=== PATIENT | female | born 1985 | race Hispanic/Latino ===

== ENCOUNTER 2019-11-25 08:05 | Day surgery (SDC) | payer OTHER ==
[2019-11-25 08:13] LABS: Specific Gravity 1.015 (1.005-1.030)
--- OUTSIDE RECORDS SUMMARY | 2019-11-25 08:20 | XMS REPORT | Clinical Summary ---
:1985 Author Organization [facility] Address [address] [place] [address] Care Team Providers Name Role Phone Asked, Pcp Primary Care Provider Unavailable Allergies Active Allergy Reactions Severity Noted Date Comments Ketorolac 10/01/2016 Penicillins GI Intolerance 10/07/2016 Prochlorperazine Edisylate Itching 11/08/2013 Tramadol Anxiety, Itching Low 10/01/2016 Medications Medication Sig Dispensed Refills Start Date End Date Status tacrolimus (PROGRAF) 1 TK 8 CS PO QAM 11 04/28/2018 Active MG capsule AND 9 CS PO QPM predniSONE (DELTASONE) 5 TK 1 T PO D 9 03/13/2018 Active mg tablet Active Problems Not on file Encounters Date Type Specialty Care Team Description 11/03/2019 Travel 10/29/2019 Community Orders ADMIN Toño De Souza MD Urinary tract infection without hematuria, site unspecified (Primary Dx); Bacterial infec tion due to Klebsiella pneumoniae; Transplanted ki dney after 11/24/2018 Social History Tobacco Use Types Packs/Day Years Used Date Never Smoker Smokeless Tobacco: Never Used Alcohol Use Drinks/Week oz/Week Comments No Alcohol Habits Answer Date Recorded How often do you have a drink containing alcohol? Never 05/11/2018 How many drinks containing alcohol do you have on a typical Not asked day when you are drinking? How often do you have six or more drinks on one occasion? No t asked Sex Assigned at Date Recorded Not on file Job Start Date Occupation Industry Not on file Not on file Not on file Travel History Travel Start Travel End No recent travel history available. COVID-19 Exposure Response Date Recorded In the last month, have you been in contact with No / Unsure 11/03/2019 11:48 AM CDT someone who was confirmed or suspected to have Coronavirus / COVID-19? Last Filed Vital Signs Not on file Plan of Treatment Health Maintenance Due Date Last Done Comments CERVICAL CANCER SCREENING 2007 INFLUENZA VACCINE 12/16/2019 Results Not on fileafter 11/24/2018 Insurance Payer Benefit Plan / Subscriber ID Effective Dates Phone Addre ss Type Group MEDICARE MEDICARE PART A xxxxxxxxxxx 2010-Present [place], [place] Medicare AND B MEDICAID MEDICAID xxxxxxxxx 2014-Present Med icaid Advance Directives For more information, please contact: [phone] Type Date Recorded Patient Terminal Supervisor Explanati on Advance Directives, 01/27/2016 12:01 PM Living Will and Medical Power of Visitor Use Assistant
--- OUTSIDE RECORDS SUMMARY | 2019-11-25 08:21 | XMS REPORT | Clinical Summary ---
:1985 Author Organization [facility] Address [address] [place] [address] Care Team Providers Name Role Phone Gui Unavailable Johnnie Mensah MD Primary Care Provider Allergies Active Allergy Reactions Severity Noted Date Comments Prochlorperazine Edisylate Itching 11/08/2013 Penicillins Nausea And Vomiting 10/07/2016 Ketorolac 10/01/2016 Tramadol Itching, Anxiety Low 10/01/2016 Medications Medication Sig Dispensed Refills Start Date End Date Status tacrolimus (PROGRAF) 1 Take 8 mg In 510 capsule 11 12/30/2017 Active MG capsuleIndications: the am and S/P kidney transplant, 9mg in the Immunosuppression (HCC) pm. brompheniramine-pseudoe Take 5 mLs by 118 mL 0 01/28/2018 Active ph-DM (BROMFED DM) mouth every 4 2-30-10 mg/5 mL Syrp (four) hours. HYDROcodone-acetaminoph Take 1 tablet 20 tablet 0 11/20/2018 Active en (NORCO 5-325) 5-325 by mouth mg per tablet every 8 (eight) hours as needed for Pain. Max Daily Amount: 3 tablets predniSONE (DELTASONE) Take 1 tablet 90 tablet 3 05/15/2018 5 MG tabletIndications: (5 mg total) S/P kidney transplant by mouth daily. cefpodoxime (VANTIN) Take 1 tablet 14 tablet 0 12/03/201811/16 200 MG tablet (200 mg total) by mouth 2 (two) times daily for 7 days. acetaminophen-codeine Take 1 tablet 15 tablet 0 12/03/2018 (TYLENOL #3) 300-30 mg by mouth per tablet every 6 (six) hours as needed for Pain for up to 10 days. Max Daily Amount: 4 tablets ondansetron Take 1 tablet 20 tablet 0 12/03/2018 12/10/2018 Ex pired (ZOFRAN-ODT) 4 MG (4 mg total) disintegrating tablet by mouth every 8 (eight) hours as needed for Nausea for up to 7 days. nitrofurantoin, Take 1 14 capsule 0 12/11/2018 12/18/2018 E xpired macrocrystal-monohydrat capsule (100 e, (MACROBID) 100 MG mg total) by capsule mouth 2 (two) times daily for 7 days. nitrofurantoin, Take 1 20 capsule 0 01/11/2019 01/21/2019 E xpired macrocrystal-monohydrat capsule (100 e, (MACROBID) 100 MG mg total) by capsule mouth 2 (two) times daily for 10 days. phenazopyridine Take 1 tablet 6 tablet 0 01/11/2019 9 (PYRIDIUM) 200 MG (200 mg tablet total) by mouth 3 (three) times daily for 3 days. Active Problems Problem Noted Date CATRACHO (acute kidney injury) 11/02/2017 Bloating 09/02/2017 Last Assessment & Plan: Bloating persistent for a few months. Sh e will need to follow up with GI as outpatient. Fever 08/13/2017 UTI (urinary tract infection) 02/15/2017 Vomiting 09/03/2016 Last Assessment & Plan: Vomited this am. Recently started cellce pt 500 mg po BID. She states that she has taken cellcept before and it caused GI u pset. We will suggest switching from Cellcept to Myfortic. Immunosuppression 08/27/2016 Last Assessment & Plan: She denies headaches or tremors with her immunosuppression. We will adjust her dose according to her levels. Dizziness 08/27/2016 Last Assessment & Plan: She mentions that for the past three day s she has had intermittent dizziness. It is not attributed to anything. Blood pressu res are controlled and she does not monitor her blood glucose. Continue to monitor f or now. Kidney transplant status, cadaveric 08/20/2016 Last Assessment & Plan: She is s/p kidney transplant from 017. She is doing well and has no evidence of recurrent disease. Acute post-operative pain 08/09/2016 Last Assessment & Plan: Continued RLQ post op pain, but resolvin g Uncomplicated asthma, unspecified asthma severity 07/16 Secondary hypertension 08/09/2016 Last Assessment & Plan: Resolving since since DDKT Acute pulmonary insufficiency following non-thoracic s urgery 08/09/2016 Acute blood loss anemia 08/09/2016 End stage renal disease 08/08/2016 Palpitations 03/20/2016 Tachycardia 03/20/2016 Well woman exam 07/07/2015 Irregular menstrual bleeding 06/05/2015 Skin abnormalities 06/05/2015 Chronic pain of lower extremity 06/05/2015 Overview: UPDATED BY ICD10 SNOMED/IMO UPDATES Last Assessment & Plan: -The etiology of her leg pain is not clear. -It sounds like she has received hydroco done in the past for an unclear diagnosis. I stressed with the patient about the long-term risks of using hydrocodone, and I explained that I would not be prescribing this. -I suggested that she could consider kulwant n management evaluation if she would like to look for diagnosis for her pain. I emphasized that this would not be for chronic narcotic prescribing. ESRD (end stage renal disease) 04/04/2014 Last Assessment & Plan: S/p kidney transplant. No longer require s dialysis. Moderate persistent asthma without complication Last Assessment & Plan: -Symptoms appear to be well-controlled at this time. -The patient declined to fill out an ast hma control test or symptom questionnaire. -Refill current medications. She will co ntinue medium dose Advair for the time being. Essential hypertension Last Assessment & Plan: -Patient is currently using benazepril as needed. I explained to the patient that the medication is not normally prescribed in this way. -She is already monitoring her blood pre ssures. I asked her to bring her blood pressure log to her next visit so that we can determine what changes if any we can make to her antihypertensive therapy. -Of note, the diastolic blood pressure w as elevated today. She may possibly benefit from regular use of low-dose AHRVEY inhibitor. Lupus (systemic lupus erythematosus) Last Assessment & Plan: No evidence of recurrent disease at this time. Seizures Hypertension Last Assessment & Plan: Blood pressures are controlled on curren t therapy. Encounters Date Type Specialty Care Team Description 11/17/2019 Emergency Emergency Medicine Anil Regan MD 08/24/2019 Documentation Transplant Anabel Grayson RN 01/11/2019 Emergency Emergency Medicine Rajesh Arguellour ia (Primary Dx); MD Nicole Acute UTI; History of linda l transplant; History of lupu s ([facility]); ESRD (end-stage renal disease) due to SLE ([facility]); ESRD (end stage renal disease) ([facility]); Essential hyper tension; Secondary hyper tension; Kidney transpla nt status, cadaveric; Systemic lupus erythematosus with tubulo-interstitial nephropathy, unspecified SLE type ([facility]) 12/23/2018 - Emergency Emergency Medicine Kennedy Russo Peripanna eral edema (Primary Dx); 12/24/2018 MD Alessandro Kidney transpla nted 12/23/2018 Travel 12/11/2018 Emergency Emergency Medicine Frederick Kilgore Acute cys titis with hematuria (Primary Dx); III, DO H/O kidney parrish splant 12/11/2018 Travel 12/03/2018 Emergency Emergency Medicine Jaydon Villanueva Dysuria ( Primary Dx); MD Estevan Acute UTI; Renal transplan t, status post; CATRACHO (acute kidn ey injury) ([facility]) after 11/24/2018 Family History Medical History Relation Name Comments Asthma Brother Unremarkable Daughter Unremarkable Father Unremarkable Mother Asthma Sister Relation Name Status Comments Brother Alive Daughter Alive Father Alive Mother Alive Sister Alive Social History Tobacco Use Types Packs/Day Years Used Date Never Smoker Smokeless Tobacco: Never Used Alcohol Use Drinks/Week oz/Week Comments No Sex Assigned at Date Recorded Not on file Job Start Date Occupation Industry Not on file Not on file Not on file Travel History Travel Start Travel End No recent travel history available. Last Filed Vital Signs Vital Sign Reading Time Taken Blood Pressure 117/69 01/11/2019 4:09 PM CDT Pulse 100 01/11/2019 4:09 PM CDT Temperature 36.9 C (98.4 F) 01/11/2019 4:09 PM CDT Respiratory Rate 18 01/11/2019 4:09 PM CDT Oxygen Saturation 98% 01/11/2019 4:09 PM CDT Inhaled Oxygen Concentration - - Weight 78.9 kg (174 lb) 01/11/2019 4:09 PM CDT Height 167.6 cm (5' 6") 01/11/2019 4:09 PM CDT Body Mass Index 28.08 01/11/2019 4:09 PM CDT Plan of Treatment Health Maintenance Due Date Last Done Comments PNEUMOCOCCAL VACCINE 2-64 YEARS AT RISK (1 1992 of 1 - PPSV23) MEDICARE ANNUAL WELLNESS (YEAR 2 or FIRST 08/17/2011 YEAR if no IPPE) LIPID PANEL 06/29/2017 06/29/2014, 11/08/2013 INFLUENZA VACCINE (#1) 2019 CERVICAL CANCER SCREENING HPV AND PAP 12/10/2021 12/10/2016 , 12/10/2016 SMEAR (Age 30-65) Implants Implanted Type Area Cath Lab Tech Device Shelf Model / Serial / Identifier Expiration Lot Date Stent Uret Polaris [id number] - [id number] Uro N/A: ELIO ON 03/27/2019 [id number] / Implanted: Qty: 1 on 08/08/2016 by Khai Dorman Aba, MD ent Groin SCI:UROLOGY/FISHERY BIOLOGIST [id number] / ECOLOGY Procedures Procedure Name Priority Date/Time Associated Comments Diagnosis SCREEN, STAT 01/11/2019 4:45 Result s for this URINE PM CDT procedure are i n the results section. URINALYSIS W/ STAT 01/11/2019 4:45 Results fo r this MICROSCOPIC PM CDT procedure are i n the results section. BASIC METABOLIC PANEL STAT 12/24/2018 12:50 Re sults for this (7) AM CDT procedure are i n the results section. HEPATIC FUNCTION PANEL STAT 12/24/2018 12:50 R esults for this AM CDT procedure are i n the results section. B-TYPE NATRIURETIC STAT 12/24/2018 12:50 Resul ts for this FACTOR (BNP) AM CDT procedure are i n the results section. CBC W/PLT COUNT & AUTO STAT 12/23/2018 10:14 R esults for this DIFFERENTIAL PM CDT procedure are i n the results section. CBC W/PLT COUNT & AUTO STAT 12/23/2018 10:14 R esults for this DIFFERENTIAL PM CDT procedure are i n the results section. BASIC METABOLIC PANEL STAT 12/23/2018 10:14 Re sults for this (7) PM CDT procedure are i n the results section. URINALYSIS WITH STAT 12/23/2018 9:28 Results for this MICROSCOPIC IF PM CDT procedure are in INDICATED the results section. URINE CULTURE STAT 12/11/2018 2:04 Results fo r this AM CDT procedure are i n the results section. CBC W/PLT COUNT & AUTO STAT 12/11/2018 2:03 R esults for this DIFFERENTIAL AM CDT procedure are i n the results section. CBC W/PLT COUNT & AUTO STAT 12/11/2018 2:03 R esults for this DIFFERENTIAL AM CDT procedure are i n the results section. BASIC METABOLIC PANEL STAT 12/11/2018 2:02 Re sults for this (7) AM CDT procedure are i n the results section. SCREEN, STAT 12/11/2018 12:58 Result s for this URINE AM CDT procedure are i n the results section. URINALYSIS W/ STAT 12/11/2018 12:58 Results fo r this MICROSCOPIC AM CDT procedure are i n the results section. CBC W/PLT COUNT & AUTO STAT 12/03/2018 2:47 R esults for this DIFFERENTIAL AM CDT procedure are i n the results section. COMPREHENSIVE STAT 12/03/2018 2:47 Results fo r this METABOLIC PANEL AM CDT procedure ar e in the results section. CBC W/PLT COUNT & AUTO STAT 12/03/2018 2:47 R esults for this DIFFERENTIAL AM CDT procedure are i n the results section. SCREEN, STAT 12/03/2018 2:21 Result s for this URINE AM CDT procedure are i n the results section. URINALYSIS W/ STAT 12/03/2018 2:21 Results fo r this MICROSCOPIC AM CDT procedure are i n the results section. after 11/24/2018 Results screen, urine (01/11/2019 4:45 PM CDT)Only the most recent of3 resultswithin the time period is included. Preg Test, Ur Negative [facility] Specimen Urine Performing Organization Address City/State/Zipcode Phone Number [facility] [address] [place], [place] [address] Urinalysis w/Microscopic (01/11/2019 4:45 PM CDT)Only the most recent of3 resultswithin the time period is included. Color, UA Yellow [facility] Clarity, UA Slightly Cloudy [facility] Specific [place], UA 1.015 1.001 - 1.035 [facility] pH, UA 6.0 5.0 - 8.0 [facility] Protein, UA 30 mg/dL (A) Negative [facility] Glucose, UA Negative Negative [facility] Ketones, UA Negative Negative [facility] Bilirubin, UA Negative Negative [facility] Blood, UA Small (A) Negative [facility] Nitrite, UA Negative Negative [facility] Leukocytes, UA Moderate (A) Negative [facility] Urobilinogen, UA 0.2 0.2 - 1.0 mg/dL [facility] Bacteria, UA Few [facility] RBC, UA 5-10 /HPF [facility] WBC, UA >100 /HPF [facility] SQUAMOUS EPITHELIAL None Seen /HPF [facility] Specimen Source [facility] Specimen Urine Performing Organization Address City/State/Zipcode Phone Number [facility] [address] [place], [place] [address] B-type natriuretic peptide (12/24/2018 12:50 AM CDT) BNP 13 0 - 100 pg/mL [facility] Specimen Blood Performing Organization Address City/State/Zipcode Phone Number [address] [address] CENTER Liver Panel (12/24/2018 12:50 AM CDT) Protein, Total 7.3 6.0 - 8.3 gm/dL [facility] Albumin 4.5 3.5 - 5.0 g/dL [facility] Total Bilirubin 0.2 0.2 - 1.2 mg/dL [facility] Bilirubin, Direct 0.1 0.1 - 0.5 mg/dL [facility] Alkaline Phosphatase 77 40 - 150 U/L [facility] AST 15 5 - 34 U/L [facility] ALT 20 6 - 55 U/L [facility] Specimen Blood Performing Organization Address City/[facility]/Zipcode Phone Number [place] [phone] [place], [place] [phone] [place] Basic Metabolic Panel (12/24/2018 12:50 AM CDT)Only the most recent of3 results within the time period is included. Sodium 138 136 - 145 meq/L [facility] Potassium 3.9 3.5 - 5.1 meq/L [facility] Chloride 108 (H) 98 - 107 meq/L [facility] CO2 20 (L) 22 - 29 meq/L [facility] BUN 20 7 - 21 mg/dL [facility] Creatinine 1.00 0.57 - 1.25 mg/dL [facility] Glucose 126 (H) 70 - 105 mg/dL [facility] Calcium 10.0 8.4 - 10.2 mg/dL [facility] EGFR 64Comment: ESTIMATED GFR IS mL/min/1.73 sq m [facility] NOT ACCURATE CREATININE [facility] CLEARANCE IN PREDICTING GLOMERULAR FILTRATION RATE. ESTIMATED GFR IS NOT APPLICABLE FOR DIALYSIS PATIENTS. Specimen Blood Performing Organization Address City/[facility]/Zipcode Phone Number [place] [phone] [place], [place] [phone] [place] CBC with platelet count + automated diff (12/23/2018 10:14 PM CDT)Only the most recent of3 resultswithin the time period is included. WBC 9.2 3.5 - 10.5 K/L [facility] RBC 4.08 3.93 - 5.22 M/L [facility] Hemoglobin 12.2 11.2 - 15.7 GM/DL [facility] Hematocrit 37.5 34.1 - 44.9 % [facility] MCV 91.9 79.4 - 94.8 fL [facility] MCH 29.9 25.6 - 32.2 pg [facility] MCHC 32.5 32.2 - 35.5 GM/DL [facility] RDW 13.5 11.7 - 14.4 % [facility] Platelets 232 150 - 450 K/CU MM [facility] MPV 10.7 9.4 - 12.3 fL [facility] nRBC 0 0 - 0 /100 WBC [facility] % Neutros 62 % [facility] % Lymph[facility] 25 % [facility] % Monos 9 % [facility] % Eos 3 % [facility] % Baso 1 % [facility] # Neutros 5.69 1.56 - 6.13 K/L [facility] # Lymphs 2.30 1.18 - 3.74 K/L [facility] # Monos 0.78 (H) 0.24 - 0.36 K/L [facility] # Eos 0.25 0.04 - 0.36 K/L [facility] # Baso 0.06 0.01 - 0.08 K/L [facility] Immature Granulocytes-Relative 1 0 - 1 % C HI [facility] Specimen Blood Performing Organization Address City/State/Zipcode Phone Number [facility] [address] [place] [address] CENTER Urinalysis with Microscopic If Indicated (12/23/2018 9:28 PM CDT) Color, UA Light Yellow [facility] Clarity, UA Clear [facility] Specific [place], UA 1.006 1.001 - 1.035 [facility] pH, UA 6.0 5.0 - 8.[address] [facility] Protein, UA Negative Negative [facility] Glucose, UA Negative Negative [facility] Ketones, UA Negative Negative [facility] Bilirubin, UA Negative Negative [facility] Blood, UA Negative Negative [facility] Nitrite, UA Negative Negative [facility] Leukocytes, UA Negative Negative [facility] Urobilinogen, UA 0.2 0.2 - 1.0 mg/dL [facility] Specimen Source [facility] Specimen Urine Performing Organization Address City/State/Zipcode Phone Number [facility] [address] [place] [address] CENTER Urine culture (12/11/2018 2:04 AM CDT) Result No growth [facility] Specimen Urine Performing Organization Address City/State/Zipcode Phone Number [facility] [address] [place], [place] [address] Comprehensive metabolic panel (12/03/2018 2:47 AM CDT) Protein, Total 7.5Comment: Specimen 6.0 - 8.5 gm/dL [facility] slightly hemolyzed Albumin 4.5Comment: Specimen 3.5 - 5.0 g/dL [facility] slightly hemolyzed Alkaline Phosphatase 82 30 - 115 U/L [facility] Total Bilirubin <0.2Comment: Specimen 0.1 - 1.2 mg/dL [facility] slightly hemolyzed Sodium 140 135 - 148 meq/L [facility] Potassium 4.1Comment: Specimen 3.6 - 5.5 meq/L [facility] slightly hemolyzed Chloride 107 (H) 98 - 106 meq/L [facility] CO2 23 20 - 29 meq/L [facility] BUN 23 10 - 26 mg/dL [facility] Creatinine 1.28 (H)Comment: 0.50 - 1.20 mg/dL [facility] Specimen slightly hemolyzed Glucose 116 (H) 70 - 110 mg/dL [facility] Calcium 9.9 8.5 - 10.5 mg/dL [facility] AST 14Comment: Specimen 5 - 40 U/L [facility] slightly hemolyzed ALT 13Comment: Specimen 5 - 50 U/L [facility] slightly hemolyzed EGFR 48Comment: ESTIMATED GFR mL/min/1.73 sq m [facility] IS NOT ACCURATE CREATININE CLEARANCE IN PREDICTING GLOMERULAR FILTRATION RATE. ESTIMATED GFR IS NOT APPLICABLE FOR DIALYSIS PATIENTS. Specimen Blood Performing Organization Address City/State/Zipcode Phone Number [facility] [address] [place], [place] [address] after 11/24/2018 Insurance Payer Benefit Plan / Group Subscriber ID Type Phone A ddress MEDICARE MEDICARE A B xxxxxxxxxxx Medicare Advance Directives For more information, please contact:[address] [phone] Code Status Date Activated Date Inactivated Comments Full Code 11/02/2017 7:46 AM 11/03/2017 3:48 PM This code status was determined by: Patient Full Code 03/25/2017 8:30 PM 03/26/2017 12:37 AM This code status was determined by: Patient Full Code 02/14/2017 11:35 PM 02/15/2017 5:17 AM This code status was determined by: Patient Full Code 08/09/2016 12:07 AM 08/13/2016 11:46 PM This code status was determined by: Patient Full Code 08/08/2016 8:05 PM 08/09/2016 12:06 AM This code status was determined by: Patient
[2019-11-25] MEDS ORDERED: Ringers Lactate 0 ML IV ONE ×2 (08:31)
[2019-11-25] MEDS ORDERED: BACITRACIN 50000 UNIT VIAL ONE (08:31)
[2019-11-25] MEDS ORDERED: Mastisol Adhesive Liq ONE (08:31)
[2019-11-25] MEDS ORDERED: GENTAMICIN SULF 80 MG/2ML INJ ONE (08:31)
[2019-11-25] MEDS ORDERED: CEFAZOLIN SODIUM 1 GM/VIAL ONE (08:31)
[2019-11-25] MEDS ORDERED: LIDOCAINE 1% W/EPI 1:100,000 MDV 20 ML VIAL ONE (08:31)
[2019-11-25] MEDS ORDERED: NS 0.9% VIAL 60 ML ONE (08:31)
--- OUTSIDE RECORDS SUMMARY | 2019-11-25 08:31 | XMS REPORT | Continuity of Care Document ---
:[address] [facility] t Address [address] [place] [address] Care Team Providers Name Role Phone Asked, Pcp Primary Care Physician Unavailable Carloz Dalton MD Attending Clinician Arianne De Souza MD Attending Clinician Renuka GREGORY Attending Clinician Unavailable CHIKIS Attending Clinician Unavailable Philippe Arguello MD Attending Clinician PHILIPPE ARGUELLO Attending Clinician Unavailable Alessandro Pena MD Attending Clinician ALESSANDRO PENA Attending Clinician Unavailable MAGUI Attending Clinician Unavailable Magui DO Attending Clinician Estevan Gamino MD Attending Clinician ESTEVAN GAMINO Attending Clinician Unavailable MARCELO MUJICA Attending Clinician Unavailable CARSON STANTON Attending Clinician Unavailable ORTIZ Attending Clinician Unavailable CARLOZ DALTON Attending Clinician Unavailable CHRISTOPHER RODRIGUES Attending Clinician Unavailable ELIAS LOUIE Attending Clinician Unavailable EMILY TORRES Attending Clinician Unavailable Santosh LEHMAN Attending Clinician Unavailable TWAN VIRAMONTES Attending Clinician Unavailable SHARYN WILCOX Attending Clinician Unavailable MARIA VICTORIA ALCANTAR Attending Clinician Unavailable CESAR ROQUE Attending Clinician Unavailable MASHA PFEIFFER Attending Clinician Unavailable JASE BASILIO Attending Clinician Unavailable JAVIER FONG Attending Clinician Unavailable EMILY TORRES Admitting Clinician Unavailable TWAN VIRAMONTES Admitting Clinician Unavailable CESAR ROQUE Admitting Clinician Unavailable JASE BASILIO Admitting Clinician Unavailable JAVIER FONG Admitting Clinician Unavailable Payers Payer Name Policy Policy Number Effective Expiration Source Type Date Date MEDICAREMEDICARE A xxxxxxxxxxx [facility] MEDICAREMEDICARE PART A xxxxxxxxxxx 2010 [place] AND 00:00:00 [place]ism [place] xxxxxxxxx 2014 [place] x2014-PresentMedicai 00:00:00 Taoism domingo Problems Condition Condition Condition Status Onset Resolution Last Treating Co mments Source Name Details Category Date Date Treatment Clinician Date CATRACHO (acute CATRACHO (acute Disease Active [facility] kidney kidney 8-19 [facility] - injury) injury) 00:00: Medical 00 Center Bloating Bloating Disease Active [facility] - 00:00: t & Plan: Medical Bloating Center persisten t for a few months. She will need to follow up with GI as outpatien t. Fever Fever Disease Active [facility] 5-30 [facility] - 00:00: Medical 00 Center UTI UTI Disease Active 2016-[address] [facility] (urinary (urinary 2-02 [facility] - tract tract 00:00: Medical infection) infection) 00 Ce nter Vomiting Vomiting Disease Active [facility] 6-20 Assessmen [facility] - 00:00: t & Plan: Medical Vomited Center this am. Recently started cellcept 500 mg po BID. She states that she has taken cellcept before and it caused GI upset. We will suggest switching from Cellcept to Myfortic. Immunosupp Immunosupp Disease Active Last [facility] ression ression 6-13 Assessmen [facility] - 00:00: t & Plan: Medical She Center denies headaches or tremors with her immunosup pression. We will adjust her dose according to her levels. Dizziness Dizziness Disease Active Last [facility] 6[facility]13 Ass[facility]men [facility] - 00:00: t & Plan: Medical She Center mentions that for the past three days she has had intermitt ent dizziness . It is not attribute d to anything. Blood pressures are controlle d and she does not monitor her blood glucose. Continue to monitor for now. Kidney Kidney Disease Active Last [facility] transplant transplant 08-20 Assessmen Matt - status, status, 00:00: t & Plan: Medic al cadaveric cadaveric 00 She is Cent er s/p kidney transplan t from 08/08/2016 . She is doing well and has no evidence of recurrent disease. Acute Acute Disease Active Last [facility] post-opera post-opera 08-09 Assessmariah Gutierrez - tive pain tive pain 00:00: t & Plan: M edical 00 Continued Center RLQ post op pain, but resolving Uncomplica Uncomplica Disease Active [facility] amaris amaris 08-09 [facility] - asthma, asthma, 00:00: Medical unspecifie unspecifie 00 Ce nter d asthma d asthma severity severity Secondary Secondary Disease Active Last [facility] hypertensi hypertensi 08-09 Assessmen Matt - on on 00:00: t & Plan: Medical 00 Resolving Center since since DDKT Acute Acute Disease Active [facility] pulmonary pulmonary 08-09 [facility] - insufficie insufficie 00:00: Me dical ncy ncy 00 Center following following non-thorac non-thorac ic surgery ic surgery Acute Acute Disease Active [facility] blood loss blood loss - [place] [facility] - anemia anemia 00:00: Medical 00 [place] End stage End stage Disease Active [facility] renal renal 08-08 [facility] - disease disease 00:00: Medical 00 [place] Palpitatio Palpitatio Disease Active [facility] ns ns 1- [facility] - 00:00: Medical 00 [place] Tachycardi Tachycardi Disease Active [facility] a a 1-04 [facility] - 00:00: Medical 00 [place] Well woman Well woman Disease Active [facility] exam exam 07-06 [facility] - 00:00: Medical 00 [place] Irregular Irregular Disease Active [facility] menstrual menstrual 3- Luke s - bleeding bleeding 00:00: Medica l 00 [place] Skin Skin Disease Active [facility] abnormalit abnormalit 3-21 [facility] - ies ies 00:00: Medical 00 [place] Chronic Chronic Disease Active 2016-0 Overview: [facility] pain of pain of 3-21 UPDATED [facility] - lower lower 00:00: BY ICD10 Medical extremity extremity 00 SNOMED/IM C enter O UPDATESLa st Assessmen t & Plan: -The etiology of her leg pain is not clear.-It sounds like she has received hydrocodo ne in the past for an unclear diagnosis . I stressed with the patient about the long-term risks of using hydrocodo ne, and I explained that I would not be prescribi ng this.-I suggested that she could consider pain managemen t evaluatio n if she would like to look for diagnosis for her pain. I emphasize d that this would not be for chronic narcotic prescribi ng. ESRD (end ESRD (end Disease Active Last stage stage 1-19 Assessmen [facility] - renal renal 00:00: t & Plan: Medical disease) disease) 00 S/p Center kidney transplan t. No longer requires dialysis. 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 She will continue medium dose Advair for the time being. Essential Essential Disease Active Last St hypertensi hypertensi Assessmen [facility]ukes - on on t & Plan: Medical -Patient Center is currently using benazepri l as needed. I explained to the patient that the medicatio n is not normally prescribe d in this way.-She is already monitorin g her blood pressures . I asked her to bring her blood pressure log to her next visit so that we can determine what changes if any we can make to her antihyper tensive therapy.- Of note, the diastolic blood pressure was elevated today. She may possibly benefit from regular use of low-dose HARVEY inhibitor . Lupus Lupus Disease Active Last [facility] (systemic (systemic Assessmen L ukes - lupus lupus t & Plan: Medical erythemato erythemato No Ce nter laura) laura) evidence of recurrent disease at this time. Seizures Seizures Disease Active [facility] Hypertensi Hypertensi Disease Active Last [facility] on on Assessmen [facility] - t & Plan: Medical Blood Center pressures are controlle d on current therapy. Allergies, Adverse Reactions, Alerts Allergy Allergy Status Severity Reaction(s) Onset Inactive Treating Comm ents Source Name Type Date Date Clinician Penicill Propensi Active GI [place] ty to Intolerance 10-07 Metho di adverse 00:00: st reaction 00 s to drug Penicill Propensi Active Nausea And [facility] ins ty to Vomiting 10-07 [facility] - adverse 00:00: Medical reaction 00 [place] Ketorola Propensi Active [place] ty to 10-01 Methodi adverse 00:00: st reaction 00 s to drug Tramadol Propensi Active Anxiety, [place] ty to Itching 10-01 Methodi adverse 00:00: st reaction 00 s to drug Ketorola Propensi Active [facility] c ty to 10-01 [facility] - adverse 00:00: Medical reaction 00 [place] s Tramadol Drug Active Itching, [facility] Intolera Anxiety 10-01 [facility] - nce 00:00: Medical 00 [place] Prochlor Propensi Active Itching [place] perazine ty to 11-08 Methodi Edisylat adverse 00:00: st e reaction 00 s to drug Prochlor Propensi Active Itching [facility] t perazine ty to 8-25 [facility] - Edisylat adverse 00:00: Medical e reaction 00 [place] Compazin drug Active [facility] e allergy [facility] [place] [facility] Toradol drug Active [facility] [place] [facility] tramadol drug Active [facility] [place] [facility] Family History Family Member Diagnosis Comments Start Date Stop Date Source Mother Family history of Univers ity of diabetes mellitus [place] [facility] Natural brother Asthma [facility] Natural daughter Unremarkable [facility] Natural father Unremarkable [facility] Natural mother Unremarkable [facility] Natural sister Asthma [facility] Social History Social Habit Start Date Stop Date Quantity Comments Source History [facility] Meth odist Alcohol Std Drinks History [facility] Meth odist Alcohol Binge Exposure to Not sure [place] Metho dist SARS-CoV-2 (event) Sex Assigned At [facility] Alcohol intake 2018-05-11 2018-05-11 Current [place] Me thodist 00:00:00 00:00:00 non-drinker of alcohol (finding) History SDOH 2018-05-11 2018-05-11 1 [place] Meth odist Alcohol Frequency 00:00:00 00:00:00 Smoking Status Start Date Stop Date Source Never smoker [facility] Medications Ordered Filled Start Stop Current Ordering Indication Dosage Frequency Signature Comments Components Source Medication Medication Date Date Medication? Clinician (SIG) Name Name clomiPHENE clomiPHENE Yes AZEEMA 1 TAB PO Univers Citrate 50 Citrate 50 1-07 MOOSA M.D. QD ON DAYS ity of MG Oral MG Oral 00:00: 5-9 DAYS Jet as Tablet Tablet 00 OF CYCLE Physici ans nitrofurant 2018-03- No 100mg Q.5D Take [address] oin, 01-21 capsule [facility]ukes - macrocrysta 00:00: 23:59 (100 mg Me dical l-monohydra 00 :00 total) by [facility] ter te, mouth 2 (MACROBID) (two) 100 MG times capsule daily for 10 days. phenazopyri 2018-03- No 200mg [id number] Take [address] [facility] St dine 001-14 [id number] tablet [facility]ukes - (PYRIDIUM) 00:00: 23:59 3D (200 mg Med ical 200 MG 00 :00 total) by [place] tablet mouth 3 (three) times daily for 3 days. nitrofurant 2018- No 100mg Q.5D Take [address] oin, 12-11 10 capsule [facility] - macrocrysta 00:00: 23:59 (100 mg Me dical l-monohydra 00 :00 total) by [facility] ter te, mouth 2 (MACROBID) (two) 100 MG times capsule daily for 7 days. acetaminoph 2018- No 1{tbl} Take [address] en-codeine 12-03 tablet by Nabeel goldberg - (TYLENOL 00:00: 23:59 mouth Medical #3) 300-30 00 :00 every 6 Center mg per (six) tablet hours as needed for Pain for up to 10 days. Max Daily Amount: 4 tablets cefpodoxime 2018- No 200mg Q.5D Take [address] (VANTIN) 12-03 tablet [facility] - 200 MG 00:00: 23:59 (200 mg Medical tablet 00 :00 total) by Center mouth 2 (two) times daily for 7 days. ondansetron 2018- No 4mg Take [address] (ZOFRAN-ODT 12-03 tablet (4 [place] kes - ) 4 MG 00:00: 23:59 mg total) Medic al disintegrat 00 :00 by mouth Cent er ing tablet every 8 (eight) hours as needed for Nausea for up to 7 days. HYDROcodone Yes 1{tbl} Take [address] -acetaminop 9-06 tablet by Nabeel goldberg - hen (NORCO 00:00: mouth Medica l 5-325) 00 every 8 Center 5-325 mg (eight) per tablet hours as needed for Pain. Max Daily Amount: 3 tablets predniSONE 2019- No S/P kidney 5mg QD Take [address] (DELTASONE) 3-03 18-29 transplant tablet (5 [facility] - 5 MG tablet 00:00: 23:59 mg total) Medical 00 :00 by mouth Center daily. tacrolimus Yes TK 8 CS PO [place] (PROGRAF) 1 2-12 QAM AND 9 Met hodi MG capsule 00:00: CS PO QPM st 00 predniSONE 2017-03 Yes TK 1 T PO [place] (DELTASONE) 2-28 D Methodi 5 mg tablet 00:00: st 00 bromphenira 2017-03 Yes 5mL Take [address] mine-pseudo 1-14 by mouth Ammon s - eph-DM 00:00: every 4 Medical (BROMFED 00 (four) Center DM) 2-30-10 hours. mg/5 mL Syrp tacrolimus 2018-1 Yes Immunosuppr Take [address] (PROGRAF) 1 0-16 ession In the am L ukes - MG capsule 00:00: ([facility]) and 9mg in Medical 00 the pm. Center Tacrolimus Tacrolimus Yes M.A. Uni vers 1 MG Oral 1 MG Oral ity o f Capsule Capsule [place] [facility] predniSONE predniSONE Yes M.A. Uni vers 5 MG Oral 5 MG Oral ity o f Tablet Tablet [place] [facility] Vital Signs Vital Name Observation Time Observation Value Comments Source BP Systolic 2019-03-23 130 mm[Hg] Location: [facility] :: Position: [place] [facility] Sitting BP Diastolic 2019-03-23 80 mm[Hg] Location: [facility] :: Position: [place] [facility] Sitting Height 2019-03-23 65 [in_us] [facility] :: [place] [facility] Weight 2019-03-23 179 [lb_av] [facility] :: [place] [facility] Body Mass Index 2019-03-23 29.79 kg/m2 [place] o f Calculated 11:: [place] [facility] Heart Rate 2019-03-23 82 /min [facility] :: [place] [facility] BP Systolic 2019-01-18 127 mm[Hg] Location: [facility] :30: Position: [place] [facility] Sitting BP Diastolic 2019-01-18 80 mm[Hg] Location: [facility] :30:00 Position: [place] [facility] Sitting Height 2019-01-18 65 [in_us] [facility] :30:00 [place] [facility] Weight 2019-01-18 172 [lb_av] [facility] :: [place] [facility] Body Mass Index 2019-01-18 28.62 kg/m2 [place] o f Calculated 10:30: [place] [facility] Heart Rate 2019-01-18 78 /min [facility] :: [place] [facility] Systolic blood 2019-01-11 117 mm[Hg] [facility] - pressure 16:09:00 [facility] Diastolic blood 2019-01-11 69 mm[Hg] [facility] - pressure 16:09:00 [facility] Heart rate 2019-01-11 100 /min [facility] - 16:09:00 [facility] Body temperature 2019-01-[address] [facility] - 16:09:00 [facility] Respiratory rate 2019-01-11 18 /min MARK Jean s - 16:09:00 [facility] Body height 2019-01-11 167.6 cm MARK Ozuna - 16:09:00 [facility] Body weight 2019-01-11 78.926 kg MARK Ozuna - Measured 16:09:00 [facility] BMI 2019-01-11 28.08 kg/m2 MARK Ozuna - 16:09:00 [facility] Oxygen saturation 2019-01-11 98 /min MARK Barrientos es - in Arterial blood 16:09:00 Medical nter by Pulse oximetry BP Systolic 2018-09-15 122 mm[Hg] Location: [facility]; [facility] 11:58:00 Position: [place] [facility] Sitting BP Diastolic 2018-09-15 81 mm[Hg] Location: [facility]; [facility] 11:58:00 Position: [place] [facility] Sitting Height 2018-09-15 65 [in_us] [facility] 11:58:00 [place] [facility] Weight 2018-09-15 174 [lb_av] [facility] 11:58:00 [place] [facility] Body Mass Index 2018-09-15 28.96 kg/m2 [place] o Calculated 11:58:00 [place] [facility] Heart Rate 2018-09-15 79 /min [facility] 11:58:00 [place] [facility] Procedures Procedure Date / Time Performing Clinician Source Performed [H] Anti-Mullerian Hormone 2019-03-23 00:00:00 [facility] [L] Vitamin D, 25-Hydroxy, 2019-01-18 00:00:00 [facility] Total - [facility] Physicians [QLH] CBC (INCLUDES 2019-01-18 00:00:00 [facility] DIFF/PLT) Physicians [QL] CMP W/EGFR 2019-01-18 00:00:00 [facility] Physicians [QL] HEMOGLOBIN A1c 2019-01-18 00:00:00 [facility] [QL] LIPID PANEL 2019-01-18 00:00:00 [facility] Physicians [[facility]] T4, FREE 2019-01-18 00:00:00 [place] [facility] [place] Physicians [[facility]] TSH, 3RD GENERATION 2019-01-18 00:00:00 [facility] . [facility] - PAP 2019-01-18 00:00:00 [place] o [facility] [place] Physicians URINALYSIS W/ MICROSCOPIC 2019-01-11 16:45:00 Rajesh Arguello [facility] SCREEN, URINE 2019-01-11 16:45:[address] [facility] B-TYPE NATRIURETIC FACTOR 2018-12-24 00:50:00 Kennedy Pena [facility] - (BNP) [facility] HEPATIC FUNCTION PANEL 2018-12-24 00:50:00 [facility] BASIC METABOLIC PANEL (7) 2018-12-24 00:50:00 [facility] BASIC METABOLIC PANEL (7) 2018-12-23 22:14:00 [facility] CBC W/PLT COUNT & AUTO 2018-12-23 22:14:00 [facility] URINALYSIS WITH 2018-12-23 21:28:00 Kennedy Pena [facility] - MICROSCOPIC IF INDICATED [facility] URINE CULTURE 2018-12-11 02:04:00 Magui, [facility] CBC W/PLT COUNT & AUTO 2018-12-11 02:03:00 Magui, [facility] BASIC METABOLIC PANEL (7) 2018-12-11 02:02:00 Magui, [facility] URINALYSIS W/ MICROSCOPIC 2018-12-11 00:58:00 Magui, [facility] SCREEN, URINE 2018-12-11 00:58:00 Magui, [facility] COMPREHENSIVE METABOLIC 2018-12-03 02:47:00 Gamino, Jaydon [facility] CBC W/PLT COUNT & AUTO 2018-12-03 02:47:00 Gamino, [facility] URINALYSIS W/ MICROSCOPIC 2018-12-03 02:21:00 GaminoJaydon manley [facility] SCREEN, URINE 2018-12-03 02:21:00 GaminoJaydon [facility] [L] Vitamin D, 25-Hydroxy, 2018-09-15 00:00:[address] [facility] Total - [facility] Physicians [QLH] CBC (INCLUDES 2018-09-15 00:00:00 [facility] DIFF/PLT) Physicians [QLH] CMP W/EGFR 2018-09-15 00:00:00 [facility] Physicians [QLH] HEMOGLOBIN A1c 2018-09-15 00:00:00 [facility] Physicians [QLH] LIPID PANEL 2018-09-15 00:00:00 [facility] Physicians [QLH] T4, FREE 2018-09-15 00:00:00 [place] [facility] [place] Physicians [QL] TSH, 3RD GENERATION 2018-09-15 00:00:00 [facility] [Q] HIV-1/2 Antigen and 2018-09-15 00:00:00 [facility] Antibodies, Fourth Physicians Generation, with Reflexes [QH] HEPATITIS B SURFACE 2018-09-15 00:00:00 [facility] ANTIGEN W/REFL CONFIRM Physician s [QH] HIV AB, HIV 1/2, EIA, 2018-09-15 00:00:[address] [facility] WITH REFLEXES Physicians [QL] HEPATITIS C ANTIBODY 2018-09-15 00:00:[address] [facility] Physicians [QL] RPR 2018-09-15 00:00:00 [place] o [facility] [place] Physicians . [facility] - GC/Chlamydia 2018-09-15 00:00:00 [facility] Physicians . [facility] - Affirm VPIII 2018-09-15 00:00:00 [facility] (BV Panel) Physicians US Pelvis with Pelvis 2018-09-15 00:00:00 [facility] Transvaginal [id number] Physicians History of [place] o [facility] [place] Section Physicians History of Kidney [facility] transplantation Physicians Plan of Care Planned Activity Planned Date Details Comments Source Future Scheduled 2021-12-[address] Nabeel es - Test 00:00:00 malignant neoplasm of Medica l Center cervix (procedure) [code = 427135964] Future Scheduled 2019-12-16 INFLUENZA VACCINE [place] [facility] Test 00:00:00 [code = INFLUENZA VACCINE] Future Scheduled 2019-11-16 INFLUENZA VACCINE (#1) [facility] - Test 00:00:00 [code = INFLUENZA Medical Ce nter VACCINE (#1)] Future Scheduled 2017-06-[address] [facility] - Test 00:00:00 (procedure) [code = Medical Center 22879349] Future Scheduled 2011-08-[address] L ukes - Test 00:00:00 WELLNESS (YEAR 2 or Medical Center FIRST YEAR if no IPPE) [code = MEDICARE ANNUAL WELLNESS (YEAR 2 or FIRST YEAR if no IPPE)] Future Scheduled 2007 Screening for [place] [facility] Test 00:00:00 malignant neoplasm of cervix (procedure) [code = 265604796] Future Scheduled [address] [facility] - Test 00:00:00 2-64 YEARS AT RISK (1 Medica l Center of 1 - PPSV23) [code = PNEUMOCOCCAL VACCINE 2-64 YEARS AT RISK (1 of 1 - PPSV23)] Encounters Start End Encounter Admission Attending Care Care Encounter Source Date/Time Date/Time Type Type Clinicians Facility Department ID 2019-03-23 2019-03-23 MARCELLUS Deleon [facility]'s [id number] Univers 11:10:00 11:10:00 t; JO ANN DIOP Center Rubio Simpson M.D. Physici ans 2019-01-18 2019-01-18 Radha DIOP [facility] [id number] Univers 09:50:00 09:50:00 t; JO ANN DIOP Center Rubio Simpson M.D. Physici ans 2018-10-27 2018-10-27 Radha DIOP [facility] [id number] Univers 11:10:00 11:10:00 t; JO ANN DIOP ity of AZE[place], M.D. [place] M.D. Physici ans 2018-09-15 2018-09-15 Appointmariah DIOP [facility]'s [id number] Univers 11:30:00 11:30:00 t; JO ANN DIOP Center Rubio Simpson M.D. Physici ans Results Test Description Test Time Test Comments Results Result Comments Source [H] Anti-Mullerian Hormone 2019-03-23 12:00:01 Test Item Value Reference Range Interpretation Comme nts Anti-Mullerian Hormone AssessR 0.491 ng/ml For assays employing antibodies, the (test code = Anti-Mullerian possibility exists forinterference Hormone AssessR) by heteroph ile antibodies in the samples.11. Joanne Albert. Interferences in Immunoassays - still athreat. Clin. Chem. 200 0; 46: 1410-5366.Refer ence Range:Females 31 - 35y: 0.66 - 8 .75Median 3.00AMH concentrations of >= 1.06 ng/mL is correlated with abetter response to ovarian stimula tion, produced moreretrievable oocytes and higher odds of live bi rth accordingto Karel et al. Fertility and Sterility. 2010 :94:2647-2921. The current AMH eduardo t method correlates withthe study m ethod with a slope of 0.94.Females at risk of ovarian hyperstimulatio n syndrome orpolycystic ov zoran syndrome (PCOS) may exhibit jaleesa vatedserum AMH concentrations. AMH levels from PCOS patientsma y be 2 to 5 fold higher than age -appropriate referenceinterv al values.Granulosa cell tumors of the ovary may secrete AMH alongwith o ther tumor markers. Elevated AMH is not specific formalignancy, and the assay should not be used exc lusively todiagnose or exclude an A MH-secreting ovarian tumor.Performed At: [id number] [place] [address] 5358Pepstanton Real MD Ph:[phone] [facility] Physicians. [facility] - [id number] 00:00:00 Test Item Value Reference Range Interpretation Comments PAP REPORT (test code = 59117-2) See Comment [facility] PhysiciansUrinalysis w/[id number] 17:05:00 Test Item Value Reference Range Interpretation Comments Color, UA (test code = Yellow 5778-6) Clarity, UA (test code = Slightly Cloudy 5767-9) Specific Williams, UA (test 1.015 1.001-1.035 code = 5811-5) pH, UA (test code = 5803-2) 6.0 5.0-8.0 Protein, UA (test code = 30 mg/dL Negative A 61052-2) Glucose, UA (test code = 365) Negative Negative Ketones, UA (test code = Negative Negative 2514-8) Bilirubin, UA (test code = Negative Negative 13968-8) Blood, UA (test code = Small Negative A 32600-8) Nitrite, UA (test code = Negative Negative 5802-4) Leukocytes, UA (test code = Moderate Negative A 5799-2) Urobilinogen, UA (test code = 0.2 mg/dL 0.2-1 41805-9) Bacteria, UA (test code = Few 21820-3) RBC, UA (test code = 799-7) 5-10 /HPF WBC, UA (test code = 91080-9) >100 /HPF SQUAMOUS EPITHELIAL (test None Seen /HPF code = 43552-2) Specimen Source (test code = 2795) Lab Interpretation (test code Abnormal = 38130-9) [facility] [id number] 17:05:00 Test Item Value Reference Range Interpretation Comments Preg Test, Ur (test code = 2112-1) Negative [facility], [id number] 17:05:00 Test Item Value Reference Range Interpretation Comments TEST URINE (BEAKER) (test Negative code = 583) URINALYSIS W/ [id number] 17:05:00 Test Item Value Reference Range Interpretation Comments COLOR (BEAKER) (test code = Yellow 470) CLARITY (BEAKER) (test code = Slightly Cloudy 469) SPECIFIC GRAVITY UA (BEAKER) 1.015 1.001-1.035 (test code = 468) PH UA (BEAKER) (test code = 6.0 5.0-8.0 467) PROTEIN UA (BEAKER) (test 30 mg/dL Negative A code = 464) GLUCOSE UA (BEAKER) (test Negative Negative code = 365) KETONES UA (BEAKER) (test Negative Negative code = 371) BILIRUBIN UA (BEAKER) (test Negative Negative code = 462) BLOOD UA (BEAKER) (test code Small Negative A = 461) NITRITE UA (BEAKER) (test Negative Negative code = 465) LEUKOCYTE ESTERASE UA Moderate Negative A (BEAKER) (test code = 466) UROBILINOGEN UA (BEAKER) 0.2 mg/dL 0.2-1.0 (test code = 463) BACTERIA (BEAKER) (test code Few = 517) RBC UA-MANUAL (BEAKER) (test 5-10 /HPF code = 1659) WBC UA-MANUAL (BEAKER) (test >100 /HPF code = 1661) SQUAMOUS EPITHELIAL MANUAL None Seen /HPF (BEAKER) (test code = 1663) SOURCE(BEAKER) (test code = 2795) Basic Metabolic [id number] 01:40:00 Test Item Value Reference Range Interpretation Comments Sodium (test code = 138 meq/L 981-227 6737-2) Potassium (test code = 3.9 meq/L 3.5-5.1 2823-3) Chloride (test code = 108 meq/L 98-107 H 2075-0) CO2 (test code = 20 meq/L 22-29 L 2028-9) BUN (test code = 20 mg/dL 7-21 3094-0) Creatinine (test code = 1.00 mg/dL 0.57-1.25 2160-0) Glucose (test code = 126 mg/dL 70-105 H 2345-7) Calcium (test code = 10.0 mg/dL 8.4-10.2 28242-8) EGFR (test code = 64 mL/min/1.73 [place] [address]-4) NOT ACCURATE CREATININE CLEARANCE IN PREDICTING GLOMERULAR FILTRATION RATE . ESTIMATED GFR I S NOT APPLICABLE FOR DIALYSIS PATIEN TS. Lab Interpretation Abnormal (test code = 47940-7) [facility] [id number] 01:40:00 Test Item Value Reference Range Interpretation Comments Protein, Total (test code = 2885-2) 7.3 6.0- 8.3 gm/dL Albumin (test code = 65492-3) 4.5 g/dL 3.5-5 Total Bilirubin (test code = 0.2 mg/dL 0.2-1.2 1974-2) Bilirubin, Direct (test code = 0.1 mg/dL 0.1-0.5 1967-7) Alkaline Phosphatase (test code = 77 U/L 40-150 6768-6) AST (test code = 1920-8) 15 U/L 5-34 ALT (test code = 1742-6) 20 U/L 6-55 Lab Interpretation (test code = Normal 48949-6) [facility]HEPAT[facility] FUNCTION [id number] 01:40:00 Test Item Value Reference Range Interpretation Comments TOTAL PROTEIN (BEAKER) (test code = 7.3 gm/dL 6.0-8.3 770) ALBUMIN (BEAKER) (test code = 1145) 4.5 g/dL 3.5-5.0 BILIRUBIN TOTAL (BEAKER) (test code 0.2 mg/dL 0.2-1.2 = 377) BILIRUBIN DIRECT (BEAKER) (test 0.1 mg/dL 0.1-0.5 code = 706) ALKALINE PHOSPHATASE (BEAKER) (test 77 U/L 40-150 code = 346) AST (SGOT) (BEAKER) (test code = 15 U/L 5-34 353) ALT (SGPT) (BEAKER) (test code = 20 U/L 6-55 347) BASIC METABOLIC [id number] 01:40:00 Test Item Value Reference Range Interpretation Comments SODIUM (BEAKER) 138 meq/L 136-145 (test code = 381) POTASSIUM (BEAKER) 3.9 meq/L 3.5-5.1 (test code = 379) CHLORIDE (BEAKER) 108 meq/L 98-107 H (test code = 382) CO2 (BEAKER) (test 20 meq/L 22-29 L code = 355) BLOOD UREA NITROGEN 20 mg/dL 7-21 (BEAKER) (test code = 354) CREATININE (BEAKER) 1.00 mg/dL 0.57-1.25 (test code = 358) GLUCOSE RANDOM 126 mg/dL 70-105 H (BEAKER) (test code = 652) CALCIUM (BEAKER) 10.0 mg/dL 8.4-10.2 (test code = 697) EGFR (BEAKER) (test 64 mL/min/1.73 ESTIMA AMARIS GFR IS code = 1092) sq m NOT ACCURATE CREATININE CLEARANCE IN PREDICTING GLOMERULAR FILTRATION RATE . ESTIMATED GFR I S NOT APPLICABLE FOR DIALYSIS PATIEN TS. B-type natriuretic [id number] 01:26:00 Test Item Value Reference Range Interpretation Comments BNP (test code = 90428-9) 13 pg/mL 0-100 Lab Interpretation (test code = Normal 83628-5) [facility] NATRIURE[facility] FACTOR (BNP)2018-12-24 01:26:00 Test Item Value Reference Range Interpretation Comments B-TYPE NATRIURETIC PEPTIDE (BEAKER) 13 pg/mL 0-100 (test code = 700) BASIC METABOLIC [id number] 23:37:00 Test Item Value Reference Range Interpretation Comments SODIUM (BEAKER) 138 meq/L 136-145 markedly hem olyzed (test code = 381) called b # to reorder & redrawThis is a corrected resul t. Previous result was 138 meq/L on 12/23/2018 at 22 49 CDT POTASSIUM (BEAKER) 5.0 meq/L 3.5-5.1 markedly hemolyzed (test code = 379) called b # to reorder & redrawThis is a corrected resul t. Previous result was 5.0 meq/L on 12/23/2018 at 22 49 CDT CHLORIDE (BEAKER) 109 meq/L 98-107 H markedly h emolyzed (test code = 382) called b # to reorder & redrawThis is a corrected resul t. Previous result was 109 meq/L on 12/23/2018 at 22 49 CDT CO2 (BEAKER) (test 19 meq/L 22-29 L markedly hemolyzed code = 355) called b # to reorder & redrawThis is a corrected resul t. Previous result was 19 meq/L on 12/23/2018 at 22 49 CDT BLOOD UREA NITROGEN 21 mg/dL 7-21 markedly hemolyzed (BEAKER) (test code called b # to = 354) reorder & redrawThis is a corrected resul t. Previous result was 21 mg/dL on 12/23/2018 at 22 49 CDT CREATININE (BEAKER) 1.02 mg/dL 0.57-1.25 markedly hemolyzed (test code = 358) called b # to reorder & redrawThis is a corrected resul t. Previous result was 1.02 mg/dL on 12/23/2018 at 22 49 CDT GLUCOSE RANDOM 88 mg/dL 70-105 markedly hemo lyzed (BEAKER) (test code called b # to = 652) reorder & redrawThis is a corrected resul t. Previous result was 88 mg/dL on 12/23/2018 at 22 49 CDT CALCIUM (ARJUN) 9.9 mg/dL 8.4-10.2 markedly he molyzed (test code = 697) called b # to reorder & redrawThis is a corrected resul t. Previous result was 9.9 mg/dL on 12/23/2018 at 22 49 CDT EGFR (ARJUN) (test 63 mL/min/1.73 ESTIMA AMARIS GFR IS code = 1092) sq m NOT ACCURATE CREATININE CLEARANCE IN PREDICTING GLOMERULAR FILTRATION RATE . ESTIMATED GFR I S NOT APPLICABLE FOR DIALYSIS PATIENTS.This i s a corrected resul t. Previous result was 63 mL/min/1.73 sq m on 12/23/2018 at 2249 CDT CBC with platelet count + automated [id number] 22:31:00 Test Item Value Reference Range Interpretation Comments WBC (test code = 6690-2) 9.2 3.5- 10.5 K/L RBC (test code = 789-8) 4.08 3.93- 5.22 M/L MCHC (test code = 786-4) 32.5 32.2- 35.5 GM/DL Hematocrit (test code = 4544-3) 37.5 % 34.1-44.9 MCV (test code = 787-2) 91.9 fL 79.4-94.8 MCH (test code = 785-6) 29.9 pg 25.6-32.2 RDW (test code = 788-0) 13.5 % 11.7-14.4 Platelets (test code = 777-3) 232 150- 450 K/CU MM MPV (test code = 77458-5) 10.7 fL 9.4-12.3 nRBC (test code = 413) 0 0- 0 /100 WBC % Neutros (test code = 429) 62 % % Lymphs (test code = 430) 25 % % Monos (test code = 431) 9 % % Eos (test code = 432) 3 % % Baso (test code = 437) 1 % # Neutros (test code = 670) 5.69 1.56- 6.13 K/L # Lymphs (test code = 414) 2.30 1.18- 3.74 K/L # Monos (test code = 415) 0.78 0.24- 0.36 K/L H # Eos (test code = 416) 0.25 0.04- 0.36 K/L # Baso (test code = 417) 0.06 0.01- 0.08 K/L Immature Granulocytes-Relative 1 % 0-1 (test code = 2801) Lab Interpretation (test code = Abnormal 05421-4) [facility] W/PLT COUNT & AUTO [id number] 22:31:00 Test Item Value Reference Range Interpretation Comments WHITE BLOOD CELL COUNT (BEAKER) 9.2 K/ L 3.5-10.5 (test code = 775) RED BLOOD CELL COUNT (BEAKER) 4.08 M/ L 3.93-5.22 (test code = 761) HEMOGLOBIN (BEAKER) (test code = 12.2 GM/DL 11.2-15.7 410) HEMATOCRIT (BEAKER) (test code = 37.5 % 34.1-44.9 411) MEAN CORPUSCULAR VOLUME (BEAKER) 91.9 fL 79.4-94.8 (test code = 753) MEAN CORPUSCULAR HEMOGLOBIN 29.9 pg 25.6-32.2 (BEAKER) (test code = 751) MEAN CORPUSCULAR HEMOGLOBIN CONC 32.5 GM/DL 32.2-35.5 (BEAKER) (test code = 752) RED CELL DISTRIBUTION WIDTH 13.5 % 11.7-14.4 (BEAKER) (test code = 412) PLATELET COUNT (BEAKER) (test 232 K/CU MM 150-450 code = 756) MEAN PLATELET VOLUME (BEAKER) 10.7 fL 9.4-12.3 (test code = 754) NUCLEATED RED BLOOD CELLS 0 /100 WBC 0-0 (BEAKER) (test code = 413) NEUTROPHILS RELATIVE PERCENT 62 % (BEAKER) (test code = 429) LYMPHOCYTES RELATIVE PERCENT 25 % (BEAKER) (test code = 430) MONOCYTES RELATIVE PERCENT 9 % (BEAKER) (test code = 431) EOSINOPHILS RELATIVE PERCENT 3 % (BEAKER) (test code = 432) BASOPHILS RELATIVE PERCENT 1 % (BEAKER) (test code = 437) NEUTROPHILS ABSOLUTE COUNT 5.69 K/ L 1.56-6.13 (BEAKER) (test code = 670) LYMPHOCYTES ABSOLUTE COUNT 2.30 K/ L 1.18-3.74 (BEAKER) (test code = 414) MONOCYTES ABSOLUTE COUNT (BEAKER) 0.78 K/ L 0.24-0.36 H (test code = 415) EOSINOPHILS ABSOLUTE COUNT 0.25 K/ L 0.04-0.36 (BEAKER) (test code = 416) BASOPHILS ABSOLUTE COUNT (BEAKER) 0.06 K/ L 0.01-0.08 (test code = 417) IMMATURE GRANULOCYTES-RELATIVE 1 % 0-1 PERCENT (BEAKER) (test code = 2801) Urinalysis with Microscopic If [id number] 22:03:00 Test Item Value Reference Range Interpretation Comments Color, UA (test code = 5778-6) Light Yellow Clarity, UA (test code = 5767-9) Clear Specific Williams, UA (test code 1.006 1.001-1.035 = 5811-5) pH, UA (test code = 5803-2) 6.0 5.0-8.0 Protein, UA (test code = Negative Negative 63180-1) Glucose, UA (test code = 365) Negative Negative Ketones, UA (test code = 2514-8) Negative Negative Bilirubin, UA (test code = Negative Negative 02888-1) Blood, UA (test code = 70737-2) Negative Negative Nitrite, UA (test code = 5802-4) Negative Negative Leukocytes, UA (test code = Negative Negative 5799-2) Urobilinogen, UA (test code = 0.2 mg/dL 0.2-1 44951-4) Specimen Source (test code = 2795) [facility]IC IF [id number] 22:03:00 Test Item Value Reference Range Interpretation Comments COLOR (BEAKER) (test code = 470) Light Yellow CLARITY (BEAKER) (test code = Clear 469) SPECIFIC GRAVITY UA (BEAKER) 1.006 1.001-1.035 (test code = 468) PH UA (BEAKER) (test code = 467) 6.0 5.0-8.0 PROTEIN UA (BEAKER) (test code = Negative Negative 464) GLUCOSE UA (BEAKER) (test code = Negative Negative 365) KETONES UA (BEAKER) (test code = Negative Negative 371) BILIRUBIN UA (BEAKER) (test code Negative Negative = 462) BLOOD UA (BEAKER) (test code = Negative Negative 461) NITRITE UA (BEAKER) (test code = Negative Negative 465) LEUKOCYTE ESTERASE UA (BEAKER) Negative Negative (test code = 466) UROBILINOGEN UA (BEAKER) (test 0.2 mg/dL 0.2-1.0 code = 463) SOURCE(BEAKER) (test code = 2795) Urine [id number] 08:08:00 Test Item Value Reference Range Interpretation Comments Result (test code = 6463-4) [facility] [id number] 08:08:00 Test Item Value Reference Range Interpretation Comments CULTURE (BEAKER) (test code = 1095) No growth BASIC METABOLIC [id number] 02:26:00 Test Item Value Reference Range Interpretation Comments SODIUM (BEAKER) 138 meq/L 135-148 (test code = 381) POTASSIUM (BEAKER) 3.7 meq/L 3.6-5.5 (test code = 379) CHLORIDE (BEAKER) 104 meq/L 98-106 (test code = 382) CO2 (BEAKER) (test 22 meq/L 20-29 code = 355) BLOOD UREA NITROGEN 18 mg/dL 10-26 (BEAKER) (test code = 354) CREATININE (BEAKER) 0.88 mg/dL 0.50-1.20 (test code = 358) GLUCOSE RANDOM 136 mg/dL 70-110 H (BEAKER) (test code = 652) CALCIUM (BEAKER) 9.7 mg/dL 8.5-10.5 (test code = 697) EGFR (BEAKER) (test 74 mL/min/1.73 ESTIMA AMARIS GFR IS code = 1092) sq m NOT ACCURATE CREATININE CLEARANCE IN PREDICTING GLOMERULAR FILTRATION RATE . ESTIMATED GFR I S NOT APPLICABLE FOR DIALYSIS PATIEN TS. CBC W/PLT COUNT & AUTO [id number] 02:17:00 Test Item Value Reference Range Interpretation Comments WHITE BLOOD CELL COUNT (BEAKER) 8.7 K/ L 4.0-10.0 (test code = 775) RED BLOOD CELL COUNT (BEAKER) 4.06 M/ L 4.00-5.00 (test code = 761) HEMOGLOBIN (BEAKER) (test code = 11.5 GM/DL 12.0-15.5 L 410) HEMATOCRIT (BEAKER) (test code = 36.5 % 36.0-46.0 411) MEAN CORPUSCULAR VOLUME (BEAKER) 89.9 fL 82.0-99.0 (test code = 753) MEAN CORPUSCULAR HEMOGLOBIN 28.3 pg 27.0-33.0 (BEAKER) (test code = 751) MEAN CORPUSCULAR HEMOGLOBIN CONC 31.5 GM/DL 32.0-36.0 L (BEAKER) (test code = 752) RED CELL DISTRIBUTION WIDTH 13.3 % 12.0-15.0 (BEAKER) (test code = 412) PLATELET COUNT (BEAKER) (test 260 K/CU MM 150-430 code = 756) MEAN PLATELET VOLUME (BEAKER) 9.8 fL 6.0-11.5 (test code = 754) NUCLEATED RED BLOOD CELLS 0 /100 WBC 0-0 (BEAKER) (test code = 413) NEUTROPHILS RELATIVE PERCENT 65 % (BEAKER) (test code = 429) LYMPHOCYTES RELATIVE PERCENT 25 % (BEAKER) (test code = 430) MONOCYTES RELATIVE PERCENT 7 % (BEAKER) (test code = 431) EOSINOPHILS RELATIVE PERCENT 2 % (BEAKER) (test code = 432) BASOPHILS RELATIVE PERCENT 0 % (BEAKER) (test code = 437) NEUTROPHILS ABSOLUTE COUNT 5.63 K/ L 1.80-8.00 (BEAKER) (test code = 670) LYMPHOCYTES ABSOLUTE COUNT 2.17 K/ L 1.48-4.50 (BEAKER) (test code = 414) MONOCYTES ABSOLUTE COUNT (BEAKER) 0.57 K/ L 0.00-1.30 (test code = 415) EOSINOPHILS ABSOLUTE COUNT 0.20 K/ L 0.00-0.50 (BEAKER) (test code = 416) BASOPHILS ABSOLUTE COUNT (BEAKER) 0.03 K/ L 0.00-0.20 (test code = 417) IMMATURE GRANULOCYTES-RELATIVE 1 % 0-0 H PERCENT (BEAKER) (test code = 2801) URINALYSIS W/ [id number] 01:17:00 Test Item Value Reference Range Interpretation Comments COLOR (BEAKER) (test code = Yellow 470) CLARITY (BEAKER) (test code = Slightly Cloudy 469) SPECIFIC GRAVITY UA (BEAKER) 1.015 1.001-1.035 (test code = 468) PH UA (BEAKER) (test code = 5.5 5.0-8.0 467) PROTEIN UA (BEAKER) (test Negative Negative code = 464) GLUCOSE UA (BEAKER) (test Negative Negative code = 365) KETONES UA (BEAKER) (test Negative Negative code = 371) BILIRUBIN UA (BEAKER) (test Negative Negative code = 462) BLOOD UA (BEAKER) (test code Large Negative A = 461) NITRITE UA (BEAKER) (test Negative Negative code = 465) LEUKOCYTE ESTERASE UA Trace Negative A (BEAKER) (test code = 466) UROBILINOGEN UA (BEAKER) 0.2 mg/dL 0.2-1.0 (test code = 463) BACTERIA (BEAKER) (test code Occasional = 517) RBC UA-MANUAL (BEAKER) (test >100 /HPF code = 1659) WBC UA-MANUAL (BEAKER) (test <5 /HPF code = 1661) SQUAMOUS EPITHELIAL MANUAL <5 /HPF (BEAKER) (test code = 1663) RENAL EPITHELIAL MANUAL <5 /HPF (BEAKER) (test code = 1662) SOURCE(BEAKER) (test code = 2795) SCREEN, [id number] 01:11:00 Test Item Value Reference Range Interpretation Comments TEST URINE (BEAKER) (test Negative code = 583) Comprehensive metabolic [id number] 03:43:00 Test Item Value Reference Range Interpretation Comments Protein, Total (test 7.5 6.0- 8.5 gm/dL Speci men slightly code = 2885-2) hemolyzed Albumin (test code = 4.5 g/dL 3.5-5 Specime n slightly 51853-8) hemolyzed Alkaline Phosphatase 82 U/L 30-115 (test code = 6768-6) Total Bilirubin (test <0.2 0.1-1.2 Specim en slightly code = 1975-2) hemolyzed Sodium (test code = 140 meq/L 103-483 2938-2) Potassium (test code = 4.1 meq/L 3.6-5.5 Speci men slightly 2823-3) hemolyzed Chloride (test code = 107 meq/L 98-106 H 5-0) CO2 (test code = 23 meq/L -2027-9) BUN (test code = 23 mg/dL - 3094-0) Creatinine (test code = 1.28 mg/dL 0.5-1.2 H Spec imen slightly 2160-0) hemolyzed Glucose (test code = 116 mg/dL 70-110 H 2345-7) Calcium (test code = 9.9 mg/dL 8.5-10.5 74707-1) AST (test code = 14 U/L 5-40 Specimen sl ightly 1920-8) hemolyzed ALT (test code = 13 U/L 5-50 Specimen sl ightly 1742-6) hemolyzed EGFR (test code = 48 mL/min/1.73 [place] [address]-1) NOT ACCURATE CREATININE CLEARANCE IN PREDICTING GLOMERULAR FILTRATION RATE . ESTIMATED GFR I S NOT APPLICABLE FOR DIALYSIS PATIEN TS. Lab Interpretation Abnormal (test code = 96254-5) [facility] [id number] 03:43:00 Test Item Value Reference Range Interpretation Comments TOTAL PROTEIN 7.5 gm/dL 6.0-8.5 Specimen sligh tly (BEAKER) (test code = hemoly zed 770) ALBUMIN (BEAKER) 4.5 g/dL 3.5-5.0 Specimen sl ightly (test code = 1145) hemolyzed ALKALINE PHOSPHATASE 82 U/L 30-115 (BEAKER) (test code = 346) BILIRUBIN TOTAL < mg/dL 0.1-1.2 Specimen sli ghtly (BEAKER) (test code = hemoly zed 377) SODIUM (BEAKER) (test 140 meq/L 135-148 code = 381) POTASSIUM (BEAKER) 4.1 meq/L 3.6-5.5 Specimen slightly (test code = 379) hemolyzed CHLORIDE (BEAKER) 107 meq/L 98-106 H (test code = 382) CO2 (BEAKER) (test 23 meq/L -29 code = 355) BLOOD UREA NITROGEN 23 mg/dL - (BEAKER) (test code = 354) CREATININE (BEAKER) 1.28 mg/dL 0.50-1.20 H Specimen slightly (test code = 358) hemolyzed GLUCOSE RANDOM 116 mg/dL 70-110 H (BEAKER) (test code = 652) CALCIUM (BEAKER) 9.9 mg/dL 8.5-10.5 (test code = 697) AST (SGOT) (BEAKER) 14 U/L 5-40 Specimen slightly (test code = 353) hemolyzed ALT (SGPT) (BEAKER) 13 U/L 5-50 Specimen slightly (test code = 347) hemolyzed EGFR (BEAKER) (test 48 mL/min/1.73 ESTIMA AMARIS GFR IS code = 1092) sq m NOT ACCURATE CREATININE CLEARANCE IN PREDICTING GLOMERULAR FILTRATION RATE . ESTIMATED GFR I S NOT APPLICABLE FOR DIALYSIS PATIEN TS. CBC W/PLT COUNT & AUTO [id number] 03:22:00 Test Item Value Reference Range Interpretation Comments WHITE BLOOD CELL COUNT (BEAKER) 10.2 K/ L 4.0-10.0 H (test code = 775) RED BLOOD CELL COUNT (BEAKER) 3.98 M/ L 4.00-5.00 L (test code = 761) HEMOGLOBIN (BEAKER) (test code = 11.7 GM/DL 12.0-15.5 L 410) HEMATOCRIT (BEAKER) (test code = 36.8 % 36.0-46.0 411) MEAN CORPUSCULAR VOLUME (BEAKER) 92.5 fL 82.0-99.0 (test code = 753) MEAN CORPUSCULAR HEMOGLOBIN 29.4 pg 27.0-33.0 (BEAKER) (test code = 751) MEAN CORPUSCULAR HEMOGLOBIN CONC 31.8 GM/DL 32.0-36.0 L (BEAKER) (test code = 752) RED CELL DISTRIBUTION WIDTH 13.6 % 12.0-15.0 (BEAKER) (test code = 412) PLATELET COUNT (BEAKER) (test 237 K/CU MM 150-430 code = 756) MEAN PLATELET VOLUME (BEAKER) 11.1 fL 6.0-11.5 (test code = 754) NUCLEATED RED BLOOD CELLS 0 /100 WBC 0-0 (BEAKER) (test code = 413) NEUTROPHILS RELATIVE PERCENT 75 % (BEAKER) (test code = 429) LYMPHOCYTES RELATIVE PERCENT 13 % (BEAKER) (test code = 430) MONOCYTES RELATIVE PERCENT 8 % (BEAKER) (test code = 431) EOSINOPHILS RELATIVE PERCENT 2 % (BEAKER) (test code = 432) BASOPHILS RELATIVE PERCENT 0 % (BEAKER) (test code = 437) NEUTROPHILS ABSOLUTE COUNT 7.69 K/ L 1.80-8.00 (BEAKER) (test code = 670) LYMPHOCYTES ABSOLUTE COUNT 1.37 K/ L 1.48-4.50 L (BEAKER) (test code = 414) MONOCYTES ABSOLUTE COUNT (BEAKER) 0.82 K/ L 0.00-1.30 (test code = 415) EOSINOPHILS ABSOLUTE COUNT 0.23 K/ L 0.00-0.50 (BEAKER) (test code = 416) BASOPHILS ABSOLUTE COUNT (BEAKER) 0.04 K/ L 0.00-0.20 (test code = 417) IMMATURE GRANULOCYTES-RELATIVE 1 % 0-0 H PERCENT (BEAKER) (test code = 2801) URINALYSIS W/ [id number] 02:43:00 Test Item Value Reference Range Interpretation Comments COLOR (BEAKER) (test code = Yellow 470) CLARITY (BEAKER) (test code = Slightly Cloudy 469) SPECIFIC GRAVITY UA (BEAKER) <= 1.001-1.035 (test code = 468) PH UA (BEAKER) (test code = 6.0 5.0-8.0 467) PROTEIN UA (BEAKER) (test Negative Negative code = 464) GLUCOSE UA (BEAKER) (test Negative Negative code = 365) KETONES UA (BEAKER) (test Negative Negative code = 371) BILIRUBIN UA (BEAKER) (test Negative Negative code = 462) BLOOD UA (BEAKER) (test code Trace Negative A = 461) NITRITE UA (BEAKER) (test Negative Negative code = 465) LEUKOCYTE ESTERASE UA Large Negative A (BEAKER) (test code = 466) UROBILINOGEN UA (BEAKER) 0.2 mg/dL 0.2-1.0 (test code = 463) BACTERIA (BEAKER) (test code Occasional = 517) RBC UA-MANUAL (BEAKER) (test <5 /HPF code = 1659) WBC UA-MANUAL (BEAKER) (test 20-50 /HPF code = 1661) SQUAMOUS EPITHELIAL MANUAL <5 /HPF (BEAKER) (test code = 1663) SOURCE(BEAKER) (test code = 2795) SCREEN, [id number] 02:37:00 Test Item Value Reference Range Interpretation Comments TEST URINE (BEAKER) (test Negative code = 583) CT, BRAIN, WITHOUT [id number] 02:10:00What is the patient's sedation requirement?->No SedationReason for exam:->HEADACHEReason for ex am:->NAUSEAFINAL REPORT EXAM: CT head without contrast. CLINICAL HISTORY: Head trauma, abnormal mental status. Headache and nausea. COMPARISON: No prior study for direct comparison. TECHNIQUE: CT images of the head were obtained without intravenous contrast. This exam was performed according to our departmental dose optimization program which includes automated exposure control, adjustment of the mA and/or kV according to patient's size and/or use of iterative reconstructive technique.FINDINGS: There is no acute intracranial hemorrhage, extra-axial fluid collection, mass effect, herniation, hydrocephalus or large demarcated acute territorial infarct. The basal cisterns are patent. The visualized orbits are normal. The visualized paranasal sinuses and tympanomastoid cavities are clear. The skull base and calvarium are intact. IMPRESSION: Unremarkable noncontrast head CT. Signed: Coco Cross Verified Date/Time: 11/20/2018 02:10:47 RAD, SHOULDER, COMPLETE (MIN 2 VIEWS), [id number] 02:08:00Reason for exam:- >traumaShould this be performed at the bedside?->NoFINAL REPORT RAD, SHOULDER, COMPLETE (MIN 2 VIEWS), RIGHT CLINICAL INDICATI ON: trauma COMPARISON: None FINDINGS: Three views of the right shoulder were obtained. There is noacute fracture or dislocation. The joint spaces are maintained. The soft tissues are unremarkable. IMPRESSION: No acute fracture or dislocation. Signed: Coco Cross Verified Date/Time: 11/20/2018 02:08:23 RAD, FOREARM, 2 VIEWS, [id number] 02:08:00Reason for exam:- >traumaShould this be performed at the bedside?->NoFINAL REPORT RAD, FOREARM, 2 VIEWS, LEFT CLINICAL INDICATION: trauma COMP ARISON: None FINDINGS: Frontal and lateral views of the left forearm. There is no acute fracture or dislocation. The joint spaces are maintained. The soft tissues are unremarkable. IMPRESSION: No acutefracture or dislocation. Signed: Coco Crossort Verified Date/Time: 11/20/2018 02:08:58 RAD, CHEST, 2 VIEWS 2018-11-20 02:07:00Reason for exam:->traumaShould this be performed at the bedside?->NoFINAL REPORT Exam: Chest x-ray, PA and lateral views Clinical History: Trauma. Comparison: Chest radiograph 01/28/2018. Technique: Frontal and lateral views of the chest were obtained. Findings: The cardiomediastinal contours are normal. There is no focal pulmonary consolidation, pleural effusion or pneumothorax. There is no pulmonary edema. The bony thorax is unremarkable. Impression: Normal chest radiograph. Signed: Coco Crossort Verified Date/Time: 11/20/2018 02:07:28 ALYSIS W/ REFLEX URINE [id number] 02:05:00 Test Item Value Reference Range Interpretation Comments COLOR (BEAKER) (test code = Yellow 470) CLARITY (BEAKER) (test code = Clear 469) SPECIFIC GRAVITY UA (BEAKER) 1.010 1.001-1.035 (test code = 468) PH UA (BEAKER) (test code = 7.0 5.0-8.0 467) PROTEIN UA (BEAKER) (test code Negative Negative = 464) GLUCOSE UA (BEAKER) (test code Negative Negative = 365) KETONES UA (BEAKER) (test code Negative Negative = 371) BILIRUBIN UA (BEAKER) (test Negative Negative code = 462) BLOOD UA (BEAKER) (test code = Negative Negative 461) NITRITE UA (BEAKER) (test code Negative Negative = 465) LEUKOCYTE ESTERASE UA (BEAKER) Trace Negative A (test code = 466) UROBILINOGEN UA (BEAKER) (test 0.2 mg/dL 0.2-1.0 code = 463) BACTERIA (BEAKER) (test code = Occasional 517) RBC UA-MANUAL (BEAKER) (test None Seen /HPF code = 1659) WBC UA-MANUAL (BEAKER) (test <5 /HPF code = 1661) SQUAMOUS EPITHELIAL MANUAL 5-10 /HPF (BEAKER) (test code = 1663) SOURCE(BEAKER) (test code = 2795) SCREEN, [id number] 02:04:00 Test Item Value Reference Range Interpretation Comments TEST URINE (BEAKER) (test Negative code = 583) [id number] 01:32:00 Test Item Value Reference Range Interpretation Comments MAGNESIUM (BEAKER) 1.7 mg/dL 1.5-3.0 Specimen slightly (test code = 627) hemolyzed B-TYPE NATRIURETIC FACTOR (BNP)2018-11-20 01:32:00 Test Item Value Reference Range Interpretation Comments B-TYPE NATRIURETIC PEPTIDE (BEAKER) 20 pg/mL 0-100 (test code = 700) HEPATIC FUNCTION [id number] 01:31:00 Test Item Value Reference Range Interpretation Comments TOTAL PROTEIN (BEAKER) 7.8 gm/dL 6.0-8.5 Speci men slightly (test code = 770) hemolyzed ALBUMIN (BEAKER) (test 4.9 g/dL 3.5-5.0 Speci men slightly code = 1145) hemolyzed BILIRUBIN TOTAL 0.5 mg/dL 0.1-1.2 Specimen sli ghtly (BEAKER) (test code = hemoly zed 377) BILIRUBIN DIRECT 0.1 mg/dL 0.0-0.4 Specimen sl ightly (BEAKER) (test code = hemoly zed 706) ALKALINE PHOSPHATASE 69 U/L 30-115 (BEAKER) (test code = 346) AST (SGOT) (BEAKER) 14 U/L 5-40 Specimen slightly (test code = 353) hemolyzed ALT (SGPT) (BEAKER) 14 U/L 5-50 Specimen slightly (test code = 347) hemolyzed BASIC METABOLIC [id number] 01:29:00 Test Item Value Reference Range Interpretation Comments SODIUM (BEAKER) 141 meq/L 135-148 (test code = 381) POTASSIUM (BEAKER) 4.6 meq/L 3.6-5.5 Specimen slightly (test code = 379) hemolyzed CHLORIDE (BEAKER) 107 meq/L 98-106 H (test code = 382) CO2 (BEAKER) (test 23 meq/L 20-29 code = 355) BLOOD UREA NITROGEN 19 mg/dL 10-26 (BEAKER) (test code = 354) CREATININE (BEAKER) 1.08 mg/dL 0.50-1.20 Specimen slightly (test code = 358) hemolyzed GLUCOSE RANDOM 131 mg/dL 70-110 H (BEAKER) (test code = 652) CALCIUM (BEAKER) 9.9 mg/dL 8.5-10.5 (test code = 697) EGFR (BEAKER) (test 59 mL/min/1.73 ESTIMA AMARIS GFR IS code = 1092) sq m NOT ACCURATE CREATININE CLEARANCE IN PREDICTING GLOMERULAR FILTRATION RATE . ESTIMATED GFR I S NOT APPLICABLE FOR DIALYSIS PATIEN TS. [id number] 01:28:00 Test Item Value Reference Range Interpretation Comments PHOSPHORUS (BEAKER) 3.7 mg/dL 2.5-4.5 Specimen slightly (test code = 604) hemolyzed LACTIC ACID, [id number] 01:24:00 Test Item Value Reference Range Interpretation Comments LACTATE BLOOD VENOUS 0.7 mmol/L 0.5-2.0 Specime n slightly (2) (BEAKER) (test hemolyzed code = 2872) [id number] 01:24:00 Test Item Value Reference Range Interpretation Comments PROTIME (BEAKER) (test code = 759) 10.1 sec 9.3-12.0 INR (BEAKER) (test code = 370) 0.9 <=5.9 PARTIAL THROMBOPLASTIN TIME (BEAKER) 29.3 sec 23.0-35.0 (test code = 760) RECOMMENDED COUMADIN/WARFARIN INR THERAPY RANGESSTANDARD DOSE: 2.0 - 3.0 Includes: PROPHYLAXIS forvenous thrombosis, systemic embolization; TREATMENT for venous thrombosis and/or pulmonary embolus.HIGH RISK: Target INR is 2.5-3.5 for patients with mechanical heart valves.Final Information (Auto Output)Final Information (Auto Output)Final Information (Auto Output)CBC W/PLT COUNT & AUTO [id number] 01:05:00 Test Item Value Reference Range Interpretation Comments WHITE BLOOD CELL COUNT (BEAKER) 9.9 K/ L 4.0-10.0 (test code = 775) RED BLOOD CELL COUNT (BEAKER) 4.18 M/ L 4.00-5.00 (test code = 761) HEMOGLOBIN (BEAKER) (test code = 12.3 GM/DL 12.0-15.5 410) HEMATOCRIT (BEAKER) (test code = 37.9 % 36.0-46.0 411) MEAN CORPUSCULAR VOLUME (BEAKER) 90.7 fL 82.0-99.0 (test code = 753) MEAN CORPUSCULAR HEMOGLOBIN 29.4 pg 27.0-33.0 (BEAKER) (test code = 751) MEAN CORPUSCULAR HEMOGLOBIN CONC 32.5 GM/DL 32.0-36.0 (BEAKER) (test code = 752) RED CELL DISTRIBUTION WIDTH 13.6 % 12.0-15.0 (BEAKER) (test code = 412) PLATELET COUNT (BEAKER) (test 239 K/CU MM 150-430 code = 756) MEAN PLATELET VOLUME (BEAKER) 11.1 fL 6.0-11.5 (test code = 754) NUCLEATED RED BLOOD CELLS 0 /100 WBC 0-0 (BEAKER) (test code = 413) NEUTROPHILS RELATIVE PERCENT 73 % (BEAKER) (test code = 429) LYMPHOCYTES RELATIVE PERCENT 16 % (BEAKER) (test code = 430) MONOCYTES RELATIVE PERCENT 8 % (BEAKER) (test code = 431) EOSINOPHILS RELATIVE PERCENT 2 % (BEAKER) (test code = 432) BASOPHILS RELATIVE PERCENT 1 % (BEAKER) (test code = 437) NEUTROPHILS ABSOLUTE COUNT 7.24 K/ L 1.80-8.00 (BEAKER) (test code = 670) LYMPHOCYTES ABSOLUTE COUNT 1.58 K/ L 1.48-4.50 (BEAKER) (test code = 414) MONOCYTES ABSOLUTE COUNT (BEAKER) 0.82 K/ L 0.00-1.30 (test code = 415) EOSINOPHILS ABSOLUTE COUNT 0.19 K/ L 0.00-0.50 (BEAKER) (test code = 416) BASOPHILS ABSOLUTE COUNT (BEAKER) 0.05 K/ L 0.00-0.20 (test code = 417) IMMATURE GRANULOCYTES-RELATIVE 0 % 0-0 PERCENT (BEAKER) (test code = 2801) [[facility]] CBC (INCLUDES DIFF/PLT)2018-09-15 12:43:01 Test Item Value Reference Range Interpretation Comments WBC (test code = 6690-2) 4.8 {K/CMM} 3.7-10.4 RBC; Below Low Threshold (test 4.07 {M/CMM} 4.20-5.40 code = 789-8) Hgb (test code = 718-7) 12.5 g/dl 12.0-16.0 Hct (test code = 59538-5) 37.3 % 36.0-48.0 MCV (test code = 787-2) 91.6 fL 80.0-98.0 MCH (test code = 785-6) 30.6 pg 27.0-31.0 MCHC (test code = 786-4) 33.4 g/dl 32.0-36.0 RDW (test code = 788-0) 14.5 % 11.5-14.5 Platelet (test code = 40314-9) 238 {K/CMM} 133-450 Mean Platelet Volume (test code 9.1 fL 7.4-10.4 = 74404-1) [facility]] [id number] 12:43:01 Test Item Value Reference Range Interpretation Comments Segmented Neutrophils (test code 65.8 % 45.0-75.0 = 74045-4) Monocytes (test code = 71935-8) 8.1 % 2.0-12.0 Lymphocytes (test code = 44832-1) 21.8 % 20.0-40.0 Eosinophils (test code = 39045-3) 3.6 % 0.0-4.0 Basophils (test code = 706-2) 0.7 % 0.0-1.0 Segs-Bands # (test code = 3.2 {K/CMM} 1.5-8.1 18065-2) Lymphocytes # (test code = 1.0 {K/CMM} 1.0-5.5 20826-7) Monocytes # (test code = 79312-7) 0.4 {K/CMM} 0.0-0.8 Eosinophils # (test code = 0.2 {K/CMM} 0.0-0.5 89961-7) [facility]] HEMOGLOBIN [id number] 12:43:01 Test Item Value Reference Range Interpretation Comments Hemoglobin A1c (test code = 4548-4) 5.4 % <=5.6 [facility][] HEPATITIS B SURFACE ANTIGEN W/REFL CONFIRM 2018-09-15 12:43:01 Test Item Value Reference Range Interpretation Comments Hepatitis B Surface Antigen (test Negative Negative code = 5195-3) [facility]] CMP [id number] 12:43:01 Test Item Value Reference Range Interpretation Comments Sodium Level 140 {mEq/l} 135-145 (test code = 2951-2) Potassium Level 4.3 {mEq/l} 3.5-5.1 (test code = 2823-3) Chloride Level 108 {mEq/l} 95-109 (test code = 5-0) Carbon Dioxide 25 {mEq/l} 24-32 (test code = 2027-9) AGAP (test code = 11.3 {mEq/l} 10.0-20.0 45145-6) Glucose Lvl (test 94 mg/dl 70-99 Adult refe rence range code = 2345-7) values reflec t the clinical guidel inesof the [place] [employer] es [employer]. Creatinine Lvl 0.90 mg/dl 0.50-1.40 (test code = 2160-0) Blood Urea 14 mg/dl 7-22 Nitrogen (test code = 3094-0) BUN/Creatinine 16 6-25 Ratio (test code = 3097-3) Total Protein 7.2 g/dl 6.4-8.4 (test code = 2885-2) Albumin Lvl (test 4.1 g/dl 3.5-5.0 code = 1751-7) Globulin (test 3.1 g/dl 2.7-4.2 code = 71059-1) A/G Ratio (test 1.3 0.7-1.6 code = 1759-0) Calcium Level 9.4 mg/dl 8.5-10.5 Total (test code = 16767-3) ALT (test code = 31 u/l 0-65 1743-4) AST (test code = 13 u/l 0-37 25735-9) Bili Total (test 0.2 mg/dl 0.2-1.3 code = 1975-2) Alk Phos (test 80 u/l 39-136 code = 1783-0) eGFR (test code = 85 The eGFR i s calculated 20539-9) {ML/MIN/1.7} using the CKD-E PI formula. In mos t young, healthyindividu als the eGFR will be >9 0 mL/min/1.73m2. The eGFR declines with a ge. AneGFR of 60-89 may be normal in some population s, particularly th e elderly, forwhom the CKD -EPI formula has not been extensively juan r idated. Use of the eGFR isnot recommended in the following populations:Ind ividuals with unstable c reatinine concentrations, including patient s and those with seri ous co-morbid conditions.[place] ents with extremes in mus annabelle mass or diet.The devon a above are obtained fr om the National Kidney Disease Education Progr am(NKDEP) which vy rodriguez recommends that when the eGFR is used in patientswith ex tremes of body mass index for purposes of chloé g dosing, the eGFR should be multiplied by t he estimated BMI. [facility]] LIPID [id number] 12:43:01 Test Item Value Reference Range Interpretation Comments Chol (test code = 3-3) 197 mg/dl <=199 Trig (test code = 2571-8) 65 mg/dl <=149 HDL Cholesterol (test code = 77 mg/dl >=61 5-9) CHD Risk; Below Low Threshold (test 2.56 3.90-5.80 code = 27460-3) LDL; Above High Threshold (test 107 mg/dl <=99 code = 32153-4) VLDL (test code = VLDL) 13 [facility]] T4, [id number] 12:43:01 Test Item Value Reference Range Interpretation Comments T4 Free (test code = 3024-7) 0.88 ng/dl 0.76-1.46 [facility]] TSH, 3RD [id number] 12:43:01 Test Item Value Reference Range Interpretation Comments TSH (test code = 75441-4) 0.865 {uIU/ml} 0.360-3.740 [facility]] [id number] 12:43:01 Test Item Value Reference Range Interpretation Comments RPR (test code = 80651-4) Non-Reactive Non-Reactive [facility]] HEPATITIS C [id number] 12:43:01 Test Item Value Reference Range Interpretation Comments Hepatitis C Antibody (test code = Negative 02883-1) [facility]] VITAMIN D, 25-HYDROXY, [id number] 12:43:01 Test Item Value Reference Range Interpretation Comments Vitamin D, 25-OH, 10.3 ng/ml 30.0-100.0 Reference range is based Total (test code on recommen dations in the = Vitamin D, EndocrineSociet y Clinical 25-OH, Total) Practice Guide line (J Clin Endocrinol Srxzi6376;96:19 11-1930) [facility]. [facility] - [id number] 00:00:00 Test Item Value Reference Range Interpretation Comments GC/Chlamydia REPORT (test code = See Comment 41262-1) [facility]icians[facility]OL[facility] [id number] 04:47:00 Test Item Value Reference Range Interpretation Comments SODIUM (BEAKER) 137 meq/L 135-148 (test code = 381) POTASSIUM (BEAKER) 4.1 meq/L 3.6-5.5 (test code = 379) CHLORIDE (BEAKER) 106 meq/L 98-106 (test code = 382) CO2 (BEAKER) (test 22 meq/L - code = 355) BLOOD UREA NITROGEN 13 mg/dL 10-26 (BEAKER) (test code = 354) CREATININE (BEAKER) 0.85 mg/dL 0.50-1.20 (test code = 358) GLUCOSE RANDOM 118 mg/dL 70-110 H (BEAKER) (test code = 652) CALCIUM (BEAKER) 9.9 mg/dL 8.5-10.5 (test code = 697) EGFR (BEAKER) (test 78 mL/min/1.73 ESTIMA AMARIS GFR IS code = 1092) sq m NOT ACCURATE CREATININE CLEARANCE IN PREDICTING GLOMERULAR FILTRATION RATE . ESTIMATED GFR I S NOT APPLICABLE FOR DIALYSIS PATIEN TS. CBC W/PLT COUNT & AUTO [id number] 04:36:00 Test Item Value Reference Range Interpretation Comments WHITE BLOOD CELL COUNT (BEAKER) 11.6 K/ L 4.0-10.0 H (test code = 775) RED BLOOD CELL COUNT (BEAKER) 4.18 M/ L 4.00-5.00 (test code = 761) HEMOGLOBIN (BEAKER) (test code = 12.4 GM/DL 12.0-15.5 410) HEMATOCRIT (BEAKER) (test code = 38.3 % 36.0-46.0 411) MEAN CORPUSCULAR VOLUME (BEAKER) 91.6 fL 82.0-99.0 (test code = 753) MEAN CORPUSCULAR HEMOGLOBIN 29.7 pg 27.0-33.0 (BEAKER) (test code = 751) MEAN CORPUSCULAR HEMOGLOBIN CONC 32.4 GM/DL 32.0-36.0 (BEAKER) (test code = 752) RED CELL DISTRIBUTION WIDTH 13.6 % 12.0-15.0 (BEAKER) (test code = 412) PLATELET COUNT (BEAKER) (test 197 K/CU MM 150-430 code = 756) MEAN PLATELET VOLUME (BEAKER) 10.4 fL 6.0-11.5 (test code = 754) NUCLEATED RED BLOOD CELLS 0 /100 WBC 0-0 (BEAKER) (test code = 413) NEUTROPHILS RELATIVE PERCENT 79 % (BEAKER) (test code = 429) LYMPHOCYTES RELATIVE PERCENT 10 % (BEAKER) (test code = 430) MONOCYTES RELATIVE PERCENT 9 % (BEAKER) (test code = 431) EOSINOPHILS RELATIVE PERCENT 1 % (BEAKER) (test code = 432) BASOPHILS RELATIVE PERCENT 0 % (BEAKER) (test code = 437) NEUTROPHILS ABSOLUTE COUNT 9.19 K/ L 1.80-8.00 H (BEAKER) (test code = 670) LYMPHOCYTES ABSOLUTE COUNT 1.17 K/ L 1.48-4.50 L (BEAKER) (test code = 414) MONOCYTES ABSOLUTE COUNT (BEAKER) 0.99 K/ L 0.00-1.30 (test code = 415) EOSINOPHILS ABSOLUTE COUNT 0.15 K/ L 0.00-0.50 (BEAKER) (test code = 416) BASOPHILS ABSOLUTE COUNT (BEAKER) 0.03 K/ L 0.00-0.20 (test code = 417) IMMATURE GRANULOCYTES-RELATIVE 1 % 0-0 H PERCENT (BEAKER) (test code = 2801) URINALYSIS W/ [id number] 03:15:00 Test Item Value Reference Range Interpretation Comments COLOR (BEAKER) (test code = 470) Yellow CLARITY (BEAKER) (test code = 469) Clear SPECIFIC GRAVITY UA (BEAKER) (test <= 1.001-1.035 code = 468) PH UA (BEAKER) (test code = 467) 6.0 5.0-8.0 PROTEIN UA (BEAKER) (test code = Negative Negative 464) GLUCOSE UA (BEAKER) (test code = Negative Negative 365) KETONES UA (BEAKER) (test code = Negative Negative 371) BILIRUBIN UA (BEAKER) (test code = Negative Negative 462) BLOOD UA (BEAKER) (test code = Trace Negative A 461) NITRITE UA (BEAKER) (test code = Negative Negative 465) LEUKOCYTE ESTERASE UA (BEAKER) Small Negative A (test code = 466) UROBILINOGEN UA (BEAKER) (test 0.2 mg/dL 0.2-1.0 code = 463) BACTERIA (BEAKER) (test code = Occasional 517) RBC UA-MANUAL (BEAKER) (test code <5 /HPF = 1659) WBC UA-MANUAL (BEAKER) (test code <5 /HPF = 1661) SQUAMOUS EPITHELIAL MANUAL <5 /HPF (BEAKER) (test code = 1663) SOURCE(BEAKER) (test code = 2795) SCREEN, [id number] 03:12:00 Test Item Value Reference Range Interpretation Comments TEST URINE (BEAKER) (test Negative code = 583) BASIC METABOLIC [id number] 22:33:00 Test Item Value Reference Range Interpretation Comments SODIUM (BEAKER) 138 meq/L 135-148 (test code = 381) POTASSIUM (BEAKER) 4.4 meq/L 3.6-5.5 Specimen moderately (test code = 379) hemolyzed CHLORIDE (BEAKER) 104 meq/L 98-106 (test code = 382) CO2 (BEAKER) (test 24 meq/L 20-29 code = 355) BLOOD UREA NITROGEN 15 mg/dL 10-26 (BEAKER) (test code = 354) CREATININE (BEAKER) 1.08 mg/dL 0.50-1.20 Specimen moderately (test code = 358) hemolyzed GLUCOSE RANDOM 96 mg/dL 70-110 (BEAKER) (test code = 652) CALCIUM (BEAKER) 9.7 mg/dL 8.5-10.5 (test code = 697) EGFR (BEAKER) (test 59 mL/min/1.73 ESTIMA AMARIS GFR IS code = 1092) sq m NOT ACCURATE CREATININE CLEARANCE IN PREDICTING GLOMERULAR FILTRATION RATE . ESTIMATED GFR I S NOT APPLICABLE FOR DIALYSIS PATIEN TS. RAPID INFLUENZA A&B [id number] 22:17:00 Test Item Value Reference Range Interpretation Comments RAPID INFLUENZA A AG (BEAKER) Negative Negative, Inconclusive (test code = 1622) RAPID INFLUENZA B AG (BEAKER) Negative Negative, Inconclusive (test code = 1623) CBC W/PLT COUNT & AUTO [id number] 22:04:00 Test Item Value Reference Range Interpretation Comments WHITE BLOOD CELL COUNT (BEAKER) 10.0 K/ L 4.0-10.0 (test code = 775) RED BLOOD CELL COUNT (BEAKER) 4.08 M/ L 4.00-5.00 (test code = 761) HEMOGLOBIN (BEAKER) (test code = 12.2 GM/DL 12.0-15.5 410) HEMATOCRIT (BEAKER) (test code = 37.9 % 36.0-46.0 411) MEAN CORPUSCULAR VOLUME (BEAKER) 92.9 fL 82.0-99.0 (test code = 753) MEAN CORPUSCULAR HEMOGLOBIN 29.9 pg 27.0-33.0 (BEAKER) (test code = 751) MEAN CORPUSCULAR HEMOGLOBIN CONC 32.2 GM/DL 32.0-36.0 (BEAKER) (test code = 752) RED CELL DISTRIBUTION WIDTH 13.4 % 12.0-15.0 (BEAKER) (test code = 412) PLATELET COUNT (BEAKER) (test 256 K/CU MM 150-430 code = 756) MEAN PLATELET VOLUME (BEAKER) 10.6 fL 6.0-11.5 (test code = 754) NUCLEATED RED BLOOD CELLS 0 /100 WBC 0-0 (BEAKER) (test code = 413) NEUTROPHILS RELATIVE PERCENT 77 % (BEAKER) (test code = 429) LYMPHOCYTES RELATIVE PERCENT 13 % (BEAKER) (test code = 430) MONOCYTES RELATIVE PERCENT 7 % (BEAKER) (test code = 431) EOSINOPHILS RELATIVE PERCENT 2 % (BEAKER) (test code = 432) BASOPHILS RELATIVE PERCENT 1 % (BEAKER) (test code = 437) NEUTROPHILS ABSOLUTE COUNT 7.64 K/ L 1.80-8.00 (BEAKER) (test code = 670) LYMPHOCYTES ABSOLUTE COUNT 1.28 K/ L 1.48-4.50 L (BEAKER) (test code = 414) MONOCYTES ABSOLUTE COUNT (BEAKER) 0.68 K/ L 0.00-1.30 (test code = 415) EOSINOPHILS ABSOLUTE COUNT 0.24 K/ L 0.00-0.50 (BEAKER) (test code = 416) BASOPHILS ABSOLUTE COUNT (BEAKER) 0.06 K/ L 0.00-0.20 (test code = 417) IMMATURE GRANULOCYTES-RELATIVE 1 % 0-0 H PERCENT (BEAKER) (test code = 2801) RAD, CHEST, 2 [id number] 22:00:00Reason for exam:->shortness of breath, feverFINAL REPORT Examination: Two view Chest X-ray. CLINICAL HISTORY: Shortness of breath or fever COMPARISON: 01/13/2018 The cardiomediastinal and hilar contours are unremarkable. There is no focal consolidation, pleural effusion, pneumothorax or evidence of overt pulmonary edema. There is no acute bony abnormality. IMPRESSION: No acute abnormality. Signed: Georgia Adam Verified Date/Time: 01/28/2018 22:00:12 Reading Location: [address] Reading Room RAD, CHEST, PA OR AP, 1 [id number] 03:12:00Reason for exam:->coughFINAL REPORT EXAMINATION: AP PORTABLE CHEST RADIOGRAPH CLINICAL INDICATION: Cough IMPRESSION: Compared with 01/02/2018. No evidence of a pneumonia, pulmonary edema or pleural effusion. The heart size is normal. Mediastinal contours are sharp. No evidence of an acute osseous abnormality or pneumothorax. Signed: Yossi Manley MDReport Verified Date/Time: 01/13/2018 03:12:19 Reading Location: [address] Reading Room BASIC METABOLIC [id number] 02:42:00 Test Item Value Reference Range Interpretation Comments SODIUM (BEAKER) 137 meq/L 135-148 (test code = 381) POTASSIUM (BEAKER) 4.9 meq/L 3.6-5.5 Specimen moderately (test code = 379) hemolyzed CHLORIDE (BEAKER) 109 meq/L 98-106 H (test code = 382) CO2 (BEAKER) (test 19 meq/L 20-29 L code = 355) BLOOD UREA NITROGEN 16 mg/dL 10-26 (BEAKER) (test code = 354) CREATININE (BEAKER) 0.96 mg/dL 0.50-1.20 Specimen moderately (test code = 358) hemolyzed GLUCOSE RANDOM 118 mg/dL 70-110 H (BEAKER) (test code = 652) CALCIUM (BEAKER) 9.2 mg/dL 8.5-10.5 (test code = 697) EGFR (BEAKER) (test 68 mL/min/1.73 ESTIMA AMARIS GFR IS code = 1092) sq m NOT ACCURATE CREATININE CLEARANCE IN PREDICTING GLOMERULAR FILTRATION RATE . ESTIMATED GFR I S NOT APPLICABLE FOR DIALYSIS PATIEN TS. LACTIC ACID, VENOUS, WHOLE [id number] 02:32:00 Test Item Value Reference Range Interpretation Comments LACTATE BLOOD VENOUS 1.1 mmol/L 0.5-2.2 Specime n moderately (2) (BEAKER) (test hemolyzed code = 2872) Effective 07/19/2015: Units/Reference Range ChangeNew: 0.5-2.2 mmol/L Previous: 5-18 mg/dLURINALYSIS W/ REFLEX URINE [id number] 02:28:00 Test Item Value Reference Range Interpretation Comments COLOR (BEAKER) (test code = 470) Yellow CLARITY (BEAKER) (test code = 469) Clear SPECIFIC GRAVITY UA (BEAKER) (test <= 1.001-1.035 code = 468) PH UA (BEAKER) (test code = 467) 6.0 5.0-8.0 PROTEIN UA (BEAKER) (test code = Negative Negative 464) GLUCOSE UA (BEAKER) (test code = Negative Negative 365) KETONES UA (BEAKER) (test code = Negative Negative 371) BILIRUBIN UA (BEAKER) (test code = Negative Negative 462) BLOOD UA (BEAKER) (test code = Small Negative A 461) NITRITE UA (BEAKER) (test code = Negative Negative 465) LEUKOCYTE ESTERASE UA (BEAKER) Small Negative A (test code = 466) UROBILINOGEN UA (BEAKER) (test 0.2 mg/dL 0.2-1.0 code = 463) BACTERIA (BEAKER) (test code = Occasional 517) RBC UA-MANUAL (BEAKER) (test code <5 /HPF = 1659) WBC UA-MANUAL (BEAKER) (test code 10-20 /HPF = 1661) SQUAMOUS EPITHELIAL MANUAL <5 /HPF (BEAKER) (test code = 1663) SOURCE(BEAKER) (test code = 2795) CBC W/PLT COUNT & AUTO [id number] 02:21:00 Test Item Value Reference Range Interpretation Comments WHITE BLOOD CELL COUNT (BEAKER) 11.8 K/ L 4.0-10.0 H (test code = 775) RED BLOOD CELL COUNT (BEAKER) 3.81 M/ L 4.00-5.00 L (test code = 761) HEMOGLOBIN (BEAKER) (test code = 11.6 GM/DL 12.0-15.5 L 410) HEMATOCRIT (BEAKER) (test code = 35.5 % 36.0-46.0 L 411) MEAN CORPUSCULAR VOLUME (BEAKER) 93.2 fL 82.0-99.0 (test code = 753) MEAN CORPUSCULAR HEMOGLOBIN 30.4 pg 27.0-33.0 (BEAKER) (test code = 751) MEAN CORPUSCULAR HEMOGLOBIN CONC 32.7 GM/DL 32.0-36.0 (BEAKER) (test code = 752) RED CELL DISTRIBUTION WIDTH 13.5 % 12.0-15.0 (BEAKER) (test code = 412) PLATELET COUNT (BEAKER) (test 175 K/CU MM 150-430 code = 756) MEAN PLATELET VOLUME (BEAKER) 11.1 fL 6.0-11.5 (test code = 754) NUCLEATED RED BLOOD CELLS 0 /100 WBC 0-0 (BEAKER) (test code = 413) NEUTROPHILS RELATIVE PERCENT 81 % (BEAKER) (test code = 429) LYMPHOCYTES RELATIVE PERCENT 9 % (BEAKER) (test code = 430) MONOCYTES RELATIVE PERCENT 8 % (BEAKER) (test code = 431) EOSINOPHILS RELATIVE PERCENT 1 % (BEAKER) (test code = 432) BASOPHILS RELATIVE PERCENT 0 % (BEAKER) (test code = 437) NEUTROPHILS ABSOLUTE COUNT 9.59 K/ L 1.80-8.00 H (BEAKER) (test code = 670) LYMPHOCYTES ABSOLUTE COUNT 1.09 K/ L 1.48-4.50 L (BEAKER) (test code = 414) MONOCYTES ABSOLUTE COUNT (BEAKER) 0.89 K/ L 0.00-1.30 (test code = 415) EOSINOPHILS ABSOLUTE COUNT 0.12 K/ L 0.00-0.50 (BEAKER) (test code = 416) BASOPHILS ABSOLUTE COUNT (BEAKER) 0.04 K/ L 0.00-0.20 (test code = 417) IMMATURE GRANULOCYTES-RELATIVE 1 % 0-0 H PERCENT (BEAKER) (test code = 2801) SCREEN, [id number] 02:18:00 Test Item Value Reference Range Interpretation Comments TEST URINE (BEAKER) (test Negative code = 583) RAPID INFLUENZA A&B [id number] 23:41:00 Test Item Value Reference Range Interpretation Comments RAPID INFLUENZA A AG (BEAKER) Negative Negative, Inconclusive (test code = 1622) RAPID INFLUENZA B AG (BEAKER) Negative Negative, Inconclusive (test code = 1623) RAD, CHEST, 1 VIEW, NON [id number] 22:49:00Reason for exam:->coughIs the patient ?->NoShould this be performed at the bedside?->YesFINAL REPORT INDICATION: cough COMPARISON: November 02, 2017 TECHNIQUE: Single frontal view of the chest. FINDINGS: Lungs and pleura: Clear lungs. No effusion.Heart and mediastinum: Normal heart size. Unremarkable mediastinal contours.Osseous structures: No acute abnormality.Other: None. IMPRESSION: No acute intrathoracic abnormality. Signed: JR Brandt Robert MDReport Verified Date/Time: 01/02/2018 22:49:20 Reading Location: [facility] C013Y CT Body Reading Room RAPID STREP A [id number] 21:49:00 Test Item Value Reference Range Interpretation Comments STREP A ANTIGEN (BEAKER) (test code Negative Negative = 556) SCREEN, [id number] 21:36:00 Test Item Value Reference Range Interpretation Comments TEST URINE (BEAKER) (test Negative code = 583) URINALYSIS W/ [id number] 21:35:00 Test Item Value Reference Range Interpretation Comments COLOR (BEAKER) (test code = 470) Light Yellow CLARITY (BEAKER) (test code = Clear 469) SPECIFIC GRAVITY UA (BEAKER) 1.004 1.001-1.035 (test code = 468) PH UA (BEAKER) (test code = 467) 6.5 5.0-8.0 PROTEIN UA (BEAKER) (test code = Negative Negative 464) GLUCOSE UA (BEAKER) (test code = Negative Negative 365) KETONES UA (BEAKER) (test code = Negative Negative 371) BILIRUBIN UA (BEAKER) (test code Negative Negative = 462) BLOOD UA (BEAKER) (test code = Negative Negative 461) NITRITE UA (BEAKER) (test code = Negative Negative 465) LEUKOCYTE ESTERASE UA (BEAKER) Negative Negative (test code = 466) UROBILINOGEN UA (BEAKER) (test 0.2 mg/dL 0.2-1.0 code = 463) RBC UA (BEAKER) (test code = 1 /HPF 519) WBC UA (BEAKER) (test code = 1 /HPF 520) BACTERIA (BEAKER) (test code = Rare 517) SQUAMOUS EPITHELIAL (BEAKER) 1 /HPF (test code = 516) SOURCE(BEAKER) (test code = 2795) [id number] 21:34:00 Test Item Value Reference Range Interpretation Comments LIPASE (BEAKER) (test code = 749) 12 U/L 8-78 BASIC METABOLIC [id number] 21:34:00 Test Item Value Reference Range Interpretation Comments SODIUM (BEAKER) 141 meq/L 136-145 (test code = 381) POTASSIUM (BEAKER) 4.3 meq/L 3.5-5.1 (test code = 379) CHLORIDE (BEAKER) 110 meq/L 98-107 H (test code = 382) CO2 (BEAKER) (test 21 meq/L 22-29 L code = 355) BLOOD UREA NITROGEN 12 mg/dL 7-21 (BEAKER) (test code = 354) CREATININE (BEAKER) 0.83 mg/dL 0.57-1.25 (test code = 358) GLUCOSE RANDOM 125 mg/dL 70-105 H (BEAKER) (test code = 652) CALCIUM (BEAKER) 10.1 mg/dL 8.4-10.2 (test code = 697) EGFR (BEAKER) (test 80 mL/min/1.73 ESTIMA AMARIS GFR IS code = 1092) sq m NOT ACCURATE CREATININE CLEARANCE IN PREDICTING GLOMERULAR FILTRATION RATE . ESTIMATED GFR I S NOT APPLICABLE FOR DIALYSIS PATIEN TS. HEPATIC FUNCTION [id number] 21:34:00 Test Item Value Reference Range Interpretation Comments TOTAL PROTEIN (BEAKER) (test code = 7.3 gm/dL 6.0-8.3 770) ALBUMIN (BEAKER) (test code = 1145) 4.6 g/dL 3.5-5.0 BILIRUBIN TOTAL (BEAKER) (test code 0.4 mg/dL 0.2-1.2 = 377) BILIRUBIN DIRECT (BEAKER) (test 0.2 mg/dL 0.1-0.5 code = 706) ALKALINE PHOSPHATASE (BEAKER) (test 84 U/L 40-150 code = 346) AST (SGOT) (BEAKER) (test code = 13 U/L 5-34 353) ALT (SGPT) (BEAKER) (test code = 17 U/L 6-55 347) CBC W/PLT COUNT & AUTO [id number] 21:06:00 Test Item Value Reference Range Interpretation Comments WHITE BLOOD CELL COUNT (BEAKER) 8.4 K/ L 3.5-10.5 (test code = 775) RED BLOOD CELL COUNT (BEAKER) 4.02 M/ L 3.93-5.22 (test code = 761) HEMOGLOBIN (BEAKER) (test code = 12.2 GM/DL 11.2-15.7 410) HEMATOCRIT (BEAKER) (test code = 37.1 % 34.1-44.9 411) MEAN CORPUSCULAR VOLUME (BEAKER) 92.3 fL 79.4-94.8 (test code = 753) MEAN CORPUSCULAR HEMOGLOBIN 30.3 pg 25.6-32.2 (BEAKER) (test code = 751) MEAN CORPUSCULAR HEMOGLOBIN CONC 32.9 GM/DL 32.2-35.5 (BEAKER) (test code = 752) RED CELL DISTRIBUTION WIDTH 13.1 % 11.7-14.4 (BEAKER) (test code = 412) PLATELET COUNT (BEAKER) (test 199 K/CU MM 150-450 code = 756) MEAN PLATELET VOLUME (BEAKER) 10.2 fL 9.4-12.3 (test code = 754) NUCLEATED RED BLOOD CELLS 0 /100 WBC 0-0 (BEAKER) (test code = 413) NEUTROPHILS RELATIVE PERCENT 85 % (BEAKER) (test code = 429) LYMPHOCYTES RELATIVE PERCENT 9 % (BEAKER) (test code = 430) MONOCYTES RELATIVE PERCENT 5 % (BEAKER) (test code = 431) EOSINOPHILS RELATIVE PERCENT 1 % (BEAKER) (test code = 432) BASOPHILS RELATIVE PERCENT 0 % (BEAKER) (test code = 437) NEUTROPHILS ABSOLUTE COUNT 7.17 K/ L 1.56-6.13 H (BEAKER) (test code = 670) LYMPHOCYTES ABSOLUTE COUNT 0.73 K/ L 1.18-3.74 L (BEAKER) (test code = 414) MONOCYTES ABSOLUTE COUNT (BEAKER) 0.43 K/ L 0.24-0.36 H (test code = 415) EOSINOPHILS ABSOLUTE COUNT 0.04 K/ L 0.04-0.36 (BEAKER) (test code = 416) BASOPHILS ABSOLUTE COUNT (BEAKER) 0.02 K/ L 0.01-0.08 (test code = 417) IMMATURE GRANULOCYTES-RELATIVE 0 % 0-1 PERCENT (BEAKER) (test code = 2801) COMPREHENSIVE METABOLIC [id number] 00:04:00 Test Item Value Reference Range Interpretation Comments TOTAL PROTEIN 7.9 gm/dL 6.0-8.5 (BEAKER) (test code = 770) ALBUMIN (BEAKER) 4.9 g/dL 3.5-5.0 (test code = 1145) ALKALINE PHOSPHATASE 95 U/L 30-115 (BEAKER) (test code = 346) BILIRUBIN TOTAL 0.2 mg/dL 0.1-1.2 (BEAKER) (test code = 377) SODIUM (BEAKER) (test 140 meq/L 135-148 code = 381) POTASSIUM (BEAKER) 4.1 meq/L 3.6-5.5 (test code = 379) CHLORIDE (BEAKER) 107 meq/L 98-106 H (test code = 382) CO2 (BEAKER) (test 22 meq/L 20-29 code = 355) BLOOD UREA NITROGEN 14 mg/dL 10-26 (BEAKER) (test code = 354) CREATININE (BEAKER) 0.87 mg/dL 0.50-1.20 (test code = 358) GLUCOSE RANDOM 89 mg/dL 70-110 (BEAKER) (test code = 652) CALCIUM (BEAKER) 10.3 mg/dL 8.5-10.5 (test code = 697) AST (SGOT) (BEAKER) 15 U/L 5-40 (test code = 353) ALT (SGPT) (BEAKER) 21 U/L 5-50 (test code = 347) EGFR (BEAKER) (test 76 mL/min/1.73 ESTIMA AMARIS GFR IS code = 1092) sq m NOT ACCURATE CREATININE CLEARANCE IN PREDICTING GLOMERULAR FILTRATION RATE . ESTIMATED GFR I S NOT APPLICABLE FOR DIALYSIS PATIEN TS. SCREEN, [id number] 23:43:00 Test Item Value Reference Range Interpretation Comments TEST URINE (BEAKER) (test Negative code = 583) CBC W/PLT COUNT & AUTO [id number] 23:39:00 Test Item Value Reference Range Interpretation Comments WHITE BLOOD CELL COUNT (BEAKER) 8.3 K/ L 4.0-10.0 (test code = 775) RED BLOOD CELL COUNT (BEAKER) 4.34 M/ L 4.00-5.00 (test code = 761) HEMOGLOBIN (BEAKER) (test code = 13.3 GM/DL 12.0-15.5 410) HEMATOCRIT (BEAKER) (test code = 40.5 % 36.0-46.0 411) MEAN CORPUSCULAR VOLUME (BEAKER) 93.3 fL 82.0-99.0 (test code = 753) MEAN CORPUSCULAR HEMOGLOBIN 30.6 pg 27.0-33.0 (BEAKER) (test code = 751) MEAN CORPUSCULAR HEMOGLOBIN CONC 32.8 GM/DL 32.0-36.0 (BEAKER) (test code = 752) RED CELL DISTRIBUTION WIDTH 13.5 % 12.0-15.0 (BEAKER) (test code = 412) PLATELET COUNT (BEAKER) (test 242 K/CU MM 150-430 code = 756) MEAN PLATELET VOLUME (BEAKER) 10.6 fL 6.0-11.5 (test code = 754) NUCLEATED RED BLOOD CELLS 0 /100 WBC 0-0 (BEAKER) (test code = 413) NEUTROPHILS RELATIVE PERCENT 71 % (BEAKER) (test code = 429) LYMPHOCYTES RELATIVE PERCENT 17 % (BEAKER) (test code = 430) MONOCYTES RELATIVE PERCENT 8 % (BEAKER) (test code = 431) EOSINOPHILS RELATIVE PERCENT 3 % (BEAKER) (test code = 432) BASOPHILS RELATIVE PERCENT 1 % (BEAKER) (test code = 437) NEUTROPHILS ABSOLUTE COUNT 5.92 K/ L 1.80-8.00 (BEAKER) (test code = 670) LYMPHOCYTES ABSOLUTE COUNT 1.38 K/ L 1.48-4.50 L (BEAKER) (test code = 414) MONOCYTES ABSOLUTE COUNT (BEAKER) 0.67 K/ L 0.00-1.30 (test code = 415) EOSINOPHILS ABSOLUTE COUNT 0.22 K/ L 0.00-0.50 (BEAKER) (test code = 416) BASOPHILS ABSOLUTE COUNT (BEAKER) 0.06 K/ L 0.00-0.20 (test code = 417) IMMATURE GRANULOCYTES-RELATIVE 1 % 0-0 H PERCENT (BEAKER) (test code = 2801) URINALYSIS W/ [id number] 22:53:00 Test Item Value Reference Range Interpretation Comments COLOR (BEAKER) (test code = 470) Yellow CLARITY (BEAKER) (test code = 469) Clear SPECIFIC GRAVITY UA (BEAKER) (test <= 1.001-1.035 code = 468) PH UA (BEAKER) (test code = 467) 6.0 5.0-8.0 PROTEIN UA (BEAKER) (test code = Negative Negative 464) GLUCOSE UA (BEAKER) (test code = Negative Negative 365) KETONES UA (BEAKER) (test code = Negative Negative 371) BILIRUBIN UA (BEAKER) (test code = Negative Negative 462) BLOOD UA (BEAKER) (test code = 461) Moderate Negative A NITRITE UA (BEAKER) (test code = Negative Negative 465) LEUKOCYTE ESTERASE UA (BEAKER) Negative Negative (test code = 466) UROBILINOGEN UA (BEAKER) (test code 0.2 mg/dL 0.2-1.0 = 463) BACTERIA (BEAKER) (test code = 517) Rare RBC UA-MANUAL (BEAKER) (test code = <5 /HPF 1659) WBC UA-MANUAL (BEAKER) (test code = <5 /HPF 1661) SQUAMOUS EPITHELIAL MANUAL (BEAKER) <5 /HPF (test code = 1663) SOURCE(BEAKER) (test code = 2795) STOOL CULTURE + SHIGA [id number] 12:15:00 Test Item Value Reference Range Interpretation Comments CULTURE (BEAKER) No Salmonella, Shigella (test code = 1095) or Campylobacter isolated SHIGA TOXIN [id number] 14:33:00 Test Item Value Reference Range Interpretation Comments SHIGA TOXIN 1 (BEAKER) (test Not detected Not detected code = 2177) SHIGA TOXIN 2 (BEAKER) (test Not detected Not detected code = 2179) CMV PCR, [id number] 16:28:00 Test Item Value Reference Range Interpretation Comments CMV VIRAL LOAD - Negative or below the NEGATIVE (BEAKER) (test linear range of the code = 2558) assay (<375 copies/mL) Cytomegalovirus (CMV) infection can cause significant disease in immunosuppressed patients. However,it is common for CMV to manifest as a limited infection which is of no clinical significance in immunosuppressed patients or in healthy individuals.Viral load measurements are helpful to identify clinical CMV infection and to guide the pre-emptive management of antiviral therapy. For treatment of CMVinfection due to reactivation in transplant recipients, a threshold between 4,000 and 5,000 copies/mL is suggested. For treatment of primary CMV infection, a lower threshold can be used.CMV infection may also be monitored using weekly serial measurements. Serial measurements of CMV DNA viral load canbe evaluated by identifying a 10-fold change, as well as assessing the CMV DNA viral load and the clinical context for each patient.The plasma CMV DNA viral load was detected using quantitative polymerase chain reaction and fluorescent monitoring of a specific hybridized probe. Genetic variation and ot her factors can affect the accuracy of nucleic acid testing. Therefore, the results should be interpreted in light of clinical data. A negative result may not exclude the presence of CMV disease.This test was developed and its performance characteristics determined by the [facility] Path ology Department, Section of Molecular Pathology. It has not been cleared or approved by the U.S. Food and Drug Administration (FDA), since FDA approval is not required for clinical use of the test. Validation was done as required by The Clinical Laboratory Improvement Amendments of 1988.STOOL PATH CHARGE 2017-11-03 13:35:00 Test Item Value Reference Range Interpretation Comments PATHOGEN EXAM CHARGED (BEAKER) (test Done code = 2381) TACROLIMUS [id number] 08:17:00 Test Item Value Reference Range Interpretation Comments TACROLIMUS BLOOD (BEAKER) (test 7.3 ng/mL 10.0-20.0 L code = 657) BASIC METABOLIC [id number] 06:56:00 Test Item Value Reference Range Interpretation Comments SODIUM (BEAKER) 137 meq/L 136-145 (test code = 381) POTASSIUM (BEAKER) 4.3 meq/L 3.5-5.1 (test code = 379) CHLORIDE (BEAKER) 111 meq/L 98-107 H (test code = 382) CO2 (BEAKER) (test 20 meq/L 22-29 L code = 355) BLOOD UREA NITROGEN 16 mg/dL 7-21 (BEAKER) (test code = 354) CREATININE (BEAKER) 0.81 mg/dL 0.57-1.25 (test code = 358) GLUCOSE RANDOM 113 mg/dL 70-105 H (BEAKER) (test code = 652) CALCIUM (BEAKER) 9.1 mg/dL 8.4-10.2 (test code = 697) EGFR (BEAKER) (test 82 mL/min/1.73 ESTIMA AMARIS GFR IS code = 1092) sq m NOT ACCURATE CREATININE CLEARANCE IN PREDICTING GLOMERULAR FILTRATION RATE . ESTIMATED GFR I S NOT APPLICABLE FOR DIALYSIS PATIEN TS. CBC W/PLT COUNT & AUTO [id number] 06:35:00 Test Item Value Reference Range Interpretation Comments WHITE BLOOD CELL COUNT (BEAKER) 5.7 K/ L 3.5-10.5 (test code = 775) RED BLOOD CELL COUNT (BEAKER) 3.78 M/ L 3.93-5.22 L (test code = 761) HEMOGLOBIN (BEAKER) (test code = 11.3 GM/DL 11.2-15.7 410) HEMATOCRIT (BEAKER) (test code = 36.2 % 34.1-44.9 411) MEAN CORPUSCULAR VOLUME (BEAKER) 95.8 fL 79.4-94.8 H (test code = 753) MEAN CORPUSCULAR HEMOGLOBIN 29.9 pg 25.6-32.2 (BEAKER) (test code = 751) MEAN CORPUSCULAR HEMOGLOBIN CONC 31.2 GM/DL 32.2-35.5 L (BEAKER) (test code = 752) RED CELL DISTRIBUTION WIDTH 13.5 % 11.7-14.4 (BEAKER) (test code = 412) PLATELET COUNT (BEAKER) (test 201 K/CU MM 150-450 code = 756) MEAN PLATELET VOLUME (BEAKER) 10.5 fL 9.4-12.3 (test code = 754) NUCLEATED RED BLOOD CELLS 0 /100 WBC 0-0 (BEAKER) (test code = 413) NEUTROPHILS RELATIVE PERCENT 58 % (BEAKER) (test code = 429) LYMPHOCYTES RELATIVE PERCENT 29 % (BEAKER) (test code = 430) MONOCYTES RELATIVE PERCENT 9 % (BEAKER) (test code = 431) EOSINOPHILS RELATIVE PERCENT 3 % (BEAKER) (test code = 432) BASOPHILS RELATIVE PERCENT 1 % (BEAKER) (test code = 437) NEUTROPHILS ABSOLUTE COUNT 3.30 K/ L 1.56-6.13 (BEAKER) (test code = 670) LYMPHOCYTES ABSOLUTE COUNT 1.62 K/ L 1.18-3.74 (BEAKER) (test code = 414) MONOCYTES ABSOLUTE COUNT (BEAKER) 0.50 K/ L 0.24-0.36 H (test code = 415) EOSINOPHILS ABSOLUTE COUNT 0.17 K/ L 0.04-0.36 (BEAKER) (test code = 416) BASOPHILS ABSOLUTE COUNT (BEAKER) 0.04 K/ L 0.01-0.08 (test code = 417) IMMATURE GRANULOCYTES-RELATIVE 1 % 0-1 PERCENT (BEAKER) (test code = 2801) U/S, TRANSPLANT, [id number] 22:14:00Reason for exam:->elevated cr, pain FINAL REPORT EXAMINATION: RENAL TRANSPLANT ULTRASOUND WITH A RENAL DUPLEX/DOPPLER. CLINICAL INDICATION: Renal transplant. Elevated creatinine. Pain TECHNIQUE: A transplant renalultrasound was performed followed by a renal duplex/Doppler with color flow and spectral imaging. FINDINGS: Compared to the exam performed 08/13/2017 The renal transplant occupies the right iliac fossa measures 12 x 6 x 6 cm. There is mild persistent dilatation of the renal collecting system, similarbut improved from previous. The renal echogenicity is normal. The renal cortical thickness mm. No evidence of a perirenal fluid collection. The prevoid bladder volume was 9 cc. Renal duplex/Doppler: Resistive indices for the arcuate arteries or within the normal range measuring between0.53 and 0.68.. Peak systolic velocities within the external iliac artery, at the arterial anastomosis, and main renal artery were 110, 124 and 59 cm/sec respectively. Peak systolic velocities within the external iliac vein, at the venous anastomosis, and main renal vein were 13, 52 and 27 cm/sec respectively. IMPRESSION: Right iliac fossa renal transplant. Mild right hydronephrosis, similar but improved from 08/13/2017. Mild elevation of the venous anastomosis peak systolic velocity, clinical significance indeterminate. Consider short-term follow-up imaging surveillance as clinically warranted. Signed: Yossi Manley MDReport Verified Date/Time: 11/02/2017 22:14:24 Reading Location: [address] Reading Room TSH/FREE T4 IF [id number] 12:25:00 Test Item Value Reference Range Interpretation Comments THYROID STIMULATING HORMONE 1.39 uIU/mL 0.35-4.94 (BEAKER) (test code = 772) TACROLIMUS [id number] 12:25:00 Test Item Value Reference Range Interpretation Comments TACROLIMUS BLOOD (BEAKER) (test 12.0 ng/mL 10.0-20.0 code = 657) COMPLEMENT COMPONENT [id number] 11:31:00 Test Item Value Reference Range Interpretation Comments C4 COMPLEMENT (BEAKER) (test code = 28 mg/dL 15-57 394) COMPLEMENT COMPONENT [id number] 11:31:00 Test Item Value Reference Range Interpretation Comments C3 COMPLEMENT (BEAKER) (test code = 127 mg/dL 82-193 393) B-TYPE NATRIURETIC FACTOR (BNP)2017-11-02 04:15:00 Test Item Value Reference Range Interpretation Comments B-TYPE NATRIURETIC PEPTIDE (BEAKER) 17 pg/mL 0-100 (test code = 700) TROPONIN [id number] 04:13:00 Test Item Value Reference Range Interpretation Comments TROPONIN I (BEAKER) (test code = 397) < ng/mL 0.00-0.15 Troponin I (TnI) levels must be interpreted in the context of the presenting symptoms and the clinical findings. Elevated TnI levels indicate myocardial damage, but are not specific for ischemic heart disease. Elevated TnI levels are seen in patients with other cardiac conditions (including myocarditis and congestive heart failure), and slight TnI elevations occur in patients with other conditions, including sepsis, renal failure, acidosis, acute neurological disease, and persistent tachyarrhythmia.[id number] 04:07:00 Test Item Value Reference Range Interpretation Comments LIPASE (BEAKER) (test code = 749) 24 U/L 6-51 CREATINE KINASE (CK)2017-11-02 04:07:00 Test Item Value Reference Range Interpretation Comments CREATINE KINASE TOTAL (BEAKER) (test 42 U/L 25-235 code = 380) COMPREHENSIVE METABOLIC [id number] 04:06:00 Test Item Value Reference Range Interpretation Comments TOTAL PROTEIN 7.1 gm/dL 6.0-8.5 (BEAKER) (test code = 770) ALBUMIN (BEAKER) 4.5 g/dL 3.5-5.0 (test code = 1145) ALKALINE PHOSPHATASE 86 U/L 30-115 (BEAKER) (test code = 346) BILIRUBIN TOTAL < mg/dL 0.1-1.2 (BEAKER) (test code = 377) SODIUM (BEAKER) (test 142 meq/L 135-148 code = 381) POTASSIUM (BEAKER) 4.1 meq/L 3.6-5.5 (test code = 379) CHLORIDE (BEAKER) 109 meq/L 98-106 H (test code = 382) CO2 (BEAKER) (test 22 meq/L 20-29 code = 355) BLOOD UREA NITROGEN 20 mg/dL 10-26 (BEAKER) (test code = 354) CREATININE (BEAKER) 1.00 mg/dL 0.50-1.20 (test code = 358) GLUCOSE RANDOM 145 mg/dL 70-110 H (BEAKER) (test code = 652) CALCIUM (BEAKER) 10.5 mg/dL 8.5-10.5 (test code = 697) AST (SGOT) (BEAKER) 13 U/L 5-40 (test code = 353) ALT (SGPT) (BEAKER) 13 U/L 5-50 (test code = 347) EGFR (BEAKER) (test 65 mL/min/1.73 ESTIMA AMARIS GFR IS code = 1092) sq m NOT ACCURATE CREATININE CLEARANCE IN PREDICTING GLOMERULAR FILTRATION RATE . ESTIMATED GFR I S NOT APPLICABLE FOR DIALYSIS PATIEN TS. URINALYSIS W/ [id number] 04:03:00 Test Item Value Reference Range Interpretation Comments COLOR (BEAKER) (test code = 470) Yellow CLARITY (BEAKER) (test code = Clear 469) SPECIFIC GRAVITY UA (BEAKER) >= 1.001-1.035 (test code = 468) PH UA (BEAKER) (test code = 467) 5.0 5.0-8.0 PROTEIN UA (BEAKER) (test code = Negative Negative 464) GLUCOSE UA (BEAKER) (test code = Negative Negative 365) KETONES UA (BEAKER) (test code = Negative Negative 371) BILIRUBIN UA (BEAKER) (test code Negative Negative = 462) BLOOD UA (BEAKER) (test code = Large Negative A 461) NITRITE UA (BEAKER) (test code = Negative Negative 465) LEUKOCYTE ESTERASE UA (BEAKER) Negative Negative (test code = 466) UROBILINOGEN UA (BEAKER) (test 0.2 mg/dL 0.2-1.0 code = 463) BACTERIA (BEAKER) (test code = Occasional 517) RBC UA-MANUAL (BEAKER) (test code 50-100 /HPF = 1659) WBC UA-MANUAL (BEAKER) (test code <5 /HPF = 1661) SQUAMOUS EPITHELIAL MANUAL <5 /HPF (BEAKER) (test code = 1663) SOURCE(BEAKER) (test code = 2795) SCREEN, [id number] 04:01:00 Test Item Value Reference Range Interpretation Comments TEST URINE (BEAKER) (test Negative code = 583) LACTIC ACID, VENOUS, WHOLE [id number] 03:59:00 Test Item Value Reference Range Interpretation Comments LACTATE BLOOD VENOUS (2) (BEAKER) 1.6 mmol/L 0.5-2.2 (test code = 2872) Effective 07/19/2015: Units/Reference Range ChangeNew: 0.5-2.2 mmol/L Previous: 5-18 mg/[id number] 03:58:00 Test Item Value Reference Range Interpretation Comments MAGNESIUM (BEAKER) (test code = 2.0 mg/dL 1.5-3.0 627) CBC W/PLT COUNT & AUTO [id number] 03:41:00 Test Item Value Reference Range Interpretation Comments WHITE BLOOD CELL COUNT (BEAKER) 7.1 K/ L 4.0-10.0 (test code = 775) RED BLOOD CELL COUNT (BEAKER) 4.09 M/ L 4.00-5.00 (test code = 761) HEMOGLOBIN (BEAKER) (test code = 12.2 GM/DL 12.0-15.0 410) HEMATOCRIT (BEAKER) (test code = 37.0 % 36.0-45.0 411) MEAN CORPUSCULAR VOLUME (BEAKER) 90.7 fL 82.0-99.0 (test code = 753) MEAN CORPUSCULAR HEMOGLOBIN 29.9 pg 27.0-33.0 (BEAKER) (test code = 751) MEAN CORPUSCULAR HEMOGLOBIN CONC 33.0 GM/DL 32.0-36.0 (BEAKER) (test code = 752) RED CELL DISTRIBUTION WIDTH 14.3 % 10.3-14.2 H (BEAKER) (test code = 412) PLATELET COUNT (BEAKER) (test 218 K/CU MM 150-430 code = 756) MEAN PLATELET VOLUME (BEAKER) 9.0 fL 6.5-10.5 (test code = 754) NUCLEATED RED BLOOD CELLS 0 /100 WBC 0-0 (BEAKER) (test code = 413) NEUTROPHILS RELATIVE PERCENT 68 % (BEAKER) (test code = 429) LYMPHOCYTES RELATIVE PERCENT 21 % (BEAKER) (test code = 430) MONOCYTES RELATIVE PERCENT 8 % (BEAKER) (test code = 431) EOSINOPHILS RELATIVE PERCENT 2 % (BEAKER) (test code = 432) BASOPHILS RELATIVE PERCENT 1 % (BEAKER) (test code = 437) NEUTROPHILS ABSOLUTE COUNT 4.80 K/ L 1.80-8.00 (BEAKER) (test code = 670) LYMPHOCYTES ABSOLUTE COUNT 1.50 K/ L 1.48-4.50 (BEAKER) (test code = 414) MONOCYTES ABSOLUTE COUNT (BEAKER) 0.60 K/ L 0.00-1.30 (test code = 415) EOSINOPHILS ABSOLUTE COUNT 0.10 K/ L 0.00-0.50 (BEAKER) (test code = 416) BASOPHILS ABSOLUTE COUNT (BEAKER) 0.10 K/ L 0.00-0.20 (test code = 417) RAD, CHEST, 1 VIEW, NON [id number] 03:19:00Reason for exam:->GENERALIZED BODY ACHESReason for exam:->DIARRHEAReason for exam:->SOBIs the patient ?->UnknownShould this be performed at the bedside?->YesFINAL REPORT History: Shortness of breath. Comparison: 08/13/2017 Findings: Asingle view of the chest is submitted. The cardiomediastinal contours are unremarkable. There is nofocal consolidation, pneumothorax, large pleural effusion or evidence of overt pulmonary edema. The re is no acute bony abnormality. Impression: No acute abnormality. Signed: Georgia Adam MDReport Verified Date/Time: 11/02/2017 03:19:12 Reading Location: [address] Reading Room BK VIRUS PCR, [id number] 09:11:00 Test Item Value Reference Range Interpretation Comments BK VIRUS, PLASMA, NEG Negative or below the (BEAKER) (test code = linear range of the 2145) assay (<1,000 copies/mL) Patients may have replicating BK Virus which is of no clinical significance. Viral load measurements are helpful to identify BK Virus replication of potential clinical significance. Consensus recommendations have been published of threshold values for the presumptive diagnosis of polyomavirus-associated nephropathy (Transplantation 2005;[id number]).A BK Virus load greater than 5,000-10,000 copies/mL in the plasma is consistent with the presumptive diagnosis of polyoma-associated nephropathy in renal transplant recipients.BK Virus DNA was assessed using quantitative polymerase chain reaction and fluorescent monitoring of a specific hybridized probe. Genetic variation and other factors can affect the accuracy of nucleic acid testing. Therefore, the results should be interpreted in light of clinical data.This test was developed and its performance characteristics determined by the [facility] Pathology Department, Section of Molecular Pathology. It has not been cleared or approved by the U.S. Food and Drug Administration (FDA). Since FDA approval is not required for clinicaluse of the test, validation was done as required by the Clinical Laboratory Improvement Amendments of 1988.TACROLIMUS LEVEL 2017-09-02 11:15:00 Test Item Value Reference Range Interpretation Comments TACROLIMUS BLOOD (BEAKER) (test 12.4 ng/mL 10.0-20.0 code = 657) URINALYSIS W/ REFLEX URINE [id number] 09:53:00 Test Item Value Reference Range Interpretation Comments COLOR (BEAKER) (test code = 470) Light Yellow CLARITY (BEAKER) (test code = Clear 469) SPECIFIC GRAVITY UA (BEAKER) 1.011 1.001-1.035 (test code = 468) PH UA (BEAKER) (test code = 467) 6.0 5.0-8.0 PROTEIN UA (BEAKER) (test code = Negative Negative 464) GLUCOSE UA (BEAKER) (test code = Negative Negative 365) KETONES UA (BEAKER) (test code = Negative Negative 371) BILIRUBIN UA (BEAKER) (test code Negative Negative = 462) BLOOD UA (BEAKER) (test code = Negative Negative 461) NITRITE UA (BEAKER) (test code = Negative Negative 465) LEUKOCYTE ESTERASE UA (BEAKER) Negative Negative (test code = 466) UROBILINOGEN UA (BEAKER) (test 0.2 mg/dL 0.2-1.0 code = 463) RBC UA (BEAKER) (test code = 0 /HPF 519) WBC UA (BEAKER) (test code = < /HPF 520) SQUAMOUS EPITHELIAL (BEAKER) 1 /HPF (test code = 516) SOURCE(BEAKER) (test code = 2795) [id number] 09:03:00 Test Item Value Reference Range Interpretation Comments PHOSPHORUS (BEAKER) (test code = 3.3 mg/dL 2.3-4.7 604) COMPREHENSIVE METABOLIC [id number] 09:03:00 Test Item Value Reference Range Interpretation Comments TOTAL PROTEIN 6.8 gm/dL 6.0-8.3 (BEAKER) (test code = 770) ALBUMIN (BEAKER) 4.3 g/dL 3.5-5.0 (test code = 1145) ALKALINE PHOSPHATASE 90 U/L 40-150 (BEAKER) (test code = 346) BILIRUBIN TOTAL 0.2 mg/dL 0.2-1.2 (BEAKER) (test code = 377) SODIUM (BEAKER) (test 140 meq/L 136-145 code = 381) POTASSIUM (BEAKER) 4.2 meq/L 3.5-5.1 (test code = 379) CHLORIDE (BEAKER) 110 meq/L 98-107 H (test code = 382) CO2 (BEAKER) (test 20 meq/L 22-29 L code = 355) BLOOD UREA NITROGEN 18 mg/dL 7-21 (BEAKER) (test code = 354) CREATININE (BEAKER) 0.80 mg/dL 0.57-1.25 (test code = 358) GLUCOSE RANDOM 105 mg/dL 70-105 (BEAKER) (test code = 652) CALCIUM (BEAKER) 10.1 mg/dL 8.4-10.2 (test code = 697) AST (SGOT) (BEAKER) 12 U/L 5-34 (test code = 353) ALT (SGPT) (BEAKER) 14 U/L 6-55 (test code = 347) EGFR (BEAKER) (test 84 mL/min/1.73 ESTIMA AMARIS GFR IS code = 1092) sq m NOT ACCURATE CREATININE CLEARANCE IN PREDICTING GLOMERULAR FILTRATION RATE . ESTIMATED GFR I S NOT APPLICABLE FOR DIALYSIS PATIEN TS. LACTATE DEHYDROGENASE (LDH)2017-09-02 09:03:00 Test Item Value Reference Range Interpretation Comments LACTATE DEHYDROGENASE (BEAKER) (test 174 U/L 125-220 code = 635) SCREEN, [id number] 08:38:00 Test Item Value Reference Range Interpretation Comments TEST URINE (BEAKER) (test Negative code = 583) CBC W/PLT COUNT & AUTO [id number] 08:33:00 Test Item Value Reference Range Interpretation Comments WHITE BLOOD CELL COUNT (BEAKER) 6.5 K/ L 3.5-10.5 (test code = 775) RED BLOOD CELL COUNT (BEAKER) 4.11 M/ L 3.93-5.22 (test code = 761) HEMOGLOBIN (BEAKER) (test code = 12.2 GM/DL 11.2-15.7 410) HEMATOCRIT (BEAKER) (test code = 38.1 % 34.1-44.9 411) MEAN CORPUSCULAR VOLUME (BEAKER) 92.7 fL 79.4-94.8 (test code = 753) MEAN CORPUSCULAR HEMOGLOBIN 29.7 pg 25.6-32.2 (BEAKER) (test code = 751) MEAN CORPUSCULAR HEMOGLOBIN CONC 32.0 GM/DL 32.2-35.5 L (BEAKER) (test code = 752) RED CELL DISTRIBUTION WIDTH 13.2 % 11.7-14.4 (BEAKER) (test code = 412) PLATELET COUNT (BEAKER) (test 248 K/CU MM 150-450 code = 756) MEAN PLATELET VOLUME (BEAKER) 10.7 fL 9.4-12.3 (test code = 754) NUCLEATED RED BLOOD CELLS 0 /100 WBC 0-0 (BEAKER) (test code = 413) NEUTROPHILS RELATIVE PERCENT 66 % (BEAKER) (test code = 429) LYMPHOCYTES RELATIVE PERCENT 22 % (BEAKER) (test code = 430) MONOCYTES RELATIVE PERCENT 7 % (BEAKER) (test code = 431) EOSINOPHILS RELATIVE PERCENT 3 % (BEAKER) (test code = 432) BASOPHILS RELATIVE PERCENT 1 % (BEAKER) (test code = 437) NEUTROPHILS ABSOLUTE COUNT 4.29 K/ L 1.56-6.13 (BEAKER) (test code = 670) LYMPHOCYTES ABSOLUTE COUNT 1.45 K/ L 1.18-3.74 (BEAKER) (test code = 414) MONOCYTES ABSOLUTE COUNT (BEAKER) 0.45 K/ L 0.24-0.36 H (test code = 415) EOSINOPHILS ABSOLUTE COUNT 0.16 K/ L 0.04-0.36 (BEAKER) (test code = 416) BASOPHILS ABSOLUTE COUNT (BEAKER) 0.05 K/ L 0.01-0.08 (test code = 417) IMMATURE GRANULOCYTES-RELATIVE 2 % 0-1 H PERCENT (BEAKER) (test code = 2801) BASIC METABOLIC [id number] 03:51:00 Test Item Value Reference Range Interpretation Comments SODIUM (BEAKER) 138 meq/L 135-148 (test code = 381) POTASSIUM (BEAKER) 4.1 meq/L 3.6-5.5 (test code = 379) CHLORIDE (BEAKER) 106 meq/L 98-106 (test code = 382) CO2 (BEAKER) (test 19 meq/L 20-29 L code = 355) BLOOD UREA NITROGEN 16 mg/dL 10-26 (BEAKER) (test code = 354) CREATININE (BEAKER) 0.85 mg/dL 0.50-1.20 (test code = 358) GLUCOSE RANDOM 121 mg/dL 70-110 H (BEAKER) (test code = 652) CALCIUM (BEAKER) 9.7 mg/dL 8.5-10.5 (test code = 697) EGFR (BEAKER) (test 78 mL/min/1.73 ESTIMA AMARIS GFR IS code = 1092) sq m NOT ACCURATE CREATININE CLEARANCE IN PREDICTING GLOMERULAR FILTRATION RATE . ESTIMATED GFR I S NOT APPLICABLE FOR DIALYSIS PATIEN TS. URINALYSIS W/ [id number] 01:21:00 Test Item Value Reference Range Interpretation Comments COLOR (BEAKER) (test code = 470) Yellow CLARITY (BEAKER) (test code = 469) Clear SPECIFIC GRAVITY UA (BEAKER) (test <= 1.001-1.035 code = 468) PH UA (BEAKER) (test code = 467) 6.0 5.0-8.0 PROTEIN UA (BEAKER) (test code = Negative Negative 464) GLUCOSE UA (BEAKER) (test code = Negative Negative 365) KETONES UA (BEAKER) (test code = Negative Negative 371) BILIRUBIN UA (BEAKER) (test code = Negative Negative 462) BLOOD UA (BEAKER) (test code = Trace Negative A 461) NITRITE UA (BEAKER) (test code = Negative Negative 465) LEUKOCYTE ESTERASE UA (BEAKER) Negative Negative (test code = 466) UROBILINOGEN UA (BEAKER) (test 0.2 mg/dL 0.2-1.0 code = 463) BACTERIA (BEAKER) (test code = Occasional 517) RBC UA-MANUAL (BEAKER) (test code <5 /HPF = 1659) WBC UA-MANUAL (BEAKER) (test code <5 /HPF = 1661) SQUAMOUS EPITHELIAL MANUAL 5-10 /HPF (BEAKER) (test code = 1663) SOURCE(BEAKER) (test code = 2795) BLOOD [id number] 04:00:00 Test Item Value Reference Range Interpretation Comments CULTURE (BEAKER) (test No growth in 5 days code = 1095) BLOOD [id number] 04:00:00 Test Item Value Reference Range Interpretation Comments CULTURE (BEAKER) (test No growth in 5 days code = 1095) URINE [id number] 09:27:00 Test Item Value Reference Range Interpretation Comments CULTURE (BEAKER) ENTEROCOCCUS A 40-49,000 c ol/mL (test code = 1095) FAECALIS Enterococ cus faecalis Ampicillin (test S code = 26) Ciprofloxacin (test R code = 7) Daptomycin (test S code = 59) Erythromycin (test R code = 4) Gentamicin High S Level Synergy (test code = 241) Levofloxacin (test R code = 22) Linezolid (test code S = 40) Nitrofurantoin (test S code = 23) Streptomycin High S Level Synergy (test code = 242) Tetracycline (test S code = 2) Tigecycline (test S code = 133) Vancomycin (test S code = 13) [id number] 05:43:00 Test Item Value Reference Range Interpretation Comments PHOSPHORUS (BEAKER) (test code = 2.4 mg/dL 2.3-4.7 604) [id number] 05:43:00 Test Item Value Reference Range Interpretation Comments MAGNESIUM (BEAKER) (test code = 1.9 mg/dL 1.6-2.6 627) BASIC METABOLIC [id number] 05:43:00 Test Item Value Reference Range Interpretation Comments SODIUM (BEAKER) 138 meq/L 136-145 (test code = 381) POTASSIUM (BEAKER) 4.5 meq/L 3.5-5.1 (test code = 379) CHLORIDE (BEAKER) 111 meq/L 98-107 H (test code = 382) CO2 (BEAKER) (test 20 meq/L 22-29 L code = 355) BLOOD UREA NITROGEN 16 mg/dL 7-21 (BEAKER) (test code = 354) CREATININE (BEAKER) 0.75 mg/dL 0.57-1.25 (test code = 358) GLUCOSE RANDOM 119 mg/dL 70-105 H (BEAKER) (test code = 652) CALCIUM (BEAKER) 9.5 mg/dL 8.4-10.2 (test code = 697) EGFR (BEAKER) (test 90 mL/min/1.73 ESTIMA AMARIS GFR IS code = 1092) sq m NOT ACCURATE CREATININE CLEARANCE IN PREDICTING GLOMERULAR FILTRATION RATE . ESTIMATED GFR I S NOT APPLICABLE FOR DIALYSIS PATIEN TS. CBC W/PLT COUNT & AUTO [id number] 05:05:00 Test Item Value Reference Range Interpretation Comments WHITE BLOOD CELL COUNT (BEAKER) 5.9 K/ L 3.5-10.5 (test code = 775) RED BLOOD CELL COUNT (BEAKER) 3.53 M/ L 3.93-5.22 L (test code = 761) HEMOGLOBIN (BEAKER) (test code = 10.4 GM/DL 11.2-15.7 L 410) HEMATOCRIT (BEAKER) (test code = 32.4 % 34.1-44.9 L 411) MEAN CORPUSCULAR VOLUME (BEAKER) 91.8 fL 79.4-94.8 (test code = 753) MEAN CORPUSCULAR HEMOGLOBIN 29.5 pg 25.6-32.2 (BEAKER) (test code = 751) MEAN CORPUSCULAR HEMOGLOBIN CONC 32.1 GM/DL 32.2-35.5 L (BEAKER) (test code = 752) RED CELL DISTRIBUTION WIDTH 13.2 % 11.7-14.4 (BEAKER) (test code = 412) PLATELET COUNT (BEAKER) (test 167 K/CU MM 150-450 code = 756) MEAN PLATELET VOLUME (BEAKER) 11.4 fL 9.4-12.3 (test code = 754) NUCLEATED RED BLOOD CELLS 0 /100 WBC 0-0 (BEAKER) (test code = 413) NEUTROPHILS RELATIVE PERCENT 68 % (BEAKER) (test code = 429) LYMPHOCYTES RELATIVE PERCENT 18 % (BEAKER) (test code = 430) MONOCYTES RELATIVE PERCENT 10 % (BEAKER) (test code = 431) EOSINOPHILS RELATIVE PERCENT 3 % (BEAKER) (test code = 432) BASOPHILS RELATIVE PERCENT 1 % (BEAKER) (test code = 437) NEUTROPHILS ABSOLUTE COUNT 4.01 K/ L 1.56-6.13 (BEAKER) (test code = 670) LYMPHOCYTES ABSOLUTE COUNT 1.03 K/ L 1.18-3.74 L (BEAKER) (test code = 414) MONOCYTES ABSOLUTE COUNT (BEAKER) 0.60 K/ L 0.24-0.36 H (test code = 415) EOSINOPHILS ABSOLUTE COUNT 0.15 K/ L 0.04-0.36 (BEAKER) (test code = 416) BASOPHILS ABSOLUTE COUNT (BEAKER) 0.03 K/ L 0.01-0.08 (test code = 417) IMMATURE GRANULOCYTES-RELATIVE 1 % 0-1 PERCENT (BEAKER) (test code = 2801) CT, [id number] 17:13:00Reason for exam:->abdominal painWhat is the patient's sedation requirement?->No SedationIs thepatient ?->No FINAL REPORT ABDOMINAL AND PELVIS CT DATED 08/14/2017 COMPARISON: August 07, 2016 CLINICAL INFORMATION: abdominal painabdominal pain TECHNIQUE: Axial images of the abdomen and pelvis were obtained from diaphragm to the pubic symphysis with GI contrast. Intravenous contrast was not given. This exam was performed according to our departmental dose-optimization program, which includes automated exposure control, adjustment of the mA and/or kV according to patient size and/or use of interactive reconstruction technique. COMMENT: Liver and spleen are normal in size without focal abnormality. Gallbladder is contracted. No gallstone or biliary dilatation is noted. Pancreas and adrenals are unremarkable. Both kidneys are atrophic consistent with end-stage renal disease. A normal-appearing transplant kidney is noted in the right lower quadrant abdomen. No hydronephrosis or perinephric collection is noted associated with transplanted kidney. The small and large bowel are unremarkable. Appendix is normal in caliber. Uterus and ovaries are unremarkable. Trace amount free fluid isseen in the pelvis. IMPRESSION: 1. End- stage renal disease with a normal-appearing transplanted kidney in the right lower quadrant abdomen.2. Trace free fluid in the pelvis. Signed: Lucho Loco MDReport Verified Date/Time: 08/14/2017 17:13:34 Reading Location: [facility] B1 [id number] CT Body Reading Room RESPIRATORY PANEL [id number] 10:09:00 Test Item Value Reference Range Interpretation Comments HUMAN METAPNEUMOVIRUS Not detected Not detected, (BEAKER) (test code = Inconclusive 2683) RHINOVIRUS (BEAKER) (test Not detected Not detected, code = 2684) Inconclusive INFLUENZA A (BEAKER) (test Not detected Not detected, code = 2685) Inconclusive INFLUENZA A SUBTYPE H1 Not detected Not detected, (BEAKER) (test code = Inconclusive 2686) INFLUENZA A SUBTYPE H3 Not detected Not detected, (BEAKER) (test code = Inconclusive 2687) INFLUENZA A SUBTYPE Not detected Not detected, H1-2009 (BEAKER) (test Inconclusive code = 3198) INFLUENZA B (BEAKER) (test Not detected Not detected, code = 2688) Inconclusive RESPIRATORY SYNCYTIAL Not detected Not detected, VIRUS (BEAKER) (test code Inconclusive = 3199) PARAINFLUENZA VIRUS 1 Not detected Not detected, (BEAKER) (test code = Inconclusive 2691) PARAINFLUENZA VIRUS 2 Not detected Not detected, (BEAKER) (test code = Inconclusive 2692) PARAINFLUENZA VIRUS 3 Not detected Not detected, (BEAKER) (test code = Inconclusive 2693) PARAINFLUENZA VIRUS 4 Not detected Not detected, (BEAKER) (test code = Inconclusive 3200) ADENOVIRUS (BEAKER) (test Not detected Not detected, code = 2694) Inconclusive CORONAVIRUS 229E (BEAKER) Not detected Not detected, (test code = 3201) Inconclusive CORONAVIRUS HKU1 (BEAKER) Not detected Not detected, (test code = 3202) Inconclusive CORONAVIRUS NL63 (BEAKER) Not detected Not detected, (test code = 3203) Inconclusive CORONAVIRUS OC43 (BEAKER) Not detected Not detected, (test code = 3204) Inconclusive BORDETELLA PERTUSSIS Not detected Not detected, (BEAKER) (test code = Inconclusive 3205) CHLAMYDOPHILA PNEUMONIAE Not detected Not detected, (BEAKER) (test code = Inconclusive 3206) MYCOPLASMA PNEUMONIAE Not detected Not detected, (BEAKER) (test code = Inconclusive 3207) [id number] 06:30:00 Test Item Value Reference Range Interpretation Comments PHOSPHORUS (BEAKER) (test code = 2.6 mg/dL 2.3-4.7 604) [id number] 06:30:00 Test Item Value Reference Range Interpretation Comments MAGNESIUM (BEAKER) (test code = 1.4 mg/dL 1.6-2.6 L 627) BASIC METABOLIC [id number] 06:30:00 Test Item Value Reference Range Interpretation Comments SODIUM (BEAKER) 137 meq/L 136-145 (test code = 381) POTASSIUM (BEAKER) 3.7 meq/L 3.5-5.1 (test code = 379) CHLORIDE (BEAKER) 110 meq/L 98-107 H (test code = 382) CO2 (BEAKER) (test 21 meq/L 22-29 L code = 355) BLOOD UREA NITROGEN 12 mg/dL 7-21 (BEAKER) (test code = 354) CREATININE (BEAKER) 0.81 mg/dL 0.57-1.25 (test code = 358) GLUCOSE RANDOM 136 mg/dL 70-105 H (BEAKER) (test code = 652) CALCIUM (BEAKER) 8.8 mg/dL 8.4-10.2 (test code = 697) EGFR (BEAKER) (test 82 mL/min/1.73 ESTIMA AMARIS GFR IS code = 1092) sq m NOT ACCURATE CREATININE CLEARANCE IN PREDICTING GLOMERULAR FILTRATION RATE . ESTIMATED GFR I S NOT APPLICABLE FOR DIALYSIS PATIEN TS. HIV-1 ANTIGEN WITH HIV-1/2 [id number] 06:24:00 Test Item Value Reference Range Interpretation Comments HIV-1 ANTIGEN WITH HIV 1\T\2 Nonreactive Nonreactive ANTIBODY (2) (BEAKER) (test code = 2586) CBC W/PLT COUNT & AUTO [id number] 05:48:00 Test Item Value Reference Range Interpretation Comments WHITE BLOOD CELL COUNT (BEAKER) 8.7 K/ L 3.5-10.5 (test code = 775) RED BLOOD CELL COUNT (BEAKER) 3.64 M/ L 3.93-5.22 L (test code = 761) HEMOGLOBIN (BEAKER) (test code = 10.8 GM/DL 11.2-15.7 L 410) HEMATOCRIT (BEAKER) (test code = 33.5 % 34.1-44.9 L 411) MEAN CORPUSCULAR VOLUME (BEAKER) 92.0 fL 79.4-94.8 (test code = 753) MEAN CORPUSCULAR HEMOGLOBIN 29.7 pg 25.6-32.2 (BEAKER) (test code = 751) MEAN CORPUSCULAR HEMOGLOBIN CONC 32.2 GM/DL 32.2-35.5 (BEAKER) (test code = 752) RED CELL DISTRIBUTION WIDTH 12.9 % 11.7-14.4 (BEAKER) (test code = 412) PLATELET COUNT (BEAKER) (test 153 K/CU MM 150-450 code = 756) MEAN PLATELET VOLUME (BEAKER) 11.1 fL 9.4-12.3 (test code = 754) NUCLEATED RED BLOOD CELLS 0 /100 WBC 0-0 (BEAKER) (test code = 413) NEUTROPHILS RELATIVE PERCENT 79 % (BEAKER) (test code = 429) LYMPHOCYTES RELATIVE PERCENT 10 % (BEAKER) (test code = 430) MONOCYTES RELATIVE PERCENT 10 % (BEAKER) (test code = 431) EOSINOPHILS RELATIVE PERCENT 1 % (BEAKER) (test code = 432) BASOPHILS RELATIVE PERCENT 0 % (BEAKER) (test code = 437) NEUTROPHILS ABSOLUTE COUNT 6.88 K/ L 1.56-6.13 H (BEAKER) (test code = 670) LYMPHOCYTES ABSOLUTE COUNT 0.84 K/ L 1.18-3.74 L (BEAKER) (test code = 414) MONOCYTES ABSOLUTE COUNT (BEAKER) 0.83 K/ L 0.24-0.36 H (test code = 415) EOSINOPHILS ABSOLUTE COUNT 0.07 K/ L 0.04-0.36 (BEAKER) (test code = 416) BASOPHILS ABSOLUTE COUNT (BEAKER) 0.03 K/ L 0.01-0.08 (test code = 417) IMMATURE GRANULOCYTES-RELATIVE 1 % 0-1 PERCENT (BEAKER) (test code = 2801) TACROLIMUS [id number] 09:43:00 Test Item Value Reference Range Interpretation Comments TACROLIMUS BLOOD (BEAKER) (test 7.2 ng/mL 10.0-20.0 L code = 657) U/S, TRANSPLANT, [id number] 03:40:00Reason for exam:->FEVERFINAL REPORT EXAMINATION: RENAL TRANSPLANT ULTRASOUND WITH A RENAL DUPLEX/DOPPLER. CLINICAL INDICATION: Fever TECHNIQUE: A transplant renal ultrasound was performed followed by a renal duplex/Doppler with color flow and spectral imaging. FINDINGS: Compared with renal transplant ultrasound 02/15/2017 The renal transplant occupies the right iliac fossa measures 12 x 6 x 7 cm. There is mild dilatation of the renal collecting system, new compared to the prior study. No evidence of nephrolithiasis. The renal echogenicity is normal. The renal cortical thickness measures 18 mm. No evidence of a perinephric fluid collection. The prevoid bladder volume was 180 cc. Renal duplex/Doppler: Resistive indices for the arcuate arteries were within the normal range measuring between 0.55 and 0.66. Peak systolic velocities within the external iliac artery, at the arterial anastomosis, and main renal artery were 129, 67 and 84 cm/sec respectively. Peak systolic velocities within the ex ternal iliac vein, at the venous anastomosis, and main renal vein were 30, 42 and 55 cm/sec respectively. IMPRESSION: Right iliac fossa renal transplant. New mild hydronephrosis compared with 02/15/2017. Note: Short-term follow-up sonographic surveillance recommended. Signed: [facility]ossi Manley [facility] Verified Date/Time: 08/13/2017 03:40:30 Reading Location: [address] Reading Room COMPREHENSIVE METABOLIC [id number] 02:47:00 Test Item Value Reference Range Interpretation Comments TOTAL PROTEIN 7.1 gm/dL 6.0-8.5 (BEAKER) (test code = 770) ALBUMIN (BEAKER) 4.5 g/dL 3.5-5.0 (test code = 1145) ALKALINE PHOSPHATASE 95 U/L 30-115 (BEAKER) (test code = 346) BILIRUBIN TOTAL 0.6 mg/dL 0.1-1.2 (BEAKER) (test code = 377) SODIUM (BEAKER) (test 133 meq/L 135-148 L code = 381) POTASSIUM (BEAKER) 3.8 meq/L 3.6-5.5 (test code = 379) CHLORIDE (BEAKER) 102 meq/L 98-106 (test code = 382) CO2 (BEAKER) (test 19 meq/L 20-29 L code = 355) BLOOD UREA NITROGEN 16 mg/dL 10-26 (BEAKER) (test code = 354) CREATININE (BEAKER) 0.93 mg/dL 0.50-1.20 (test code = 358) GLUCOSE RANDOM 103 mg/dL 70-110 (BEAKER) (test code = 652) CALCIUM (BEAKER) 9.8 mg/dL 8.5-10.5 (test code = 697) AST (SGOT) (BEAKER) 12 U/L 5-40 (test code = 353) ALT (SGPT) (BEAKER) 13 U/L 5-50 (test code = 347) EGFR (BEAKER) (test 70 mL/min/1.73 ESTIMA AMARIS GFR IS code = 1092) sq m NOT ACCURATE CREATININE CLEARANCE IN PREDICTING GLOMERULAR FILTRATION RATE . ESTIMATED GFR I S NOT APPLICABLE FOR DIALYSIS PATIEN TS. RAPID INFLUENZA A&B [id number] 02:32:00 Test Item Value Reference Range Interpretation Comments RAPID INFLUENZA A AG (BEAKER) Negative Negative, Inconclusive (test code = 1622) RAPID INFLUENZA B AG (BEAKER) Negative Negative, Inconclusive (test code = 1623) LACTIC ACID, VENOUS, WHOLE [id number] 01:50:00 Test Item Value Reference Range Interpretation Comments LACTATE BLOOD VENOUS 1.2 mmol/L 0.5-2.2 Specime n slightly (2) (BEAKER) (test hemolyzed code = 2872) Effective 07/19/2015: Units/Reference Range ChangeNew: 0.5-2.2 mmol/L Previous: 5-18 mg/dLRAD, CHEST, 1 VIEW, NON [id number] 01:50:00Reason for exam:- >FEVERIs the patient ?->UnknownShould this be performed at the bedside?->YesFINAL REPORT RAD, CHEST, 1 VIEW, NON DEPT INDICATION: FEVER COMPARISON: Chestx-ray 3 weeks ago TECHNIQUE: Single frontal view of the chest. IMPRESSION:Cardiomediastinal silhouette within normal limits.No overt consolidative or congestive change.No acute osseous abnormality. Signed: Tammy Cheek MDReport Verified Date/Time: 08/13/2017 01:50:16 Reading Location: [facility] [id number] Body Reading Room CBC W/PLT COUNT & AUTO [id number] 01:34:00 Test Item Value Reference Range Interpretation Comments WHITE BLOOD CELL COUNT (BEAKER) 14.5 K/ L 4.0-10.0 H (test code = 775) RED BLOOD CELL COUNT (BEAKER) 4.33 M/ L 4.00-5.00 (test code = 761) HEMOGLOBIN (BEAKER) (test code = 13.1 GM/DL 12.0-15.0 410) HEMATOCRIT (BEAKER) (test code = 39.0 % 36.0-45.0 411) MEAN CORPUSCULAR VOLUME (BEAKER) 90.1 fL 82.0-99.0 (test code = 753) MEAN CORPUSCULAR HEMOGLOBIN 30.3 pg 27.0-33.0 (BEAKER) (test code = 751) MEAN CORPUSCULAR HEMOGLOBIN CONC 33.6 GM/DL 32.0-36.0 (BEAKER) (test code = 752) RED CELL DISTRIBUTION WIDTH 13.3 % 10.3-14.2 (BEAKER) (test code = 412) PLATELET COUNT (BEAKER) (test 201 K/CU MM 150-430 code = 756) MEAN PLATELET VOLUME (BEAKER) 8.9 fL 6.5-10.5 (test code = 754) NUCLEATED RED BLOOD CELLS 0 /100 WBC 0-0 (BEAKER) (test code = 413) NEUTROPHILS RELATIVE PERCENT 87 % (BEAKER) (test code = 429) LYMPHOCYTES RELATIVE PERCENT 7 % (BEAKER) (test code = 430) MONOCYTES RELATIVE PERCENT 6 % (BEAKER) (test code = 431) EOSINOPHILS RELATIVE PERCENT 1 % (BEAKER) (test code = 432) BASOPHILS RELATIVE PERCENT 0 % (BEAKER) (test code = 437) NEUTROPHILS ABSOLUTE COUNT 12.60 K/ L 1.80-8.00 H (BEAKER) (test code = 670) LYMPHOCYTES ABSOLUTE COUNT 1.00 K/ L 1.48-4.50 L (BEAKER) (test code = 414) MONOCYTES ABSOLUTE COUNT (BEAKER) 0.80 K/ L 0.00-1.30 (test code = 415) EOSINOPHILS ABSOLUTE COUNT 0.10 K/ L 0.00-0.50 (BEAKER) (test code = 416) BASOPHILS ABSOLUTE COUNT (BEAKER) 0.00 K/ L 0.00-0.20 (test code = 417) URINALYSIS W/ [id number] 01:34:00 Test Item Value Reference Range Interpretation Comments COLOR (BEAKER) (test code = 470) Yellow CLARITY (BEAKER) (test code = 469) Clear SPECIFIC GRAVITY UA (BEAKER) (test <= 1.001-1.035 code = 468) PH UA (BEAKER) (test code = 467) 5.0 5.0-8.0 PROTEIN UA (BEAKER) (test code = Negative Negative 464) GLUCOSE UA (BEAKER) (test code = Negative Negative 365) KETONES UA (BEAKER) (test code = Negative Negative 371) BILIRUBIN UA (BEAKER) (test code = Negative Negative 462) BLOOD UA (BEAKER) (test code = Large Negative A 461) NITRITE UA (BEAKER) (test code = Negative Negative 465) LEUKOCYTE ESTERASE UA (BEAKER) Trace Negative A (test code = 466) UROBILINOGEN UA (BEAKER) (test 0.2 mg/dL 0.2-1.0 code = 463) BACTERIA (BEAKER) (test code = Occasional 517) RBC UA-MANUAL (BEAKER) (test code 5-10 /HPF = 1659) WBC UA-MANUAL (BEAKER) (test code <5 /HPF = 1661) SQUAMOUS EPITHELIAL MANUAL <5 /HPF (BEAKER) (test code = 1663) SOURCE(BEAKER) (test code = 2795) SCREEN, [id number] 01:31:00 Test Item Value Reference Range Interpretation Comments TEST URINE (BEAKER) (test Negative code = 583) RAD, CHEST, 2 [id number] 02:46:00Reason for exam:->FEVERFINAL REPORT Exam: Chest x-ray, PA and lateral views Clinical History: Fever Comparison: Chest radiograph 03/25/17. Technique: Frontal and lateral views of the chest were obtained.Findings: The cardiomediastinal contours are normal. There is no focal pulmonary consolidation, pleural effusion or pneumothorax. There is no pulmonary edema. The bony thorax is unremarkable. Impression: No focal pulmonary consolidation. Signed: Coco Cross Verified Date/Time: 07/28/2017 02:46:54 Reading Location: [address] Transitional Reading Room BASIC METABOLIC [id number] 02:01:00 Test Item Value Reference Range Interpretation Comments SODIUM (BEAKER) 139 meq/L 135-148 (test code = 381) POTASSIUM (BEAKER) 4.7 meq/L 3.6-5.5 (test code = 379) CHLORIDE (BEAKER) 106 meq/L 98-106 (test code = 382) CO2 (BEAKER) (test 22 meq/L 20-29 code = 355) BLOOD UREA NITROGEN 21 mg/dL 10-26 (BEAKER) (test code = 354) CREATININE (BEAKER) 0.82 mg/dL 0.50-1.20 (test code = 358) GLUCOSE RANDOM 114 mg/dL 70-110 H (BEAKER) (test code = 652) CALCIUM (BEAKER) 9.4 mg/dL 8.5-10.5 (test code = 697) EGFR (BEAKER) (test 81 mL/min/1.73 ESTIMA AMARIS GFR IS code = 1092) sq m NOT ACCURATE CREATININE CLEARANCE IN PREDICTING GLOMERULAR FILTRATION RATE . ESTIMATED GFR I S NOT APPLICABLE FOR DIALYSIS PATIEN TS. RAPID INFLUENZA A&B [id number] 01:59:00 Test Item Value Reference Range Interpretation Comments RAPID INFLUENZA A AG (BEAKER) Negative Negative, Inconclusive (test code = 1622) RAPID INFLUENZA B AG (BEAKER) Negative Negative, Inconclusive (test code = 1623) CBC W/PLT COUNT & AUTO [id number] 01:43:00 Test Item Value Reference Range Interpretation Comments WHITE BLOOD CELL COUNT (BEAKER) 7.5 K/ L 4.0-10.0 (test code = 775) RED BLOOD CELL COUNT (BEAKER) 4.03 M/ L 4.00-5.00 (test code = 761) HEMOGLOBIN (BEAKER) (test code = 12.4 GM/DL 12.0-15.0 410) HEMATOCRIT (BEAKER) (test code = 36.5 % 36.0-45.0 411) MEAN CORPUSCULAR VOLUME (BEAKER) 90.6 fL 82.0-99.0 (test code = 753) MEAN CORPUSCULAR HEMOGLOBIN 30.9 pg 27.0-33.0 (BEAKER) (test code = 751) MEAN CORPUSCULAR HEMOGLOBIN CONC 34.1 GM/DL 32.0-36.0 (BEAKER) (test code = 752) RED CELL DISTRIBUTION WIDTH 13.3 % 10.3-14.2 (BEAKER) (test code = 412) PLATELET COUNT (BEAKER) (test 193 K/CU MM 150-430 code = 756) MEAN PLATELET VOLUME (BEAKER) 9.0 fL 6.5-10.5 (test code = 754) NUCLEATED RED BLOOD CELLS 0 /100 WBC 0-0 (BEAKER) (test code = 413) NEUTROPHILS RELATIVE PERCENT 69 % (BEAKER) (test code = 429) LYMPHOCYTES RELATIVE PERCENT 17 % (BEAKER) (test code = 430) MONOCYTES RELATIVE PERCENT 12 % (BEAKER) (test code = 431) EOSINOPHILS RELATIVE PERCENT 1 % (BEAKER) (test code = 432) BASOPHILS RELATIVE PERCENT 1 % (BEAKER) (test code = 437) NEUTROPHILS ABSOLUTE COUNT 5.20 K/ L 1.80-8.00 (BEAKER) (test code = 670) LYMPHOCYTES ABSOLUTE COUNT 1.30 K/ L 1.48-4.50 L (BEAKER) (test code = 414) MONOCYTES ABSOLUTE COUNT (BEAKER) 0.90 K/ L 0.00-1.30 (test code = 415) EOSINOPHILS ABSOLUTE COUNT 0.10 K/ L 0.00-0.50 (BEAKER) (test code = 416) BASOPHILS ABSOLUTE COUNT (BEAKER) 0.00 K/ L 0.00-0.20 (test code = 417) SCREEN, [id number] 00:54:00 Test Item Value Reference Range Interpretation Comments TEST URINE (BEAKER) (test Negative code = 583) URINALYSIS W/ REFLEX URINE [id number] 00:36:00 Test Item Value Reference Range Interpretation Comments COLOR (BEAKER) (test code = Yellow 470) CLARITY (BEAKER) (test code = Clear 469) SPECIFIC GRAVITY UA (BEAKER) 1.025 1.001-1.035 (test code = 468) PH UA (BEAKER) (test code = 6.0 5.0-8.0 467) PROTEIN UA (BEAKER) (test code Negative Negative = 464) GLUCOSE UA (BEAKER) (test code Negative Negative = 365) KETONES UA (BEAKER) (test code Negative Negative = 371) BILIRUBIN UA (BEAKER) (test Negative Negative code = 462) BLOOD UA (BEAKER) (test code = Negative Negative 461) NITRITE UA (BEAKER) (test code Negative Negative = 465) LEUKOCYTE ESTERASE UA (BEAKER) Negative Negative (test code = 466) UROBILINOGEN UA (BEAKER) (test 0.2 mg/dL 0.2-1.0 code = 463) BACTERIA (BEAKER) (test code = Rare 517) RBC UA-MANUAL (BEAKER) (test None Seen /HPF code = 1659) WBC UA-MANUAL (BEAKER) (test <5 /HPF code = 1661) SQUAMOUS EPITHELIAL MANUAL <5 /HPF (BEAKER) (test code = 1663) SOURCE(BEAKER) (test code = 2795) BK VIRUS PCR, [id number] 07:24:00 Test Item Value Reference Range Interpretation Comments BK VIRUS, PLASMA, NEG Negative or below the (BEAKER) (test code = linear range of the 2145) assay (<1,000 copies/mL) Patients may have replicating BK Virus which is of no clinical significance. Viral load measurements are helpful to identify BK Virus replication of potential clinical significance. Consensus recommendations have been published of threshold values for the presumptive diagnosis of polyomavirus-associated nephropathy (Transplantation 2005;[id number]:[id number]).A BK Virus load greater than 5,000-10,000 copies/mL in the plasma is consistent with the presumptive diagnosis of polyoma-associated nephropathy in renal transplant recipients.BK Virus DNA was assessed using quantitative polymerase chain reaction and fluorescent monitoring of a specific hybridized probe. Genetic variation and other factors can affect the accuracy of nucleic acid testing. Therefore, the results should be interpreted in light of clinical data.This test was developed and its performance characteristics determined by the [facility] Pathology Department, Section of Molecular Pathology. It has not been cleared or approved by the U.S. Food and Drug Administration (FDA). Since FDA approval is not required for clinicaluse of the test, validation was done as required by the Clinical Laboratory Improvement Amendments of 1988.TACROLIMUS LEVEL 2017-07-03 12:08:00 Test Item Value Reference Range Interpretation Comments TACROLIMUS BLOOD (BEAKER) (test 10.4 ng/mL 10.0-20.0 code = 657) LACTATE DEHYDROGENASE (LDH)2017-07-03 08:40:00 Test Item Value Reference Range Interpretation Comments LACTATE DEHYDROGENASE 205 U/L 125-220 Specim en slightly (BEAKER) (test code = hemoly zed 635) [id number] 08:36:00 Test Item Value Reference Range Interpretation Comments PHOSPHORUS (BEAKER) 2.9 mg/dL 2.3-4.7 Specimen slightly (test code = 604) hemolyzed COMPREHENSIVE METABOLIC [id number] 08:36:00 Test Item Value Reference Range Interpretation Comments TOTAL PROTEIN 7.0 gm/dL 6.0-8.3 Specimen sligh tly (BEAKER) (test code = hemoly zed 770) ALBUMIN (BEAKER) 4.4 g/dL 3.5-5.0 Specimen sl ightly (test code = 1145) hemolyzed ALKALINE PHOSPHATASE 98 U/L 40-150 (BEAKER) (test code = 346) BILIRUBIN TOTAL 0.2 mg/dL 0.2-1.2 Specimen sli ghtly (BEAKER) (test code = hemoly zed 377) SODIUM (BEAKER) (test 139 meq/L 136-145 code = 381) POTASSIUM (BEAKER) 4.6 meq/L 3.5-5.1 Specimen slightly (test code = 379) hemolyzed CHLORIDE (BEAKER) 107 meq/L 98-107 (test code = 382) CO2 (BEAKER) (test 23 meq/L 22-29 code = 355) BLOOD UREA NITROGEN 16 mg/dL 7-21 (BEAKER) (test code = 354) CREATININE (BEAKER) 0.77 mg/dL 0.57-1.25 Specimen slightly (test code = 358) hemolyzed GLUCOSE RANDOM 106 mg/dL 70-105 H (BEAKER) (test code = 652) CALCIUM (BEAKER) 10.0 mg/dL 8.4-10.2 (test code = 697) AST (SGOT) (BEAKER) 19 U/L 5-34 Specimen slightly (test code = 353) hemolyzed ALT (SGPT) (BEAKER) 23 U/L 6-55 Specimen slightly (test code = 347) hemolyzed EGFR (BEAKER) (test 87 mL/min/1.73 ESTIMA AMARIS GFR IS code = 1092) sq m NOT ACCURATE CREATININE CLEARANCE IN PREDICTING GLOMERULAR FILTRATION RATE . ESTIMATED GFR I S NOT APPLICABLE FOR DIALYSIS PATIEN TS. URINALYSIS W/ REFLEX URINE [id number] 08:35:00 Test Item Value Reference Range Interpretation Comments COLOR (BEAKER) (test code = 470) Yellow CLARITY (BEAKER) (test code = 469) Hazy SPECIFIC GRAVITY UA (BEAKER) (test 1.019 1.001-1.035 code = 468) PH UA (BEAKER) (test code = 467) 5.5 5.0-8.0 PROTEIN UA (BEAKER) (test code = Negative Negative 464) GLUCOSE UA (BEAKER) (test code = Negative Negative 365) KETONES UA (BEAKER) (test code = Trace Negative A 371) BILIRUBIN UA (BEAKER) (test code = Negative Negative 462) BLOOD UA (BEAKER) (test code = Moderate Negative A 461) NITRITE UA (BEAKER) (test code = Negative Negative 465) LEUKOCYTE ESTERASE UA (BEAKER) Trace Negative A (test code = 466) UROBILINOGEN UA (BEAKER) (test 0.2 mg/dL 0.2-1.0 code = 463) RBC UA (BEAKER) (test code = 519) 12 /HPF WBC UA (BEAKER) (test code = 520) 7 /HPF MUCUS (BEAKER) (test code = 1574) Occasional SQUAMOUS EPITHELIAL (BEAKER) (test 8 /HPF code = 516) SOURCE(BEAKER) (test code = 6295) CBC W/PLT COUNT & AUTO [id number] 08:12:00 Test Item Value Reference Range Interpretation Comments WHITE BLOOD CELL COUNT (BEAKER) 6.8 K/ L 3.5-10.5 (test code = 775) RED BLOOD CELL COUNT (BEAKER) 4.35 M/ L 3.93-5.22 (test code = 761) HEMOGLOBIN (BEAKER) (test code = 13.2 GM/DL 11.2-15.7 410) HEMATOCRIT (BEAKER) (test code = 40.2 % 34.1-44.9 411) MEAN CORPUSCULAR VOLUME (BEAKER) 92.4 fL 79.4-94.8 (test code = 753) MEAN CORPUSCULAR HEMOGLOBIN 30.3 pg 25.6-32.2 (BEAKER) (test code = 751) MEAN CORPUSCULAR HEMOGLOBIN CONC 32.8 GM/DL 32.2-35.5 (BEAKER) (test code = 752) RED CELL DISTRIBUTION WIDTH 13.2 % 11.7-14.4 (BEAKER) (test code = 412) PLATELET COUNT (BEAKER) (test 201 K/CU MM 150-450 code = 756) MEAN PLATELET VOLUME (BEAKER) 11.1 fL 9.4-12.3 (test code = 754) NUCLEATED RED BLOOD CELLS 0 /100 WBC 0-0 (BEAKER) (test code = 413) NEUTROPHILS RELATIVE PERCENT 69 % (BEAKER) (test code = 429) LYMPHOCYTES RELATIVE PERCENT 21 % (BEAKER) (test code = 430) MONOCYTES RELATIVE PERCENT 8 % (BEAKER) (test code = 431) EOSINOPHILS RELATIVE PERCENT 2 % (BEAKER) (test code = 432) BASOPHILS RELATIVE PERCENT 1 % (BEAKER) (test code = 437) NEUTROPHILS ABSOLUTE COUNT 4.69 K/ L 1.56-6.13 (BEAKER) (test code = 670) LYMPHOCYTES ABSOLUTE COUNT 1.40 K/ L 1.18-3.74 (BEAKER) (test code = 414) MONOCYTES ABSOLUTE COUNT (BEAKER) 0.51 K/ L 0.24-0.36 H (test code = 415) EOSINOPHILS ABSOLUTE COUNT 0.13 K/ L 0.04-0.36 (BEAKER) (test code = 416) BASOPHILS ABSOLUTE COUNT (BEAKER) 0.05 K/ L 0.01-0.08 (test code = 417) IMMATURE GRANULOCYTES-RELATIVE 1 % 0-1 PERCENT (BEAKER) (test code = 2801) URINALYSIS W/ REFLEX URINE [id number] 03:23:00 Test Item Value Reference Range Interpretation Comments COLOR (BEAKER) (test code = 470) Yellow CLARITY (BEAKER) (test code = 469) Clear SPECIFIC GRAVITY UA (BEAKER) (test 1.020 1.001-1.035 code = 468) PH UA (BEAKER) (test code = 467) 6.0 5.0-8.0 PROTEIN UA (BEAKER) (test code = Negative Negative 464) GLUCOSE UA (BEAKER) (test code = Negative Negative 365) KETONES UA (BEAKER) (test code = Trace Negative A 371) BILIRUBIN UA (BEAKER) (test code = Negative Negative 462) BLOOD UA (BEAKER) (test code = 461) Negative Negative NITRITE UA (BEAKER) (test code = Negative Negative 465) LEUKOCYTE ESTERASE UA (BEAKER) Negative Negative (test code = 466) UROBILINOGEN UA (BEAKER) (test code 0.2 mg/dL 0.2-1.0 = 463) BACTERIA (BEAKER) (test code = 517) None Seen RBC UA-MANUAL (BEAKER) (test code = <5 /HPF 1659) WBC UA-MANUAL (BEAKER) (test code = <5 /HPF 1661) SQUAMOUS EPITHELIAL MANUAL (BEAKER) <5 /HPF (test code = 1663) SOURCE(BEAKER) (test code = 2795) SCREEN, [id number] 03:22:00 Test Item Value Reference Range Interpretation Comments TEST URINE (BEAKER) (test Negative code = 583) RAPID INFLUENZA A&B [id number] 01:59:00 Test Item Value Reference Range Interpretation Comments RAPID INFLUENZA A AG (BEAKER) Negative Negative, Inconclusive (test code = 1622) RAPID INFLUENZA B AG (BEAKER) Negative Negative, Inconclusive (test code = 1623) RAPID STREP A [id number] 01:59:00 Test Item Value Reference Range Interpretation Comments STREP A ANTIGEN (BEAKER) (test code Negative Negative = 556) CBC W/PLT COUNT & AUTO [id number] 01:38:00 Test Item Value Reference Range Interpretation Comments WHITE BLOOD CELL COUNT (BEAKER) 8.9 K/ L 4.0-10.0 (test code = 775) RED BLOOD CELL COUNT (BEAKER) 4.11 M/ L 4.00-5.00 (test code = 761) HEMOGLOBIN (BEAKER) (test code = 12.9 GM/DL 12.0-15.0 410) HEMATOCRIT (BEAKER) (test code = 37.8 % 36.0-45.0 411) MEAN CORPUSCULAR VOLUME (BEAKER) 92.0 fL 82.0-99.0 (test code = 753) MEAN CORPUSCULAR HEMOGLOBIN 31.4 pg 27.0-33.0 (BEAKER) (test code = 751) MEAN CORPUSCULAR HEMOGLOBIN CONC 34.2 GM/DL 32.0-36.0 (BEAKER) (test code = 752) RED CELL DISTRIBUTION WIDTH 14.5 % 10.3-14.2 H (BEAKER) (test code = 412) PLATELET COUNT (BEAKER) (test 252 K/CU MM 150-430 code = 756) MEAN PLATELET VOLUME (BEAKER) 8.9 fL 6.5-10.5 (test code = 754) NUCLEATED RED BLOOD CELLS 0 /100 WBC 0-0 (BEAKER) (test code = 413) NEUTROPHILS RELATIVE PERCENT 80 % (BEAKER) (test code = 429) LYMPHOCYTES RELATIVE PERCENT 11 % (BEAKER) (test code = 430) MONOCYTES RELATIVE PERCENT 7 % (BEAKER) (test code = 431) EOSINOPHILS RELATIVE PERCENT 1 % (BEAKER) (test code = 432) BASOPHILS RELATIVE PERCENT 0 % (BEAKER) (test code = 437) NEUTROPHILS ABSOLUTE COUNT 7.20 K/ L 1.80-8.00 (BEAKER) (test code = 670) LYMPHOCYTES ABSOLUTE COUNT 1.00 K/ L 1.48-4.50 L (BEAKER) (test code = 414) MONOCYTES ABSOLUTE COUNT (BEAKER) 0.60 K/ L 0.00-1.30 (test code = 415) EOSINOPHILS ABSOLUTE COUNT 0.10 K/ L 0.00-0.50 (BEAKER) (test code = 416) BASOPHILS ABSOLUTE COUNT (BEAKER) 0.00 K/ L 0.00-0.20 (test code = 417) BASIC METABOLIC [id number] 01:27:00 Test Item Value Reference Range Interpretation Comments SODIUM (BEAKER) 141 meq/L 135-148 (test code = 381) POTASSIUM (BEAKER) 4.4 meq/L 3.6-5.5 Specimen slightly (test code = 379) hemolyzed CHLORIDE (BEAKER) 109 meq/L 98-106 H (test code = 382) CO2 (BEAKER) (test 24 meq/L 20-29 code = 355) BLOOD UREA NITROGEN 17 mg/dL 10-26 (BEAKER) (test code = 354) CREATININE (BEAKER) 0.90 mg/dL 0.50-1.20 Specimen slightly (test code = 358) hemolyzed GLUCOSE RANDOM 111 mg/dL 70-110 H (BEAKER) (test code = 652) CALCIUM (BEAKER) 9.9 mg/dL 8.5-10.5 (test code = 697) EGFR (BEAKER) (test 73 mL/min/1.73 ESTIMA AMARIS GFR IS code = 1092) sq m NOT ACCURATE CREATININE CLEARANCE IN PREDICTING GLOMERULAR FILTRATION RATE . ESTIMATED GFR I S NOT APPLICABLE FOR DIALYSIS PATIEN TS. BK VIRUS PCR, [id number] 14:16:00 Test Item Value Reference Range Interpretation Comments BK VIRUS, PLASMA, NEG Negative or below the (BEAKER) (test code = linear range of the 2145) assay (<1,000 copies/mL) Patients may have replicating BK Virus which is of no clinical significance. Viral load measurements are helpful to identify BK Virus replication of potential clinical significance. Consensus recommendations have been published of threshold values for the presumptive diagnosis of polyomavirus-associated nephropathy (Transplantation 2005;79:3496-4080).A BK Virus load greater than 5,000-10,000 copies/mL in the plasma is consistent with the presumptive diagnosis of polyoma-associated nephropathy in renal transplant recipients.BK Virus DNA was assessed using quantitative polymerase chain reaction and fluorescent monitoring of a specific hybridized probe. Genetic variation and other factors can affect the accuracy of nucleic acid testing. Therefore, the results should be interpreted in light of clinical data.This test was developed and its performance characteristics determined by the [facility] Pathology Department, Section of Molecular Pathology. It has not been cleared or approved by the U.S. Food and Drug Administration (FDA). Since FDA approval is not required for clinicaluse of the test, validation was done as required by the Clinical Laboratory Improvement Amendments of 1988.TACROLIMUS LEVEL 2017-05-15 12:17:00 Test Item Value Reference Range Interpretation Comments TACROLIMUS BLOOD (BEAKER) (test 10.5 ng/mL 10.0-20.0 code = 657) URINALYSIS W/ REFLEX URINE [id number] 09:52:00 Test Item Value Reference Range Interpretation Comments COLOR (BEAKER) (test code = 470) Yellow CLARITY (BEAKER) (test code = 469) Clear SPECIFIC GRAVITY UA (BEAKER) (test 1.016 1.001-1.035 code = 468) PH UA (BEAKER) (test code = 467) 5.0 5.0-8.0 PROTEIN UA (BEAKER) (test code = Negative Negative 464) GLUCOSE UA (BEAKER) (test code = Negative Negative 365) KETONES UA (BEAKER) (test code = Negative Negative 371) BILIRUBIN UA (BEAKER) (test code = Negative Negative 462) BLOOD UA (BEAKER) (test code = 461) Negative Negative NITRITE UA (BEAKER) (test code = Negative Negative 465) LEUKOCYTE ESTERASE UA (BEAKER) Negative Negative (test code = 466) UROBILINOGEN UA (BEAKER) (test code 0.2 mg/dL 0.2-1.0 = 463) RBC UA (BEAKER) (test code = 519) 0 /HPF WBC UA (BEAKER) (test code = 520) 0 /HPF BACTERIA (BEAKER) (test code = 517) Rare MUCUS (BEAKER) (test code = 1574) Rare SQUAMOUS EPITHELIAL (BEAKER) (test 4 /HPF code = 516) SOURCE(BEAKER) (test code = 2795) [id number] 09:43:00 Test Item Value Reference Range Interpretation Comments PHOSPHORUS (BEAKER) (test code = 2.9 mg/dL 2.3-4.7 604) COMPREHENSIVE METABOLIC [id number] 09:43:00 Test Item Value Reference Range Interpretation Comments TOTAL PROTEIN 7.0 gm/dL 6.0-8.3 (BEAKER) (test code = 770) ALBUMIN (BEAKER) 4.3 g/dL 3.5-5.0 (test code = 1145) ALKALINE PHOSPHATASE 91 U/L 40-150 (BEAKER) (test code = 346) BILIRUBIN TOTAL 0.4 mg/dL 0.2-1.2 (BEAKER) (test code = 377) SODIUM (BEAKER) (test 139 meq/L 136-145 code = 381) POTASSIUM (BEAKER) 4.5 meq/L 3.5-5.1 (test code = 379) CHLORIDE (BEAKER) 110 meq/L 98-107 H (test code = 382) CO2 (BEAKER) (test 22 meq/L 22-29 code = 355) BLOOD UREA NITROGEN 12 mg/dL 7-21 (BEAKER) (test code = 354) CREATININE (BEAKER) 0.81 mg/dL 0.57-1.25 (test code = 358) GLUCOSE RANDOM 107 mg/dL 70-105 H (BEAKER) (test code = 652) CALCIUM (BEAKER) 9.7 mg/dL 8.4-10.2 (test code = 697) AST (SGOT) (BEAKER) 27 U/L 5-34 (test code = 353) ALT (SGPT) (BEAKER) 37 U/L 6-55 (test code = 347) EGFR (BEAKER) (test 82 mL/min/1.73 ESTIMA AMARIS GFR IS code = 1092) sq m NOT ACCURATE CREATININE CLEARANCE IN PREDICTING GLOMERULAR FILTRATION RATE . ESTIMATED GFR I S NOT APPLICABLE FOR DIALYSIS PATIEN TS. LACTATE DEHYDROGENASE (LDH)2017-05-15 09:43:00 Test Item Value Reference Range Interpretation Comments LACTATE DEHYDROGENASE (BEAKER) (test 201 U/L 125-220 code = 635) CBC W/PLT COUNT & AUTO [id number] 08:58:00 Test Item Value Reference Range Interpretation Comments WHITE BLOOD CELL COUNT (BEAKER) 5.4 K/ L 3.5-10.5 (test code = 775) RED BLOOD CELL COUNT (BEAKER) 4.40 M/ L 3.93-5.22 (test code = 761) HEMOGLOBIN (BEAKER) (test code = 13.1 GM/DL 11.2-15.7 410) HEMATOCRIT (BEAKER) (test code = 41.2 % 34.1-44.9 411) MEAN CORPUSCULAR VOLUME (BEAKER) 93.6 fL 79.4-94.8 (test code = 753) MEAN CORPUSCULAR HEMOGLOBIN 29.8 pg 25.6-32.2 (BEAKER) (test code = 751) MEAN CORPUSCULAR HEMOGLOBIN CONC 31.8 GM/DL 32.2-35.5 L (BEAKER) (test code = 752) RED CELL DISTRIBUTION WIDTH 13.9 % 11.7-14.4 (BEAKER) (test code = 412) PLATELET COUNT (BEAKER) (test 196 K/CU MM 150-450 code = 756) MEAN PLATELET VOLUME (BEAKER) 11.0 fL 9.4-12.3 (test code = 754) NUCLEATED RED BLOOD CELLS 0 /100 WBC 0-0 (BEAKER) (test code = 413) NEUTROPHILS RELATIVE PERCENT 65 % (BEAKER) (test code = 429) LYMPHOCYTES RELATIVE PERCENT 21 % (BEAKER) (test code = 430) MONOCYTES RELATIVE PERCENT 10 % (BEAKER) (test code = 431) EOSINOPHILS RELATIVE PERCENT 3 % (BEAKER) (test code = 432) BASOPHILS RELATIVE PERCENT 1 % (BEAKER) (test code = 437) NEUTROPHILS ABSOLUTE COUNT 3.50 K/ L 1.56-6.13 (BEAKER) (test code = 670) LYMPHOCYTES ABSOLUTE COUNT 1.10 K/ L 1.18-3.74 L (BEAKER) (test code = 414) MONOCYTES ABSOLUTE COUNT (BEAKER) 0.51 K/ L 0.24-0.36 H (test code = 415) EOSINOPHILS ABSOLUTE COUNT 0.18 K/ L 0.04-0.36 (BEAKER) (test code = 416) BASOPHILS ABSOLUTE COUNT (BEAKER) 0.03 K/ L 0.01-0.08 (test code = 417) IMMATURE GRANULOCYTES-RELATIVE 1 % 0-1 PERCENT (BEAKER) (test code = 2801) BK VIRUS PCR, [id number] 15:40:00 Test Item Value Reference Range Interpretation Comments BK VIRUS, PLASMA, NEG Negative or below the (BEAKER) (test code = linear range of the 2145) assay (<1,000 copies/mL) Patients may have replicating BK Virus which is of no clinical significance. Viral load measurements are helpful to identify BK Virus replication of potential clinical significance. Consensus recommendations have been published of threshold values for the presumptive diagnosis of polyomavirus-associated nephropathy (Transplantation 2005;79:1692-5678).A BK Virus load greater than 5,000-10,000 copies/mL in the plasma is consistent with the presumptive diagnosis of polyoma-associated nephropathy in renal transplant recipients.BK Virus DNA was assessed using quantitative polymerase chain reaction and fluorescent monitoring of a specific hybridized probe. Genetic variation and other factors can affect the accuracy of nucleic acid testing. Therefore, the results should be interpreted in light of clinical data.This test was developed and its performance characteristics determined by the [facility] Pathology Department, Section of Molecular Pathology. It has not been cleared or approved by the U.S. Food and Drug Administration (FDA). Since FDA approval is not required for clinicaluse of the test, validation was done as required by the Clinical Laboratory Improvement Amendments of 1988.URINALYSIS W/ REFLEX URINE [id number] 12:11:00 Test Item Value Reference Range Interpretation Comments COLOR (BEAKER) (test code = 470) Yellow CLARITY (BEAKER) (test code = 469) Clear SPECIFIC GRAVITY UA (BEAKER) (test 1.020 1.001-1.035 code = 468) PH UA (BEAKER) (test code = 467) 5.5 5.0-8.0 PROTEIN UA (BEAKER) (test code = Negative Negative 464) GLUCOSE UA (BEAKER) (test code = Negative Negative 365) KETONES UA (BEAKER) (test code = 15 mg/dL Negative A 371) BILIRUBIN UA (BEAKER) (test code = Negative Negative 462) BLOOD UA (BEAKER) (test code = 461) Moderate Negative A NITRITE UA (BEAKER) (test code = Negative Negative 465) LEUKOCYTE ESTERASE UA (BEAKER) Negative Negative (test code = 466) UROBILINOGEN UA (BEAKER) (test code 0.2 mg/dL 0.2-1.0 = 463) RBC UA (BEAKER) (test code = 519) 4 /HPF WBC UA (BEAKER) (test code = 520) 3 /HPF MUCUS (BEAKER) (test code = 1574) Rare SQUAMOUS EPITHELIAL (BEAKER) (test 11 /HPF code = 516) CRYSTALS, URINE (BEAKER) (test code Moderate = 1521) SOURCE(BEAKER) (test code = 9388) TACROLIMUS [id number] 11:50:00 Test Item Value Reference Range Interpretation Comments TACROLIMUS BLOOD (BEAKER) (test 12.9 ng/mL 10.0-20.0 code = 657) COMPREHENSIVE METABOLIC [id number] 09:47:00 Test Item Value Reference Range Interpretation Comments TOTAL PROTEIN 7.4 gm/dL 6.0-8.3 (BEAKER) (test code = 770) ALBUMIN (BEAKER) 4.4 g/dL 3.5-5.0 (test code = 1145) ALKALINE PHOSPHATASE 113 U/L 40-150 (BEAKER) (test code = 346) BILIRUBIN TOTAL < mg/dL 0.2-1.2 (BEAKER) (test code = 377) SODIUM (BEAKER) (test 138 meq/L 136-145 code = 381) POTASSIUM (BEAKER) 4.4 meq/L 3.5-5.1 (test code = 379) CHLORIDE (BEAKER) 106 meq/L 98-107 (test code = 382) CO2 (BEAKER) (test 24 meq/L 22-29 code = 355) BLOOD UREA NITROGEN 11 mg/dL 7-21 (BEAKER) (test code = 354) CREATININE (BEAKER) 0.79 mg/dL 0.57-1.25 (test code = 358) GLUCOSE RANDOM 105 mg/dL 70-105 (BEAKER) (test code = 652) CALCIUM (BEAKER) 9.8 mg/dL 8.4-10.2 (test code = 697) AST (SGOT) (BEAKER) 20 U/L 5-34 (test code = 353) ALT (SGPT) (BEAKER) 26 U/L 6-55 (test code = 347) EGFR (BEAKER) (test 85 mL/min/1.73 ESTIMA AMARIS GFR IS code = 1092) sq m NOT ACCURATE CREATININE CLEARANCE IN PREDICTING GLOMERULAR FILTRATION RATE . ESTIMATED GFR I S NOT APPLICABLE FOR DIALYSIS PATIEN TS. LACTATE DEHYDROGENASE (LDH)2017-04-10 09:47:00 Test Item Value Reference Range Interpretation Comments LACTATE DEHYDROGENASE (BEAKER) (test 250 U/L 125-220 H code = 635) [id number] 09:46:00 Test Item Value Reference Range Interpretation Comments PHOSPHORUS (BEAKER) (test code = 2.6 mg/dL 2.3-4.7 604) SCREEN, [id number] 09:17:00 Test Item Value Reference Range Interpretation Comments TEST URINE (BEAKER) (test Negative code = 583) CBC W/PLT COUNT & AUTO [id number] 08:59:00 Test Item Value Reference Range Interpretation Comments WHITE BLOOD CELL COUNT (BEAKER) 5.5 K/ L 3.5-10.5 (test code = 775) RED BLOOD CELL COUNT (BEAKER) 4.40 M/ L 3.93-5.22 (test code = 761) HEMOGLOBIN (BEAKER) (test code = 13.4 GM/DL 11.2-15.7 410) HEMATOCRIT (BEAKER) (test code = 41.4 % 34.1-44.9 411) MEAN CORPUSCULAR VOLUME (BEAKER) 94.1 fL 79.4-94.8 (test code = 753) MEAN CORPUSCULAR HEMOGLOBIN 30.5 pg 25.6-32.2 (BEAKER) (test code = 751) MEAN CORPUSCULAR HEMOGLOBIN CONC 32.4 GM/DL 32.2-35.5 (BEAKER) (test code = 752) RED CELL DISTRIBUTION WIDTH 13.4 % 11.7-14.4 (BEAKER) (test code = 412) PLATELET COUNT (BEAKER) (test 224 K/CU MM 150-450 code = 756) MEAN PLATELET VOLUME (BEAKER) 11.0 fL 9.4-12.3 (test code = 754) NUCLEATED RED BLOOD CELLS 0 /100 WBC 0-0 (BEAKER) (test code = 413) NEUTROPHILS RELATIVE PERCENT 63 % (BEAKER) (test code = 429) LYMPHOCYTES RELATIVE PERCENT 25 % (BEAKER) (test code = 430) MONOCYTES RELATIVE PERCENT 10 % (BEAKER) (test code = 431) EOSINOPHILS RELATIVE PERCENT 2 % (BEAKER) (test code = 432) BASOPHILS RELATIVE PERCENT 1 % (BEAKER) (test code = 437) NEUTROPHILS ABSOLUTE COUNT 3.43 K/ L 1.56-6.13 (BEAKER) (test code = 670) LYMPHOCYTES ABSOLUTE COUNT 1.39 K/ L 1.18-3.74 (BEAKER) (test code = 414) MONOCYTES ABSOLUTE COUNT (BEAKER) 0.52 K/ L 0.24-0.36 H (test code = 415) EOSINOPHILS ABSOLUTE COUNT 0.09 K/ L 0.04-0.36 (BEAKER) (test code = 416) BASOPHILS ABSOLUTE COUNT (BEAKER) 0.03 K/ L 0.01-0.08 (test code = 417) IMMATURE GRANULOCYTES-RELATIVE 1 % 0-1 PERCENT (BEAKER) (test code = 2801) BLOOD [id number] 05:01:00 Test Item Value Reference Range Interpretation Comments CULTURE (BEAKER) (test No growth in 5 days code = 1095) BLOOD [id number] 05:01:00 Test Item Value Reference Range Interpretation Comments CULTURE (BEAKER) (test No growth in 5 days code = 1095) URINE [id number] 10:29:00 Test Item Value Reference Range Interpretation Comments CULTURE (BEAKER) (test code = See comment 1095) <10,000 col/mL Gram Negative Florin<10,000 col/mL skin floraRAPID TROPONIN I 2017-03-25 21:32:00 Test Item Value Reference Range Interpretation Comments RAPID TROPONIN I (BEAKER) (test code < ng/mL <0.05 = 1483) RAPID [id number] 21:31:00 Test Item Value Reference Range Interpretation Comments RAPID CKMB (BEAKER) (test code = < ng/mL 0.0-4.3 1482) RAD, CHEST, PA OR AP, 1 [id number] 21:31:00Reason for exam:->FEVERReason for exam:->SHORTNESS OF BREATHIs the patient ?->UnknownShould this be performed at the bedside?->NoFINAL REPORT EXAMINATION: AP PORTABLE CHEST RADIOGRAPH CLINICAL INDICATION:Fever, shortness of breath IMPRESSION: Compared with 02/17/2017. No evidence of a discrete pneumonia,pulmonary edema or pleural effusion. The heart size is normal. Mediastinal contours are sharp and stable. No evidence of an acute osseous abnormality or pneumothorax. Signed: Yossi Manley MDReport Verified Date/Time: 03/25/2017 21:31:33 Reading Location: [facility] C0[facility] Transitional Reading Room B-TYPE NATRIURETIC FACTOR (BNP)2017-03-25 21:30:00 Test Item Value Reference Range Interpretation Comments B-TYPE NATRIURETIC PEPTIDE (BEAKER) 11 pg/mL 0-100 (test code = 700) URINALYSIS W/ [id number] 21:27:00 Test Item Value Reference Range Interpretation Comments COLOR (BEAKER) (test code = 470) Yellow CLARITY (BEAKER) (test code = 469) Clear SPECIFIC GRAVITY UA (BEAKER) (test 1.010 1.001-1.035 code = 468) PH UA (BEAKER) (test code = 467) 6.0 5.0-8.0 PROTEIN UA (BEAKER) (test code = Negative Negative 464) GLUCOSE UA (BEAKER) (test code = Negative Negative 365) KETONES UA (BEAKER) (test code = Negative Negative 371) BILIRUBIN UA (BEAKER) (test code = Negative Negative 462) BLOOD UA (BEAKER) (test code = 461) Negative Negative NITRITE UA (BEAKER) (test code = Negative Negative 465) LEUKOCYTE ESTERASE UA (BEAKER) Negative Negative (test code = 466) UROBILINOGEN UA (BEAKER) (test code 0.2 mg/dL 0.2-1.0 = 463) BACTERIA (BEAKER) (test code = 517) Moderate RBC UA-MANUAL (BEAKER) (test code = <5 /HPF 1659) WBC UA-MANUAL (BEAKER) (test code = <5 /HPF 1661) SQUAMOUS EPITHELIAL MANUAL (BEAKER) 5-10 /HPF (test code = 1663) SOURCE(BEAKER) (test code = 0732) BASIC METABOLIC [id number] 21:25:00 Test Item Value Reference Range Interpretation Comments SODIUM (BEAKER) 141 meq/L 135-148 (test code = 381) POTASSIUM (BEAKER) 4.2 meq/L 3.6-5.5 (test code = 379) CHLORIDE (BEAKER) 101 meq/L 98-106 (test code = 382) CO2 (BEAKER) (test 22 meq/L 24-32 L code = 355) BLOOD UREA NITROGEN 9 mg/dL 10-26 L (BEAKER) (test code = 354) CREATININE (BEAKER) 0.77 mg/dL 0.50-1.20 (test code = 358) GLUCOSE RANDOM 121 mg/dL 70-110 H (BEAKER) (test code = 652) CALCIUM (BEAKER) 9.9 mg/dL 8.5-10.5 (test code = 697) EGFR (BEAKER) (test 88 mL/min/1.73 ESTIMA AMARIS GFR IS code = 1092) sq m NOT ACCURATE CREATININE CLEARANCE IN PREDICTING GLOMERULAR FILTRATION RATE . ESTIMATED GFR I S NOT APPLICABLE FOR DIALYSIS PATIEN TS. HEPATIC FUNCTION [id number] 21:25:00 Test Item Value Reference Range Interpretation Comments TOTAL PROTEIN (BEAKER) (test code = 7.8 gm/dL 6.0-8.5 770) ALBUMIN (BEAKER) (test code = 1145) 4.4 g/dL 3.5-5.0 BILIRUBIN TOTAL (BEAKER) (test code 0.5 mg/dL 0.1-1.2 = 377) BILIRUBIN DIRECT (BEAKER) (test 0.4 mg/dL 0.0-0.4 code = 706) ALKALINE PHOSPHATASE (BEAKER) (test 112 U/L 30-115 code = 346) AST (SGOT) (BEAKER) (test code = 24 U/L 5-40 353) ALT (SGPT) (BEAKER) (test code = 55 U/L 5-50 H 347) CREATINE KINASE (CK)2017-03-25 21:25:00 Test Item Value Reference Range Interpretation Comments CREATINE KINASE TOTAL (BEAKER) (test 26 U/L 25-235 code = 380) LACTIC ACID, VENOUS, WHOLE [id number] 21:21:00 Test Item Value Reference Range Interpretation Comments LACTATE BLOOD VENOUS (2) (BEAKER) 1.0 mmol/L 0.5-2.2 (test code = 2872) Effective 07/19/2015: Units/Reference Range ChangeNew: 0.5-2.2 mmol/L Previous: 5-18 mg/dLPREGNANCY SCREEN, [id number] 21:20:00 Test Item Value Reference Range Interpretation Comments TEST URINE (BEAKER) (test Negative code = 583) RAPID INFLUENZA A&B [id number] 21:18:00 Test Item Value Reference Range Interpretation Comments RAPID INFLUENZA A AG (BEAKER) Positive Negative, Inconclusive A (test code = 1622) RAPID INFLUENZA B AG (BEAKER) Negative Negative, Inconclusive (test code = 1623) CBC W/PLT COUNT & AUTO [id number] 21:13:00 Test Item Value Reference Range Interpretation Comments WHITE BLOOD CELL COUNT (BEAKER) 8.9 10e3/ L 4.0-10.0 (test code = 775) RED BLOOD CELL COUNT (BEAKER) 4.20 10e6/ L 4.00-5.00 (test code = 761) HEMOGLOBIN (BEAKER) (test code = 13.1 g/dL 12.0-15.0 410) HEMATOCRIT (BEAKER) (test code = 39.2 % 36.0-45.0 411) MEAN CORPUSCULAR VOLUME (BEAKER) 93.2 fL 82.0-99.0 (test code = 753) MEAN CORPUSCULAR HEMOGLOBIN 31.3 pg 27.0-33.0 (BEAKER) (test code = 751) MEAN CORPUSCULAR HEMOGLOBIN CONC 33.6 g/dL 32.0-36.0 (BEAKER) (test code = 752) RED CELL DISTRIBUTION WIDTH 12.3 % 10.3-14.2 (BEAKER) (test code = 412) PLATELET COUNT (BEAKER) (test 182 10e3/ L 150-430 code = 756) MEAN PLATELET VOLUME (BEAKER) 7.8 fL 6.5-10.5 (test code = 754) NEUTROPHILS RELATIVE PERCENT 80 % (BEAKER) (test code = 429) LYMPHOCYTES RELATIVE PERCENT 13 % (BEAKER) (test code = 430) MONOCYTES RELATIVE PERCENT 6 % (BEAKER) (test code = 431) EOSINOPHILS RELATIVE PERCENT 1 % (BEAKER) (test code = 432) BASOPHILS RELATIVE PERCENT 1 % (BEAKER) (test code = 437) NEUTROPHILS ABSOLUTE COUNT 7.12 10e3/ L 1.80-8.00 (BEAKER) (test code = 670) LYMPHOCYTES ABSOLUTE COUNT 1.14 10e3/ L 1.48-4.50 L (BEAKER) (test code = 414) MONOCYTES ABSOLUTE COUNT 0.51 10e3/ L 0.00-1.30 (BEAKER) (test code = 415) EOSINOPHILS ABSOLUTE COUNT 0.13 10e3/ L 0.00-0.50 (BEAKER) (test code = 416) BASOPHILS ABSOLUTE COUNT 0.04 10e3/ L 0.00-0.20 (BEAKER) (test code = 417) RAPID STREP A [id number] 21:09:00 Test Item Value Reference Range Interpretation Comments STREP A ANTIGEN (BEAKER) (test code Negative Negative = 556) BK VIRUS PCR, [id number] 13:52:00 Test Item Value Reference Range Interpretation Comments BK VIRUS, PLASMA, NEG Negative or below the (BEAKER) (test code = linear range of the 2145) assay (<1,000 copies/mL) Patients may have replicating BK Virus which is of no clinical significance. Viral load measurements are helpful to identify BK Virus replication of potential clinical significance. Consensus recommendations have been published of threshold values for the presumptive diagnosis of polyomavirus-associated nephropathy (Transplantation 2005;79:6549-4195).A BK Virus load greater than 5,000-10,000 copies/mL in the plasma is consistent with the presumptive diagnosis of polyoma-associated nephropathy in renal transplant recipients.BK Virus DNA was assessed using quantitative polymerase chain reaction and fluorescent monitoring of a specific hybridized probe. Genetic variation and other factors can affect the accuracy of nucleic acid testing. Therefore, the results should be interpreted in light of clinical data.This test was developed and its performance characteristics determined by the [facility] Pathology Department, Section of Molecular Pathology. It has not been cleared or approved by the U.S. Food and Drug Administration (FDA). Since FDA approval is not required for clinicaluse of the test, validation was done as required by the Clinical Laboratory Improvement Amendments of 1988.TACROLIMUS LEVEL 2017-03-07 11:36:00 Test Item Value Reference Range Interpretation Comments TACROLIMUS BLOOD (BEAKER) (test 10.7 ng/mL 10.0-20.0 code = 657) SCREEN, [id number] 10:01:00 Test Item Value Reference Range Interpretation Comments TEST URINE (BEAKER) (test Negative code = 583) URINALYSIS W/ REFLEX URINE [id number] 09:58:00 Test Item Value Reference Range Interpretation Comments COLOR (BEAKER) (test code = 470) Yellow CLARITY (BEAKER) (test code = 469) Hazy SPECIFIC GRAVITY UA (BEAKER) (test 1.024 1.001-1.035 code = 468) PH UA (BEAKER) (test code = 467) 5.5 5.0-8.0 PROTEIN UA (BEAKER) (test code = 20 mg/dL Negative A 464) GLUCOSE UA (BEAKER) (test code = Negative Negative 365) KETONES UA (BEAKER) (test code = 20 mg/dL Negative A 371) BILIRUBIN UA (BEAKER) (test code = Negative Negative 462) BLOOD UA (BEAKER) (test code = Moderate Negative A 461) NITRITE UA (BEAKER) (test code = Negative Negative 465) LEUKOCYTE ESTERASE UA (BEAKER) Negative Negative (test code = 466) UROBILINOGEN UA (BEAKER) (test 0.2 mg/dL 0.2-1.0 code = 463) RBC UA (BEAKER) (test code = 519) 18 /HPF WBC UA (BEAKER) (test code = 520) 4 /HPF MUCUS (BEAKER) (test code = 1574) Occasional SQUAMOUS EPITHELIAL (BEAKER) (test 9 /HPF code = 516) CRYSTALS, URINE (BEAKER) (test Occasional code = 1521) SOURCE(BEAKER) (test code = 2795) [id number] 09:07:00 Test Item Value Reference Range Interpretation Comments PHOSPHORUS (BEAKER) (test code = 2.6 mg/dL 2.3-4.7 604) COMPREHENSIVE METABOLIC [id number] 09:07:00 Test Item Value Reference Range Interpretation Comments TOTAL PROTEIN 7.1 gm/dL 6.0-8.3 (BEAKER) (test code = 770) ALBUMIN (BEAKER) 4.2 g/dL 3.5-5.0 (test code = 1145) ALKALINE PHOSPHATASE 147 U/L 40-150 (BEAKER) (test code = 346) BILIRUBIN TOTAL < mg/dL 0.2-1.2 (BEAKER) (test code = 377) SODIUM (BEAKER) (test 140 meq/L 136-145 code = 381) POTASSIUM (BEAKER) 3.8 meq/L 3.5-5.1 (test code = 379) CHLORIDE (BEAKER) 107 meq/L 98-107 (test code = 382) CO2 (BEAKER) (test 21 meq/L 22-29 L code = 355) BLOOD UREA NITROGEN 17 mg/dL 7-21 (BEAKER) (test code = 354) CREATININE (BEAKER) 0.86 mg/dL 0.57-1.25 (test code = 358) GLUCOSE RANDOM 127 mg/dL 70-105 H (BEAKER) (test code = 652) CALCIUM (BEAKER) 9.7 mg/dL 8.4-10.2 (test code = 697) AST (SGOT) (BEAKER) 39 U/L 5-34 H (test code = 353) ALT (SGPT) (BEAKER) 92 U/L 6-55 H (test code = 347) EGFR (BEAKER) (test 77 mL/min/1.73 ESTIMA AMARIS GFR IS code = 1092) sq m NOT ACCURATE CREATININE CLEARANCE IN PREDICTING GLOMERULAR FILTRATION RATE . ESTIMATED GFR I S NOT APPLICABLE FOR DIALYSIS PATIEN TS. LACTATE DEHYDROGENASE (LDH)2017-03-07 09:07:00 Test Item Value Reference Range Interpretation Comments LACTATE DEHYDROGENASE (BEAKER) (test 227 U/L 125-220 H code = 635) CBC W/PLT COUNT & AUTO [id number] 08:42:00 Test Item Value Reference Range Interpretation Comments WHITE BLOOD CELL COUNT (BEAKER) 4.5 K/ L 3.5-10.5 (test code = 775) RED BLOOD CELL COUNT (BEAKER) 3.99 M/ L 3.93-5.22 (test code = 761) HEMOGLOBIN (BEAKER) (test code = 12.3 GM/DL 11.2-15.7 410) HEMATOCRIT (BEAKER) (test code = 37.2 % 34.1-44.9 411) MEAN CORPUSCULAR VOLUME (BEAKER) 93.2 fL 79.4-94.8 (test code = 753) MEAN CORPUSCULAR HEMOGLOBIN 30.8 pg 25.6-32.2 (BEAKER) (test code = 751) MEAN CORPUSCULAR HEMOGLOBIN CONC 33.1 GM/DL 32.2-35.5 (BEAKER) (test code = 752) RED CELL DISTRIBUTION WIDTH 12.8 % 11.7-14.4 (BEAKER) (test code = 412) PLATELET COUNT (BEAKER) (test 171 K/CU MM 150-450 code = 756) MEAN PLATELET VOLUME (BEAKER) 10.9 fL 9.4-12.3 (test code = 754) NUCLEATED RED BLOOD CELLS 0 /100 WBC 0-0 (BEAKER) (test code = 413) NEUTROPHILS RELATIVE PERCENT 61 % (BEAKER) (test code = 429) LYMPHOCYTES RELATIVE PERCENT 23 % (BEAKER) (test code = 430) MONOCYTES RELATIVE PERCENT 12 % (BEAKER) (test code = 431) EOSINOPHILS RELATIVE PERCENT 2 % (BEAKER) (test code = 432) BASOPHILS RELATIVE PERCENT 1 % (BEAKER) (test code = 437) NEUTROPHILS ABSOLUTE COUNT 2.77 K/ L 1.56-6.13 (BEAKER) (test code = 670) LYMPHOCYTES ABSOLUTE COUNT 1.04 K/ L 1.18-3.74 L (BEAKER) (test code = 414) MONOCYTES ABSOLUTE COUNT (BEAKER) 0.53 K/ L 0.24-0.36 H (test code = 415) EOSINOPHILS ABSOLUTE COUNT 0.11 K/ L 0.04-0.36 (BEAKER) (test code = 416) BASOPHILS ABSOLUTE COUNT (BEAKER) 0.04 K/ L 0.01-0.08 (test code = 417) IMMATURE GRANULOCYTES-RELATIVE 1 % 0-1 PERCENT (BEAKER) (test code = 2801) BK VIRUS PCR, [id number] 15:34:00 Test Item Value Reference Range Interpretation Comments BK VIRUS, PLASMA, NEG Negative or below the (BEAKER) (test code = linear range of the 2145) assay (<1,000 copies/mL) Patients may have replicating BK Virus which is of no clinical significance. Viral load measurements are helpful to identify BK Virus replication of potential clinical significance. Consensus recommendations have been published of threshold values for the presumptive diagnosis of polyomavirus-associated nephropathy (Transplantation 2005;79:9321-9100).A BK Virus load greater than 5,000-10,000 copies/mL in the plasma is consistent with the presumptive diagnosis of polyoma-associated nephropathy in renal transplant recipients.BK Virus DNA was assessed using quantitative polymerase chain reaction and fluorescent monitoring of a specific hybridized probe. Genetic variation and other factors can affect the accuracy of nucleic acid testing. Therefore, the results should be interpreted in light of clinical data.This test was developed and its performance characteristics determined by the [facility] Pathology Department, Section of Molecular Pathology. It has not been cleared or approved by the U.S. Food and Drug Administration (FDA). Since FDA approval is not required for clinicaluse of the test, validation was done as required by the Clinical Laboratory Improvement Amendments of 1988.TACROLIMUS LEVEL 2017-03-04 13:18:00 Test Item Value Reference Range Interpretation Comments TACROLIMUS BLOOD (BEAKER) (test 6.5 ng/mL 10.0-20.0 L code = 657) URINALYSIS W/ REFLEX URINE [id number] 10:18:00 Test Item Value Reference Range Interpretation Comments COLOR (BEAKER) (test code = 470) Yellow CLARITY (BEAKER) (test code = 469) Clear SPECIFIC GRAVITY UA (BEAKER) (test 1.016 1.001-1.035 code = 468) PH UA (BEAKER) (test code = 467) 5.5 5.0-8.0 PROTEIN UA (BEAKER) (test code = Negative Negative 464) GLUCOSE UA (BEAKER) (test code = Negative Negative 365) KETONES UA (BEAKER) (test code = Negative Negative 371) BILIRUBIN UA (BEAKER) (test code = Negative Negative 462) BLOOD UA (BEAKER) (test code = Small Negative A 461) NITRITE UA (BEAKER) (test code = Negative Negative 465) LEUKOCYTE ESTERASE UA (BEAKER) Negative Negative (test code = 466) UROBILINOGEN UA (BEAKER) (test 0.2 mg/dL 0.2-1.0 code = 463) RBC UA (BEAKER) (test code = 519) 4 /HPF WBC UA (BEAKER) (test code = 520) 2 /HPF MUCUS (BEAKER) (test code = 1574) Occasional SQUAMOUS EPITHELIAL (BEAKER) (test 5 /HPF code = 516) CALCIUM OXALATE CRYSTALS (BEAKER) Few (test code = 518) SOURCE(BEAKER) (test code = 2795) [id number] 09:24:00 Test Item Value Reference Range Interpretation Comments PHOSPHORUS (BEAKER) (test code = 2.7 mg/dL 2.3-4.7 604) COMPREHENSIVE METABOLIC [id number] 09:24:00 Test Item Value Reference Range Interpretation Comments TOTAL PROTEIN 7.3 gm/dL 6.0-8.3 (BEAKER) (test code = 770) ALBUMIN (BEAKER) 4.3 g/dL 3.5-5.0 (test code = 1145) ALKALINE PHOSPHATASE 129 U/L 40-150 (BEAKER) (test code = 346) BILIRUBIN TOTAL 0.3 mg/dL 0.2-1.2 (BEAKER) (test code = 377) SODIUM (BEAKER) (test 139 meq/L 136-145 code = 381) POTASSIUM (BEAKER) 4.0 meq/L 3.5-5.1 (test code = 379) CHLORIDE (BEAKER) 107 meq/L 98-107 (test code = 382) CO2 (BEAKER) (test 22 meq/L 22-29 code = 355) BLOOD UREA NITROGEN 12 mg/dL 7-21 (BEAKER) (test code = 354) CREATININE (BEAKER) 0.75 mg/dL 0.57-1.25 (test code = 358) GLUCOSE RANDOM 98 mg/dL 70-105 (BEAKER) (test code = 652) CALCIUM (BEAKER) 10.1 mg/dL 8.4-10.2 (test code = 697) AST (SGOT) (BEAKER) 48 U/L 5-34 H (test code = 353) ALT (SGPT) (BEAKER) 107 U/L 6-55 H (test code = 347) EGFR (BEAKER) (test 91 mL/min/1.73 ESTIMA AMARIS GFR IS code = 1092) sq m NOT ACCURATE CREATININE CLEARANCE IN PREDICTING GLOMERULAR FILTRATION RATE . ESTIMATED GFR I S NOT APPLICABLE FOR DIALYSIS PATIEN TS. LACTATE DEHYDROGENASE (LDH)2017-03-04 09:24:00 Test Item Value Reference Range Interpretation Comments LACTATE DEHYDROGENASE (BEAKER) (test 251 U/L 125-220 H code = 635) CBC W/PLT COUNT & AUTO [id number] 08:53:00 Test Item Value Reference Range Interpretation Comments WHITE BLOOD CELL COUNT (BEAKER) 4.3 K/ L 3.5-10.5 (test code = 775) RED BLOOD CELL COUNT (BEAKER) 4.19 M/ L 3.93-5.22 (test code = 761) HEMOGLOBIN (BEAKER) (test code = 12.8 GM/DL 11.2-15.7 410) HEMATOCRIT (BEAKER) (test code = 39.1 % 34.1-44.9 411) MEAN CORPUSCULAR VOLUME (BEAKER) 93.3 fL 79.4-94.8 (test code = 753) MEAN CORPUSCULAR HEMOGLOBIN 30.5 pg 25.6-32.2 (BEAKER) (test code = 751) MEAN CORPUSCULAR HEMOGLOBIN CONC 32.7 GM/DL 32.2-35.5 (BEAKER) (test code = 752) RED CELL DISTRIBUTION WIDTH 12.9 % 11.7-14.4 (BEAKER) (test code = 412) PLATELET COUNT (BEAKER) (test 199 K/CU MM 150-450 code = 756) MEAN PLATELET VOLUME (BEAKER) 11.1 fL 9.4-12.3 (test code = 754) NUCLEATED RED BLOOD CELLS 0 /100 WBC 0-0 (BEAKER) (test code = 413) NEUTROPHILS RELATIVE PERCENT 59 % (BEAKER) (test code = 429) LYMPHOCYTES RELATIVE PERCENT 25 % (BEAKER) (test code = 430) MONOCYTES RELATIVE PERCENT 11 % (BEAKER) (test code = 431) EOSINOPHILS RELATIVE PERCENT 3 % (BEAKER) (test code = 432) BASOPHILS RELATIVE PERCENT 1 % (BEAKER) (test code = 437) NEUTROPHILS ABSOLUTE COUNT 2.56 K/ L 1.56-6.13 (BEAKER) (test code = 670) LYMPHOCYTES ABSOLUTE COUNT 1.08 K/ L 1.18-3.74 L (BEAKER) (test code = 414) MONOCYTES ABSOLUTE COUNT (BEAKER) 0.46 K/ L 0.24-0.36 H (test code = 415) EOSINOPHILS ABSOLUTE COUNT 0.14 K/ L 0.04-0.36 (BEAKER) (test code = 416) BASOPHILS ABSOLUTE COUNT (BEAKER) 0.05 K/ L 0.01-0.08 (test code = 417) IMMATURE GRANULOCYTES-RELATIVE 1 % 0-1 PERCENT (BEAKER) (test code = 2801) BLOOD [id number] 17:00:00 Test Item Value Reference Range Interpretation Comments CULTURE (BEAKER) (test No growth in 5 days code = 1095) BLOOD [id number] 17:00:00 Test Item Value Reference Range Interpretation Comments CULTURE (BEAKER) (test No growth in 5 days code = 1095) BLOOD [id number] 04:00:00 Test Item Value Reference Range Interpretation Comments CULTURE (BEAKER) (test No growth in 5 days code = 1095) BLOOD [id number] 04:00:00 Test Item Value Reference Range Interpretation Comments CULTURE (BEAKER) (test No growth in 5 days code = 1095) BLOOD [id number] 04:00:00 Test Item Value Reference Range Interpretation Comments CULTURE (BEAKER) (test No growth in 5 days code = 1095) BLOOD [id number] 04:00:00 Test Item Value Reference Range Interpretation Comments CULTURE (BEAKER) (test No growth in 5 days code = 1095) CMV PCR, [id number] 16:23:00 Test Item Value Reference Range Interpretation Comments CMV VIRAL LOAD - Negative or below the NEGATIVE (BEAKER) (test linear range of the code = 2558) assay (<375 copies/mL) Cytomegalovirus (CMV) infection can cause significant disease in immunosuppressed patients. However,it is common for CMV to manifest as a limited infection which is of no clinical significance in immunosuppressed patients or in healthy individuals.Viral load measurements are helpful to identify clinical CMV infection and to guide the pre-emptive management of antiviral therapy. For treatment of CMVinfection due to reactivation in transplant recipients, a threshold between 4,000 and 5,000 copies/mL is suggested. For treatment of primary CMV infection, a lower threshold can be used.CMV infection may also be monitored using weekly serial measurements. Serial measurements of CMV DNA viral load canbe evaluated by identifying a 10-fold change, as well as assessing the CMV DNA viral load and the clinical context for each patient.The plasma CMV DNA viral load was detected using quantitative polymerase chain reaction and fluorescent monitoring of a specific hybridized probe. Genetic variation and ot her factors can affect the accuracy of nucleic acid testing. Therefore, the results should be interpreted in light of clinical data. A negative result may not exclude the presence of CMV disease.This test was developed and its performance characteristics determined by the [facility] [place] [facility] Department, Section of Molecular Pathology. It has not been cleared or approved by the U.S. Food and Drug Administration (FDA), since FDA approval is not required for clinical use of the test. Validation was done as required by The Clinical Laboratory Improvement Amendments of 1988.EBV VIRAL [id number] 16:22:00 Test Item Value Reference Range Interpretation Comments EBV VIRAL LOAD - Negative or below the NEGATIVE (BEAKER) (test linear range of the code = 2559) assay (<500 copies/mL) This assay was performed by real-time PCR for the detection of the Pearl-Argueta virus (EBV) gene EBNA-1. The test is composed of (1) DNA extraction from patient specimen, and (2) real-time PCR amplification and detection with OSLI-7-[id number] primers and probes. A well-conserved region of the EBNA-1 gene is targeted, along with an internal control sequence used to confirm PCR amplification. Asymptomatic carriers and viral genetic variation, among other factors, can affect the accuracy of nucleic acid testing; therefore, results should be interpreted in light of clinical data.This test was developedand its performance characteristics determined by the [facility] Pathology Department, Section of Molecular Pathology. It has not been cleared or approved by the U.S. Food and Drug Administration (FDA), since FDA approval is not required for clinical use of the test. Validation was doneas required by The Clinical Laboratory Improvement Amendments of 1988.URINE [id number] 14:56:00 Test Item Value Reference Range Interpretation Comments CULTURE (BEAKER) (test code = 1095) No growth RAD, CHEST, 1 VIEW, NON [id number] 14:44:00Reason for exam:->PICC LINE PLACEMENT Should this be performed at the bedside?->YesFINAL REPORT Chest one view. Clinical history: PICC LINE PLACEMENT Comparison : January 30, 2017 Discussion: A frontal chest is provided. Cardiomediastinal contours are unremarkable. A right PICC line projects over the SVC. There is no consolidation, [place] pulmonary edema, pneumothorax, or significant effusion. Osseous structures are intact. Signed: Rene Restrepo Verified Date/Time: 02/17/2017 14:44:32 Reading Location: [address] Consult Reading Room TACROLIMUS LEVEL 2017-02-17 12:06:00 Test Item Value Reference Range Interpretation Comments TACROLIMUS BLOOD (BEAKER) (test 4.8 ng/mL 10.0-20.0 L code = 657) [id number] 08:04:00 Test Item Value Reference Range Interpretation Comments PREALBUMIN (BEAKER) (test code = 18 mg/dL 14-45 586) [id number] 07:19:00 Test Item Value Reference Range Interpretation Comments PHOSPHORUS (BEAKER) (test code = 2.5 mg/dL 2.3-4.7 604) [id number] 07:19:00 Test Item Value Reference Range Interpretation Comments MAGNESIUM (BEAKER) (test code = 1.9 mg/dL 1.6-2.6 627) BASIC METABOLIC [id number] 07:19:00 Test Item Value Reference Range Interpretation Comments SODIUM (BEAKER) 139 meq/L 136-145 (test code = 381) POTASSIUM (BEAKER) 4.2 meq/L 3.5-5.1 (test code = 379) CHLORIDE (BEAKER) 111 meq/L 98-107 H (test code = 382) CO2 (BEAKER) (test 20 meq/L 22-29 L code = 355) BLOOD UREA NITROGEN 14 mg/dL 7-21 (BEAKER) (test code = 354) CREATININE (BEAKER) 0.66 mg/dL 0.57-1.25 (test code = 358) GLUCOSE RANDOM 100 mg/dL 70-105 (BEAKER) (test code = 652) CALCIUM (BEAKER) 9.6 mg/dL 8.4-10.2 (test code = 697) EGFR (BEAKER) (test 105 mL/min/1.73 ESTIM ATED GFR IS code = 1092) sq m NOT ACCURATE CREATININE CLEARANCE IN PREDICTING GLOMERULAR FILTRATION RATE . ESTIMATED GFR I S NOT APPLICABLE FOR DIALYSIS PATIEN TS. CBC W/PLT COUNT & AUTO [id number] 06:33:00 Test Item Value Reference Range Interpretation Comments WHITE BLOOD CELL COUNT (BEAKER) 4.0 K/ L 3.5-10.5 (test code = 775) RED BLOOD CELL COUNT (BEAKER) 3.49 M/ L 3.93-5.22 L (test code = 761) HEMOGLOBIN (BEAKER) (test code = 10.9 GM/DL 11.2-15.7 L 410) HEMATOCRIT (BEAKER) (test code = 33.6 % 34.1-44.9 L 411) MEAN CORPUSCULAR VOLUME (BEAKER) 96.3 fL 79.4-94.8 H (test code = 753) MEAN CORPUSCULAR HEMOGLOBIN 31.2 pg 25.6-32.2 (BEAKER) (test code = 751) MEAN CORPUSCULAR HEMOGLOBIN CONC 32.4 GM/DL 32.2-35.5 (BEAKER) (test code = 752) RED CELL DISTRIBUTION WIDTH 13.4 % 11.7-14.4 (BEAKER) (test code = 412) PLATELET COUNT (BEAKER) (test 171 K/CU MM 150-450 code = 756) MEAN PLATELET VOLUME (BEAKER) 10.8 fL 9.4-12.3 (test code = 754) NUCLEATED RED BLOOD CELLS 0 /100 WBC 0-0 (BEAKER) (test code = 413) NEUTROPHILS RELATIVE PERCENT 63 % (BEAKER) (test code = 429) LYMPHOCYTES RELATIVE PERCENT 21 % (BEAKER) (test code = 430) MONOCYTES RELATIVE PERCENT 12 % (BEAKER) (test code = 431) EOSINOPHILS RELATIVE PERCENT 3 % (BEAKER) (test code = 432) BASOPHILS RELATIVE PERCENT 1 % (BEAKER) (test code = 437) NEUTROPHILS ABSOLUTE COUNT 2.54 K/ L 1.56-6.13 (BEAKER) (test code = 670) LYMPHOCYTES ABSOLUTE COUNT 0.84 K/ L 1.18-3.74 L (BEAKER) (test code = 414) MONOCYTES ABSOLUTE COUNT (BEAKER) 0.48 K/ L 0.24-0.36 H (test code = 415) EOSINOPHILS ABSOLUTE COUNT 0.11 K/ L 0.04-0.36 (BEAKER) (test code = 416) BASOPHILS ABSOLUTE COUNT (BEAKER) 0.02 K/ L 0.01-0.08 (test code = 417) IMMATURE GRANULOCYTES-RELATIVE 1 % 0-1 PERCENT (BEAKER) (test code = 2801) VANCOMYCIN LEVEL, [id number] 12:27:00 Test Item Value Reference Range Interpretation Comments VANCOMYCIN TROUGH (BEAKER) (test 12.5 ug/mL 10.0-20.0 code = 522) Prior to noon dose 12/3TACROLIMUS [id number] 11:51:00 Test Item Value Reference Range Interpretation Comments TACROLIMUS BLOOD (BEAKER) (test 3.2 ng/mL 10.0-20.0 L code = 657) URINE [id number] 10:21:00 Test Item Value Reference Range Interpretation Comments CULTURE (BEAKER) A >100,000 co l/mL Same (test code = 1095) organism has been isolated from culture(s) of the same body site withi n 3 days. Repeat identifi cation performed only after consultation wi th the clinical microb iology laboratory.Refe r to previous cultur Martin curran CBC W/PLT COUNT & AUTO [id number] 07:23:00 Test Item Value Reference Range Interpretation Comments WHITE BLOOD CELL COUNT 4.5 K/ L 3.5-10.5 (BEAKER) (test code = 775) RED BLOOD CELL COUNT 3.24 M/ L 3.93-5.22 L (BEAKER) (test code = 761) HEMOGLOBIN (BEAKER) 10.0 GM/DL 11.2-15.7 L (test code = 410) HEMATOCRIT (BEAKER) 32.1 % 34.1-44.9 L (test code = 411) MEAN CORPUSCULAR 99.1 fL 79.4-94.8 H Discordant from VOLUME (BEAKER) (test previo us results. code = 753) Clinical correl ation suggested. MEAN CORPUSCULAR 30.9 pg 25.6-32.2 HEMOGLOBIN (BEAKER) (test code = 751) MEAN CORPUSCULAR 31.2 GM/DL 32.2-35.5 L HEMOGLOBIN CONC (BEAKER) (test code = 752) RED CELL DISTRIBUTION 13.5 % 11.7-14.4 WIDTH (BEAKER) (test code = 412) PLATELET COUNT 145 K/CU MM 150-450 L (BEAKER) (test code = 756) MEAN PLATELET VOLUME 11.4 fL 9.4-12.3 (BEAKER) (test code = 754) NUCLEATED RED BLOOD 0 /100 WBC 0-0 CELLS (BEAKER) (test code = 413) NEUTROPHILS RELATIVE 63 % PERCENT (BEAKER) (test code = 429) LYMPHOCYTES RELATIVE 18 % PERCENT (BEAKER) (test code = 430) MONOCYTES RELATIVE 16 % PERCENT (BEAKER) (test code = 431) EOSINOPHILS RELATIVE 3 % PERCENT (BEAKER) (test code = 432) BASOPHILS RELATIVE 0 % PERCENT (BEAKER) (test code = 437) NEUTROPHILS ABSOLUTE 2.82 K/ L 1.56-6.13 COUNT (BEAKER) (test code = 670) LYMPHOCYTES ABSOLUTE 0.78 K/ L 1.18-3.74 L COUNT (BEAKER) (test code = 414) MONOCYTES ABSOLUTE 0.69 K/ L 0.24-0.36 H COUNT (BEAKER) (test code = 415) EOSINOPHILS ABSOLUTE 0.11 K/ L 0.04-0.36 COUNT (BEAKER) (test code = 416) BASOPHILS ABSOLUTE 0.02 K/ L 0.01-0.08 COUNT (BEAKER) (test code = 417) IMMATURE 1 % 0-1 GRANULOCYTES-RELATIVE PERCENT (BEAKER) (test code = 2801) [id number] 06:44:00 Test Item Value Reference Range Interpretation Comments PHOSPHORUS (BEAKER) (test code = 2.5 mg/dL 2.3-4.7 604) [id number] 06:44:00 Test Item Value Reference Range Interpretation Comments MAGNESIUM (BEAKER) (test code = 1.6 mg/dL 1.6-2.6 627) BASIC METABOLIC [id number] 06:44:00 Test Item Value Reference Range Interpretation Comments SODIUM (BEAKER) 141 meq/L 136-145 (test code = 381) POTASSIUM (BEAKER) 4.1 meq/L 3.5-5.1 (test code = 379) CHLORIDE (BEAKER) 113 meq/L 98-107 H (test code = 382) CO2 (BEAKER) (test 21 meq/L 22-29 L code = 355) BLOOD UREA NITROGEN 15 mg/dL 7-21 (BEAKER) (test code = 354) CREATININE (BEAKER) 0.67 mg/dL 0.57-1.25 (test code = 358) GLUCOSE RANDOM 111 mg/dL 70-105 H (BEAKER) (test code = 652) CALCIUM (BEAKER) 9.3 mg/dL 8.4-10.2 (test code = 697) EGFR (BEAKER) (test 103 mL/min/1.73 ESTIM ATED GFR IS code = 1092) sq m NOT ACCURATE CREATININE CLEARANCE IN PREDICTING GLOMERULAR FILTRATION RATE . ESTIMATED GFR I S NOT APPLICABLE FOR DIALYSIS PATIEN TS. URINALYSIS W/ [id number] 19:58:00 Test Item Value Reference Range Interpretation Comments COLOR (BEAKER) (test code = Yellow 470) CLARITY (BEAKER) (test code = Clear 469) SPECIFIC GRAVITY UA (BEAKER) 1.014 1.001-1.035 (test code = 468) PH UA (BEAKER) (test code = 7.0 5.0-8.0 467) PROTEIN UA (BEAKER) (test code 10 mg/dL Negative A = 464) GLUCOSE UA (BEAKER) (test code Negative Negative = 365) KETONES UA (BEAKER) (test code Negative Negative = 371) BILIRUBIN UA (BEAKER) (test Negative Negative code = 462) BLOOD UA (BEAKER) (test code = Negative Negative 461) NITRITE UA (BEAKER) (test code Negative Negative = 465) LEUKOCYTE ESTERASE UA (BEAKER) Small Negative A (test code = 466) UROBILINOGEN UA (BEAKER) (test 0.2 mg/dL 0.2-1.0 code = 463) RBC UA (BEAKER) (test code = < /HPF 519) WBC UA (BEAKER) (test code = 6 /HPF 520) SQUAMOUS EPITHELIAL (BEAKER) 4 /HPF (test code = 516) SOURCE(BEAKER) (test code = Urine, Voided 9446) [id number] 12:58:00 Test Item Value Reference Range Interpretation Comments PHOSPHORUS (BEAKER) (test code = 1.6 mg/dL 2.3-4.7 L 604) [id number] 12:58:00 Test Item Value Reference Range Interpretation Comments MAGNESIUM (BEAKER) (test code = 1.6 mg/dL 1.6-2.6 627) BASIC METABOLIC [id number] 12:58:00 Test Item Value Reference Range Interpretation Comments SODIUM (BEAKER) 140 meq/L 136-145 (test code = 381) POTASSIUM (BEAKER) 3.7 meq/L 3.5-5.1 (test code = 379) CHLORIDE (BEAKER) 110 meq/L 98-107 H (test code = 382) CO2 (BEAKER) (test 23 meq/L 22-29 code = 355) BLOOD UREA NITROGEN 9 mg/dL 7-21 (BEAKER) (test code = 354) CREATININE (BEAKER) 0.75 mg/dL 0.57-1.25 (test code = 358) GLUCOSE RANDOM 158 mg/dL 70-105 H (BEAKER) (test code = 652) CALCIUM (BEAKER) 9.8 mg/dL 8.4-10.2 (test code = 697) EGFR (BEAKER) (test 91 mL/min/1.73 ESTIMA AMARIS GFR IS code = 1092) sq m NOT ACCURATE CREATININE CLEARANCE IN PREDICTING GLOMERULAR FILTRATION RATE . ESTIMATED GFR I S NOT APPLICABLE FOR DIALYSIS PATIEN TS. URINE [id number] 12:13:00 Test Item Value Reference Range Interpretation Comments CULTURE ([facility]) (test code = 1095) Amikacin (test code = 1) S Ampicillin + Sulbactam R (test code = 6) Aztreonam (test code = 32) S Cefazolin (test code = 9) S Cefepime (test code = 51) S Cefoxitin (test code = 68) S Ceftazidime (test code = S 27) Ceftriaxone (test code = S 52) Ertapenem (test code = 38) S Gentamicin (test code = 18) R Levofloxacin (test code = R 22) Meropenem (test code = 34) S Nitrofurantoin (test code = S 23) Piperacillin + Tazobactam S (test code = 29) Tetracycline (test code = R 2) Tigecycline (test code = S 133) Tobramycin (test code = 25) R Trimethoprim + R Sulfamethoxazole (test code = 47) CULTURE ([facility]) (test code A 80-89,000 col/mL = 1095) Escherichia col i POCT-GLUCOSE [id number] 09:18:00 Test Item Value Reference Range Interpretation Comments POC-GLUCOSE METER 136 mg/dL 70-110 H TESTED AT [facility] [address] ([facility]) (test code = [place] 1538) [address] U/S, TRANSPLANT, [id number] 08:45:00Reason for exam:->UTI s/p renal transplantFINAL REPORT Transplant kidney ultrasound. Clinical History: UTI s/p renal transplant. Comparison Study: August 11, 2016. Findings: A transplant kidney is seen in the right lower quadrant measuring 12.9 x 6.8 x 6.8 cm. There is no evidence of hydronephrosis, nephrolithiasis or renal mass. The cortical thickness is 0.8 cm. The peak arterial systolic velocity in the iliac limb is 1.47 m/sec, 1.59 m/sec at the anastomosis and 1.05 m/sec in the main renal artery. The peak venous systolic velocity is 26 cm/sec at the iliac limb, 57 cm/sec at the anastomosis and 30 cm/sec in the mainrenal vein. The acceleration times and acceleration indices are normal. The resistive index in the upper, inter and lower polar regions are 0.61, 0.58 and 0.58 respectively. No perinephric fluid collections are seen. The bladder is partially filled with urine. Impression: Unremarkable transplant renal ultrasound. Signed: Jevon Goetz MDReport Verified Date/Time: 02/15/2017 08:45:49 Reading Location: [facility] C013Y CT Body Reading Room TROPONIN [id number] 00:31:00 Test Item Value Reference Range Interpretation Comments TROPONIN I (BEAKER) (test code = 397) < ng/mL 0.00-0.15 Troponin I (TnI) levels must be interpreted in the context of the presenting symptoms and the clinical findings. Elevated TnI levels indicate myocardial damage, but are not specific for ischemic heart disease. Elevated TnI levels are seen in patients with other cardiac conditions (including myocarditis and congestive heart failure), and slight TnI elevations occur in patients with other conditions, including sepsis, renal failure, acidosis, acute neurological disease, and persistent tachyarrhythmia.[id number] 00:31:00 Test Item Value Reference Range Interpretation Comments PHOSPHORUS (BEAKER) 1.1 mg/dL 2.5-4.5 LL Specimen slightly (test code = 604) hemolyzed CBC W/PLT COUNT & AUTO [id number] 00:29:00 Test Item Value Reference Range Interpretation Comments WHITE BLOOD CELL COUNT 9.7 K/ L 4.0-10.0 (BEAKER) (test code = 775) RED BLOOD CELL COUNT 3.75 M/ L 4.00-5.00 L (BEAKER) (test code = 761) HEMOGLOBIN (BEAKER) (test 11.9 GM/DL 12.0-15.0 L code = 410) HEMATOCRIT (BEAKER) (test 35.1 % 36.0-45.0 L code = 411) MEAN CORPUSCULAR VOLUME 93.4 fL 82.0-99.0 (BEAKER) (test code = 753) MEAN CORPUSCULAR 31.6 pg 27.0-33.0 HEMOGLOBIN (BEAKER) (test code = 751) MEAN CORPUSCULAR 33.8 GM/DL 32.0-36.0 HEMOGLOBIN CONC (BEAKER) (test code = 752) RED CELL DISTRIBUTION 13.8 % 10.3-14.2 WIDTH (BEAKER) (test code = 412) PLATELET COUNT (BEAKER) 155 K/CU MM 150-430 No c lot detected (test code = 756) MEAN PLATELET VOLUME 8.9 fL 6.5-10.5 (BEAKER) (test code = 754) NEUTROPHILS RELATIVE 86 % PERCENT (BEAKER) (test code = 429) LYMPHOCYTES RELATIVE 5 % PERCENT (BEAKER) (test code = 430) MONOCYTES RELATIVE 7 % PERCENT (BEAKER) (test code = 431) EOSINOPHILS RELATIVE 0 % PERCENT (BEAKER) (test code = 432) BASOPHILS RELATIVE 3 % PERCENT (BEAKER) (test code = 437) NEUTROPHILS ABSOLUTE 8.30 K/ L 1.80-8.00 H COUNT (BEAKER) (test code = 670) LYMPHOCYTES ABSOLUTE 0.50 K/ L 1.48-4.50 L COUNT (BEAKER) (test code = 414) MONOCYTES ABSOLUTE COUNT 0.70 K/ L 0.00-1.30 (BEAKER) (test code = 415) EOSINOPHILS ABSOLUTE 0.00 K/ L 0.00-0.50 COUNT (BEAKER) (test code = 416) BASOPHILS ABSOLUTE COUNT 0.20 K/ L 0.00-0.20 (BEAKER) (test code = 417) (MANUAL DIFFERENTIAL)2017-02-15 00:29:00 Test Item Value Reference Range Interpretation Comments NEUTROPHILS - REL (DIFF) (BEAKER) 85 % (test code = 1359) LYMPHOCYTES - REL (DIFF) (BEAKER) 8 % (test code = 1360) MONOCYTES - REL (DIFF) (BEAKER) 6 % (test code = 1361) BASOPHILS - REL (DIFF) (BEAKER) 1 % (test code = 1363) NEUTROPHILS - ABS (DIFF) (BEAKER) 8.25 K/ L 1.80-8.00 H (test code = 1365) LYMPHOCYTES - ABS (DIFF) (BEAKER) 0.78 K/ L 1.48-4.50 L (test code = 1366) MONOCYTES - ABS (DIFF) (BEAKER) 0.58 K/ L 0.00-1.30 (test code = 1367) BASOPHILS - ABS (DIFF) (BEAKER) 0.10 K/ L 0.00-0.20 (test code = 1369) TOTAL COUNTED (BEAKER) (test code = 100 1351) WBC MORPHOLOGY (BEAKER) (test code Normal = 487) PLT MORPHOLOGY (BEAKER) (test code Normal = 486) RBC MORPHOLOGY (BEAKER) (test code Normal = 762) [id number] 00:26:00 Test Item Value Reference Range Interpretation Comments LIPASE (BEAKER) (test code = 749) 12 U/L 6-51 HEPATIC FUNCTION [id number] 00:25:00 Test Item Value Reference Range Interpretation Comments TOTAL PROTEIN (BEAKER) 6.9 gm/dL 6.0-8.5 Speci men slightly (test code = 770) hemolyzed ALBUMIN (BEAKER) (test 4.0 g/dL 3.5-5.0 Speci men slightly code = 1145) hemolyzed BILIRUBIN TOTAL 0.3 mg/dL 0.1-1.2 Specimen sli ghtly (BEAKER) (test code = hemoly zed 377) BILIRUBIN DIRECT 0.1 mg/dL 0.0-0.4 Specimen sl ightly (BEAKER) (test code = hemoly zed 706) ALKALINE PHOSPHATASE 93 U/L 30-115 (BEAKER) (test code = 346) AST (SGOT) (BEAKER) 21 U/L 5-40 Specimen slightly (test code = 353) hemolyzed ALT (SGPT) (BEAKER) 32 U/L 5-50 Specimen slightly (test code = 347) hemolyzed RAPID INFLUENZA A&B [id number] 00:25:00 Test Item Value Reference Range Interpretation Comments RAPID INFLUENZA A AG (BEAKER) Negative Negative, Inconclusive (test code = 1622) RAPID INFLUENZA B AG (BEAKER) Negative Negative, Inconclusive (test code = 1623) BASIC METABOLIC [id number] 00:23:00 Test Item Value Reference Range Interpretation Comments SODIUM (BEAKER) 135 meq/L 135-148 (test code = 381) POTASSIUM (BEAKER) 3.9 meq/L 3.6-5.5 Specimen slightly (test code = 379) hemolyzed CHLORIDE (BEAKER) 106 meq/L 98-106 (test code = 382) CO2 (BEAKER) (test 20 meq/L 20-29 code = 355) BLOOD UREA NITROGEN 11 mg/dL 10-26 (BEAKER) (test code = 354) CREATININE (BEAKER) 1.00 mg/dL 0.50-1.20 Specimen slightly (test code = 358) hemolyzed GLUCOSE RANDOM 178 mg/dL 70-110 H (BEAKER) (test code = 652) CALCIUM (BEAKER) 9.2 mg/dL 8.5-10.5 (test code = 697) EGFR (BEAKER) (test 65 mL/min/1.73 ESTIMA AMARIS GFR IS code = 1092) sq m NOT ACCURATE CREATININE CLEARANCE IN PREDICTING GLOMERULAR FILTRATION RATE . ESTIMATED GFR I S NOT APPLICABLE FOR DIALYSIS PATIEN TS. PROTHROMBIN [id number] 00:17:00 Test Item Value Reference Range Interpretation Comments PROTIME (BEAKER) (test code = 11.1 seconds 9.3-12.0 759) INR (BEAKER) (test code = 370) 1.1 <=5.9 RECOMMENDED COUMADIN/WARFARIN INR THERAPY RANGESSTANDARD DOSE: 2.0 - 3.0 Includes: PROPHYLAXIS forvenous thrombosis, systemic embolization; TREATMENT for venous thrombosis and/or pulmonary embolus.HIGH RISK: Target INR is 2.5-3.5 for patients with mechanical heart valves.[id number] 00:17:00 Test Item Value Reference Range Interpretation Comments PARTIAL THROMBOPLASTIN TIME 31.3 seconds 23.0-35.0 (BEAKER) (test code = 760) [id number] 00:16:00 Test Item Value Reference Range Interpretation Comments MAGNESIUM (BEAKER) 2.1 mg/dL 1.5-3.0 Specimen slightly (test code = 627) hemolyzed URINALYSIS W/ [id number] 00:16:00 Test Item Value Reference Range Interpretation Comments COLOR (BEAKER) (test code = 470) Yellow CLARITY (BEAKER) (test code = 469) Clear SPECIFIC GRAVITY UA (BEAKER) (test 1.010 1.001-1.035 code = 468) PH UA (BEAKER) (test code = 467) 6.0 5.0-8.0 PROTEIN UA (BEAKER) (test code = Negative Negative 464) GLUCOSE UA (BEAKER) (test code = Negative Negative 365) KETONES UA (BEAKER) (test code = 40 mg/dL Negative A 371) BILIRUBIN UA (BEAKER) (test code = Negative Negative 462) BLOOD UA (BEAKER) (test code = 461) Negative Negative NITRITE UA (BEAKER) (test code = Positive Negative A 465) LEUKOCYTE ESTERASE UA (BEAKER) Moderate Negative A (test code = 466) UROBILINOGEN UA (BEAKER) (test code 1.0 mg/dL 0.2-1.0 = 463) BACTERIA (BEAKER) (test code = 517) Many RBC UA-MANUAL (BEAKER) (test code = <5 /HPF 1659) WBC UA-MANUAL (BEAKER) (test code = 5-10 /HPF 1661) SQUAMOUS EPITHELIAL MANUAL (BEAKER) <5 /HPF (test code = 1663) SOURCE(BEAKER) (test code = 2795) LACTIC ACID, VENOUS, WHOLE [id number] 00:15:00 Test Item Value Reference Range Interpretation Comments LACTATE BLOOD VENOUS 1.6 mmol/L 0.5-2.2 Specime n slightly (2) (BEAKER) (test hemolyzed code = 0873) Effective 07/19/2015: Units/Reference Range ChangeNew: 0.5-2.2 mmol/L Previous: 5-18 mg/dLCOMPREHENSIVE METABOLIC [id number] 00:52:00 Test Item Value Reference Range Interpretation Comments TOTAL PROTEIN 6.5 gm/dL 6.0-8.5 Specimen sligh tly (BEAKER) (test code = hemoly zed 770) ALBUMIN (BEAKER) 4.0 g/dL 3.5-5.0 Specimen sl ightly (test code = 1145) hemolyzed ALKALINE PHOSPHATASE 92 U/L 30-115 (BEAKER) (test code = 346) BILIRUBIN TOTAL 0.4 mg/dL 0.1-1.2 Specimen sli ghtly (BEAKER) (test code = hemoly zed 377) SODIUM (BEAKER) (test 139 meq/L 135-148 code = 381) POTASSIUM (BEAKER) 4.2 meq/L 3.6-5.5 Specimen slightly (test code = 379) hemolyzed CHLORIDE (BEAKER) 109 meq/L 98-106 H (test code = 382) CO2 (BEAKER) (test 20 meq/L 20-29 code = 355) BLOOD UREA NITROGEN 17 mg/dL 10-26 (BEAKER) (test code = 354) CREATININE (BEAKER) 0.90 mg/dL 0.50-1.20 Specimen slightly (test code = 358) hemolyzed GLUCOSE RANDOM 137 mg/dL 70-110 H (BEAKER) (test code = 652) CALCIUM (BEAKER) 8.9 mg/dL 8.5-10.5 (test code = 697) AST (SGOT) (BEAKER) 22 U/L 5-40 Specimen slightly (test code = 353) hemolyzed ALT (SGPT) (BEAKER) 38 U/L 5-50 Specimen slightly (test code = 347) hemolyzed EGFR (BEAKER) (test 74 mL/min/1.73 ESTIMA AMARIS GFR IS code = 1092) sq m NOT ACCURATE CREATININE CLEARANCE IN PREDICTING GLOMERULAR FILTRATION RATE . ESTIMATED GFR I S NOT APPLICABLE FOR DIALYSIS PATIEN TS. CBC W/PLT COUNT & AUTO [id number] 00:15:00 Test Item Value Reference Range Interpretation Comments WHITE BLOOD CELL COUNT (BEAKER) 11.1 K/ L 4.0-10.0 H (test code = 775) RED BLOOD CELL COUNT (BEAKER) 4.07 M/ L 4.00-5.00 (test code = 761) HEMOGLOBIN (BEAKER) (test code = 12.6 GM/DL 12.0-15.0 410) HEMATOCRIT (BEAKER) (test code = 38.5 % 36.0-45.0 411) MEAN CORPUSCULAR VOLUME (BEAKER) 94.6 fL 82.0-99.0 (test code = 753) MEAN CORPUSCULAR HEMOGLOBIN 31.0 pg 27.0-33.0 (BEAKER) (test code = 751) MEAN CORPUSCULAR HEMOGLOBIN CONC 32.8 GM/DL 32.0-36.0 (BEAKER) (test code = 752) RED CELL DISTRIBUTION WIDTH 14.3 % 10.3-14.2 H (BEAKER) (test code = 412) PLATELET COUNT (BEAKER) (test 191 K/CU MM 150-430 code = 756) MEAN PLATELET VOLUME (BEAKER) 8.8 fL 6.5-10.5 (test code = 754) NEUTROPHILS RELATIVE PERCENT 87 % (BEAKER) (test code = 429) LYMPHOCYTES RELATIVE PERCENT 5 % (BEAKER) (test code = 430) MONOCYTES RELATIVE PERCENT 6 % (BEAKER) (test code = 431) EOSINOPHILS RELATIVE PERCENT 1 % (BEAKER) (test code = 432) BASOPHILS RELATIVE PERCENT 1 % (BEAKER) (test code = 437) NEUTROPHILS ABSOLUTE COUNT 9.60 K/ L 1.80-8.00 H (BEAKER) (test code = 670) LYMPHOCYTES ABSOLUTE COUNT 0.50 K/ L 1.48-4.50 L (BEAKER) (test code = 414) MONOCYTES ABSOLUTE COUNT (BEAKER) 0.70 K/ L 0.00-1.30 (test code = 415) EOSINOPHILS ABSOLUTE COUNT 0.10 K/ L 0.00-0.50 (BEAKER) (test code = 416) BASOPHILS ABSOLUTE COUNT (BEAKER) 0.20 K/ L 0.00-0.20 (test code = 417) LACTIC ACID, VENOUS, WHOLE [id number] 00:06:00 Test Item Value Reference Range Interpretation Comments LACTATE BLOOD VENOUS 1.0 mmol/L 0.5-2.2 Specime n moderately (2) (BEAKER) (test hemolyzed code = 5360) Effective 07/19/2015: Units/Reference Range ChangeNew: 0.5-2.2 mmol/L Previous: 5-18 mg/dLURINALYSIS W/ [id number] 23:37:00 Test Item Value Reference Range Interpretation Comments COLOR (BEAKER) (test code = Yellow 470) CLARITY (BEAKER) (test code = Slightly Cloudy 469) SPECIFIC GRAVITY UA (BEAKER) 1.020 1.001-1.035 (test code = 468) PH UA (BEAKER) (test code = 6.0 5.0-8.0 467) PROTEIN UA (BEAKER) (test Negative Negative code = 464) GLUCOSE UA (BEAKER) (test Negative Negative code = 365) KETONES UA (BEAKER) (test 15 mg/dL Negative A code = 371) BILIRUBIN UA (BEAKER) (test Negative Negative code = 462) BLOOD UA (BEAKER) (test code Trace Negative A = 461) NITRITE UA (BEAKER) (test Negative Negative code = 465) LEUKOCYTE ESTERASE UA Negative Negative (BEAKER) (test code = 466) UROBILINOGEN UA (BEAKER) 0.2 mg/dL 0.2-1.0 (test code = 463) BACTERIA (BEAKER) (test code Few = 517) MUCUS (BEAKER) (test code = Occasional 1574) RBC UA-MANUAL (BEAKER) (test <5 /HPF code = 1659) WBC UA-MANUAL (BEAKER) (test 5-10 /HPF code = 1661) SQUAMOUS EPITHELIAL MANUAL 5-10 /HPF (BEAKER) (test code = 1663) SOURCE(BEAKER) (test code = 2795) TACROLIMUS [id number] 11:21:00 Test Item Value Reference Range Interpretation Comments TACROLIMUS BLOOD (BEAKER) (test 5.6 ng/mL 10.0-20.0 L code = 657) URINALYSIS W/ REFLEX URINE [id number] 09:37:00 Test Item Value Reference Range Interpretation Comments COLOR (BEAKER) (test code = 470) Yellow CLARITY (BEAKER) (test code = 469) Hazy SPECIFIC GRAVITY UA (BEAKER) (test 1.022 1.001-1.035 code = 468) PH UA (BEAKER) (test code = 467) 5.5 5.0-8.0 PROTEIN UA (BEAKER) (test code = 10 mg/dL Negative A 464) GLUCOSE UA (BEAKER) (test code = Negative Negative 365) KETONES UA (BEAKER) (test code = 20 mg/dL Negative A 371) BILIRUBIN UA (BEAKER) (test code = Negative Negative 462) BLOOD UA (BEAKER) (test code = Negative Negative 461) NITRITE UA (BEAKER) (test code = Positive Negative A 465) LEUKOCYTE ESTERASE UA (BEAKER) Trace Negative A (test code = 466) UROBILINOGEN UA (BEAKER) (test 0.2 mg/dL 0.2-1.0 code = 463) RBC UA (BEAKER) (test code = 519) 1 /HPF WBC UA (BEAKER) (test code = 520) 14 /HPF BACTERIA (BEAKER) (test code = Moderate 517) MUCUS (BEAKER) (test code = 1574) Occasional SQUAMOUS EPITHELIAL (BEAKER) (test 3 /HPF code = 516) CALCIUM OXALATE CRYSTALS (BEAKER) Few (test code = 518) SOURCE(BEAKER) (test code = 2795) [id number] 09:03:00 Test Item Value Reference Range Interpretation Comments PHOSPHORUS (BEAKER) (test code = 2.6 mg/dL 2.3-4.7 604) COMPREHENSIVE METABOLIC [id number] 09:03:00 Test Item Value Reference Range Interpretation Comments TOTAL PROTEIN 6.9 gm/dL 6.0-8.3 (BEAKER) (test code = 770) ALBUMIN (BEAKER) 4.3 g/dL 3.5-5.0 (test code = 1145) ALKALINE PHOSPHATASE 101 U/L 40-150 (BEAKER) (test code = 346) BILIRUBIN TOTAL 0.4 mg/dL 0.2-1.2 (BEAKER) (test code = 377) SODIUM (BEAKER) (test 141 meq/L 136-145 code = 381) POTASSIUM (BEAKER) 3.6 meq/L 3.5-5.1 (test code = 379) CHLORIDE (BEAKER) 106 meq/L 98-107 (test code = 382) CO2 (BEAKER) (test 26 meq/L 22-29 code = 355) BLOOD UREA NITROGEN 16 mg/dL 7-21 (BEAKER) (test code = 354) CREATININE (BEAKER) 0.79 mg/dL 0.57-1.25 (test code = 358) GLUCOSE RANDOM 89 mg/dL 70-105 (BEAKER) (test code = 652) CALCIUM (BEAKER) 9.8 mg/dL 8.4-10.2 (test code = 697) AST (SGOT) (BEAKER) 23 U/L 5-34 (test code = 353) ALT (SGPT) (BEAKER) 43 U/L 6-55 (test code = 347) EGFR (BEAKER) (test 85 mL/min/1.73 ESTIMA AMARIS GFR IS code = 1092) sq m NOT ACCURATE CREATININE CLEARANCE IN PREDICTING GLOMERULAR FILTRATION RATE . ESTIMATED GFR I S NOT APPLICABLE FOR DIALYSIS PATIEN TS. LACTATE DEHYDROGENASE (LDH)2017-02-13 09:03:00 Test Item Value Reference Range Interpretation Comments LACTATE DEHYDROGENASE (BEAKER) (test 224 U/L 125-220 H code = 635) CBC W/PLT COUNT & AUTO [id number] 08:46:00 Test Item Value Reference Range Interpretation Comments WHITE BLOOD CELL COUNT (BEAKER) 6.2 K/ L 3.5-10.5 (test code = 775) RED BLOOD CELL COUNT (BEAKER) 3.94 M/ L 3.93-5.22 (test code = 761) HEMOGLOBIN (BEAKER) (test code = 12.2 GM/DL 11.2-15.7 410) HEMATOCRIT (BEAKER) (test code = 37.7 % 34.1-44.9 411) MEAN CORPUSCULAR VOLUME (BEAKER) 95.7 fL 79.4-94.8 H (test code = 753) MEAN CORPUSCULAR HEMOGLOBIN 31.0 pg 25.6-32.2 (BEAKER) (test code = 751) MEAN CORPUSCULAR HEMOGLOBIN CONC 32.4 GM/DL 32.2-35.5 (BEAKER) (test code = 752) RED CELL DISTRIBUTION WIDTH 13.5 % 11.7-14.4 (BEAKER) (test code = 412) PLATELET COUNT (BEAKER) (test 187 K/CU MM 150-450 code = 756) MEAN PLATELET VOLUME (BEAKER) 10.4 fL 9.4-12.3 (test code = 754) NUCLEATED RED BLOOD CELLS 0 /100 WBC 0-0 (BEAKER) (test code = 413) NEUTROPHILS RELATIVE PERCENT 75 % (BEAKER) (test code = 429) LYMPHOCYTES RELATIVE PERCENT 14 % (BEAKER) (test code = 430) MONOCYTES RELATIVE PERCENT 7 % (BEAKER) (test code = 431) EOSINOPHILS RELATIVE PERCENT 2 % (BEAKER) (test code = 432) BASOPHILS RELATIVE PERCENT 1 % (BEAKER) (test code = 437) NEUTROPHILS ABSOLUTE COUNT 4.68 K/ L 1.56-6.13 (BEAKER) (test code = 670) LYMPHOCYTES ABSOLUTE COUNT 0.87 K/ L 1.18-3.74 L (BEAKER) (test code = 414) MONOCYTES ABSOLUTE COUNT (BEAKER) 0.44 K/ L 0.24-0.36 H (test code = 415) EOSINOPHILS ABSOLUTE COUNT 0.10 K/ L 0.04-0.36 (BEAKER) (test code = 416) BASOPHILS ABSOLUTE COUNT (BEAKER) 0.04 K/ L 0.01-0.08 (test code = 417) IMMATURE GRANULOCYTES-RELATIVE 1 % 0-1 PERCENT (BEAKER) (test code = 2801) AB SPECIFICITY CLASS [id number] 07:53:00 Test Item Value Reference Range Interpretation Comments DATE OF SERUM (BEAKER) (test code = 533476 6234) SERUM # (BEAKER) (test code = 2290) [id number] AB SPECIFICITY CLASS I (BEAKER) (test code = 2429) AB SPECIFICITY CLASS [id number] 07:53:00 Test Item Value Reference Range Interpretation Comments DATE OF SERUM (BEAKER) (test code = 777411 1653) SERUM # (BEAKER) (test code = 2290) [id number] AB SPECIFICITY CLASS II (BEAKER) (test code = 2430) FLOW PRA CLASS I AND [id number] 07:51:00 Test Item Value Reference Range Interpretation Comments DATE OF SERUM (BEAKER) 569203 (test code = 2289) SERUM # (BEAKER) (test 363554 code = 2290) FLOW PRA CLASS I AND II See Scanned Report (test code = 2421) BLOOD [id number] 07:43:00 Test Item Value Reference Range Interpretation Comments CULTURE (BEAKER) (test No growth in 5 days code = 1095) BLOOD [id number] 07:42:00 Test Item Value Reference Range Interpretation Comments CULTURE (BEAKER) (test No growth in 5 days code = 1095) EBV-VCA ANTIBODY, [id number] 14:30:00 Test Item Value Reference Range Interpretation Comments PEARL-ARGUETA VCA IGG (BEAKER) (test Positive code = 983) EBV-VCA ANTIBODY, [id number] 14:30:00 Test Item Value Reference Range Interpretation Comments PEARL-ARGUETA VCA IGM (BEAKER) (test Negative code = 984) TACROLIMUS [id number] 15:33:00 Test Item Value Reference Range Interpretation Comments TACROLIMUS BLOOD (BEAKER) (test 11.2 ng/mL 10.0-20.0 code = 657) RAD, CHEST, 1 VIEW, NON [id number] 03:52:00Reason for exam:->SHORTNESS OF BREATHReason for exam:->HEADACHEReason for exam:->DIZZINESSReason for exam:->URINARY FREQUENCYIs the patient ?->NoShould this be performed at the bedside?->YesFINAL REPORT INDICATION: SHORTNESS OF BREATHHEADACHEDIZZINESSURINARY FREQUENCY COMPARISON: 08/09/16 TECHNIQUE: Single frontal view of the chest. FINDINGS: Lungs and pleura: Clear l ungs. No effusion.Heart and mediastinum: Normal heart size. Unremarkable mediastinal contours.Osseous structures: No acute abnormality.Other: None. IMPRESSION: No acute intrathoracic abnormality. Signed: JR Brandt Robert MDReport Verified Date/Time: 01/30/2017 03:52:08 Reading Location: [address] Reading Room CBC W/PLT COUNT & AUTO [id number] 03:48:00 Test Item Value Reference Range Interpretation Comments WHITE BLOOD CELL COUNT (BEAKER) 8.6 K/ L 4.0-10.0 (test code = 775) RED BLOOD CELL COUNT (BEAKER) 3.88 M/ L 4.00-5.00 L (test code = 761) HEMOGLOBIN (BEAKER) (test code = 12.2 GM/DL 12.0-15.0 410) HEMATOCRIT (BEAKER) (test code = 36.1 % 36.0-45.0 411) MEAN CORPUSCULAR VOLUME (BEAKER) 93.0 fL 82.0-99.0 (test code = 753) MEAN CORPUSCULAR HEMOGLOBIN 31.5 pg 27.0-33.0 (BEAKER) (test code = 751) MEAN CORPUSCULAR HEMOGLOBIN CONC 33.9 GM/DL 32.0-36.0 (BEAKER) (test code = 752) RED CELL DISTRIBUTION WIDTH 14.3 % 10.3-14.2 H (BEAKER) (test code = 412) PLATELET COUNT (BEAKER) (test 190 K/CU MM 150-430 code = 756) MEAN PLATELET VOLUME (BEAKER) 8.9 fL 6.5-10.5 (test code = 754) NUCLEATED RED BLOOD CELLS 0 /100 WBC 0-0 (BEAKER) (test code = 413) (MANUAL DIFFERENTIAL)2017-01-30 03:48:00 Test Item Value Reference Range Interpretation Comments NEUTROPHILS - REL (DIFF) (BEAKER) 83 % (test code = 1359) LYMPHOCYTES - REL (DIFF) (BEAKER) 10 % (test code = 1360) MONOCYTES - REL (DIFF) (BEAKER) 7 % (test code = 1361) NEUTROPHILS - ABS (DIFF) (BEAKER) 7.14 K/ L 1.80-8.00 (test code = 1365) LYMPHOCYTES - ABS (DIFF) (BEAKER) 0.86 K/ L 1.48-4.50 L (test code = 1366) MONOCYTES - ABS (DIFF) (BEAKER) 0.60 K/ L 0.00-1.30 (test code = 1367) TOTAL COUNTED (BEAKER) (test code = 100 1351) WBC MORPHOLOGY (BEAKER) (test code Normal = 487) PLT MORPHOLOGY (BEAKER) (test code Normal = 486) RBC MORPHOLOGY (BEAKER) (test code Normal = 762) BASIC METABOLIC [id number] 03:06:00 Test Item Value Reference Range Interpretation Comments SODIUM (BEAKER) 137 meq/L 135-148 (test code = 381) POTASSIUM (BEAKER) 4.4 meq/L 3.6-5.5 Specimen slightly (test code = 379) hemolyzed CHLORIDE (BEAKER) 106 meq/L 98-106 (test code = 382) CO2 (BEAKER) (test 19 meq/L 20-29 L code = 355) BLOOD UREA NITROGEN 12 mg/dL 10-26 (BEAKER) (test code = 354) CREATININE (BEAKER) 0.90 mg/dL 0.50-1.20 Specimen slightly (test code = 358) hemolyzed GLUCOSE RANDOM 116 mg/dL 70-110 H (BEAKER) (test code = 652) CALCIUM (BEAKER) 9.7 mg/dL 8.5-10.5 (test code = 697) EGFR (BEAKER) (test 74 mL/min/1.73 ESTIMA AMARIS GFR IS code = 1092) sq m NOT ACCURATE CREATININE CLEARANCE IN PREDICTING GLOMERULAR FILTRATION RATE . ESTIMATED GFR I S NOT APPLICABLE FOR DIALYSIS PATIEN TS. LACTIC ACID, VENOUS, WHOLE [id number] 02:42:00 Test Item Value Reference Range Interpretation Comments LACTATE BLOOD VENOUS 0.8 mmol/L 0.5-2.2 Specime n slightly (2) (BEAKER) (test hemolyzed code = 2872) Effective 07/19/2015: Units/Reference Range ChangeNew: 0.5-2.2 mmol/L Previous: 5-18 mg/dLURINALYSIS W/ REFLEX URINE [id number] 01:14:00 Test Item Value Reference Range Interpretation Comments COLOR (BEAKER) (test code = 470) Yellow CLARITY (BEAKER) (test code = 469) Clear SPECIFIC GRAVITY UA (BEAKER) (test <= 1.001-1.035 code = 468) PH UA (BEAKER) (test code = 467) 6.0 5.0-8.0 PROTEIN UA (BEAKER) (test code = Negative Negative 464) GLUCOSE UA (BEAKER) (test code = Negative Negative 365) KETONES UA (BEAKER) (test code = Negative Negative 371) BILIRUBIN UA (BEAKER) (test code = Negative Negative 462) BLOOD UA (BEAKER) (test code = 461) Trace Negative A NITRITE UA (BEAKER) (test code = Positive Negative A 465) LEUKOCYTE ESTERASE UA (BEAKER) Small Negative A (test code = 466) UROBILINOGEN UA (BEAKER) (test code 0.2 mg/dL 0.2-1.0 = 463) BACTERIA (BEAKER) (test code = 517) Moderate RBC UA-MANUAL (BEAKER) (test code = <5 /HPF 1659) WBC UA-MANUAL (BEAKER) (test code = <5 /HPF 1661) SQUAMOUS EPITHELIAL MANUAL (BEAKER) 5-10 /HPF (test code = 1663) SOURCE(BEAKER) (test code = 2588) BK VIRUS PCR, [id number] 15:40:00 Test Item Value Reference Range Interpretation Comments BK VIRUS, PLASMA, NEG Negative or below the (BEAKER) (test code = linear range of the 2145) assay (<1,000 copies/mL) Patients may have replicating BK Virus which is of no clinical significance. Viral load measurements are helpful to identify BK Virus replication of potential clinical significance. Consensus recommendations have been published of threshold values for the presumptive diagnosis of polyomavirus-associated nephropathy (Transplantation 2005;79:6624-8153).A BK Virus load greater than 5,000-10,000 copies/mL in the plasma is consistent with the presumptive diagnosis of polyoma-associated nephropathy in renal transplant recipients.BK Virus DNA was assessed using quantitative polymerase chain reaction and fluorescent monitoring of a specific hybridized probe. Genetic variation and other factors can affect the accuracy of nucleic acid testing. Therefore, the results should be interpreted in light of clinical data.This test was developed and its performance characteristics determined by the [facility] Pathology Department, Section of Molecular Pathology. It has not been cleared or approved by the U.S. Food and Drug Administration (FDA). Since FDA approval is not required for clinicaluse of the test, validation was done as required by the Clinical Laboratory Improvement Amendments of 1988.TACROLIMUS LEVEL 2017-01-23 12:46:00 Test Item Value Reference Range Interpretation Comments TACROLIMUS BLOOD (BEAKER) (test 17.2 ng/mL 10.0-20.0 code = 657) URINALYSIS W/ REFLEX URINE [id number] 09:08:00 Test Item Value Reference Range Interpretation Comments COLOR (BEAKER) (test code = 470) Light Yellow CLARITY (BEAKER) (test code = Clear 469) SPECIFIC GRAVITY UA (BEAKER) 1.016 1.001-1.035 (test code = 468) PH UA (BEAKER) (test code = 467) 5.0 5.0-8.0 PROTEIN UA (BEAKER) (test code = Negative Negative 464) GLUCOSE UA (BEAKER) (test code = Negative Negative 365) KETONES UA (BEAKER) (test code = Negative Negative 371) BILIRUBIN UA (BEAKER) (test code Negative Negative = 462) BLOOD UA (BEAKER) (test code = Trace Negative A 461) NITRITE UA (BEAKER) (test code = Negative Negative 465) LEUKOCYTE ESTERASE UA (BEAKER) Small Negative A (test code = 466) UROBILINOGEN UA (BEAKER) (test 0.2 mg/dL 0.2-1.0 code = 463) RBC UA (BEAKER) (test code = < /HPF 519) WBC UA (BEAKER) (test code = 4 /HPF 520) BACTERIA (BEAKER) (test code = Occasional 517) MUCUS (BEAKER) (test code = Rare 1574) SQUAMOUS EPITHELIAL (BEAKER) 4 /HPF (test code = 516) SOURCE(BEAKER) (test code = 3633) [id number] 09:06:00 Test Item Value Reference Range Interpretation Comments PHOSPHORUS (BEAKER) (test code = 2.8 mg/dL 2.3-4.7 604) COMPREHENSIVE METABOLIC [id number] 09:06:00 Test Item Value Reference Range Interpretation Comments TOTAL PROTEIN 6.9 gm/dL 6.0-8.3 (BEAKER) (test code = 770) ALBUMIN (BEAKER) 4.4 g/dL 3.5-5.0 (test code = 1145) ALKALINE PHOSPHATASE 103 U/L 40-150 (BEAKER) (test code = 346) BILIRUBIN TOTAL 0.3 mg/dL 0.2-1.2 (BEAKER) (test code = 377) SODIUM (BEAKER) (test 141 meq/L 136-145 code = 381) POTASSIUM (BEAKER) 3.8 meq/L 3.5-5.1 (test code = 379) CHLORIDE (BEAKER) 111 meq/L 98-107 H (test code = 382) CO2 (BEAKER) (test 22 meq/L 22-29 code = 355) BLOOD UREA NITROGEN 18 mg/dL 7-21 (BEAKER) (test code = 354) CREATININE (BEAKER) 0.81 mg/dL 0.57-1.25 (test code = 358) GLUCOSE RANDOM 98 mg/dL 70-105 (BEAKER) (test code = 652) CALCIUM (BEAKER) 9.7 mg/dL 8.4-10.2 (test code = 697) AST (SGOT) (BEAKER) 16 U/L 5-34 (test code = 353) ALT (SGPT) (BEAKER) 34 U/L 6-55 (test code = 347) EGFR (BEAKER) (test 83 mL/min/1.73 ESTIMA AMARIS GFR IS code = 1092) sq m NOT ACCURATE CREATININE CLEARANCE IN PREDICTING GLOMERULAR FILTRATION RATE . ESTIMATED GFR I S NOT APPLICABLE FOR DIALYSIS PATIEN TS. LACTATE DEHYDROGENASE (LDH)2017-01-23 09:06:00 Test Item Value Reference Range Interpretation Comments LACTATE DEHYDROGENASE (BEAKER) (test 178 U/L 125-220 code = 635) SCREEN, [id number] 08:44:00 Test Item Value Reference Range Interpretation Comments TEST URINE (BEAKER) (test Negative code = 583) CBC W/PLT COUNT & AUTO [id number] 08:33:00 Test Item Value Reference Range Interpretation Comments WHITE BLOOD CELL COUNT (BEAKER) 5.8 K/ L 3.5-10.5 (test code = 775) RED BLOOD CELL COUNT (BEAKER) 3.95 M/ L 3.93-5.22 (test code = 761) HEMOGLOBIN (BEAKER) (test code = 12.2 GM/DL 11.2-15.7 410) HEMATOCRIT (BEAKER) (test code = 37.8 % 34.1-44.9 411) MEAN CORPUSCULAR VOLUME (BEAKER) 95.7 fL 79.4-94.8 H (test code = 753) MEAN CORPUSCULAR HEMOGLOBIN 30.9 pg 25.6-32.2 (BEAKER) (test code = 751) MEAN CORPUSCULAR HEMOGLOBIN CONC 32.3 GM/DL 32.2-35.5 (BEAKER) (test code = 752) RED CELL DISTRIBUTION WIDTH 13.6 % 11.7-14.4 (BEAKER) (test code = 412) PLATELET COUNT (BEAKER) (test 200 K/CU MM 150-450 code = 756) MEAN PLATELET VOLUME (BEAKER) 10.9 fL 9.4-12.3 (test code = 754) NUCLEATED RED BLOOD CELLS 0 /100 WBC 0-0 (BEAKER) (test code = 413) NEUTROPHILS RELATIVE PERCENT 67 % (BEAKER) (test code = 429) LYMPHOCYTES RELATIVE PERCENT 18 % (BEAKER) (test code = 430) MONOCYTES RELATIVE PERCENT 11 % (BEAKER) (test code = 431) EOSINOPHILS RELATIVE PERCENT 3 % (BEAKER) (test code = 432) BASOPHILS RELATIVE PERCENT 1 % (BEAKER) (test code = 437) NEUTROPHILS ABSOLUTE COUNT 3.91 K/ L 1.56-6.13 (BEAKER) (test code = 670) LYMPHOCYTES ABSOLUTE COUNT 1.02 K/ L 1.18-3.74 L (BEAKER) (test code = 414) MONOCYTES ABSOLUTE COUNT (BEAKER) 0.66 K/ L 0.24-0.36 H (test code = 415) EOSINOPHILS ABSOLUTE COUNT 0.16 K/ L 0.04-0.36 (BEAKER) (test code = 416) BASOPHILS ABSOLUTE COUNT (BEAKER) 0.05 K/ L 0.01-0.08 (test code = 417) IMMATURE GRANULOCYTES-RELATIVE 1 % 0-1 PERCENT (BEAKER) (test code = 2801) BK VIRUS PCR, [id number] 14:35:00 Test Item Value Reference Range Interpretation Comments BK VIRUS, PLASMA, NEG Negative or below the (BEAKER) (test code = linear range of the 2145) assay (<1,000 copies/mL) Patients may have replicating BK Virus which is of no clinical significance. Viral load measurements are helpful to identify BK Virus replication of potential clinical significance. Consensus recommendations have been published of threshold values for the presumptive diagnosis of polyomavirus-associated nephropathy (Transplantation 2005;79:9745-0898).A BK Virus load greater than 5,000-10,000 copies/mL in the plasma is consistent with the presumptive diagnosis of polyoma-associated nephropathy in renal transplant recipients.BK Virus DNA was assessed using quantitative polymerase chain reaction and fluorescent monitoring of a specific hybridized probe. Genetic variation and other factors can affect the accuracy of nucleic acid testing. Therefore, the results should be interpreted in light of clinical data.This test was developed and its performance characteristics determined by the [facility] Pathology Department, Section of Molecular Pathology. It has not been cleared or approved by the U.S. Food and Drug Administration (FDA). Since FDA approval is not required for clinicaluse of the test, validation was done as required by the Clinical Laboratory Improvement Amendments of 1988.TACROLIMUS LEVEL 2017-01-09 11:15:00 Test Item Value Reference Range Interpretation Comments TACROLIMUS BLOOD (BEAKER) (test 8.7 ng/mL 10.0-20.0 L code = 657) URINALYSIS W/ REFLEX URINE [id number] 08:48:00 Test Item Value Reference Range Interpretation Comments COLOR (BEAKER) (test code = 470) Light Yellow CLARITY (BEAKER) (test code = Clear 469) SPECIFIC GRAVITY UA (BEAKER) 1.018 1.001-1.035 (test code = 468) PH UA (BEAKER) (test code = 467) 6.5 5.0-8.0 PROTEIN UA (BEAKER) (test code = Negative Negative 464) GLUCOSE UA (BEAKER) (test code = Negative Negative 365) KETONES UA (BEAKER) (test code = Negative Negative 371) BILIRUBIN UA (BEAKER) (test code Negative Negative = 462) BLOOD UA (BEAKER) (test code = Negative Negative 461) NITRITE UA (BEAKER) (test code = Negative Negative 465) LEUKOCYTE ESTERASE UA (BEAKER) Negative Negative (test code = 466) UROBILINOGEN UA (BEAKER) (test 0.2 mg/dL 0.2-1.0 code = 463) RBC UA (BEAKER) (test code = < /HPF 519) WBC UA (BEAKER) (test code = 0 /HPF 520) BACTERIA (BEAKER) (test code = Rare 517) SQUAMOUS EPITHELIAL (BEAKER) 1 /HPF (test code = 516) SOURCE(BEAKER) (test code = 2795) [id number] 08:13:00 Test Item Value Reference Range Interpretation Comments PHOSPHORUS (BEAKER) (test code = 3.3 mg/dL 2.3-4.7 604) COMPREHENSIVE METABOLIC [id number] 08:13:00 Test Item Value Reference Range Interpretation Comments TOTAL PROTEIN 6.7 gm/dL 6.0-8.3 (BEAKER) (test code = 770) ALBUMIN (BEAKER) 4.2 g/dL 3.5-5.0 (test code = 1145) ALKALINE PHOSPHATASE 106 U/L 40-150 (BEAKER) (test code = 346) BILIRUBIN TOTAL < mg/dL 0.2-1.2 (BEAKER) (test code = 377) SODIUM (BEAKER) (test 141 meq/L 136-145 code = 381) POTASSIUM (BEAKER) 4.1 meq/L 3.5-5.1 (test code = 379) CHLORIDE (BEAKER) 110 meq/L 98-107 H (test code = 382) CO2 (BEAKER) (test 24 meq/L 22-29 code = 355) BLOOD UREA NITROGEN 29 mg/dL 7-21 H (BEAKER) (test code = 354) CREATININE (BEAKER) 0.98 mg/dL 0.57-1.25 (test code = 358) GLUCOSE RANDOM 87 mg/dL 70-105 (BEAKER) (test code = 652) CALCIUM (BEAKER) 9.7 mg/dL 8.4-10.2 (test code = 697) AST (SGOT) (BEAKER) 21 U/L 5-34 (test code = 353) ALT (SGPT) (BEAKER) 42 U/L 6-55 (test code = 347) EGFR (BEAKER) (test 67 mL/min/1.73 ESTIMA AMARIS GFR IS code = 1092) sq m NOT ACCURATE CREATININE CLEARANCE IN PREDICTING GLOMERULAR FILTRATION RATE . ESTIMATED GFR I S NOT APPLICABLE FOR DIALYSIS PATIEN TS. LACTATE DEHYDROGENASE (LDH)2017-01-09 08:13:00 Test Item Value Reference Range Interpretation Comments LACTATE DEHYDROGENASE (BEAKER) (test 206 U/L 125-220 code = 635) CBC W/PLT COUNT & AUTO [id number] 07:51:00 Test Item Value Reference Range Interpretation Comments WHITE BLOOD CELL COUNT (BEAKER) 4.3 K/ L 3.5-10.5 (test code = 775) RED BLOOD CELL COUNT (BEAKER) 4.08 M/ L 3.93-5.22 (test code = 761) HEMOGLOBIN (BEAKER) (test code = 12.4 GM/DL 11.2-15.7 410) HEMATOCRIT (BEAKER) (test code = 39.1 % 34.1-44.9 411) MEAN CORPUSCULAR VOLUME (BEAKER) 95.8 fL 79.4-94.8 H (test code = 753) MEAN CORPUSCULAR HEMOGLOBIN 30.4 pg 25.6-32.2 (BEAKER) (test code = 751) MEAN CORPUSCULAR HEMOGLOBIN CONC 31.7 GM/DL 32.2-35.5 L (BEAKER) (test code = 752) RED CELL DISTRIBUTION WIDTH 13.8 % 11.7-14.4 (BEAKER) (test code = 412) PLATELET COUNT (BEAKER) (test 201 K/CU MM 150-450 code = 756) MEAN PLATELET VOLUME (BEAKER) 10.8 fL 9.4-12.3 (test code = 754) NUCLEATED RED BLOOD CELLS 0 /100 WBC 0-0 (BEAKER) (test code = 413) NEUTROPHILS RELATIVE PERCENT 68 % (BEAKER) (test code = 429) LYMPHOCYTES RELATIVE PERCENT 20 % (BEAKER) (test code = 430) MONOCYTES RELATIVE PERCENT 8 % (BEAKER) (test code = 431) EOSINOPHILS RELATIVE PERCENT 2 % (BEAKER) (test code = 432) BASOPHILS RELATIVE PERCENT 1 % (BEAKER) (test code = 437) NEUTROPHILS ABSOLUTE COUNT 2.90 K/ L 1.56-6.13 (BEAKER) (test code = 670) LYMPHOCYTES ABSOLUTE COUNT 0.83 K/ L 1.18-3.74 L (BEAKER) (test code = 414) MONOCYTES ABSOLUTE COUNT (BEAKER) 0.35 K/ L 0.24-0.36 (test code = 415) EOSINOPHILS ABSOLUTE COUNT 0.09 K/ L 0.04-0.36 (BEAKER) (test code = 416) BASOPHILS ABSOLUTE COUNT (BEAKER) 0.03 K/ L 0.01-0.08 (test code = 417) IMMATURE GRANULOCYTES-RELATIVE 1 % 0-1 PERCENT (BEAKER) (test code = 2801) FLOW PRA CLASS I AND [id number] 14:50:00 Test Item Value Reference Range Interpretation Comments DATE OF SERUM (BEAKER) (test code = 623986 9016) SERUM # (BEAKER) (test code = 2290) [id number] FLOW PRA CLASS I AND II (test code = 2421) AB SPECIFICITY CLASS [id number] 11:01:00 Test Item Value Reference Range Interpretation Comments DATE OF SERUM (BEAKER) (test code = 619725 5429) SERUM # (BEAKER) (test code = 2290) [id number] AB SPECIFICITY CLASS I (BEAKER) (test code = 2429) AB SPECIFICITY CLASS [id number] 11:01:00 Test Item Value Reference Range Interpretation Comments DATE OF SERUM (BEAKER) [id number] (test code = 2289) SERUM # (BEAKER) (test 011930 code = 2290) AB SPECIFICITY CLASS II See Scanned Report (BEAKER) (test code = 2430) BK VIRUS PCR, [id number] 19:47:00 Test Item Value Reference Range Interpretation Comments BK VIRUS, PLASMA, NEG Negative or below the (BEAKER) (test code = linear range of the 2145) assay (<1,000 copies/mL) Patients may have replicating BK Virus which is of no clinical significance. Viral load measurements are helpful to identify BK Virus replication of potential clinical significance. Consensus recommendations have been published of threshold values for the presumptive diagnosis of polyomavirus-associated nephropathy (Transplantation 2005;79:3117-5243).A BK Virus load greater than 5,000-10,000 copies/mL in the plasma is consistent with the presumptive diagnosis of polyoma-associated nephropathy in renal transplant recipients.BK Virus DNA was assessed using quantitative polymerase chain reaction and fluorescent monitoring of a specific hybridized probe. Genetic variation and other factors can affect the accuracy of nucleic acid testing. Therefore, the results should be interpreted in light of clinical data.This test was developed and its performance characteristics determined by the [facility] Pathology Department, Section of Molecular Pathology. It has not been cleared or approved by the U.S. Food and Drug Administration (FDA). Since FDA approval is not required for clinicaluse of the test, validation was done as required by the Clinical Laboratory Improvement Amendments of 1988.TACROLIMUS LEVEL 2016-12-26 15:23:00 Test Item Value Reference Range Interpretation Comments TACROLIMUS BLOOD (BEAKER) (test 7.4 ng/mL 10.0-20.0 L code = 657) URINALYSIS W/ REFLEX URINE [id number] 12:57:00 Test Item Value Reference Range Interpretation Comments COLOR (BEAKER) (test code = 470) Yellow CLARITY (BEAKER) (test code = 469) Hazy SPECIFIC GRAVITY UA (BEAKER) (test 1.022 1.001-1.035 code = 468) PH UA (BEAKER) (test code = 467) 5.5 5.0-8.0 PROTEIN UA (BEAKER) (test code = Negative Negative 464) GLUCOSE UA (BEAKER) (test code = Negative Negative 365) KETONES UA (BEAKER) (test code = Negative Negative 371) BILIRUBIN UA (BEAKER) (test code = Negative Negative 462) BLOOD UA (BEAKER) (test code = Negative Negative 461) NITRITE UA (BEAKER) (test code = Negative Negative 465) LEUKOCYTE ESTERASE UA (BEAKER) Negative Negative (test code = 466) UROBILINOGEN UA (BEAKER) (test 0.2 mg/dL 0.2-1.0 code = 463) RBC UA (BEAKER) (test code = 519) 2 /HPF WBC UA (BEAKER) (test code = 520) 1 /HPF BACTERIA (BEAKER) (test code = Occasional 517) MUCUS (BEAKER) (test code = 1574) Rare SQUAMOUS EPITHELIAL (BEAKER) (test 3 /HPF code = 516) CALCIUM OXALATE CRYSTALS (BEAKER) Few (test code = 518) SOURCE(BEAKER) (test code = 2795) [id number] 11:59:00 Test Item Value Reference Range Interpretation Comments PHOSPHORUS (BEAKER) (test code = 2.4 mg/dL 2.3-4.7 604) COMPREHENSIVE METABOLIC [id number] 11:59:00 Test Item Value Reference Range Interpretation Comments TOTAL PROTEIN 7.0 gm/dL 6.0-8.3 (BEAKER) (test code = 770) ALBUMIN (BEAKER) 4.4 g/dL 3.5-5.0 (test code = 1145) ALKALINE PHOSPHATASE 101 U/L 40-150 (BEAKER) (test code = 346) BILIRUBIN TOTAL 0.3 mg/dL 0.2-1.2 (BEAKER) (test code = 377) SODIUM (BEAKER) (test 140 meq/L 136-145 code = 381) POTASSIUM (BEAKER) 4.1 meq/L 3.5-5.1 (test code = 379) CHLORIDE (BEAKER) 109 meq/L 98-107 H (test code = 382) CO2 (BEAKER) (test 23 meq/L 22-29 code = 355) BLOOD UREA NITROGEN 15 mg/dL 7-21 (BEAKER) (test code = 354) CREATININE (BEAKER) 0.80 mg/dL 0.57-1.25 (test code = 358) GLUCOSE RANDOM 79 mg/dL 70-105 (BEAKER) (test code = 652) CALCIUM (BEAKER) 9.7 mg/dL 8.4-10.2 (test code = 697) AST (SGOT) (BEAKER) 17 U/L 5-34 (test code = 353) ALT (SGPT) (BEAKER) 21 U/L 6-55 (test code = 347) EGFR (BEAKER) (test 84 mL/min/1.73 ESTIMA AMARIS GFR IS code = 1092) sq m NOT ACCURATE CREATININE CLEARANCE IN PREDICTING GLOMERULAR FILTRATION RATE . ESTIMATED GFR I S NOT APPLICABLE FOR DIALYSIS PATIEN TS. LACTATE DEHYDROGENASE (LDH)2016-12-26 11:59:00 Test Item Value Reference Range Interpretation Comments LACTATE DEHYDROGENASE (BEAKER) (test 209 U/L 125-220 code = 635) CBC W/PLT COUNT & AUTO [id number] 11:23:00 Test Item Value Reference Range Interpretation Comments WHITE BLOOD CELL COUNT (BEAKER) 4.4 K/ L 3.5-10.5 (test code = 775) RED BLOOD CELL COUNT (BEAKER) 4.13 M/ L 3.93-5.22 (test code = 761) HEMOGLOBIN (BEAKER) (test code = 12.6 GM/DL 11.2-15.7 410) HEMATOCRIT (BEAKER) (test code = 39.2 % 34.1-44.9 411) MEAN CORPUSCULAR VOLUME (BEAKER) 94.9 fL 79.4-94.8 H (test code = 753) MEAN CORPUSCULAR HEMOGLOBIN 30.5 pg 25.6-32.2 (BEAKER) (test code = 751) MEAN CORPUSCULAR HEMOGLOBIN CONC 32.1 GM/DL 32.2-35.5 L (BEAKER) (test code = 752) RED CELL DISTRIBUTION WIDTH 13.8 % 11.7-14.4 (BEAKER) (test code = 412) PLATELET COUNT (BEAKER) (test 188 K/CU MM 150-450 code = 756) MEAN PLATELET VOLUME (BEAKER) 11.2 fL 9.4-12.3 (test code = 754) NUCLEATED RED BLOOD CELLS 0 /100 WBC 0-0 (BEAKER) (test code = 413) NEUTROPHILS RELATIVE PERCENT 68 % (BEAKER) (test code = 429) LYMPHOCYTES RELATIVE PERCENT 21 % (BEAKER) (test code = 430) MONOCYTES RELATIVE PERCENT 8 % (BEAKER) (test code = 431) EOSINOPHILS RELATIVE PERCENT 2 % (BEAKER) (test code = 432) BASOPHILS RELATIVE PERCENT 1 % (BEAKER) (test code = 437) NEUTROPHILS ABSOLUTE COUNT 2.98 K/ L 1.56-6.13 (BEAKER) (test code = 670) LYMPHOCYTES ABSOLUTE COUNT 0.93 K/ L 1.18-3.74 L (BEAKER) (test code = 414) MONOCYTES ABSOLUTE COUNT (BEAKER) 0.35 K/ L 0.24-0.36 (test code = 415) EOSINOPHILS ABSOLUTE COUNT 0.08 K/ L 0.04-0.36 (BEAKER) (test code = 416) BASOPHILS ABSOLUTE COUNT (BEAKER) 0.03 K/ L 0.01-0.08 (test code = 417) IMMATURE GRANULOCYTES-RELATIVE 1 % 0-1 PERCENT (BEAKER) (test code = 2801) BK VIRUS PCR, [id number] 16:42:00 Test Item Value Reference Range Interpretation Comments BK VIRUS, PLASMA, NEG Negative or below the (BEAKER) (test code = linear range of the 2145) assay (<1,000 copies/mL) Patients may have replicating BK Virus which is of no clinical significance. Viral load measurements are helpful to identify BK Virus replication of potential clinical significance. Consensus recommendations have been published of threshold values for the presumptive diagnosis of polyomavirus-associated nephropathy (Transplantation 2005;79:6033-3112).A BK Virus load greater than 5,000-10,000 copies/mL in the plasma is consistent with the presumptive diagnosis of polyoma-associated nephropathy in renal transplant recipients.BK Virus DNA was assessed using quantitative polymerase chain reaction and fluorescent monitoring of a specific hybridized probe. Genetic variation and other factors can affect the accuracy of nucleic acid testing. Therefore, the results should be interpreted in light of clinical data.This test was developed and its performance characteristics determined by the [facility] Pathology Department, Section of Molecular Pathology. It has not been cleared or approved by the U.S. Food and Drug Administration (FDA). Since FDA approval is not required for clinicaluse of the test, validation was done as required by the Clinical Laboratory Improvement Amendments of 1988.TACROLIMUS LEVEL 2016-12-12 11:35:00 Test Item Value Reference Range Interpretation Comments TACROLIMUS BLOOD (BEAKER) (test 9.1 ng/mL 10.0-20.0 L code = 657) URINALYSIS W/ REFLEX URINE [id number] 10:35:00 Test Item Value Reference Range Interpretation Comments COLOR (BEAKER) (test code = 470) Yellow CLARITY (BEAKER) (test code = 469) Clear SPECIFIC GRAVITY UA (BEAKER) (test 1.019 1.001-1.035 code = 468) PH UA (BEAKER) (test code = 467) 5.5 5.0-8.0 PROTEIN UA (BEAKER) (test code = Negative Negative 464) GLUCOSE UA (BEAKER) (test code = Negative Negative 365) KETONES UA (BEAKER) (test code = Negative Negative 371) BILIRUBIN UA (BEAKER) (test code = Negative Negative 462) BLOOD UA (BEAKER) (test code = 461) Small Negative A NITRITE UA (BEAKER) (test code = Negative Negative 465) LEUKOCYTE ESTERASE UA (BEAKER) Small Negative A (test code = 466) UROBILINOGEN UA (BEAKER) (test code 0.2 mg/dL 0.2-1.0 = 463) RBC UA (BEAKER) (test code = 519) < /HPF WBC UA (BEAKER) (test code = 520) 2 /HPF MUCUS (BEAKER) (test code = 1574) Rare SQUAMOUS EPITHELIAL (BEAKER) (test 2 /HPF code = 516) CALCIUM OXALATE CRYSTALS (BEAKER) Few (test code = 518) SOURCE(BEAKER) (test code = 2795) [id number] 09:47:00 Test Item Value Reference Range Interpretation Comments PHOSPHORUS (BEAKER) (test code = 2.7 mg/dL 2.3-4.7 604) COMPREHENSIVE METABOLIC [id number] 09:47:00 Test Item Value Reference Range Interpretation Comments TOTAL PROTEIN 7.0 gm/dL 6.0-8.3 (BEAKER) (test code = 770) ALBUMIN (BEAKER) 4.4 g/dL 3.5-5.0 (test code = 1145) ALKALINE PHOSPHATASE 104 U/L 40-150 (BEAKER) (test code = 346) BILIRUBIN TOTAL 0.3 mg/dL 0.2-1.2 (BEAKER) (test code = 377) SODIUM (BEAKER) (test 142 meq/L 136-145 code = 381) POTASSIUM (BEAKER) 3.9 meq/L 3.5-5.1 (test code = 379) CHLORIDE (BEAKER) 109 meq/L 98-107 H (test code = 382) CO2 (BEAKER) (test 22 meq/L 22-29 code = 355) BLOOD UREA NITROGEN 17 mg/dL 7-21 (BEAKER) (test code = 354) CREATININE (BEAKER) 0.79 mg/dL 0.57-1.25 (test code = 358) GLUCOSE RANDOM 84 mg/dL 70-105 (BEAKER) (test code = 652) CALCIUM (BEAKER) 10.0 mg/dL 8.4-10.2 (test code = 697) AST (SGOT) (BEAKER) 18 U/L 5-34 (test code = 353) ALT (SGPT) (BEAKER) 20 U/L 6-55 (test code = 347) EGFR (BEAKER) (test 85 mL/min/1.73 ESTIMA AMARIS GFR IS code = 1092) sq m NOT ACCURATE CREATININE CLEARANCE IN PREDICTING GLOMERULAR FILTRATION RATE . ESTIMATED GFR I S NOT APPLICABLE FOR DIALYSIS PATIEN TS. LACTATE DEHYDROGENASE (LDH)2016-12-12 09:47:00 Test Item Value Reference Range Interpretation Comments LACTATE DEHYDROGENASE (BEAKER) (test 215 U/L 125-220 code = 635) CBC W/PLT COUNT & AUTO [id number] 09:44:00 Test Item Value Reference Range Interpretation Comments WHITE BLOOD CELL COUNT (BEAKER) 3.7 K/ L 3.5-10.5 (test code = 775) RED BLOOD CELL COUNT (BEAKER) 4.08 M/ L 3.93-5.22 (test code = 761) HEMOGLOBIN (BEAKER) (test code = 12.0 GM/DL 11.2-15.7 410) HEMATOCRIT (BEAKER) (test code = 38.1 % 34.1-44.9 411) MEAN CORPUSCULAR VOLUME (BEAKER) 93.4 fL 79.4-94.8 (test code = 753) MEAN CORPUSCULAR HEMOGLOBIN 29.4 pg 25.6-32.2 (BEAKER) (test code = 751) MEAN CORPUSCULAR HEMOGLOBIN CONC 31.5 GM/DL 32.2-35.5 L (BEAKER) (test code = 752) RED CELL DISTRIBUTION WIDTH 13.4 % 11.7-14.4 (BEAKER) (test code = 412) PLATELET COUNT (BEAKER) (test 195 K/CU MM 150-450 code = 756) MEAN PLATELET VOLUME (BEAKER) 10.6 fL 9.4-12.3 (test code = 754) NUCLEATED RED BLOOD CELLS 0 /100 WBC 0-0 (BEAKER) (test code = 413) NEUTROPHILS RELATIVE PERCENT 71 % (BEAKER) (test code = 429) LYMPHOCYTES RELATIVE PERCENT 17 % (BEAKER) (test code = 430) MONOCYTES RELATIVE PERCENT 8 % (BEAKER) (test code = 431) EOSINOPHILS RELATIVE PERCENT 2 % (BEAKER) (test code = 432) BASOPHILS RELATIVE PERCENT 1 % (BEAKER) (test code = 437) NEUTROPHILS ABSOLUTE COUNT 2.66 K/ L 1.56-6.13 (BEAKER) (test code = 670) LYMPHOCYTES ABSOLUTE COUNT 0.64 K/ L 1.18-3.74 L (BEAKER) (test code = 414) MONOCYTES ABSOLUTE COUNT (BEAKER) 0.29 K/ L 0.24-0.36 (test code = 415) EOSINOPHILS ABSOLUTE COUNT 0.08 K/ L 0.04-0.36 (BEAKER) (test code = 416) BASOPHILS ABSOLUTE COUNT (BEAKER) 0.04 K/ L 0.01-0.08 (test code = 417) IMMATURE GRANULOCYTES-RELATIVE 1 % 0-1 PERCENT (BEAKER) (test code = 2801) U/S, ABDOMINAL, [id number] 13:08:00Reason for Exam:->pain right upper/lower quad., abdomenFINAL REPORT HISTORY : Status post right lower quadrant renal transplant, right abdominal pain COMPARISON : 04/04/2014 COMMENT : Complete ultrasound examination of the abdomen was performed. The liver is homogenous in echo-texture without evidence of a focal mass. The gallbladder appears normal without evidence of stones, sludge, wall thickening or pericholecystic fluid. The biliary tract is within normal limits with the common bile duct measuring 2 mm in maximum diameter. The visualized portions of the pancreas are within normal limits. The spleen is normal in size and echo-texture measuring 9.8 cm. The right kidney measures 5.6 x 2.1 x 2.4 cm and the left kidney 5.9 x 2.5 x 2.6 cm in maximum size. There is no evidence of cysts, masses, stones or hydronephrosis. Limited images of the right lower quadrant transplant kidney were obtained measuring 12.3 x 5.3 x 5.4 cm. No peritransplant fluid collections are seen on this limited exam. The portal vein measures to amaximum of 1.3 cm in diameter. There is no ascites or pleural effusion. The visualized inferior venacava, hepatic veins and abdominal aorta are within normal limits. The maximum diameter of the abdominal aorta is 1.5 cm. IMPRESSION : 1. Small sized and echogenic kidneys consistent with end- stage renal disease. 2. Right lower quadrant transplant kidney. Signed: Judie Arroyo MDReport Verified Date/Time: 12/04/2016 13:08:58 Reading Location: [address] Radiology Reading Room Electronicallysigned by: JUDIE ARROYO M.D. on 12/04/2016 01:08 PMBK VIRUS PCR, [id number] 08:30:00 Test Item Value Reference Range Interpretation Comments BK VIRUS, PLASMA, POS (BEAKER) 1041 copies/mL (test code = 1820) Patients may have replicating BK Virus which is of no clinical significance. Viral load measurements are helpful to identify BK Virus replication of potential clinical significance. Consensus recommendations have been published of threshold levels for the presumptive diagnosis of polyomavirus-associated nephrophathy (Transplanation 2005;79: 7784-7523).A BK Virus load greater than 5,000-10,000 copies/mL in the plasma is consistent with the presumptive diagnosis of polyoma-associated nephropathy in renal transplant recipients.BK Virus DNA was assessed using quantitative polymerase chain reaction and fluorescent monitoring of a specific hybridized probe. Genetic variation and other factors can affect the accuracy of nucleic acid resting. Therefore, the results should be interpreted in light of clinical data.This test was developed and its performance characteristics determined by the [facility] Pathology Department, Section of Molecular Pathology. It has not been cleared orapproved by the U.S. Food and Drug Administration (FDA). Since FDA approval is not required for clinical use of the test, validation was done as required by the Clinical Laboratory Improvement Amendments of 1988.TACROLIMUS [id number] 13:37:00 Test Item Value Reference Range Interpretation Comments TACROLIMUS BLOOD (BEAKER) (test 7.6 ng/mL 10.0-20.0 L code = 657) [id number] 12:03:00 Test Item Value Reference Range Interpretation Comments PHOSPHORUS (BEAKER) (test code = 2.5 mg/dL 2.3-4.7 604) COMPREHENSIVE METABOLIC [id number] 12:03:00 Test Item Value Reference Range Interpretation Comments TOTAL PROTEIN 7.1 gm/dL 6.0-8.3 (BEAKER) (test code = 770) ALBUMIN (BEAKER) 4.3 g/dL 3.5-5.0 (test code = 1145) ALKALINE PHOSPHATASE 93 U/L 40-150 (BEAKER) (test code = 346) BILIRUBIN TOTAL < mg/dL 0.2-1.2 (BEAKER) (test code = 377) SODIUM (BEAKER) (test 137 meq/L 136-145 code = 381) POTASSIUM (BEAKER) 3.9 meq/L 3.5-5.1 (test code = 379) CHLORIDE (BEAKER) 110 meq/L 98-107 H (test code = 382) CO2 (BEAKER) (test 19 meq/L 22-29 L code = 355) BLOOD UREA NITROGEN 21 mg/dL 7-21 (BEAKER) (test code = 354) CREATININE (BEAKER) 0.86 mg/dL 0.57-1.25 (test code = 358) GLUCOSE RANDOM 91 mg/dL 70-105 (BEAKER) (test code = 652) CALCIUM (BEAKER) 9.7 mg/dL 8.4-10.2 (test code = 697) AST (SGOT) (BEAKER) 15 U/L 5-34 (test code = 353) ALT (SGPT) (BEAKER) 25 U/L 6-55 (test code = 347) EGFR (BEAKER) (test 77 mL/min/1.73 ESTIMA AMARIS GFR IS code = 1092) sq m NOT ACCURATE CREATININE CLEARANCE IN PREDICTING GLOMERULAR FILTRATION RATE . ESTIMATED GFR I S NOT APPLICABLE FOR DIALYSIS PATIEN TS. LACTATE DEHYDROGENASE (LDH)2016-11-26 12:03:00 Test Item Value Reference Range Interpretation Comments LACTATE DEHYDROGENASE (BEAKER) (test 170 U/L 125-220 code = 635) URINALYSIS W/ REFLEX URINE [id number] 11:50:00 Test Item Value Reference Range Interpretation Comments COLOR (BEAKER) (test code = 470) Yellow CLARITY (BEAKER) (test code = 469) Clear SPECIFIC GRAVITY UA (BEAKER) (test 1.017 1.001-1.035 code = 468) PH UA (BEAKER) (test code = 467) 5.5 5.0-8.0 PROTEIN UA (BEAKER) (test code = Negative Negative 464) GLUCOSE UA (BEAKER) (test code = Negative Negative 365) KETONES UA (BEAKER) (test code = Negative Negative 371) BILIRUBIN UA (BEAKER) (test code = Negative Negative 462) BLOOD UA (BEAKER) (test code = 461) Negative Negative NITRITE UA (BEAKER) (test code = Negative Negative 465) LEUKOCYTE ESTERASE UA (BEAKER) Negative Negative (test code = 466) UROBILINOGEN UA (BEAKER) (test code 0.2 mg/dL 0.2-1.0 = 463) RBC UA (BEAKER) (test code = 519) 1 /HPF WBC UA (BEAKER) (test code = 520) 2 /HPF BACTERIA (BEAKER) (test code = 517) Rare MUCUS (BEAKER) (test code = 1574) Rare SQUAMOUS EPITHELIAL (BEAKER) (test 1 /HPF code = 516) SOURCE(BEAKER) (test code = 2795) CBC W/PLT COUNT & AUTO [id number] 10:41:00 Test Item Value Reference Range Interpretation Comments WHITE BLOOD CELL COUNT (BEAKER) 4.7 K/ L 3.5-10.5 (test code = 775) RED BLOOD CELL COUNT (BEAKER) 4.04 M/ L 3.93-5.22 (test code = 761) HEMOGLOBIN (BEAKER) (test code = 12.2 GM/DL 11.2-15.7 410) HEMATOCRIT (BEAKER) (test code = 37.4 % 34.1-44.9 411) MEAN CORPUSCULAR VOLUME (BEAKER) 92.6 fL 79.4-94.8 (test code = 753) MEAN CORPUSCULAR HEMOGLOBIN 30.2 pg 25.6-32.2 (BEAKER) (test code = 751) MEAN CORPUSCULAR HEMOGLOBIN CONC 32.6 GM/DL 32.2-35.5 (BEAKER) (test code = 752) RED CELL DISTRIBUTION WIDTH 13.7 % 11.7-14.4 (BEAKER) (test code = 412) PLATELET COUNT (BEAKER) (test 197 K/CU MM 150-450 code = 756) MEAN PLATELET VOLUME (BEAKER) 10.9 fL 9.4-12.3 (test code = 754) NUCLEATED RED BLOOD CELLS 0 /100 WBC 0-0 (BEAKER) (test code = 413) NEUTROPHILS RELATIVE PERCENT 69 % (BEAKER) (test code = 429) LYMPHOCYTES RELATIVE PERCENT 18 % (BEAKER) (test code = 430) MONOCYTES RELATIVE PERCENT 9 % (BEAKER) (test code = 431) EOSINOPHILS RELATIVE PERCENT 3 % (BEAKER) (test code = 432) BASOPHILS RELATIVE PERCENT 1 % (BEAKER) (test code = 437) NEUTROPHILS ABSOLUTE COUNT 3.25 K/ L 1.56-6.13 (BEAKER) (test code = 670) LYMPHOCYTES ABSOLUTE COUNT 0.85 K/ L 1.18-3.74 L (BEAKER) (test code = 414) MONOCYTES ABSOLUTE COUNT (BEAKER) 0.40 K/ L 0.24-0.36 H (test code = 415) EOSINOPHILS ABSOLUTE COUNT 0.12 K/ L 0.04-0.36 (BEAKER) (test code = 416) BASOPHILS ABSOLUTE COUNT (BEAKER) 0.04 K/ L 0.01-0.08 (test code = 417) IMMATURE GRANULOCYTES-RELATIVE 1 % 0-1 PERCENT (BEAKER) (test code = 2801) BK VIRUS PCR, [id number] 17:49:00 Test Item Value Reference Range Interpretation Comments BK VIRUS, PLASMA, [place] [address] copies/mL (BEAKER) (test code = 1820) Patients may have replicating BK Virus which is of no clinical significance. Viral load measurements are helpful to identify BK Virus replication of potential clinical significance. Consensus recommendations have been published of threshold levels for the presumptive diagnosis of polyomavirus-associated nephrophathy (Transplanation 2005;79: 9500-7806).A BK Virus load greater than 5,000-10,000 copies/mL in the plasma is consistent with the presumptive diagnosis of polyoma-associated nephropathy in renal transplant recipients.BK Virus DNA was assessed using quantitative polymerase chain reaction and fluorescent monitoring of a specific hybridized probe. Genetic variation and other factors can affect the accuracy of nucleic acid resting. Therefore, the results should be interpreted in light of clinical data.This test was developed and its performance characteristics determined by the [facility] Pathology Department, Section of Molecular Pathology. It has not been cleared orapproved by the U.S. Food and Drug Administration (FDA). Since FDA approval is not required for clinical use of the test, validation was done as required by the Clinical Laboratory Improvement Amendments of 1988.TACROLIMUS [id number] 12:41:00 Test Item Value Reference Range Interpretation Comments TACROLIMUS BLOOD (BEAKER) (test 7.7 ng/mL 10.0-20.0 L code = 657) [id number] 10:48:00 Test Item Value Reference Range Interpretation Comments PHOSPHORUS (BEAKER) (test code = 2.6 mg/dL 2.3-4.7 604) COMPREHENSIVE METABOLIC [id number] 10:48:00 Test Item Value Reference Range Interpretation Comments TOTAL PROTEIN 6.8 gm/dL 6.0-8.3 (BEAKER) (test code = 770) ALBUMIN (BEAKER) 4.1 g/dL 3.5-5.0 (test code = 1145) ALKALINE PHOSPHATASE 108 U/L 40-150 (BEAKER) (test code = 346) BILIRUBIN TOTAL < mg/dL 0.2-1.2 (BEAKER) (test code = 377) SODIUM (BEAKER) (test 142 meq/L 136-145 code = 381) POTASSIUM (BEAKER) 4.0 meq/L 3.5-5.1 (test code = 379) CHLORIDE (BEAKER) 111 meq/L 98-107 H (test code = 382) CO2 (BEAKER) (test 24 meq/L 22-29 code = 355) BLOOD UREA NITROGEN 23 mg/dL 7-21 H (BEAKER) (test code = 354) CREATININE (BEAKER) 0.97 mg/dL 0.57-1.25 (test code = 358) GLUCOSE RANDOM 86 mg/dL 70-105 (BEAKER) (test code = 652) CALCIUM (BEAKER) 9.8 mg/dL 8.4-10.2 (test code = 697) AST (SGOT) (BEAKER) 15 U/L 5-34 (test code = 353) ALT (SGPT) (BEAKER) 20 U/L 6-55 (test code = 347) EGFR (BEAKER) (test 67 mL/min/1.73 ESTIMA AMARIS GFR IS code = 1092) sq m NOT ACCURATE CREATININE CLEARANCE IN PREDICTING GLOMERULAR FILTRATION RATE . ESTIMATED GFR I S NOT APPLICABLE FOR DIALYSIS PATIEN TS. LACTATE DEHYDROGENASE (LDH)2016-11-15 10:48:00 Test Item Value Reference Range Interpretation Comments LACTATE DEHYDROGENASE (BEAKER) (test 425 U/L 125-220 H code = 635) URINALYSIS W/ REFLEX URINE [id number] 10:34:00 Test Item Value Reference Range Interpretation Comments COLOR (BEAKER) (test code = 470) Light Yellow CLARITY (BEAKER) (test code = Clear 469) SPECIFIC GRAVITY UA (BEAKER) 1.013 1.001-1.035 (test code = 468) PH UA (BEAKER) (test code = 467) 6.0 5.0-8.0 PROTEIN UA (BEAKER) (test code = Negative Negative 464) GLUCOSE UA (BEAKER) (test code = Negative Negative 365) KETONES UA (BEAKER) (test code = Negative Negative 371) BILIRUBIN UA (BEAKER) (test code Negative Negative = 462) BLOOD UA (BEAKER) (test code = Negative Negative 461) NITRITE UA (BEAKER) (test code = Negative Negative 465) LEUKOCYTE ESTERASE UA (BEAKER) Small Negative A (test code = 466) UROBILINOGEN UA (BEAKER) (test 0.2 mg/dL 0.2-1.0 code = 463) RBC UA (BEAKER) (test code = 1 /HPF 519) WBC UA (BEAKER) (test code = 3 /HPF 520) BACTERIA (BEAKER) (test code = Occasional 517) SQUAMOUS EPITHELIAL (BEAKER) 3 /HPF (test code = 516) SOURCE(BEAKER) (test code = 3135) CBC W/PLT COUNT & AUTO [id number] 10:23:00 Test Item Value Reference Range Interpretation Comments WHITE BLOOD CELL COUNT (BEAKER) 4.8 K/ L 3.5-10.5 (test code = 775) RED BLOOD CELL COUNT (BEAKER) 4.01 M/ L 3.93-5.22 (test code = 761) HEMOGLOBIN (BEAKER) (test code = 12.1 GM/DL 11.2-15.7 410) HEMATOCRIT (BEAKER) (test code = 38.2 % 34.1-44.9 411) MEAN CORPUSCULAR VOLUME (BEAKER) 95.3 fL 79.4-94.8 H (test code = 753) MEAN CORPUSCULAR HEMOGLOBIN 30.2 pg 25.6-32.2 (BEAKER) (test code = 751) MEAN CORPUSCULAR HEMOGLOBIN CONC 31.7 GM/DL 32.2-35.5 L (BEAKER) (test code = 752) RED CELL DISTRIBUTION WIDTH 13.6 % 11.7-14.4 (BEAKER) (test code = 412) PLATELET COUNT (BEAKER) (test 208 K/CU MM 150-450 code = 756) MEAN PLATELET VOLUME (BEAKER) 10.4 fL 9.4-12.3 (test code = 754) NUCLEATED RED BLOOD CELLS 0 /100 WBC 0-0 (BEAKER) (test code = 413) NEUTROPHILS RELATIVE PERCENT 71 % (BEAKER) (test code = 429) LYMPHOCYTES RELATIVE PERCENT 16 % (BEAKER) (test code = 430) MONOCYTES RELATIVE PERCENT 7 % (BEAKER) (test code = 431) EOSINOPHILS RELATIVE PERCENT 4 % (BEAKER) (test code = 432) BASOPHILS RELATIVE PERCENT 1 % (BEAKER) (test code = 437) NEUTROPHILS ABSOLUTE COUNT 3.41 K/ L 1.56-6.13 (BEAKER) (test code = 670) LYMPHOCYTES ABSOLUTE COUNT 0.77 K/ L 1.18-3.74 L (BEAKER) (test code = 414) MONOCYTES ABSOLUTE COUNT (BEAKER) 0.32 K/ L 0.24-0.36 (test code = 415) EOSINOPHILS ABSOLUTE COUNT 0.20 K/ L 0.04-0.36 (BEAKER) (test code = 416) BASOPHILS ABSOLUTE COUNT (BEAKER) 0.04 K/ L 0.01-0.08 (test code = 417) IMMATURE GRANULOCYTES-RELATIVE 1 % 0-1 PERCENT (BEAKER) (test code = 2801) BK VIRUS PCR, [id number] 16:16:00 Test Item Value Reference Range Interpretation Comments BK VIRUS, PLASMA, POS (BEAKER) 2877 copies/mL (test code = 1820) Patients may have replicating BK Virus which is of no clinical significance. Viral load measurements are helpful to identify BK Virus replication of potential clinical significance. Consensus recommendations have been published of threshold levels for the presumptive diagnosis of polyomavirus-associated nephrophathy (Transplanation 2005;79: 1001-2803).A BK Virus load greater than 5,000-10,000 copies/mL in the plasma is consistent with the presumptive diagnosis of polyoma-associated nephropathy in renal transplant recipients.BK Virus DNA was assessed using quantitative polymerase chain reaction and fluorescent monitoring of a specific hybridized probe. Genetic variation and other factors can affect the accuracy of nucleic acid resting. Therefore, the results should be interpreted in light of clinical data.This test was developed and its performance characteristics determined by the [facility] Pathology Department, Section of Molecular Pathology. It has not been cleared orapproved by the U.S. Food and Drug Administration (FDA). Since FDA approval is not required for clinical use of the test, validation was done as required by the Clinical Laboratory Improvement Amendments of 1988.AB SPECIFICITY CLASS [id number] 20:38:00 Test Item Value Reference Range Interpretation Comments DATE OF SERUM (BEAKER) (test code = 271182 5264) SERUM # (BEAKER) (test code = 2290) [id number] AB SPECIFICITY CLASS I (BEAKER) (test code = 2429) AB SPECIFICITY CLASS [id number] 20:38:00 Test Item Value Reference Range Interpretation Comments DATE OF SERUM (BEAKER) (test code = 395622 1797) SERUM # (BEAKER) (test code = 2290) [id number] AB SPECIFICITY CLASS II (BEAKER) (test code = 2430) TACROLIMUS [id number] 12:11:00 Test Item Value Reference Range Interpretation Comments TACROLIMUS BLOOD (BEAKER) (test 9.9 ng/mL 10.0-20.0 L code = 657) URINALYSIS W/ REFLEX URINE [id number] 08:58:00 Test Item Value Reference Range Interpretation Comments COLOR (BEAKER) (test code = 470) Yellow CLARITY (BEAKER) (test code = 469) Hazy SPECIFIC GRAVITY UA (BEAKER) (test 1.014 1.001-1.035 code = 468) PH UA (BEAKER) (test code = 467) 5.5 5.0-8.0 PROTEIN UA (BEAKER) (test code = 10 mg/dL Negative A 464) GLUCOSE UA (BEAKER) (test code = Negative Negative 365) KETONES UA (BEAKER) (test code = Negative Negative 371) BILIRUBIN UA (BEAKER) (test code = Negative Negative 462) BLOOD UA (BEAKER) (test code = 461) Large Negative A NITRITE UA (BEAKER) (test code = Negative Negative 465) LEUKOCYTE ESTERASE UA (BEAKER) Small Negative A (test code = 466) UROBILINOGEN UA (BEAKER) (test code 0.2 mg/dL 0.2-1.0 = 463) RBC UA (BEAKER) (test code = 519) 359 /HPF WBC UA (BEAKER) (test code = 520) 15 /HPF MUCUS (BEAKER) (test code = 1574) Rare SQUAMOUS EPITHELIAL (BEAKER) (test 4 /HPF code = 516) SOURCE(BEAKER) (test code = 2795) [id number] 08:50:00 Test Item Value Reference Range Interpretation Comments PHOSPHORUS (BEAKER) (test code = 2.5 mg/dL 2.3-4.7 604) COMPREHENSIVE METABOLIC [id number] 08:50:00 Test Item Value Reference Range Interpretation Comments TOTAL PROTEIN 6.9 gm/dL 6.0-8.3 (BEAKER) (test code = 770) ALBUMIN (BEAKER) 4.3 g/dL 3.5-5.0 (test code = 1145) ALKALINE PHOSPHATASE 96 U/L 40-150 (BEAKER) (test code = 346) BILIRUBIN TOTAL < mg/dL 0.2-1.2 (BEAKER) (test code = 377) SODIUM (BEAKER) (test 140 meq/L 136-145 code = 381) POTASSIUM (BEAKER) 4.3 meq/L 3.5-5.1 (test code = 379) CHLORIDE (BEAKER) 111 meq/L 98-107 H (test code = 382) CO2 (BEAKER) (test 20 meq/L 22-29 L code = 355) BLOOD UREA NITROGEN 20 mg/dL 7-21 (BEAKER) (test code = 354) CREATININE (BEAKER) 0.85 mg/dL 0.57-1.25 (test code = 358) GLUCOSE RANDOM 96 mg/dL 70-105 (BEAKER) (test code = 652) CALCIUM (BEAKER) 9.6 mg/dL 8.4-10.2 (test code = 697) AST (SGOT) (BEAKER) 14 U/L 5-34 (test code = 353) ALT (SGPT) (BEAKER) 16 U/L 6-55 (test code = 347) EGFR (BEAKER) (test 79 mL/min/1.73 ESTIMA AMARIS GFR IS code = 1092) sq m NOT ACCURATE CREATININE CLEARANCE IN PREDICTING GLOMERULAR FILTRATION RATE . ESTIMATED GFR I S NOT APPLICABLE FOR DIALYSIS PATIEN TS. LACTATE DEHYDROGENASE (LDH)2016-11-08 08:50:00 Test Item Value Reference Range Interpretation Comments LACTATE DEHYDROGENASE (BEAKER) (test 195 U/L 125-220 code = 635) CBC W/PLT COUNT & AUTO [id number] 08:18:00 Test Item Value Reference Range Interpretation Comments WHITE BLOOD CELL COUNT (BEAKER) 4.4 K/ L 3.5-10.5 (test code = 775) RED BLOOD CELL COUNT (BEAKER) 3.99 M/ L 3.93-5.22 (test code = 761) HEMOGLOBIN (BEAKER) (test code = 12.1 GM/DL 11.2-15.7 410) HEMATOCRIT (BEAKER) (test code = 37.2 % 34.1-44.9 411) MEAN CORPUSCULAR VOLUME (BEAKER) 93.2 fL 79.4-94.8 (test code = 753) MEAN CORPUSCULAR HEMOGLOBIN 30.3 pg 25.6-32.2 (BEAKER) (test code = 751) MEAN CORPUSCULAR HEMOGLOBIN CONC 32.5 GM/DL 32.2-35.5 (BEAKER) (test code = 752) RED CELL DISTRIBUTION WIDTH 13.7 % 11.7-14.4 (BEAKER) (test code = 412) PLATELET COUNT (BEAKER) (test 202 K/CU MM 150-450 code = 756) MEAN PLATELET VOLUME (BEAKER) 10.4 fL 9.4-12.3 (test code = 754) NUCLEATED RED BLOOD CELLS 0 /100 WBC 0-0 (BEAKER) (test code = 413) NEUTROPHILS RELATIVE PERCENT 64 % (BEAKER) (test code = 429) LYMPHOCYTES RELATIVE PERCENT 21 % (BEAKER) (test code = 430) MONOCYTES RELATIVE PERCENT 8 % (BEAKER) (test code = 431) EOSINOPHILS RELATIVE PERCENT 5 % (BEAKER) (test code = 432) BASOPHILS RELATIVE PERCENT 1 % (BEAKER) (test code = 437) NEUTROPHILS ABSOLUTE COUNT 2.83 K/ L 1.56-6.13 (BEAKER) (test code = 670) LYMPHOCYTES ABSOLUTE COUNT 0.93 K/ L 1.18-3.74 L (BEAKER) (test code = 414) MONOCYTES ABSOLUTE COUNT (BEAKER) 0.35 K/ L 0.24-0.36 (test code = 415) EOSINOPHILS ABSOLUTE COUNT 0.21 K/ L 0.04-0.36 (BEAKER) (test code = 416) BASOPHILS ABSOLUTE COUNT (BEAKER) 0.05 K/ L 0.01-0.08 (test code = 417) IMMATURE GRANULOCYTES-RELATIVE 1 % 0-1 PERCENT (BEAKER) (test code = 2801) BK VIRUS PCR, [id number] 19:06:00 Test Item Value Reference Range Interpretation Comments BK VIRUS, PLASMA, POS (BEAKER) 4443 copies/mL (test code = 1820) Patients may have replicating BK Virus which is of no clinical significance. Viral load measurements are helpful to identify BK Virus replication of potential clinical significance. Consensus recommendations have been published of threshold levels for the presumptive diagnosis of polyomavirus-associated nephrophathy (Transplanation 2005;79: 7164-3825).A BK Virus load greater than 5,000-10,000 copies/mL in the plasma is consistent with the presumptive diagnosis of polyoma-associated nephropathy in renal transplant recipients.BK Virus DNA was assessed using quantitative polymerase chain reaction and fluorescent monitoring of a specific hybridized probe. Genetic variation and other factors can affect the accuracy of nucleic acid resting. Therefore, the results should be interpreted in light of clinical data.This test was developed and its performance characteristics determined by the [facility] Pathology Department, Section of Molecular Pathology. It has not been cleared orapproved by the U.S. Food and Drug Administration (FDA). Since FDA approval is not required for clinical use of the test, validation was done as required by the Clinical Laboratory Improvement Amendments of 1988.TACROLIMUS [id number] 11:54:00 Test Item Value Reference Range Interpretation Comments TACROLIMUS BLOOD (BEAKER) (test 9.2 ng/mL 10.0-20.0 L code = 657) FLOW PRA CLASS I AND [id number] 10:12:00 Test Item Value Reference Range Interpretation Comments DATE OF SERUM (BEAKER) [id number] (test code = 2289) SERUM # (BEAKER) (test [id number] code = 2290) FLOW PRA CLASS I AND II See Scanned Report (test code = 2421) LACTATE DEHYDROGENASE (LDH)2016-10-31 08:54:00 Test Item Value Reference Range Interpretation Comments LACTATE DEHYDROGENASE 232 U/L 125-220 H Specim en slightly (BEAKER) (test code = hemoly zed 635) [id number] 08:51:00 Test Item Value Reference Range Interpretation Comments PHOSPHORUS (BEAKER) 3.0 mg/dL 2.3-4.7 Specimen slightly (test code = 604) hemolyzed COMPREHENSIVE METABOLIC [id number] 08:51:00 Test Item Value Reference Range Interpretation Comments TOTAL PROTEIN 7.3 gm/dL 6.0-8.3 Specimen sligh tly (BEAKER) (test code = hemoly zed 770) ALBUMIN (BEAKER) 4.5 g/dL 3.5-5.0 Specimen sl ightly (test code = 1145) hemolyzed ALKALINE PHOSPHATASE 102 U/L 40-150 (BEAKER) (test code = 346) BILIRUBIN TOTAL < mg/dL 0.2-1.2 Specimen sli ghtly (BEAKER) (test code = hemoly zed 377) SODIUM (BEAKER) (test 138 meq/L 136-145 code = 381) POTASSIUM (BEAKER) 4.0 meq/L 3.5-5.1 Specimen slightly (test code = 379) hemolyzed CHLORIDE (BEAKER) 110 meq/L 98-107 H (test code = 382) CO2 (BEAKER) (test 20 meq/L 22-29 L code = 355) BLOOD UREA NITROGEN 24 mg/dL 7-21 H (BEAKER) (test code = 354) CREATININE (BEAKER) 0.84 mg/dL 0.57-1.25 Specimen slightly (test code = 358) hemolyzed GLUCOSE RANDOM 98 mg/dL 70-105 (BEAKER) (test code = 652) CALCIUM (BEAKER) 9.8 mg/dL 8.4-10.2 (test code = 697) AST (SGOT) (BEAKER) 15 U/L 5-34 Specimen slightly (test code = 353) hemolyzed ALT (SGPT) (BEAKER) 12 U/L 6-55 Specimen slightly (test code = 347) hemolyzed EGFR (BEAKER) (test 80 mL/min/1.73 ESTIMA AMARIS GFR IS code = 1092) sq m NOT ACCURATE CREATININE CLEARANCE IN PREDICTING GLOMERULAR FILTRATION RATE . ESTIMATED GFR I S NOT APPLICABLE FOR DIALYSIS PATIEN TS. URINALYSIS W/ REFLEX URINE [id number] 08:37:00 Test Item Value Reference Range Interpretation Comments COLOR (BEAKER) (test code = 470) Light Yellow CLARITY (BEAKER) (test code = Clear 469) SPECIFIC GRAVITY UA (BEAKER) 1.013 1.001-1.035 (test code = 468) PH UA (BEAKER) (test code = 467) 5.0 5.0-8.0 PROTEIN UA (BEAKER) (test code = Negative Negative 464) GLUCOSE UA (BEAKER) (test code = Negative Negative 365) KETONES UA (BEAKER) (test code = Negative Negative 371) BILIRUBIN UA (BEAKER) (test code Negative Negative = 462) BLOOD UA (BEAKER) (test code = Negative Negative 461) NITRITE UA (BEAKER) (test code = Negative Negative 465) LEUKOCYTE ESTERASE UA (BEAKER) Negative Negative (test code = 466) UROBILINOGEN UA (BEAKER) (test 0.2 mg/dL 0.2-1.0 code = 463) RBC UA (BEAKER) (test code = 1 /HPF 519) WBC UA (BEAKER) (test code = 2 /HPF 520) MUCUS (BEAKER) (test code = Rare 1574) SQUAMOUS EPITHELIAL (BEAKER) 1 /HPF (test code = 516) SOURCE(BEAKER) (test code = 2275) CBC W/PLT COUNT & AUTO [id number] 08:12:00 Test Item Value Reference Range Interpretation Comments WHITE BLOOD CELL COUNT (BEAKER) 4.7 K/ L 3.5-10.5 (test code = 775) RED BLOOD CELL COUNT (BEAKER) 4.03 M/ L 3.93-5.22 (test code = 761) HEMOGLOBIN (BEAKER) (test code = 12.5 GM/DL 11.2-15.7 410) HEMATOCRIT (BEAKER) (test code = 37.6 % 34.1-44.9 411) MEAN CORPUSCULAR VOLUME (BEAKER) 93.3 fL 79.4-94.8 (test code = 753) MEAN CORPUSCULAR HEMOGLOBIN 31.0 pg 25.6-32.2 (BEAKER) (test code = 751) MEAN CORPUSCULAR HEMOGLOBIN CONC 33.2 GM/DL 32.2-35.5 (BEAKER) (test code = 752) RED CELL DISTRIBUTION WIDTH 14.2 % 11.7-14.4 (BEAKER) (test code = 412) PLATELET COUNT (BEAKER) (test 191 K/CU MM 150-450 code = 756) MEAN PLATELET VOLUME (BEAKER) 10.7 fL 9.4-12.3 (test code = 754) NUCLEATED RED BLOOD CELLS 0 /100 WBC 0-0 (BEAKER) (test code = 413) NEUTROPHILS RELATIVE PERCENT 72 % (BEAKER) (test code = 429) LYMPHOCYTES RELATIVE PERCENT 12 % (BEAKER) (test code = 430) MONOCYTES RELATIVE PERCENT 10 % (BEAKER) (test code = 431) EOSINOPHILS RELATIVE PERCENT 4 % (BEAKER) (test code = 432) BASOPHILS RELATIVE PERCENT 1 % (BEAKER) (test code = 437) NEUTROPHILS ABSOLUTE COUNT 3.39 K/ L 1.56-6.13 (BEAKER) (test code = 670) LYMPHOCYTES ABSOLUTE COUNT 0.57 K/ L 1.18-3.74 L (BEAKER) (test code = 414) MONOCYTES ABSOLUTE COUNT (BEAKER) 0.48 K/ L 0.24-0.36 H (test code = 415) EOSINOPHILS ABSOLUTE COUNT 0.17 K/ L 0.04-0.36 (BEAKER) (test code = 416) BASOPHILS ABSOLUTE COUNT (BEAKER) 0.03 K/ L 0.01-0.08 (test code = 417) IMMATURE GRANULOCYTES-RELATIVE 1 % 0-1 PERCENT (BEAKER) (test code = 2801) TACROLIMUS [id number] 16:06:00 Test Item Value Reference Range Interpretation Comments TACROLIMUS BLOOD (BEAKER) (test 5.5 ng/mL 10.0-20.0 L code = 657) URINALYSIS W/ REFLEX URINE [id number] 13:55:00 Test Item Value Reference Range Interpretation Comments COLOR (BEAKER) (test code = 470) Yellow CLARITY (BEAKER) (test code = 469) Clear SPECIFIC GRAVITY UA (BEAKER) (test 1.018 1.001-1.035 code = 468) PH UA (BEAKER) (test code = 467) 5.5 5.0-8.0 PROTEIN UA (BEAKER) (test code = Negative Negative 464) GLUCOSE UA (BEAKER) (test code = Negative Negative 365) KETONES UA (BEAKER) (test code = Negative Negative 371) BILIRUBIN UA (BEAKER) (test code = Negative Negative 462) BLOOD UA (BEAKER) (test code = 461) Negative Negative NITRITE UA (BEAKER) (test code = Negative Negative 465) LEUKOCYTE ESTERASE UA (BEAKER) Negative Negative (test code = 466) UROBILINOGEN UA (BEAKER) (test code 0.2 mg/dL 0.2-1.0 = 463) RBC UA (BEAKER) (test code = 519) 1 /HPF WBC UA (BEAKER) (test code = 520) 3 /HPF MUCUS (BEAKER) (test code = 1574) Rare SOURCE(BEAKER) (test code = 2795) [id number] 13:51:00 Test Item Value Reference Range Interpretation Comments PHOSPHORUS (BEAKER) (test code = 1.9 mg/dL 2.3-4.7 L 604) COMPREHENSIVE METABOLIC [id number] 13:51:00 Test Item Value Reference Range Interpretation Comments TOTAL PROTEIN 6.6 gm/dL 6.0-8.3 (BEAKER) (test code = 770) ALBUMIN (BEAKER) 4.3 g/dL 3.5-5.0 (test code = 1145) ALKALINE PHOSPHATASE 89 U/L 40-150 (BEAKER) (test code = 346) BILIRUBIN TOTAL 0.2 mg/dL 0.2-1.2 (BEAKER) (test code = 377) SODIUM (BEAKER) (test 141 meq/L 136-145 code = 381) POTASSIUM (BEAKER) 3.7 meq/L 3.5-5.1 (test code = 379) CHLORIDE (BEAKER) 108 meq/L 98-107 H (test code = 382) CO2 (BEAKER) (test 20 meq/L 22-29 L code = 355) BLOOD UREA NITROGEN 16 mg/dL 7-21 (BEAKER) (test code = 354) CREATININE (BEAKER) 0.82 mg/dL 0.57-1.25 (test code = 358) GLUCOSE RANDOM 103 mg/dL 70-105 (BEAKER) (test code = 652) CALCIUM (BEAKER) 10.0 mg/dL 8.4-10.2 (test code = 697) AST (SGOT) (BEAKER) 15 U/L 5-34 (test code = 353) ALT (SGPT) (BEAKER) 17 U/L 6-55 (test code = 347) EGFR (BEAKER) (test 82 mL/min/1.73 ESTIMA AMARIS GFR IS code = 1092) sq m NOT ACCURATE CREATININE CLEARANCE IN PREDICTING GLOMERULAR FILTRATION RATE . ESTIMATED GFR I S NOT APPLICABLE FOR DIALYSIS PATIEN TS. LACTATE DEHYDROGENASE (LDH)2016-10-17 13:51:00 Test Item Value Reference Range Interpretation Comments LACTATE DEHYDROGENASE (BEAKER) (test 183 U/L 125-220 code = 635) CBC W/PLT COUNT & AUTO [id number] 12:45:00 Test Item Value Reference Range Interpretation Comments WHITE BLOOD CELL COUNT (BEAKER) 4.1 K/ L 3.5-10.5 (test code = 775) RED BLOOD CELL COUNT (BEAKER) 3.79 M/ L 3.93-5.22 L (test code = 761) HEMOGLOBIN (BEAKER) (test code = 11.6 GM/DL 11.2-15.7 410) HEMATOCRIT (BEAKER) (test code = 36.2 % 34.1-44.9 411) MEAN CORPUSCULAR VOLUME (BEAKER) 95.5 fL 79.4-94.8 H (test code = 753) MEAN CORPUSCULAR HEMOGLOBIN 30.6 pg 25.6-32.2 (BEAKER) (test code = 751) MEAN CORPUSCULAR HEMOGLOBIN CONC 32.0 GM/DL 32.2-35.5 L (BEAKER) (test code = 752) RED CELL DISTRIBUTION WIDTH 14.3 % 11.7-14.4 (BEAKER) (test code = 412) PLATELET COUNT (BEAKER) (test 205 K/CU MM 150-450 code = 756) MEAN PLATELET VOLUME (BEAKER) 10.1 fL 9.4-12.3 (test code = 754) NUCLEATED RED BLOOD CELLS 0 /100 WBC 0-0 (BEAKER) (test code = 413) NEUTROPHILS RELATIVE PERCENT 71 % (BEAKER) (test code = 429) LYMPHOCYTES RELATIVE PERCENT 18 % (BEAKER) (test code = 430) MONOCYTES RELATIVE PERCENT 9 % (BEAKER) (test code = 431) EOSINOPHILS RELATIVE PERCENT 2 % (BEAKER) (test code = 432) BASOPHILS RELATIVE PERCENT 1 % (BEAKER) (test code = 437) NEUTROPHILS ABSOLUTE COUNT 2.91 K/ L 1.56-6.13 (BEAKER) (test code = 670) LYMPHOCYTES ABSOLUTE COUNT 0.72 K/ L 1.18-3.74 L (BEAKER) (test code = 414) MONOCYTES ABSOLUTE COUNT (BEAKER) 0.35 K/ L 0.24-0.36 (test code = 415) EOSINOPHILS ABSOLUTE COUNT 0.08 K/ L 0.04-0.36 (BEAKER) (test code = 416) BASOPHILS ABSOLUTE COUNT (BEAKER) 0.02 K/ L 0.01-0.08 (test code = 417) IMMATURE GRANULOCYTES-RELATIVE 1 % 0-1 PERCENT (BEAKER) (test code = 2801) POTASSIUM-STAT [id number] 10:56:00 Test Item Value Reference Range Interpretation Comments POTASSIUM (BEAKER) (test code = 5.1 meq/L 3.6-5.5 379) GLUCOSE-STAT [id number] 10:56:00 Test Item Value Reference Range Interpretation Comments GLUCOSE RANDOM (BEAKER) (test code 130 mg/dL 70-110 H = 652) HGB/HCT (H&H) - STAT [id number] 10:56:00 Test Item Value Reference Range Interpretation Comments HEMOGLOBIN (BEAKER) (test code = 11.9 g/dL 12.0-15.0 L 410) HEMATOCRIT (BEAKER) (test code = 35.0 % 36.0-45.0 L 411) SCREEN, [id number] 08:46:00 Test Item Value Reference Range Interpretation Comments TEST URINE (BEAKER) (test Negative code = 583) GLUCOSE-STAT [id number] 07:44:00 Test Item Value Reference Range Interpretation Comments GLUCOSE RANDOM (BEAKER) (test code = 98 mg/dL 70-110 652) POTASSIUM-STAT [id number] 07:44:00 Test Item Value Reference Range Interpretation Comments POTASSIUM (BEAKER) (test code = 4.1 meq/L 3.6-5.5 379) HGB/HCT (H&H) - STAT [id number] 07:44:00 Test Item Value Reference Range Interpretation Comments HEMOGLOBIN (BEAKER) (test code = 12.3 g/dL 12.0-15.0 410) HEMATOCRIT (BEAKER) (test code = 36.0 % 36.0-45.0 411) BK VIRUS PCR, [id number] 15:17:00 Test Item Value Reference Range Interpretation Comments BK VIRUS, PLASMA, NEG Negative or below the (BEAKER) (test code = linear range of the 2145) assay (<1,000 copies/mL) Patients may have replicating BK Virus which is of no clinical significance. Viral load measurements are helpful to identify BK Virus replication of potential clinical significance. Consensus recommendations have been published of threshold values for the presumptive diagnosis of polyomavirus-associated nephropathy (Transplantation 2005;[id number]).A BK Virus load greater than 5,000-10,000 copies/mL in the plasma is consistent with the presumptive diagnosis of polyoma-associated nephropathy in renal transplant recipients.BK Virus DNA was assessed using quantitative polymerase chain reaction and fluorescent monitoring of a specific hybridized probe. Genetic variation and other factors can affect the accuracy of nucleic acid testing. Therefore, the results should be interpreted in light of clinical data.This test was developed and its performance characteristics determined by the [facility] Pathology Department, Section of Molecular Pathology. It has not been cleared or approved by the U.S. Food and Drug Administration (FDA). Since FDA approval is not required for clinicaluse of the test, validation was done as required by the Clinical Laboratory Improvement Amendments of 1988.TACROLIMUS LEVEL 2016-10-03 13:59:00 Test Item Value Reference Range Interpretation Comments TACROLIMUS BLOOD (BEAKER) (test 15.2 ng/mL 10.0-20.0 code = 657) [id number] 11:19:00 Test Item Value Reference Range Interpretation Comments PHOSPHORUS (BEAKER) (test code = 2.4 mg/dL 2.3-4.7 604) COMPREHENSIVE METABOLIC [id number] 11:19:00 Test Item Value Reference Range Interpretation Comments TOTAL PROTEIN 7.6 gm/dL 6.0-8.3 (BEAKER) (test code = 770) ALBUMIN (BEAKER) 4.8 g/dL 3.5-5.0 (test code = 1145) ALKALINE PHOSPHATASE 97 U/L 40-150 (BEAKER) (test code = 346) BILIRUBIN TOTAL 0.2 mg/dL 0.2-1.2 (BEAKER) (test code = 377) SODIUM (BEAKER) (test 137 meq/L 136-145 code = 381) POTASSIUM (BEAKER) 4.0 meq/L 3.5-5.1 (test code = 379) CHLORIDE (BEAKER) 104 meq/L 98-107 (test code = 382) CO2 (BEAKER) (test 21 meq/L 22-29 L code = 355) BLOOD UREA NITROGEN 22 mg/dL 7-21 H (BEAKER) (test code = 354) CREATININE (BEAKER) 0.98 mg/dL 0.57-1.25 (test code = 358) GLUCOSE RANDOM 82 mg/dL 70-105 (BEAKER) (test code = 652) CALCIUM (BEAKER) 10.2 mg/dL 8.4-10.2 (test code = 697) AST (SGOT) (BEAKER) 12 U/L 5-34 (test code = 353) ALT (SGPT) (BEAKER) 11 U/L 6-55 (test code = 347) EGFR (BEAKER) (test 67 mL/min/1.73 ESTIMA AMARIS GFR IS code = 1092) sq m NOT ACCURATE CREATININE CLEARANCE IN PREDICTING GLOMERULAR FILTRATION RATE . ESTIMATED GFR I S NOT APPLICABLE FOR DIALYSIS PATIEN TS. LACTATE DEHYDROGENASE (LDH)2016-10-03 11:19:00 Test Item Value Reference Range Interpretation Comments LACTATE DEHYDROGENASE (BEAKER) (test 193 U/L 125-220 code = 635) CBC W/PLT COUNT & AUTO [id number] 10:56:00 Test Item Value Reference Range Interpretation Comments WHITE BLOOD CELL COUNT (BEAKER) 7.0 K/ L 4.0-10.0 (test code = 775) RED BLOOD CELL COUNT (BEAKER) 4.22 M/ L 4.00-5.00 (test code = 761) HEMOGLOBIN (BEAKER) (test code = 13.3 GM/DL 12.0-15.0 410) HEMATOCRIT (BEAKER) (test code = 40.7 % 36.0-45.0 411) MEAN CORPUSCULAR VOLUME (BEAKER) 96.4 fL 82.0-99.0 (test code = 753) MEAN CORPUSCULAR HEMOGLOBIN 31.5 pg 27.0-33.0 (BEAKER) (test code = 751) MEAN CORPUSCULAR HEMOGLOBIN CONC 32.6 GM/DL 32.0-36.0 (BEAKER) (test code = 752) RED CELL DISTRIBUTION WIDTH 14.2 % 10.3-14.2 (BEAKER) (test code = 412) PLATELET COUNT (BEAKER) (test 216 K/CU MM 150-430 code = 756) MEAN PLATELET VOLUME (BEAKER) 8.0 fL 6.5-10.5 (test code = 754) NUCLEATED RED BLOOD CELLS 0 /100 WBC 0-0 (BEAKER) (test code = 413) NEUTROPHILS RELATIVE PERCENT 73 % (BEAKER) (test code = 429) LYMPHOCYTES RELATIVE PERCENT 19 % (BEAKER) (test code = 430) MONOCYTES RELATIVE PERCENT 6 % (BEAKER) (test code = 431) EOSINOPHILS RELATIVE PERCENT 2 % (BEAKER) (test code = 432) BASOPHILS RELATIVE PERCENT 0 % (BEAKER) (test code = 437) NEUTROPHILS ABSOLUTE COUNT 5.10 K/ L 1.80-8.00 (BEAKER) (test code = 670) LYMPHOCYTES ABSOLUTE COUNT 1.31 K/ L 1.48-4.50 L (BEAKER) (test code = 414) MONOCYTES ABSOLUTE COUNT (BEAKER) 0.45 K/ L 0.00-1.30 (test code = 415) EOSINOPHILS ABSOLUTE COUNT 0.16 K/ L 0.00-0.50 (BEAKER) (test code = 416) BASOPHILS ABSOLUTE COUNT (BEAKER) 0.02 K/ L 0.00-0.20 (test code = 417) 0.00URINALYSIS W/ REFLEX URINE [id number] 10:55:00 Test Item Value Reference Range Interpretation Comments COLOR (BEAKER) (test code = 470) Yellow CLARITY (BEAKER) (test code = 469) Clear SPECIFIC GRAVITY UA (BEAKER) (test 1.022 1.001-1.035 code = 468) PH UA (BEAKER) (test code = 467) 5.5 5.0-8.0 PROTEIN UA (BEAKER) (test code = Negative Negative 464) GLUCOSE UA (BEAKER) (test code = Negative Negative 365) KETONES UA (BEAKER) (test code = Negative Negative 371) BILIRUBIN UA (BEAKER) (test code = Negative Negative 462) BLOOD UA (BEAKER) (test code = 461) Small Negative A NITRITE UA (BEAKER) (test code = Negative Negative 465) LEUKOCYTE ESTERASE UA (BEAKER) Small Negative A (test code = 466) UROBILINOGEN UA (BEAKER) (test code 0.2 mg/dL 0.2-1.0 = 463) RBC UA (BEAKER) (test code = 519) 1 /HPF WBC UA (BEAKER) (test code = 520) 5 /HPF MUCUS (BEAKER) (test code = 1574) Rare SQUAMOUS EPITHELIAL (BEAKER) (test 2 /HPF code = 516) SOURCE(BEAKER) (test code = 2795) TACROLIMUS [id number] 14:45:00 Test Item Value Reference Range Interpretation Comments TACROLIMUS BLOOD (BEAKER) (test 7.6 ng/mL 10.0-20.0 L code = 657) URINALYSIS W/ REFLEX URINE [id number] 11:55:00 Test Item Value Reference Range Interpretation Comments COLOR (BEAKER) (test code = 470) Light Yellow CLARITY (BEAKER) (test code = Clear 469) SPECIFIC GRAVITY UA (BEAKER) 1.017 1.001-1.035 (test code = 468) PH UA (BEAKER) (test code = 467) 5.5 5.0-8.0 PROTEIN UA (BEAKER) (test code = Negative Negative 464) GLUCOSE UA (BEAKER) (test code = Negative Negative 365) KETONES UA (BEAKER) (test code = Negative Negative 371) BILIRUBIN UA (BEAKER) (test code Negative Negative = 462) BLOOD UA (BEAKER) (test code = Negative Negative 461) NITRITE UA (BEAKER) (test code = Negative Negative 465) LEUKOCYTE ESTERASE UA (BEAKER) Negative Negative (test code = 466) UROBILINOGEN UA (BEAKER) (test 0.2 mg/dL 0.2-1.0 code = 463) RBC UA (BEAKER) (test code = 1 /HPF 519) WBC UA (BEAKER) (test code = 2 /HPF 520) BACTERIA (BEAKER) (test code = Rare 517) SQUAMOUS EPITHELIAL (BEAKER) < /HPF (test code = 516) SOURCE(BEAKER) (test code = 2795) [id number] 11:46:00 Test Item Value Reference Range Interpretation Comments PHOSPHORUS (BEAKER) (test code = 2.1 mg/dL 2.3-4.7 L 604) COMPREHENSIVE METABOLIC [id number] 11:46:00 Test Item Value Reference Range Interpretation Comments TOTAL PROTEIN 6.8 gm/dL 6.0-8.3 (BEAKER) (test code = 770) ALBUMIN (BEAKER) 4.5 g/dL 3.5-5.0 (test code = 1145) ALKALINE PHOSPHATASE 96 U/L 40-150 (BEAKER) (test code = 346) BILIRUBIN TOTAL 0.2 mg/dL 0.2-1.2 (BEAKER) (test code = 377) SODIUM (BEAKER) (test 138 meq/L 136-145 code = 381) POTASSIUM (BEAKER) 4.3 meq/L 3.5-5.1 (test code = 379) CHLORIDE (BEAKER) 110 meq/L 98-107 H (test code = 382) CO2 (BEAKER) (test 22 meq/L 22-29 code = 355) BLOOD UREA NITROGEN 24 mg/dL 7-21 H (BEAKER) (test code = 354) CREATININE (BEAKER) 0.94 mg/dL 0.57-1.25 (test code = 358) GLUCOSE RANDOM 98 mg/dL 70-105 (BEAKER) (test code = 652) CALCIUM (BEAKER) 9.8 mg/dL 8.4-10.2 (test code = 697) AST (SGOT) (BEAKER) 11 U/L 5-34 (test code = 353) ALT (SGPT) (BEAKER) 12 U/L 6-55 (test code = 347) EGFR (BEAKER) (test 70 mL/min/1.73 ESTIMA AMARIS GFR IS code = 1092) sq m NOT ACCURATE CREATININE CLEARANCE IN PREDICTING GLOMERULAR FILTRATION RATE . ESTIMATED GFR I S NOT APPLICABLE FOR DIALYSIS PATIEN TS. LACTATE DEHYDROGENASE (LDH)2016-09-19 11:46:00 Test Item Value Reference Range Interpretation Comments LACTATE DEHYDROGENASE (BEAKER) (test 162 U/L 125-220 code = 635) CBC W/PLT COUNT & AUTO [id number] 11:28:00 Test Item Value Reference Range Interpretation Comments WHITE BLOOD CELL COUNT (BEAKER) 4.2 K/ L 4.0-10.0 (test code = 775) RED BLOOD CELL COUNT (BEAKER) 3.76 M/ L 4.00-5.00 L (test code = 761) HEMOGLOBIN (BEAKER) (test code = 12.0 GM/DL 12.0-15.0 410) HEMATOCRIT (BEAKER) (test code = 36.7 % 36.0-45.0 411) MEAN CORPUSCULAR VOLUME (BEAKER) 97.6 fL 82.0-99.0 (test code = 753) MEAN CORPUSCULAR HEMOGLOBIN 31.9 pg 27.0-33.0 (BEAKER) (test code = 751) MEAN CORPUSCULAR HEMOGLOBIN CONC 32.7 GM/DL 32.0-36.0 (BEAKER) (test code = 752) RED CELL DISTRIBUTION WIDTH 14.3 % 10.3-14.2 H (BEAKER) (test code = 412) PLATELET COUNT (BEAKER) (test 195 K/CU MM 150-430 code = 756) MEAN PLATELET VOLUME (BEAKER) 7.4 fL 6.5-10.5 (test code = 754) NUCLEATED RED BLOOD CELLS 0 /100 WBC 0-0 (BEAKER) (test code = 413) NEUTROPHILS RELATIVE PERCENT 73 % (BEAKER) (test code = 429) LYMPHOCYTES RELATIVE PERCENT 18 % (BEAKER) (test code = 430) MONOCYTES RELATIVE PERCENT 6 % (BEAKER) (test code = 431) EOSINOPHILS RELATIVE PERCENT 2 % (BEAKER) (test code = 432) BASOPHILS RELATIVE PERCENT 1 % (BEAKER) (test code = 437) NEUTROPHILS ABSOLUTE COUNT 3.05 K/ L 1.80-8.00 (BEAKER) (test code = 670) LYMPHOCYTES ABSOLUTE COUNT 0.76 K/ L 1.48-4.50 L (BEAKER) (test code = 414) MONOCYTES ABSOLUTE COUNT (BEAKER) 0.27 K/ L 0.00-1.30 (test code = 415) EOSINOPHILS ABSOLUTE COUNT 0.09 K/ L 0.00-0.50 (BEAKER) (test code = 416) BASOPHILS ABSOLUTE COUNT (BEAKER) 0.03 K/ L 0.00-0.20 (test code = 417) 0.00TACROLIMUS [id number] 14:27:00 Test Item Value Reference Range Interpretation Comments TACROLIMUS BLOOD (BEAKER) (test 9.8 ng/mL 10.0-20.0 L code = 657) URINALYSIS W/ REFLEX URINE [id number] 13:36:00 Test Item Value Reference Range Interpretation Comments COLOR (BEAKER) (test code = 470) [place] CLARITY (BEAKER) (test code = 469) Hazy SPECIFIC GRAVITY UA (BEAKER) (test 1.021 1.001-1.035 code = 468) PH UA (BEAKER) (test code = 467) 5.5 5.0-8.0 PROTEIN UA (BEAKER) (test code = 50 mg/dL Negative A 464) GLUCOSE UA (BEAKER) (test code = Negative Negative 365) KETONES UA (BEAKER) (test code = Negative Negative 371) BILIRUBIN UA (BEAKER) (test code = Negative Negative 462) BLOOD UA (BEAKER) (test code = 461) Large Negative A NITRITE UA (BEAKER) (test code = Negative Negative 465) LEUKOCYTE ESTERASE UA (BEAKER) Trace Negative A (test code = 466) UROBILINOGEN UA (BEAKER) (test code 0.2 mg/dL 0.2-1.0 = 463) RBC UA (BEAKER) (test code = 519) 1594 /HPF WBC UA (BEAKER) (test code = 520) 9 /HPF BACTERIA (BEAKER) (test code = 517) Few MUCUS (BEAKER) (test code = 1574) Rare SOURCE(BEAKER) (test code = 2600) CBC W/PLT COUNT & AUTO [id number] 12:17:00 Test Item Value Reference Range Interpretation Comments WHITE BLOOD CELL COUNT (BEAKER) 3.8 K/ L 4.0-10.0 L (test code = 775) RED BLOOD CELL COUNT (BEAKER) 3.52 M/ L 4.00-5.00 L (test code = 761) HEMOGLOBIN (BEAKER) (test code = 11.1 GM/DL 12.0-15.0 L 410) HEMATOCRIT (BEAKER) (test code = 34.6 % 36.0-45.0 L 411) MEAN CORPUSCULAR VOLUME (BEAKER) 98.4 fL 82.0-99.0 (test code = 753) MEAN CORPUSCULAR HEMOGLOBIN 31.4 pg 27.0-33.0 (BEAKER) (test code = 751) MEAN CORPUSCULAR HEMOGLOBIN CONC 31.9 GM/DL 32.0-36.0 L (BEAKER) (test code = 752) RED CELL DISTRIBUTION WIDTH 16.2 % 10.3-14.2 H (BEAKER) (test code = 412) PLATELET COUNT (BEAKER) (test 188 K/CU MM 150-430 code = 756) MEAN PLATELET VOLUME (BEAKER) 7.8 fL 6.5-10.5 (test code = 754) NUCLEATED RED BLOOD CELLS 0 /100 WBC 0-0 (BEAKER) (test code = 413) NEUTROPHILS RELATIVE PERCENT 68 % (BEAKER) (test code = 429) LYMPHOCYTES RELATIVE PERCENT 21 % (BEAKER) (test code = 430) MONOCYTES RELATIVE PERCENT 7 % (BEAKER) (test code = 431) EOSINOPHILS RELATIVE PERCENT 3 % (BEAKER) (test code = 432) BASOPHILS RELATIVE PERCENT 1 % (BEAKER) (test code = 437) NEUTROPHILS ABSOLUTE COUNT 2.57 K/ L 1.80-8.00 (BEAKER) (test code = 670) LYMPHOCYTES ABSOLUTE COUNT 0.78 K/ L 1.48-4.50 L (BEAKER) (test code = 414) MONOCYTES ABSOLUTE COUNT (BEAKER) 0.26 K/ L 0.00-1.30 (test code = 415) EOSINOPHILS ABSOLUTE COUNT 0.10 K/ L 0.00-0.50 (BEAKER) (test code = 416) BASOPHILS ABSOLUTE COUNT (BEAKER) 0.04 K/ L 0.00-0.20 (test code = 417) [id number] 12:13:00 Test Item Value Reference Range Interpretation Comments PHOSPHORUS (BEAKER) (test code = 1.7 mg/dL 2.3-4.7 L 604) COMPREHENSIVE METABOLIC [id number] 12:13:00 Test Item Value Reference Range Interpretation Comments TOTAL PROTEIN 6.4 gm/dL 6.0-8.3 (BEAKER) (test code = 770) ALBUMIN (BEAKER) 4.1 g/dL 3.5-5.0 (test code = 1145) ALKALINE PHOSPHATASE 112 U/L 40-150 (BEAKER) (test code = 346) BILIRUBIN TOTAL 0.1 mg/dL 0.2-1.2 L (BEAKER) (test code = 377) SODIUM (BEAKER) (test 141 meq/L 136-145 code = 381) POTASSIUM (BEAKER) 3.9 meq/L 3.5-5.1 (test code = 379) CHLORIDE (BEAKER) 111 meq/L 98-107 H (test code = 382) CO2 (BEAKER) (test 24 meq/L 22-29 code = 355) BLOOD UREA NITROGEN 19 mg/dL 7-21 (BEAKER) (test code = 354) CREATININE (BEAKER) 0.91 mg/dL 0.57-1.25 (test code = 358) GLUCOSE RANDOM 103 mg/dL 70-105 (BEAKER) (test code = 652) CALCIUM (BEAKER) 9.5 mg/dL 8.4-10.2 (test code = 697) AST (SGOT) (BEAKER) 11 U/L 5-34 (test code = 353) ALT (SGPT) (BEAKER) 10 U/L 6-55 (test code = 347) EGFR (BEAKER) (test 73 mL/min/1.73 ESTIMA AMARIS GFR IS code = 1092) sq m NOT ACCURATE CREATININE CLEARANCE IN PREDICTING GLOMERULAR FILTRATION RATE . ESTIMATED GFR I S NOT APPLICABLE FOR DIALYSIS PATIEN TS. LACTATE DEHYDROGENASE (LDH)2016-09-10 12:13:00 Test Item Value Reference Range Interpretation Comments LACTATE DEHYDROGENASE (BEAKER) (test 155 U/L 125-220 code = 635) SCREEN, [id number] 11:57:00 Test Item Value Reference Range Interpretation Comments TEST URINE (BEAKER) (test Negative code = 583) TACROLIMUS [id number] 12:17:00 Test Item Value Reference Range Interpretation Comments TACROLIMUS BLOOD (BEAKER) (test 8.2 ng/mL 10.0-20.0 L code = 657) AB SPECIFICITY CLASS [id number] 12:05:00 Test Item Value Reference Range Interpretation Comments DATE OF SERUM (BEAKER) (test code = 866647 6147) SERUM # (BEAKER) (test code = 9501) [id number] AB SPECIFICITY CLASS I (BEAKER) (test code = 2429) AB SPECIFICITY CLASS [id number] 12:04:00 Test Item Value Reference Range Interpretation Comments DATE OF SERUM (BEAKER) (test code = 579242 5040) SERUM # (BEAKER) (test code = 2290) [id number] AB SPECIFICITY CLASS II (BEAKER) (test code = 2632) [id number] 09:29:00 Test Item Value Reference Range Interpretation Comments PHOSPHORUS (BEAKER) (test code = 1.7 mg/dL 2.3-4.7 L 604) COMPREHENSIVE METABOLIC [id number] 09:29:00 Test Item Value Reference Range Interpretation Comments TOTAL PROTEIN 6.3 gm/dL 6.0-8.3 (BEAKER) (test code = 770) ALBUMIN (BEAKER) 4.1 g/dL 3.5-5.0 (test code = 1145) ALKALINE PHOSPHATASE 101 U/L 40-150 (BEAKER) (test code = 346) BILIRUBIN TOTAL 0.2 mg/dL 0.2-1.2 (BEAKER) (test code = 377) SODIUM (BEAKER) (test 138 meq/L 136-145 code = 381) POTASSIUM (BEAKER) 4.4 meq/L 3.5-5.1 (test code = 379) CHLORIDE (BEAKER) 111 meq/L 98-107 H (test code = 382) CO2 (BEAKER) (test 21 meq/L 22-29 L code = 355) BLOOD UREA NITROGEN 20 mg/dL 7-21 (BEAKER) (test code = 354) CREATININE (BEAKER) 0.86 mg/dL 0.57-1.25 (test code = 358) GLUCOSE RANDOM 103 mg/dL 70-105 (BEAKER) (test code = 652) CALCIUM (BEAKER) 9.7 mg/dL 8.4-10.2 (test code = 697) AST (SGOT) (BEAKER) 10 U/L 5-34 (test code = 353) ALT (SGPT) (BEAKER) 7 U/L 6-55 (test code = 347) EGFR (BEAKER) (test 77 mL/min/1.73 ESTIMA AMARIS GFR IS code = 1092) sq m NOT ACCURATE CREATININE CLEARANCE IN PREDICTING GLOMERULAR FILTRATION RATE . ESTIMATED GFR I S NOT APPLICABLE FOR DIALYSIS PATIEN TS. LACTATE DEHYDROGENASE (LDH)2016-09-03 09:29:00 Test Item Value Reference Range Interpretation Comments LACTATE DEHYDROGENASE (BEAKER) (test 136 U/L 125-220 code = 635) URINALYSIS W/ REFLEX URINE [id number] 09:15:00 Test Item Value Reference Range Interpretation Comments COLOR (BEAKER) (test code = 470) Yellow CLARITY (BEAKER) (test code = 469) Clear SPECIFIC GRAVITY UA (BEAKER) (test 1.019 1.001-1.035 code = 468) PH UA (BEAKER) (test code = 467) 5.5 5.0-8.0 PROTEIN UA (BEAKER) (test code = Negative Negative 464) GLUCOSE UA (BEAKER) (test code = Negative Negative 365) KETONES UA (BEAKER) (test code = Negative Negative 371) BILIRUBIN UA (BEAKER) (test code = Negative Negative 462) BLOOD UA (BEAKER) (test code = 461) Trace Negative A NITRITE UA (BEAKER) (test code = Negative Negative 465) LEUKOCYTE ESTERASE UA (BEAKER) Negative Negative (test code = 466) UROBILINOGEN UA (BEAKER) (test code 0.2 mg/dL 0.2-1.0 = 463) RBC UA (BEAKER) (test code = 519) < /HPF WBC UA (BEAKER) (test code = 520) 3 /HPF BACTERIA (BEAKER) (test code = 517) Rare MUCUS (BEAKER) (test code = 1574) Rare SQUAMOUS EPITHELIAL (BEAKER) (test < /HPF code = 516) SOURCE(BEAKER) (test code = 2797) CBC W/PLT COUNT & AUTO [id number] 09:09:00 Test Item Value Reference Range Interpretation Comments WHITE BLOOD CELL COUNT (BEAKER) 4.3 K/ L 4.0-10.0 (test code = 775) RED BLOOD CELL COUNT (BEAKER) 3.29 M/ L 4.00-5.00 L (test code = 761) HEMOGLOBIN (BEAKER) (test code = 10.6 GM/DL 12.0-15.0 L 410) HEMATOCRIT (BEAKER) (test code = 32.4 % 36.0-45.0 L 411) MEAN CORPUSCULAR VOLUME (BEAKER) 98.4 fL 82.0-99.0 (test code = 753) MEAN CORPUSCULAR HEMOGLOBIN 32.2 pg 27.0-33.0 (BEAKER) (test code = 751) MEAN CORPUSCULAR HEMOGLOBIN CONC 32.7 GM/DL 32.0-36.0 (BEAKER) (test code = 752) RED CELL DISTRIBUTION WIDTH 17.0 % 10.3-14.2 H (BEAKER) (test code = 412) PLATELET COUNT (BEAKER) (test 157 K/CU MM 150-430 code = 756) MEAN PLATELET VOLUME (BEAKER) 7.6 fL 6.5-10.5 (test code = 754) NUCLEATED RED BLOOD CELLS 0 /100 WBC 0-0 (BEAKER) (test code = 413) NEUTROPHILS RELATIVE PERCENT 76 % (BEAKER) (test code = 429) LYMPHOCYTES RELATIVE PERCENT 14 % (BEAKER) (test code = 430) MONOCYTES RELATIVE PERCENT 5 % (BEAKER) (test code = 431) EOSINOPHILS RELATIVE PERCENT 4 % (BEAKER) (test code = 432) BASOPHILS RELATIVE PERCENT 1 % (BEAKER) (test code = 437) NEUTROPHILS ABSOLUTE COUNT 3.26 K/ L 1.80-8.00 (BEAKER) (test code = 670) LYMPHOCYTES ABSOLUTE COUNT 0.61 K/ L 1.48-4.50 L (BEAKER) (test code = 414) MONOCYTES ABSOLUTE COUNT (BEAKER) 0.20 K/ L 0.00-1.30 (test code = 415) EOSINOPHILS ABSOLUTE COUNT 0.17 K/ L 0.00-0.50 (BEAKER) (test code = 416) BASOPHILS ABSOLUTE COUNT (BEAKER) 0.05 K/ L 0.00-0.20 (test code = 417) 0.00FLOW PRA CLASS I AND [id number] 15:49:00 Test Item Value Reference Range Interpretation Comments DATE OF SERUM (BEAKER) 6050323 (test code = 2289) SERUM # (BEAKER) (test 791728 code = 2290) FLOW PRA CLASS I AND II See Scanned Report (test code = 2421) TACROLIMUS [id number] 12:13:00 Test Item Value Reference Range Interpretation Comments TACROLIMUS BLOOD (BEAKER) (test 11.8 ng/mL 10.0-20.0 code = 657) CBC W/PLT COUNT & AUTO [id number] 10:12:00 Test Item Value Reference Range Interpretation Comments WHITE BLOOD CELL COUNT (BEAKER) 4.9 K/ L 4.0-10.0 (test code = 775) RED BLOOD CELL COUNT (BEAKER) 3.23 M/ L 4.00-5.00 L (test code = 761) HEMOGLOBIN (BEAKER) (test code = 10.7 GM/DL 12.0-15.0 L 410) HEMATOCRIT (BEAKER) (test code = 31.2 % 36.0-45.0 L 411) MEAN CORPUSCULAR VOLUME (BEAKER) 96.7 fL 82.0-99.0 (test code = 753) MEAN CORPUSCULAR HEMOGLOBIN 33.0 pg 27.0-33.0 (BEAKER) (test code = 751) MEAN CORPUSCULAR HEMOGLOBIN CONC 34.1 GM/DL 32.0-36.0 (BEAKER) (test code = 752) RED CELL DISTRIBUTION WIDTH 16.4 % 10.3-14.2 H (BEAKER) (test code = 412) PLATELET COUNT (BEAKER) (test 193 K/CU MM 150-430 code = 756) MEAN PLATELET VOLUME (BEAKER) 7.7 fL 6.5-10.5 (test code = 754) NUCLEATED RED BLOOD CELLS 0 /100 WBC 0-0 (BEAKER) (test code = 413) NEUTROPHILS RELATIVE PERCENT 80 % (BEAKER) (test code = 429) LYMPHOCYTES RELATIVE PERCENT 11 % (BEAKER) (test code = 430) MONOCYTES RELATIVE PERCENT 5 % (BEAKER) (test code = 431) EOSINOPHILS RELATIVE PERCENT 3 % (BEAKER) (test code = 432) BASOPHILS RELATIVE PERCENT 1 % (BEAKER) (test code = 437) NEUTROPHILS ABSOLUTE COUNT 3.89 K/ L 1.80-8.00 (BEAKER) (test code = 670) LYMPHOCYTES ABSOLUTE COUNT 0.52 K/ L 1.48-4.50 L (BEAKER) (test code = 414) MONOCYTES ABSOLUTE COUNT (BEAKER) 0.26 K/ L 0.00-1.30 (test code = 415) EOSINOPHILS ABSOLUTE COUNT 0.17 K/ L 0.00-0.50 (BEAKER) (test code = 416) BASOPHILS ABSOLUTE COUNT (BEAKER) 0.05 K/ L 0.00-0.20 (test code = 417) [id number] 10:00:00 Test Item Value Reference Range Interpretation Comments PHOSPHORUS (BEAKER) (test code = 1.2 mg/dL 2.3-4.7 LL 604) URINALYSIS W/ REFLEX URINE [id number] 09:43:00 Test Item Value Reference Range Interpretation Comments COLOR (BEAKER) (test code = 470) Yellow CLARITY (BEAKER) (test code = 469) Clear SPECIFIC GRAVITY UA (BEAKER) (test 1.019 1.001-1.035 code = 468) PH UA (BEAKER) (test code = 467) 5.5 5.0-8.0 PROTEIN UA (BEAKER) (test code = Negative Negative 464) GLUCOSE UA (BEAKER) (test code = Negative Negative 365) KETONES UA (BEAKER) (test code = Negative Negative 371) BILIRUBIN UA (BEAKER) (test code = Negative Negative 462) BLOOD UA (BEAKER) (test code = 461) Trace Negative A NITRITE UA (BEAKER) (test code = Negative Negative 465) LEUKOCYTE ESTERASE UA (BEAKER) Negative Negative (test code = 466) UROBILINOGEN UA (BEAKER) (test code 0.2 mg/dL 0.2-1.0 = 463) RBC UA (BEAKER) (test code = 519) 4 /HPF WBC UA (BEAKER) (test code = 520) 6 /HPF BACTERIA (BEAKER) (test code = 517) Rare MUCUS (BEAKER) (test code = 1574) Rare SQUAMOUS EPITHELIAL (BEAKER) (test 4 /HPF code = 516) SOURCE(BEAKER) (test code = 2795) COMPREHENSIVE METABOLIC [id number] 09:39:00 Test Item Value Reference Range Interpretation Comments TOTAL PROTEIN 6.3 gm/dL 6.0-8.3 (BEAKER) (test code = 770) ALBUMIN (BEAKER) 4.0 g/dL 3.5-5.0 (test code = 1145) ALKALINE PHOSPHATASE 103 U/L 40-150 (BEAKER) (test code = 346) BILIRUBIN TOTAL 0.4 mg/dL 0.2-1.2 (BEAKER) (test code = 377) SODIUM (BEAKER) (test 140 meq/L 136-145 code = 381) POTASSIUM (BEAKER) 4.0 meq/L 3.5-5.1 (test code = 379) CHLORIDE (BEAKER) 110 meq/L 98-107 H (test code = 382) CO2 (BEAKER) (test 23 meq/L 22-29 code = 355) BLOOD UREA NITROGEN 24 mg/dL 7-21 H (BEAKER) (test code = 354) CREATININE (BEAKER) 0.99 mg/dL 0.57-1.25 (test code = 358) GLUCOSE RANDOM 111 mg/dL 70-105 H (BEAKER) (test code = 652) CALCIUM (BEAKER) 9.6 mg/dL 8.4-10.2 (test code = 697) AST (SGOT) (BEAKER) 8 U/L 5-34 (test code = 353) ALT (SGPT) (BEAKER) 10 U/L 6-55 (test code = 347) EGFR (BEAKER) (test 66 mL/min/1.73 ESTIMA AMARIS GFR IS code = 1092) sq m NOT ACCURATE CREATININE CLEARANCE IN PREDICTING GLOMERULAR FILTRATION RATE . ESTIMATED GFR I S NOT APPLICABLE FOR DIALYSIS PATIEN TS. LACTATE DEHYDROGENASE (LDH)2016-08-27 09:39:00 Test Item Value Reference Range Interpretation Comments LACTATE DEHYDROGENASE (BEAKER) (test 153 U/L 125-220 code = 635) BK VIRUS PCR, [id number] 16:18:00 Test Item Value Reference Range Interpretation Comments BK VIRUS, PLASMA, NEG Negative or below the (BEAKER) (test code = linear range of the 2145) assay (<1,000 copies/mL) Patients may have replicating BK Virus which is of no clinical significance. Viral load measurements are helpful to identify BK Virus replication of potential clinical significance. Consensus recommendations have been published of threshold values for the presumptive diagnosis of polyomavirus-associated nephropathy (Transplantation 2005;79:4586-2663).A BK Virus load greater than 5,000-10,000 copies/mL in the plasma is consistent with the presumptive diagnosis of polyoma-associated nephropathy in renal transplant recipients.BK Virus DNA was assessed using quantitative polymerase chain reaction and fluorescent monitoring of a specific hybridized probe. Genetic variation and other factors can affect the accuracy of nucleic acid testing. Therefore, the results should be interpreted in light of clinical data.This test was developed and its performance characteristics determined by the [facility] Pathology Department, Section of Molecular Pathology. It has not been cleared or approved by the U.S. Food and Drug Administration (FDA). Since FDA approval is not required for clinicaluse of the test, validation was done as required by the Clinical Laboratory Improvement Amendments of 1988.TACROLIMUS LEVEL 2016-08-20 13:05:00 Test Item Value Reference Range Interpretation Comments TACROLIMUS BLOOD (BEAKER) (test 8.6 ng/mL 10.0-20.0 L code = 657) COMPREHENSIVE METABOLIC [id number] 10:38:00 Test Item Value Reference Range Interpretation Comments TOTAL PROTEIN 5.9 gm/dL 6.0-8.3 L (BEAKER) (test code = 770) ALBUMIN (BEAKER) 3.8 g/dL 3.5-5.0 (test code = 1145) ALKALINE PHOSPHATASE 83 U/L 40-150 (BEAKER) (test code = 346) BILIRUBIN TOTAL 0.3 mg/dL 0.2-1.2 (BEAKER) (test code = 377) SODIUM (BEAKER) (test 141 meq/L 136-145 code = 381) POTASSIUM (BEAKER) 4.2 meq/L 3.5-5.1 (test code = 379) CHLORIDE (BEAKER) 110 meq/L 98-107 H (test code = 382) CO2 (BEAKER) (test 24 meq/L 22-29 code = 355) BLOOD UREA NITROGEN 22 mg/dL 7-21 H (BEAKER) (test code = 354) CREATININE (BEAKER) 1.10 mg/dL 0.57-1.25 (test code = 358) GLUCOSE RANDOM 96 mg/dL 70-105 (BEAKER) (test code = 652) CALCIUM (BEAKER) 9.2 mg/dL 8.4-10.2 (test code = 697) AST (SGOT) (BEAKER) 12 U/L 5-34 (test code = 353) ALT (SGPT) (BEAKER) 17 U/L 6-55 (test code = 347) EGFR (BEAKER) (test 58 mL/min/1.73 ESTIMA AMARIS GFR IS code = 1092) sq m NOT ACCURATE CREATININE CLEARANCE IN PREDICTING GLOMERULAR FILTRATION RATE . ESTIMATED GFR I S NOT APPLICABLE FOR DIALYSIS PATIEN TS. LACTATE DEHYDROGENASE (LDH)2016-08-20 10:38:00 Test Item Value Reference Range Interpretation Comments LACTATE DEHYDROGENASE (BEAKER) (test 176 U/L 125-220 code = 635) [id number] 10:38:00 Test Item Value Reference Range Interpretation Comments PHOSPHORUS (BEAKER) (test code = 2.4 mg/dL 2.3-4.7 604) URINALYSIS W/ REFLEX URINE [id number] 10:05:00 Test Item Value Reference Range Interpretation Comments COLOR (BEAKER) (test code = 470) Yellow CLARITY (BEAKER) (test code = 469) Clear SPECIFIC GRAVITY UA (BEAKER) (test 1.019 1.001-1.035 code = 468) PH UA (BEAKER) (test code = 467) 5.5 5.0-8.0 PROTEIN UA (BEAKER) (test code = 10 mg/dL Negative A 464) GLUCOSE UA (BEAKER) (test code = Negative Negative 365) KETONES UA (BEAKER) (test code = Negative Negative 371) BILIRUBIN UA (BEAKER) (test code = Negative Negative 462) BLOOD UA (BEAKER) (test code = 461) Moderate Negative A NITRITE UA (BEAKER) (test code = Negative Negative 465) LEUKOCYTE ESTERASE UA (BEAKER) Trace Negative A (test code = 466) UROBILINOGEN UA (BEAKER) (test code 0.2 mg/dL 0.2-1.0 = 463) RBC UA (BEAKER) (test code = 519) 35 /HPF WBC UA (BEAKER) (test code = 520) 4 /HPF MUCUS (BEAKER) (test code = 1574) Few SQUAMOUS EPITHELIAL (BEAKER) (test 3 /HPF code = 516) CRYSTALS, URINE (BEAKER) (test code Rare = 1521) SOURCE(BEAKER) (test code = 2795) CBC W/PLT COUNT & AUTO [id number] 09:49:00 Test Item Value Reference Range Interpretation Comments WHITE BLOOD CELL COUNT (BEAKER) 5.1 K/ L 4.0-10.0 (test code = 775) RED BLOOD CELL COUNT (BEAKER) 2.99 M/ L 4.00-5.00 L (test code = 761) HEMOGLOBIN (BEAKER) (test code = 9.6 GM/DL 12.0-15.0 L 410) HEMATOCRIT (BEAKER) (test code = 29.0 % 36.0-45.0 L 411) MEAN CORPUSCULAR VOLUME (BEAKER) 97.0 fL 82.0-99.0 (test code = 753) MEAN CORPUSCULAR HEMOGLOBIN 32.1 pg 27.0-33.0 (BEAKER) (test code = 751) MEAN CORPUSCULAR HEMOGLOBIN CONC 33.1 GM/DL 32.0-36.0 (BEAKER) (test code = 752) RED CELL DISTRIBUTION WIDTH 15.7 % 10.3-14.2 H (BEAKER) (test code = 412) PLATELET COUNT (BEAKER) (test 291 K/CU MM 150-430 code = 756) MEAN PLATELET VOLUME (BEAKER) 7.1 fL 6.5-10.5 (test code = 754) NUCLEATED RED BLOOD CELLS 0 /100 WBC 0-0 (BEAKER) (test code = 413) NEUTROPHILS RELATIVE PERCENT 83 % (BEAKER) (test code = 429) LYMPHOCYTES RELATIVE PERCENT 7 % (BEAKER) (test code = 430) MONOCYTES RELATIVE PERCENT 7 % (BEAKER) (test code = 431) EOSINOPHILS RELATIVE PERCENT 3 % (BEAKER) (test code = 432) BASOPHILS RELATIVE PERCENT 0 % (BEAKER) (test code = 437) NEUTROPHILS ABSOLUTE COUNT 4.22 K/ L 1.80-8.00 (BEAKER) (test code = 670) LYMPHOCYTES ABSOLUTE COUNT 0.38 K/ L 1.48-4.50 L (BEAKER) (test code = 414) MONOCYTES ABSOLUTE COUNT (BEAKER) 0.35 K/ L 0.00-1.30 (test code = 415) EOSINOPHILS ABSOLUTE COUNT 0.15 K/ L 0.00-0.50 (BEAKER) (test code = 416) BASOPHILS ABSOLUTE COUNT (BEAKER) 0.01 K/ L 0.00-0.20 (test code = 417) 0.00BK VIRUS PCR, [id number] 15:26:00 Test Item Value Reference Range Interpretation Comments BK VIRUS, PLASMA, NEG Negative or below the (BEAKER) (test code = linear range of the 2145) assay (<1,000 copies/mL) Patients may have replicating BK Virus which is of no clinical significance. Viral load measurements are helpful to identify BK Virus replication of potential clinical significance. Consensus recommendations have been published of threshold values for the presumptive diagnosis of polyomavirus-associated nephropathy (Transplantation 2005;79:4152-3147).A BK Virus load greater than 5,000-10,000 copies/mL in the plasma is consistent with the presumptive diagnosis of polyoma-associated nephropathy in renal transplant recipients.BK Virus DNA was assessed using quantitative polymerase chain reaction and fluorescent monitoring of a specific hybridized probe. Genetic variation and other factors can affect the accuracy of nucleic acid testing. Therefore, the results should be interpreted in light of clinical data.This test was developed and its performance characteristics determined by the [facility] Pathology Department, Section of Molecular Pathology. It has not been cleared or approved by the U.S. Food and Drug Administration (FDA). Since FDA approval is not required for clinicaluse of the test, validation was done as required by the Clinical Laboratory Improvement Amendments of 1988.CRSMTCH FLOW ADDL 2016-08-16 14:51:00 Test Item Value Reference Range Interpretation Comments CRSMTCH FLOW ADDL RESULT See Scanned Report (BEAKER) (test code = 2681) CRSMTCH [id number] 14:51:00 Test Item Value Reference Range Interpretation Comments CRSMTCH FLOW RESULT See Scanned Report (BEAKER) (test code = 2584) [id number] 14:51:00 Test Item Value Reference Range Interpretation Comments CRSMTCH-CURRENT RESULT See Scanned Report (BEAKER) (test code = 2489) [id number] 14:51:00 Test Item Value Reference Range Interpretation Comments CRSMTCH-HIST RESULT See Scanned Report (BEAKER) (test code = 2488) CRSMTCH FLOW [id number] 14:51:00 Test Item Value Reference Range Interpretation Comments CRSMTCH FLOW ADDL RESULT See Scanned Report (BEAKER) (test code = 2681) [id number] 14:50:00 Test Item Value Reference Range Interpretation Comments CRSMTCH-PRETRANS RESULT See Scanned Report (BEAKER) (test code = 2490) AB SPECIFICITY CLASS [id number] 10:24:00 Test Item Value Reference Range Interpretation Comments DATE OF SERUM (BEAKER) [id number] (test code = 2289) SERUM # (BEAKER) (test 400552 code = 2290) AB SPECIFICITY CLASS I See Scanned Report (BEAKER) (test code = 2429) TACROLIMUS [id number] 12:29:00 Test Item Value Reference Range Interpretation Comments TACROLIMUS BLOOD (BEAKER) (test 9.5 ng/mL 10.0-20.0 L code = 657) [id number] 11:07:00 Test Item Value Reference Range Interpretation Comments PHOSPHORUS (BEAKER) (test code = 1.4 mg/dL 2.3-4.7 LL 604) COMPREHENSIVE METABOLIC [id number] 10:47:00 Test Item Value Reference Range Interpretation Comments TOTAL PROTEIN 5.7 gm/dL 6.0-8.3 L (BEAKER) (test code = 770) ALBUMIN (BEAKER) 3.6 g/dL 3.5-5.0 (test code = 1145) ALKALINE PHOSPHATASE 62 U/L 40-150 (BEAKER) (test code = 346) BILIRUBIN TOTAL 0.1 mg/dL 0.2-1.2 L (BEAKER) (test code = 377) SODIUM (BEAKER) (test 139 meq/L 136-145 code = 381) POTASSIUM (BEAKER) 4.4 meq/L 3.5-5.1 (test code = 379) CHLORIDE (BEAKER) 110 meq/L 98-107 H (test code = 382) CO2 (BEAKER) (test 24 meq/L 22-29 code = 355) BLOOD UREA NITROGEN 24 mg/dL 7-21 H (BEAKER) (test code = 354) CREATININE (BEAKER) 1.08 mg/dL 0.57-1.25 (test code = 358) GLUCOSE RANDOM 75 mg/dL 70-105 (BEAKER) (test code = 652) CALCIUM (BEAKER) 9.5 mg/dL 8.4-10.2 (test code = 697) AST (SGOT) (BEAKER) 13 U/L 5-34 (test code = 353) ALT (SGPT) (BEAKER) 10 U/L 6-55 (test code = 347) EGFR (BEAKER) (test 60 mL/min/1.73 ESTIMA AMARIS GFR IS code = 1092) sq m NOT ACCURATE CREATININE CLEARANCE IN PREDICTING GLOMERULAR FILTRATION RATE . ESTIMATED GFR I S NOT APPLICABLE FOR DIALYSIS PATIEN TS. LACTATE DEHYDROGENASE (LDH)2016-08-15 10:47:00 Test Item Value Reference Range Interpretation Comments LACTATE DEHYDROGENASE (BEAKER) (test 190 U/L 125-220 code = 635) CBC W/PLT COUNT & AUTO [id number] 10:44:00 Test Item Value Reference Range Interpretation Comments WHITE BLOOD CELL COUNT (BEAKER) 3.1 K/ L 4.0-10.0 L (test code = 775) RED BLOOD CELL COUNT (BEAKER) 3.02 M/ L 4.00-5.00 L (test code = 761) HEMOGLOBIN (BEAKER) (test code = 9.5 GM/DL 12.0-15.0 L 410) HEMATOCRIT (BEAKER) (test code = 28.9 % 36.0-45.0 L 411) MEAN CORPUSCULAR VOLUME (BEAKER) 95.9 fL 82.0-99.0 (test code = 753) MEAN CORPUSCULAR HEMOGLOBIN 31.4 pg 27.0-33.0 (BEAKER) (test code = 751) MEAN CORPUSCULAR HEMOGLOBIN CONC 32.8 GM/DL 32.0-36.0 (BEAKER) (test code = 752) RED CELL DISTRIBUTION WIDTH 16.3 % 10.3-14.2 H (BEAKER) (test code = 412) PLATELET COUNT (BEAKER) (test 179 K/CU MM 150-430 code = 756) MEAN PLATELET VOLUME (BEAKER) 7.7 fL 6.5-10.5 (test code = 754) NUCLEATED RED BLOOD CELLS 0 /100 WBC 0-0 (BEAKER) (test code = 413) NEUTROPHILS RELATIVE PERCENT 80 % (BEAKER) (test code = 429) LYMPHOCYTES RELATIVE PERCENT 7 % (BEAKER) (test code = 430) MONOCYTES RELATIVE PERCENT 9 % (BEAKER) (test code = 431) EOSINOPHILS RELATIVE PERCENT 3 % (BEAKER) (test code = 432) BASOPHILS RELATIVE PERCENT 0 % (BEAKER) (test code = 437) NEUTROPHILS ABSOLUTE COUNT 2.45 K/ L 1.80-8.00 (BEAKER) (test code = 670) LYMPHOCYTES ABSOLUTE COUNT 0.21 K/ L 1.48-4.50 L (BEAKER) (test code = 414) MONOCYTES ABSOLUTE COUNT (BEAKER) 0.29 K/ L 0.00-1.30 (test code = 415) EOSINOPHILS ABSOLUTE COUNT 0.09 K/ L 0.00-0.50 (BEAKER) (test code = 416) BASOPHILS ABSOLUTE COUNT (BEAKER) 0.01 K/ L 0.00-0.20 (test code = 417) 0.00URINALYSIS W/ REFLEX URINE [id number] 10:41:00 Test Item Value Reference Range Interpretation Comments COLOR (BEAKER) (test code = 470) Light Yellow CLARITY (BEAKER) (test code = Clear 469) SPECIFIC GRAVITY UA (BEAKER) 1.012 1.001-1.035 (test code = 468) PH UA (BEAKER) (test code = 467) 5.5 5.0-8.0 PROTEIN UA (BEAKER) (test code = Negative Negative 464) GLUCOSE UA (BEAKER) (test code = Negative Negative 365) KETONES UA (BEAKER) (test code = Negative Negative 371) BILIRUBIN UA (BEAKER) (test code Negative Negative = 462) BLOOD UA (BEAKER) (test code = Small Negative A 461) NITRITE UA (BEAKER) (test code = Negative Negative 465) LEUKOCYTE ESTERASE UA (BEAKER) Negative Negative (test code = 466) UROBILINOGEN UA (BEAKER) (test 0.2 mg/dL 0.2-1.0 code = 463) RBC UA (BEAKER) (test code = 15 /HPF 519) WBC UA (BEAKER) (test code = 3 /HPF 520) SQUAMOUS EPITHELIAL (BEAKER) 1 /HPF (test code = 516) AMORPHOUS CRYSTALS (BEAKER) Rare (test code = 1584) SOURCE(BEAKER) (test code = 2795) POCT-GLUCOSE [id number] 11:35:00 Test Item Value Reference Range Interpretation Comments POC-GLUCOSE METER 90 mg/dL 70-110 TESTED AT [facility] 6720 (BEAKER) (test code = [place]RISTY CRANE [address] 1538) TACROLIMUS [id number] 09:03:00 Test Item Value Reference Range Interpretation Comments TACROLIMUS BLOOD (BEAKER) (test 4.3 ng/mL 10.0-20.0 L code = 657) CBC W/PLT COUNT & AUTO [id number] 06:42:00 Test Item Value Reference Range Interpretation Comments WHITE BLOOD CELL COUNT (BEAKER) 3.3 K/ L 4.0-10.0 L (test code = 775) RED BLOOD CELL COUNT (BEAKER) 2.63 M/ L 4.00-5.00 L (test code = 761) HEMOGLOBIN (BEAKER) (test code = 8.2 GM/DL 12.0-15.0 L 410) HEMATOCRIT (BEAKER) (test code = 25.1 % 36.0-45.0 L 411) MEAN CORPUSCULAR VOLUME (BEAKER) 95.6 fL 82.0-99.0 (test code = 753) MEAN CORPUSCULAR HEMOGLOBIN 31.2 pg 27.0-33.0 (BEAKER) (test code = 751) MEAN CORPUSCULAR HEMOGLOBIN CONC 32.6 GM/DL 32.0-36.0 (BEAKER) (test code = 752) RED CELL DISTRIBUTION WIDTH 16.5 % 10.3-14.2 H (BEAKER) (test code = 412) PLATELET COUNT (BEAKER) (test 119 K/CU MM 150-430 L code = 756) MEAN PLATELET VOLUME (BEAKER) 7.7 fL 6.5-10.5 (test code = 754) NUCLEATED RED BLOOD CELLS 0 /100 WBC 0-0 (BEAKER) (test code = 413) NEUTROPHILS RELATIVE PERCENT 81 % (BEAKER) (test code = 429) LYMPHOCYTES RELATIVE PERCENT 9 % (BEAKER) (test code = 430) MONOCYTES RELATIVE PERCENT 7 % (BEAKER) (test code = 431) EOSINOPHILS RELATIVE PERCENT 2 % (BEAKER) (test code = 432) BASOPHILS RELATIVE PERCENT 0 % (BEAKER) (test code = 437) NEUTROPHILS ABSOLUTE COUNT 2.65 K/ L 1.80-8.00 (BEAKER) (test code = 670) LYMPHOCYTES ABSOLUTE COUNT 0.30 K/ L 1.48-4.50 L (BEAKER) (test code = 414) MONOCYTES ABSOLUTE COUNT (BEAKER) 0.23 K/ L 0.00-1.30 (test code = 415) EOSINOPHILS ABSOLUTE COUNT 0.07 K/ L 0.00-0.50 (BEAKER) (test code = 416) BASOPHILS ABSOLUTE COUNT (BEAKER) 0.01 K/ L 0.00-0.20 (test code = 417) [id number] 06:03:00 Test Item Value Reference Range Interpretation Comments PHOSPHORUS (BEAKER) (test code = 1.8 mg/dL 2.3-4.7 L 604) [id number] 06:03:00 Test Item Value Reference Range Interpretation Comments MAGNESIUM (BEAKER) (test code = 1.8 mg/dL 1.6-2.6 627) BASIC METABOLIC [id number] 06:03:00 Test Item Value Reference Range Interpretation Comments SODIUM (BEAKER) 137 meq/L 136-145 (test code = 381) POTASSIUM (BEAKER) 4.2 meq/L 3.5-5.1 (test code = 379) CHLORIDE (BEAKER) 108 meq/L 98-107 H (test code = 382) CO2 (BEAKER) (test 25 meq/L 22-29 code = 355) BLOOD UREA NITROGEN 20 mg/dL 7-21 (BEAKER) (test code = 354) CREATININE (BEAKER) 1.10 mg/dL 0.57-1.25 (test code = 358) GLUCOSE RANDOM 111 mg/dL 70-105 H (BEAKER) (test code = 652) CALCIUM (BEAKER) 8.8 mg/dL 8.4-10.2 (test code = 697) EGFR (BEAKER) (test 58 mL/min/1.73 ESTIMA AMARIS GFR IS code = 1092) sq m NOT ACCURATE CREATININE CLEARANCE IN PREDICTING GLOMERULAR FILTRATION RATE . ESTIMATED GFR I S NOT APPLICABLE FOR DIALYSIS PATIEN TS. POCT-GLUCOSE [id number] 00:02:00 Test Item Value Reference Range Interpretation Comments POC-GLUCOSE METER 143 mg/dL 70-110 H TESTED AT [facility] 67[address] (BEAKER) (test code = KRISTY CRANE 1538) [id number] 18:49:00 Test Item Value Reference Range Interpretation Comments PREALBUMIN (BEAKER) (test code = 30 mg/dL 14-45 586) POCT-GLUCOSE [id number] 18:17:00 Test Item Value Reference Range Interpretation Comments POC-GLUCOSE METER 209 mg/dL 70-110 H [facility] (test code = KRISTY CRANE 1538) [id number] CBC W/PLT COUNT & AUTO [id number] 09:38:00 Test Item Value Reference Range Interpretation Comments WHITE BLOOD CELL COUNT (BEAKER) 2.2 K/ L 4.0-10.0 L (test code = 775) RED BLOOD CELL COUNT (BEAKER) 2.41 M/ L 4.00-5.00 L (test code = 761) HEMOGLOBIN (BEAKER) (test code = 8.1 GM/DL 12.0-15.0 L 410) HEMATOCRIT (BEAKER) (test code = 23.7 % 36.0-45.0 L 411) MEAN CORPUSCULAR VOLUME (BEAKER) 98.5 fL 82.0-99.0 (test code = 753) MEAN CORPUSCULAR HEMOGLOBIN 33.7 pg 27.0-33.0 H (BEAKER) (test code = 751) MEAN CORPUSCULAR HEMOGLOBIN CONC 34.3 GM/DL 32.0-36.0 (BEAKER) (test code = 752) RED CELL DISTRIBUTION WIDTH 16.2 % 10.3-14.2 H (BEAKER) (test code = 412) PLATELET COUNT (BEAKER) (test code 89 K/CU MM 150-430 L = 756) MEAN PLATELET VOLUME (BEAKER) 7.6 fL 6.5-10.5 (test code = 754) NUCLEATED RED BLOOD CELLS (BEAKER) 0 /100 WBC 0-0 (test code = 413) NEUTROPHILS RELATIVE PERCENT 83 % (BEAKER) (test code = 429) LYMPHOCYTES RELATIVE PERCENT 9 % (BEAKER) (test code = 430) MONOCYTES RELATIVE PERCENT 7 % (BEAKER) (test code = 431) EOSINOPHILS RELATIVE PERCENT 2 % (BEAKER) (test code = 432) BASOPHILS RELATIVE PERCENT 0 % (BEAKER) (test code = 437) NEUTROPHILS ABSOLUTE COUNT 1.80 K/ L 1.80-8.00 (BEAKER) (test code = 670) LYMPHOCYTES ABSOLUTE COUNT 0.20 K/ L 1.48-4.50 L (BEAKER) (test code = 414) MONOCYTES ABSOLUTE COUNT (BEAKER) 0.14 K/ L 0.00-1.30 (test code = 415) EOSINOPHILS ABSOLUTE COUNT 0.04 K/ L 0.00-0.50 (BEAKER) (test code = 416) BASOPHILS ABSOLUTE COUNT (BEAKER) 0.01 K/ L 0.00-0.20 (test code = 417) 0.00(MANUAL DIFFERENTIAL)2016-08-12 09:38:00 Test Item Value Reference Range Interpretation Comments TOTAL COUNTED (BEAKER) (test code = 1351) WBC MORPHOLOGY (BEAKER) (test code = Normal 487) PLT MORPHOLOGY (BEAKER) (test code = Normal 486) OVALOCYTES (BEAKER) (test code = 477) 1+ few POLYCHROMATOPHILLIC RBCS(BEAKER) (test 1+ few code = 478) TEAR DROP CELLS (BEAKER) (test code = 1+ few 481) TACROLIMUS [id number] 09:07:00 Test Item Value Reference Range Interpretation Comments TACROLIMUS BLOOD (BEAKER) (test 5.0 ng/mL 10.0-20.0 L code = 657) [id number] 07:29:00 Test Item Value Reference Range Interpretation Comments PHOSPHORUS (BEAKER) (test code = 2.3 mg/dL 2.3-4.7 604) [id number] 07:29:00 Test Item Value Reference Range Interpretation Comments MAGNESIUM (BEAKER) (test code = 1.9 mg/dL 1.6-2.6 627) BASIC METABOLIC [id number] 07:29:00 Test Item Value Reference Range Interpretation Comments SODIUM (BEAKER) 140 meq/L 136-145 (test code = 381) POTASSIUM (BEAKER) 4.6 meq/L 3.5-5.1 (test code = 379) CHLORIDE (BEAKER) 113 meq/L 98-107 H (test code = 382) CO2 (BEAKER) (test 24 meq/L 22-29 code = 355) BLOOD UREA NITROGEN 24 mg/dL 7-21 H (BEAKER) (test code = 354) CREATININE (BEAKER) 1.23 mg/dL 0.57-1.25 (test code = 358) GLUCOSE RANDOM 78 mg/dL 70-105 (BEAKER) (test code = 652) CALCIUM (BEAKER) 8.8 mg/dL 8.4-10.2 (test code = 697) EGFR (BEAKER) (test 51 mL/min/1.73 ESTIMA AMARIS GFR IS code = 1092) sq m NOT ACCURATE CREATININE CLEARANCE IN PREDICTING GLOMERULAR FILTRATION RATE . ESTIMATED GFR I S NOT APPLICABLE FOR DIALYSIS PATIEN TS. POCT-GLUCOSE [id number] 18:23:00 Test Item Value Reference Range Interpretation Comments POC-GLUCOSE METER 121 mg/dL 70-110 H TESTED AT [place] [address] ([facility]) (test code = KRISTY [place] 1538) [id number] POCT-GLUCOSE [id number] 12:31:00 Test Item Value Reference Range Interpretation Comments POC-GLUCOSE METER 128 mg/dL 70-110 H TESTED AT [place] [address] ([facility]) (test code = [facility] [place]air [place] 1538) [address] TACROLIMUS [id number] 10:25:00 Test Item Value Reference Range Interpretation Comments TACROLIMUS BLOOD ([facility]) (test 2.3 ng/mL 10.0-20.0 L code = 657) POCT-GLUCOSE [id number] 08:55:00 Test Item Value Reference Range Interpretation Comments POC-GLUCOSE METER 147 mg/dL 70-110 H TESTED AT [place] [address] ([facility]) (test code = KRIST[place] 1538) [id number] CBC W/PLT COUNT & AUTO [id number] 07:09:00 Test Item Value Reference Range Interpretation Comments WHITE BLOOD CELL COUNT (BEAKER) 3.0 K/ L 4.0-10.0 L (test code = 775) RED BLOOD CELL COUNT (BEAKER) 2.40 M/ L 4.00-5.00 L (test code = 761) HEMOGLOBIN (BEAKER) (test code = 7.9 GM/DL 12.0-15.0 L 410) HEMATOCRIT (BEAKER) (test code = 23.2 % 36.0-45.0 L 411) MEAN CORPUSCULAR VOLUME (BEAKER) 96.8 fL 82.0-99.0 (test code = 753) MEAN CORPUSCULAR HEMOGLOBIN 32.8 pg 27.0-33.0 (BEAKER) (test code = 751) MEAN CORPUSCULAR HEMOGLOBIN CONC 33.8 GM/DL 32.0-36.0 (BEAKER) (test code = 752) RED CELL DISTRIBUTION WIDTH 17.2 % 10.3-14.2 H (BEAKER) (test code = 412) PLATELET COUNT (BEAKER) (test code 95 K/CU MM 150-430 L = 756) MEAN PLATELET VOLUME (BEAKER) 8.0 fL 6.5-10.5 (test code = 754) NUCLEATED RED BLOOD CELLS (BEAKER) 0 /100 WBC 0-0 (test code = 413) NEUTROPHILS RELATIVE PERCENT 89 % (BEAKER) (test code = 429) LYMPHOCYTES RELATIVE PERCENT 3 % (BEAKER) (test code = 430) MONOCYTES RELATIVE PERCENT 8 % (BEAKER) (test code = 431) EOSINOPHILS RELATIVE PERCENT 0 % (BEAKER) (test code = 432) BASOPHILS RELATIVE PERCENT 0 % (BEAKER) (test code = 437) NEUTROPHILS ABSOLUTE COUNT 2.67 K/ L 1.80-8.00 (BEAKER) (test code = 670) LYMPHOCYTES ABSOLUTE COUNT 0.09 K/ L 1.48-4.50 L (BEAKER) (test code = 414) MONOCYTES ABSOLUTE COUNT (BEAKER) 0.23 K/ L 0.00-1.30 (test code = 415) EOSINOPHILS ABSOLUTE COUNT 0.01 K/ L 0.00-0.50 (BEAKER) (test code = 416) BASOPHILS ABSOLUTE COUNT (BEAKER) 0.00 K/ L 0.00-0.20 (test code = 417) [id number] 06:42:00 Test Item Value Reference Range Interpretation Comments PHOSPHORUS (BEAKER) (test code = 2.4 mg/dL 2.3-4.7 604) [id number] 06:42:00 Test Item Value Reference Range Interpretation Comments MAGNESIUM (BEAKER) (test code = 2.2 mg/dL 1.6-2.6 627) BASIC METABOLIC [id number] 06:42:00 Test Item Value Reference Range Interpretation Comments SODIUM (BEAKER) 138 meq/L 136-145 (test code = 381) POTASSIUM (BEAKER) 5.2 meq/L 3.5-5.1 H (test code = 379) CHLORIDE (BEAKER) 112 meq/L 98-107 H (test code = 382) CO2 (BEAKER) (test 22 meq/L 22-29 code = 355) BLOOD UREA NITROGEN 35 mg/dL 7-21 H (BEAKER) (test code = 354) CREATININE (BEAKER) 1.45 mg/dL 0.57-1.25 H (test code = 358) GLUCOSE RANDOM 132 mg/dL 70-105 H ([facility]) (test code = 652) CALCIUM ([facility]) 8.6 mg/dL 8.4-10.2 (test code = 697) EGFR ([facility]) (test 42 mL/min/1.73 ESTIMA AMARIS GFR IS code = 1092) sq m NOT ACCURATE CREATININE CLEARANCE IN PREDICTING GLOMERULAR FILTRATION RATE . ESTIMATED GFR I S NOT APPLICABLE FOR DIALYSIS PATIEN TS. POCT-GLUCOSE [id number] 17:46:00 Test Item Value Reference Range Interpretation Comments POC-GLUCOSE METER 161 mg/dL 70-110 H TESTED AT [place] [address] ([facility]) (test code = [facility] 1538) [id number] TACROLIMUS [id number] 12:35:00 Test Item Value Reference Range Interpretation Comments TACROLIMUS BLOOD ([facility]) (test 2.0 ng/mL 10.0-20.0 L code = 657) POCT-GLUCOSE [id number] 12:34:00 Test Item Value Reference Range Interpretation Comments POC-GLUCOSE METER 144 mg/dL 70-110 H TESTED AT [place] [address] ([facility]) (test code = [facility] 1538) [id number] HEMOGLOBIN AND [id number] 09:11:00 Test Item Value Reference Range Interpretation Comments HEMOGLOBIN (AKER) (test code = 7.2 GM/DL 12.0-15.0 L 410) HEMATOCRIT ([facility]) (test code = 21.2 % 36.0-45.0 L 411) POCT-GLUCOSE [id number] 08:58:00 Test Item Value Reference Range Interpretation Comments POC-GLUCOSE METER 170 mg/dL 70-110 H TESTED AT [place] [address] ([facility]) (test code = [facility] 1538) [id number] CBC W/PLT COUNT & AUTO [id number] 07:29:00 Test Item Value Reference Range Interpretation Comments WHITE BLOOD CELL COUNT (AKER) 7.9 K/ L 4.0-10.0 (test code = 775) RED BLOOD CELL COUNT ([facility]) 2.22 M/ L 4.00-5.00 L (test code = 761) HEMOGLOBIN (BEAKER) (test code = 7.3 GM/DL 12.0-15.0 L 410) HEMATOCRIT (BEAKER) (test code = 21.7 % 36.0-45.0 L 411) MEAN CORPUSCULAR VOLUME (BEAKER) 97.7 fL 82.0-99.0 (test code = 753) MEAN CORPUSCULAR HEMOGLOBIN 33.0 pg 27.0-33.0 (BEAKER) (test code = 751) MEAN CORPUSCULAR HEMOGLOBIN CONC 33.8 GM/DL 32.0-36.0 (BEAKER) (test code = 752) RED CELL DISTRIBUTION WIDTH 17.0 % 10.3-14.2 H (BEAKER) (test code = 412) PLATELET COUNT (BEAKER) (test 122 K/CU MM 150-430 L code = 756) MEAN PLATELET VOLUME (BEAKER) 7.7 fL 6.5-10.5 (test code = 754) NUCLEATED RED BLOOD CELLS 0 /100 WBC 0-0 (BEAKER) (test code = 413) NEUTROPHILS RELATIVE PERCENT 94 % (BEAKER) (test code = 429) LYMPHOCYTES RELATIVE PERCENT 1 % (BEAKER) (test code = 430) MONOCYTES RELATIVE PERCENT 4 % (BEAKER) (test code = 431) EOSINOPHILS RELATIVE PERCENT 0 % (BEAKER) (test code = 432) BASOPHILS RELATIVE PERCENT 0 % (BEAKER) (test code = 437) NEUTROPHILS ABSOLUTE COUNT 7.41 K/ L 1.80-8.00 (BEAKER) (test code = 670) LYMPHOCYTES ABSOLUTE COUNT 0.12 K/ L 1.48-4.50 L (BEAKER) (test code = 414) MONOCYTES ABSOLUTE COUNT (BEAKER) 0.35 K/ L 0.00-1.30 (test code = 415) EOSINOPHILS ABSOLUTE COUNT 0.01 K/ L 0.00-0.50 (BEAKER) (test code = 416) BASOPHILS ABSOLUTE COUNT (BEAKER) 0.00 K/ L 0.00-0.20 (test code = 417) 0.00BASI METABOLIC [id number] 07:07:00 Test Item Value Reference Range Interpretation Comments SODIUM (BEAKER) 140 meq/L 136-145 (test code = 381) POTASSIUM (BEAKER) 4.9 meq/L 3.5-5.1 (test code = 379) CHLORIDE (BEAKER) 107 meq/L 98-107 (test code = 382) CO2 (BEAKER) (test 26 meq/L 22-29 code = 355) BLOOD UREA NITROGEN 52 mg/dL 7-21 H (BEAKER) (test code = 354) CREATININE (BEAKER) 2.33 mg/dL 0.57-1.25 H (test code = 358) GLUCOSE RANDOM 136 mg/dL 70-105 H (BEAKER) (test code = 652) CALCIUM (BEAKER) 8.7 mg/dL 8.4-10.2 (test code = 697) EGFR (BEAKER) (test 25 mL/min/1.73 ESTIMA AMARIS GFR IS code = 1092) sq m NOT ACCURATE CREATININE CLEARANCE IN PREDICTING GLOMERULAR FILTRATION RATE . ESTIMATED GFR I S NOT APPLICABLE FOR DIALYSIS PATIEN TS. [id number] 06:56:00 Test Item Value Reference Range Interpretation Comments PHOSPHORUS (BEAKER) (test code = 4.6 mg/dL 2.3-4.7 604) [id number] 06:56:00 Test Item Value Reference Range Interpretation Comments MAGNESIUM (BEAKER) (test code = 2.2 mg/dL 1.6-2.6 627) FLOW PRA CLASS I AND [id number] 13:27:00 Test Item Value Reference Range Interpretation Comments DATE OF SERUM (BEAKER) [id number] (test code = 2289) SERUM # (BEAKER) (test [id number] code = 2290) FLOW PRA CLASS I AND II See Scanned Report (test code = 2421) CBC W/PLT COUNT & AUTO [id number] 06:01:00 Test Item Value Reference Range Interpretation Comments WHITE BLOOD CELL COUNT (BEAKER) 14.7 K/ L 4.0-10.0 H (test code = 775) RED BLOOD CELL COUNT (BEAKER) 2.81 M/ L 4.00-5.00 L (test code = 761) HEMOGLOBIN (BEAKER) (test code = 9.2 GM/DL 12.0-15.0 L 410) HEMATOCRIT (BEAKER) (test code = 26.9 % 36.0-45.0 L 411) MEAN CORPUSCULAR VOLUME (BEAKER) 95.7 fL 82.0-99.0 (test code = 753) MEAN CORPUSCULAR HEMOGLOBIN 32.6 pg 27.0-33.0 (BEAKER) (test code = 751) MEAN CORPUSCULAR HEMOGLOBIN CONC 34.1 GM/DL 32.0-36.0 (BEAKER) (test code = 752) RED CELL DISTRIBUTION WIDTH 14.8 % 10.3-14.2 H (BEAKER) (test code = 412) PLATELET COUNT (BEAKER) (test 174 K/CU MM 150-430 code = 756) MEAN PLATELET VOLUME (BEAKER) 7.3 fL 6.5-10.5 (test code = 754) NUCLEATED RED BLOOD CELLS 0 /100 WBC 0-0 (BEAKER) (test code = 413) NEUTROPHILS RELATIVE PERCENT 92 % (BEAKER) (test code = 429) LYMPHOCYTES RELATIVE PERCENT 5 % (BEAKER) (test code = 430) MONOCYTES RELATIVE PERCENT 3 % (BEAKER) (test code = 431) EOSINOPHILS RELATIVE PERCENT 0 % (BEAKER) (test code = 432) BASOPHILS RELATIVE PERCENT 0 % (BEAKER) (test code = 437) NEUTROPHILS ABSOLUTE COUNT 13.50 K/ L 1.80-8.00 H (BEAKER) (test code = 670) LYMPHOCYTES ABSOLUTE COUNT 0.68 K/ L 1.48-4.50 L (BEAKER) (test code = 414) MONOCYTES ABSOLUTE COUNT (BEAKER) 0.45 K/ L 0.00-1.30 (test code = 415) EOSINOPHILS ABSOLUTE COUNT 0.01 K/ L 0.00-0.50 (BEAKER) (test code = 416) BASOPHILS ABSOLUTE COUNT (BEAKER) 0.02 K/ L 0.00-0.20 (test code = 417) 0.00BASI METABOLIC [id number] 05:33:00 Test Item Value Reference Range Interpretation Comments SODIUM (BEAKER) 138 meq/L 136-145 (test code = 381) POTASSIUM (BEAKER) 5.2 meq/L 3.5-5.1 H (test code = 379) CHLORIDE (BEAKER) 104 meq/L 98-107 (test code = 382) CO2 (BEAKER) (test 24 meq/L 22-29 code = 355) BLOOD UREA NITROGEN 84 mg/dL 7-21 H (BEAKER) (test code = 354) CREATININE (BEAKER) 5.55 mg/dL 0.57-1.25 H (test code = 358) GLUCOSE RANDOM 179 mg/dL 70-105 H (BEAKER) (test code = 652) CALCIUM (BEAKER) 8.1 mg/dL 8.4-10.2 L (test code = 697) EGFR (BEAKER) (test 9 mL/min/1.73 ESTIMAT ED GFR IS code = 1092) sq m NOT ACCURATE CREATININE CLEARANCE IN PREDICTING GLOMERULAR FILTRATION RATE . ESTIMATED GFR I S NOT APPLICABLE FOR DIALYSIS PATIEN TS. [id number] 05:30:00 Test Item Value Reference Range Interpretation Comments PHOSPHORUS (BEAKER) (test code = 4.7 mg/dL 2.3-4.7 604) [id number] 05:30:00 Test Item Value Reference Range Interpretation Comments MAGNESIUM (BEAKER) (test code = 1.9 mg/dL 1.6-2.6 627) BASIC METABOLIC [id number] 01:09:00 Test Item Value Reference Range Interpretation Comments SODIUM (BEAKER) 138 meq/L 136-145 (test code = 381) POTASSIUM (BEAKER) 5.2 meq/L 3.5-5.1 H (test code = 379) CHLORIDE (BEAKER) 105 meq/L 98-107 (test code = 382) CO2 (BEAKER) (test 25 meq/L 22-29 code = 355) BLOOD UREA NITROGEN 86 mg/dL 7-21 H (BEAKER) (test code = 354) CREATININE (BEAKER) 6.47 mg/dL 0.57-1.25 H (test code = 358) GLUCOSE RANDOM 115 mg/dL 70-105 H (BEAKER) (test code = 652) CALCIUM (BEAKER) 7.7 mg/dL 8.4-10.2 L (test code = 697) EGFR (BEAKER) (test 8 mL/min/1.73 ESTIMAT ED GFR IS code = 1092) sq m NOT ACCURATE CREATININE CLEARANCE IN PREDICTING GLOMERULAR FILTRATION RATE . ESTIMATED GFR I S NOT APPLICABLE FOR DIALYSIS PATIEN TS. [id number] 01:08:00 Test Item Value Reference Range Interpretation Comments MAGNESIUM (BEAKER) (test code = 2.1 mg/dL 1.6-2.6 627) LACTIC ACID, ARTERIAL, WHOLE [id number] 00:48:00 Test Item Value Reference Range Interpretation Comments LACTATE BLOOD ARTERIAL (2) 1.9 mmol/L 0.5-2.2 (BEAKER) (test code = 2874) Effective 07/19/2015: Units/Reference Range ChangeNew: 0.5-2.2 mmol/L Previous: 5-20 mg/dLBLOOD GAS, [id number] 00:41:00 Test Item Value Reference Range Interpretation Comments PH ARTERIAL (BEAKER) (test code = 7.44 7.35-7.45 383) PCO2 ARTERIAL (BEAKER) (test code 39 mmHg 35-45 = 384) PO2 ARTERIAL (BEAKER) (test code = 188 mmHg 80-90 H 385) O2 SATURATION ARTERIAL (BEAKER) 99.3 % 96.0-97.0 H (test code = 386) HCO3 ARTERIAL (BEAKER) (test code 27 mmol/L 21-29 = 388) BASE EXCESS ARTERIAL (BEAKER) 2.0 mmol/L -2.0-3.0 (test code = 387) PATIENT TEMPERATURE (BEAKER) (test 36.4 C code = 1818) FIO2 (BEAKER) (test code = 1819) 40.0 % CALCIUM, [id number] 00:41:00 Test Item Value Reference Range Interpretation Comments CALCIUM IONIZED (BEAKER) (test 0.99 mmol/L 1.12-1.27 L code = 698) PH, BLOOD (BEAKER) (test code = 7.43 1810) CBC W/PLT COUNT & AUTO [id number] 00:40:00 Test Item Value Reference Range Interpretation Comments WHITE BLOOD CELL COUNT (BEAKER) 11.1 K/ L 4.0-10.0 H (test code = 775) RED BLOOD CELL COUNT (BEAKER) 2.51 M/ L 4.00-5.00 L (test code = 761) HEMOGLOBIN (BEAKER) (test code = 8.3 GM/DL 12.0-15.0 L 410) HEMATOCRIT (BEAKER) (test code = 24.1 % 36.0-45.0 L 411) MEAN CORPUSCULAR VOLUME (BEAKER) 95.8 fL 82.0-99.0 (test code = 753) MEAN CORPUSCULAR HEMOGLOBIN 32.8 pg 27.0-33.0 (BEAKER) (test code = 751) MEAN CORPUSCULAR HEMOGLOBIN CONC 34.3 GM/DL 32.0-36.0 (BEAKER) (test code = 752) RED CELL DISTRIBUTION WIDTH 15.0 % 10.3-14.2 H (BEAKER) (test code = 412) PLATELET COUNT (BEAKER) (test 165 K/CU MM 150-430 code = 756) MEAN PLATELET VOLUME (BEAKER) 7.0 fL 6.5-10.5 (test code = 754) NUCLEATED RED BLOOD CELLS 0 /100 WBC 0-0 (BEAKER) (test code = 413) NEUTROPHILS RELATIVE PERCENT 87 % (BEAKER) (test code = 429) LYMPHOCYTES RELATIVE PERCENT 8 % (BEAKER) (test code = 430) MONOCYTES RELATIVE PERCENT 3 % (BEAKER) (test code = 431) EOSINOPHILS RELATIVE PERCENT 1 % (BEAKER) (test code = 432) BASOPHILS RELATIVE PERCENT 0 % (BEAKER) (test code = 437) NEUTROPHILS ABSOLUTE COUNT 9.67 K/ L 1.80-8.00 H (BEAKER) (test code = 670) LYMPHOCYTES ABSOLUTE COUNT 0.93 K/ L 1.48-4.50 L (BEAKER) (test code = 414) MONOCYTES ABSOLUTE COUNT (BEAKER) 0.36 K/ L 0.00-1.30 (test code = 415) EOSINOPHILS ABSOLUTE COUNT 0.06 K/ L 0.00-0.50 (BEAKER) (test code = 416) BASOPHILS ABSOLUTE COUNT (BEAKER) 0.04 K/ L 0.00-0.20 (test code = 417) 0.00OXYGEN SATURATION, [id number] 00:39:00 Test Item Value Reference Range Interpretation Comments O2 SATURATION (MEASURED) (BEAKER) 69.5 % (test code = 1455) POTASSIUM-STAT [id number] 23:44:00 Test Item Value Reference Range Interpretation Comments POTASSIUM (BEAKER) (test code = 6.1 meq/L 3.6-5.5 HH 379) HGB/HCT (H&H) - STAT [id number] 23:43:00 Test Item Value Reference Range Interpretation Comments HEMOGLOBIN (BEAKER) (test code = 6.8 g/dL 12.0-15.0 L 410) HEMATOCRIT (BEAKER) (test code = 20.0 % 36.0-45.0 L 411) BLOOD GAS, [id number] 23:42:00 Test Item Value Reference Range Interpretation Comments PH ARTERIAL (BEAKER) (test code = 7.41 7.35-7.45 383) PCO2 ARTERIAL (BEAKER) (test code 42 mmHg 35-45 = 384) PO2 ARTERIAL (BEAKER) (test code = 207 mmHg 80-90 H 385) O2 SATURATION ARTERIAL (BEAKER) 99.4 % 96.0-97.0 H (test code = 386) HCO3 ARTERIAL (BEAKER) (test code 26 mmol/L 21-29 = 388) BASE EXCESS ARTERIAL (BEAKER) 0.7 mmol/L -2.0-3.0 (test code = 387) PATIENT TEMPERATURE (BEAKER) (test 36.7 C code = 1818) FIO2 (BEAKER) (test code = 1819) 50.0 % GLUCOSE-STAT [id number] 23:42:00 Test Item Value Reference Range Interpretation Comments GLUCOSE RANDOM (BEAKER) (test code 169 mg/dL 70-110 H = 652) SODIUM NA-STAT [id number] 23:42:00 Test Item Value Reference Range Interpretation Comments SODIUM (BEAKER) (test code = 381) 131 meq/L 135-148 L CALCIUM, [id number] 22:52:00 Test Item Value Reference Range Interpretation Comments CALCIUM IONIZED (BEAKER) (test 0.87 mmol/L 1.12-1.27 L code = 698) PH, BLOOD (BEAKER) (test code = 7.45 1810) SODIUM NA-STAT [id number] 22:51:00 Test Item Value Reference Range Interpretation Comments SODIUM (BEAKER) (test code = 381) 133 meq/L 135-148 L GLUCOSE-STAT [id number] 22:51:00 Test Item Value Reference Range Interpretation Comments GLUCOSE RANDOM (BEAKER) (test code 118 mg/dL 70-110 H = 652) POTASSIUM-STAT [id number] 22:51:00 Test Item Value Reference Range Interpretation Comments POTASSIUM (BEAKER) (test code = 7.2 meq/L 3.6-5.5 HH 379) HGB/HCT (H&H) - STAT [id number] 22:19:00 Test Item Value Reference Range Interpretation Comments HEMOGLOBIN (BEAKER) (test code = 5.7 g/dL 12.0-15.0 LL 410) HEMATOCRIT (BEAKER) (test code = 17.0 % 36.0-45.0 L 411) HGB/HCT (H&H) - STAT [id number] 21:43:00 Test Item Value Reference Range Interpretation Comments HEMOGLOBIN (BEAKER) (test code = 5.4 g/dL 12.0-15.0 LL 410) HEMATOCRIT (BEAKER) (test code = 16.0 % 36.0-45.0 L 411) COMPREHENSIVE METABOLIC [id number] 21:03:00 Test Item Value Reference Range Interpretation Comments TOTAL PROTEIN 5.5 gm/dL 6.0-8.3 L Specimen sligh tly (BEAKER) (test code = hemoly zed 770) ALBUMIN (BEAKER) 3.5 g/dL 3.5-5.0 Specimen sl ightly (test code = 1145) hemolyzed ALKALINE PHOSPHATASE 46 U/L 40-150 (BEAKER) (test code = 346) BILIRUBIN TOTAL 0.5 mg/dL 0.2-1.2 Specimen sli ghtly (BEAKER) (test code = hemoly zed 377) SODIUM (BEAKER) (test 139 meq/L 136-145 code = 381) POTASSIUM (BEAKER) 5.4 meq/L 3.5-5.1 H Specimen slightly (test code = 379) hemolyzed CHLORIDE (BEAKER) 102 meq/L 98-107 (test code = 382) CO2 (BEAKER) (test 26 meq/L 22-29 code = 355) BLOOD UREA NITROGEN 69 mg/dL 7-21 H (BEAKER) (test code = 354) CREATININE (BEAKER) 7.03 mg/dL 0.57-1.25 H Specimen slightly (test code = 358) hemolyzed GLUCOSE RANDOM 100 mg/dL 70-105 (BEAKER) (test code = 652) CALCIUM (BEAKER) 8.4 mg/dL 8.4-10.2 (test code = 697) AST (SGOT) (BEAKER) 10 U/L 5-34 Specimen slightly (test code = 353) hemolyzed ALT (SGPT) (BEAKER) < U/L 6-55 L Specimen slightly (test code = 347) hemolyzed EGFR (BEAKER) (test 7 mL/min/1.73 ESTIMAT ED GFR IS code = 1092) sq m NOT ACCURATE CREATININE CLEARANCE IN PREDICTING GLOMERULAR FILTRATION RATE . ESTIMATED GFR I S NOT APPLICABLE FOR DIALYSIS PATIEN TS. URINALYSIS W/ [id number] 20:54:00 Test Item Value Reference Range Interpretation Comments COLOR (BEAKER) (test code [place] = 470) CLARITY (BEAKER) (test Clear code = 469) SPECIFIC GRAVITY UA 1.005 1.001-1.035 (BEAKER) (test code = 468) PH UA (BEAKER) (test code 8.5 5.0-8.0 H = 467) PROTEIN UA (BEAKER) (test 50 mg/dL Negative A code = 464) GLUCOSE UA (BEAKER) (test 150 mg/dL Negative A code = 365) KETONES UA (BEAKER) (test Negative Negative code = 371) BILIRUBIN UA (BEAKER) Negative Negative (test code = 462) BLOOD UA (BEAKER) (test Large Negative A code = 461) NITRITE UA (BEAKER) (test Negative Negative code = 465) LEUKOCYTE ESTERASE UA Moderate Negative A (BEAKER) (test code = 466) UROBILINOGEN UA (BEAKER) 0.2 mg/dL 0.2-1.0 (test code = 463) RBC UA (BEAKER) (test code 7 /HPF = 519) WBC UA (BEAKER) (test code 7 /HPF = 520) SQUAMOUS EPITHELIAL 2 /HPF (BEAKER) (test code = 516) CRYSTALS, URINE (BEAKER) Rare (test code = 1521) SOURCE(BEAKER) (test code Urine, Clean Catch = 2795) SCREEN, [id number] 20:52:00 Test Item Value Reference Range Interpretation Comments TEST URINE (BEAKER) (test Negative code = 583) CBC W/PLT COUNT & AUTO [id number] 20:41:00 Test Item Value Reference Range Interpretation Comments WHITE BLOOD CELL COUNT (BEAKER) 6.1 K/ L 4.0-10.0 (test code = 775) RED BLOOD CELL COUNT (BEAKER) 2.12 M/ L 4.00-5.00 L (test code = 761) HEMOGLOBIN (BEAKER) (test code = 7.1 GM/DL 12.0-15.0 L 410) HEMATOCRIT (BEAKER) (test code = 21.0 % 36.0-45.0 L 411) MEAN CORPUSCULAR VOLUME (BEAKER) 98.8 fL 82.0-99.0 (test code = 753) MEAN CORPUSCULAR HEMOGLOBIN 33.6 pg 27.0-33.0 H (BEAKER) (test code = 751) MEAN CORPUSCULAR HEMOGLOBIN CONC 34.0 GM/DL 32.0-36.0 (BEAKER) (test code = 752) RED CELL DISTRIBUTION WIDTH 16.8 % 10.3-14.2 H (BEAKER) (test code = 412) PLATELET COUNT (BEAKER) (test 191 K/CU MM 150-430 code = 756) MEAN PLATELET VOLUME (BEAKER) 7.3 fL 6.5-10.5 (test code = 754) NUCLEATED RED BLOOD CELLS 0 /100 WBC 0-0 (BEAKER) (test code = 413) NEUTROPHILS RELATIVE PERCENT 59 % (BEAKER) (test code = 429) LYMPHOCYTES RELATIVE PERCENT 33 % (BEAKER) (test code = 430) MONOCYTES RELATIVE PERCENT 5 % (BEAKER) (test code = 431) EOSINOPHILS RELATIVE PERCENT 2 % (BEAKER) (test code = 432) BASOPHILS RELATIVE PERCENT 1 % (BEAKER) (test code = 437) NEUTROPHILS ABSOLUTE COUNT 3.62 K/ L 1.80-8.00 (BEAKER) (test code = 670) LYMPHOCYTES ABSOLUTE COUNT 2.04 K/ L 1.48-4.50 (BEAKER) (test code = 414) MONOCYTES ABSOLUTE COUNT (BEAKER) 0.33 K/ L 0.00-1.30 (test code = 415) EOSINOPHILS ABSOLUTE COUNT 0.11 K/ L 0.00-0.50 (BEAKER) (test code = 416) BASOPHILS ABSOLUTE COUNT (BEAKER) 0.04 K/ L 0.00-0.20 (test code = 417) 0.00HCG, SERUM, [id number] 20:07:00 Test Item Value Reference Range Interpretation Comments TEST SERUM (BEAKER) (test Negative code = 584) COMPREHENSIVE METABOLIC [id number] 19:53:00 Test Item Value Reference Range Interpretation Comments TOTAL PROTEIN 6.7 gm/dL 6.0-8.5 (BEAKER) (test code = 770) ALBUMIN (BEAKER) 4.2 g/dL 3.5-5.0 (test code = 1145) ALKALINE PHOSPHATASE 59 U/L 30-115 (BEAKER) (test code = 346) BILIRUBIN TOTAL 0.8 mg/dL 0.1-1.2 (BEAKER) (test code = 377) SODIUM (BEAKER) (test 138 meq/L 135-148 code = 381) POTASSIUM (BEAKER) 5.5 meq/L 3.6-5.5 (test code = 379) CHLORIDE (BEAKER) 97 meq/L 98-106 L (test code = 382) CO2 (BEAKER) (test 27 meq/L 20-29 code = 355) BLOOD UREA NITROGEN 99 mg/dL 10-26 H (BEAKER) (test code = 354) CREATININE (BEAKER) 9.50 mg/dL 0.50-1.20 H (test code = 358) GLUCOSE RANDOM 79 mg/dL 70-110 (BEAKER) (test code = 652) CALCIUM (BEAKER) 10.2 mg/dL 8.5-10.5 (test code = 697) AST (SGOT) (BEAKER) 5 U/L 5-40 (test code = 353) ALT (SGPT) (BEAKER) 6 U/L 5-50 (test code = 347) EGFR (BEAKER) (test 5 mL/min/1.73 ESTIMAT ED GFR IS code = 1092) sq m NOT ACCURATE CREATININE CLEARANCE IN PREDICTING GLOMERULAR FILTRATION RATE . ESTIMATED GFR I S NOT APPLICABLE FOR DIALYSIS PATIEN TS. [id number] 19:42:00 Test Item Value Reference Range Interpretation Comments LIPASE (BEAKER) (test code = 749) 36 U/L 6-51 CBC W/PLT COUNT & AUTO [id number] 19:26:00 Test Item Value Reference Range Interpretation Comments WHITE BLOOD CELL COUNT (BEAKER) 9.3 K/ L 4.0-10.0 (test code = 775) RED BLOOD CELL COUNT (BEAKER) 3.30 M/ L 4.00-5.00 L (test code = 761) HEMOGLOBIN (BEAKER) (test code = 10.1 GM/DL 12.0-15.0 L 410) HEMATOCRIT (BEAKER) (test code = 31.7 % 36.0-45.0 L 411) MEAN CORPUSCULAR VOLUME (BEAKER) 95.9 fL 82.0-99.0 (test code = 753) MEAN CORPUSCULAR HEMOGLOBIN 30.6 pg 27.0-33.0 (BEAKER) (test code = 751) MEAN CORPUSCULAR HEMOGLOBIN CONC 31.9 GM/DL 32.0-36.0 L (BEAKER) (test code = 752) RED CELL DISTRIBUTION WIDTH 19.4 % 10.3-14.2 H (BEAKER) (test code = 412) PLATELET COUNT (BEAKER) (test 227 K/CU MM 150-430 code = 756) MEAN PLATELET VOLUME (BEAKER) 8.4 fL 6.5-10.5 (test code = 754) NUCLEATED RED BLOOD CELLS 0 /100 WBC 0-0 (BEAKER) (test code = 413) NEUTROPHILS RELATIVE PERCENT 64 % (BEAKER) (test code = 429) LYMPHOCYTES RELATIVE PERCENT 28 % (BEAKER) (test code = 430) MONOCYTES RELATIVE PERCENT 7 % (BEAKER) (test code = 431) EOSINOPHILS RELATIVE PERCENT 1 % (BEAKER) (test code = 432) BASOPHILS RELATIVE PERCENT 1 % (BEAKER) (test code = 437) NEUTROPHILS ABSOLUTE COUNT 5.90 K/ L 1.80-8.00 (BEAKER) (test code = 670) LYMPHOCYTES ABSOLUTE COUNT 2.60 K/ L 1.48-4.50 (BEAKER) (test code = 414) MONOCYTES ABSOLUTE COUNT (BEAKER) 0.60 K/ L 0.00-1.30 (test code = 415) EOSINOPHILS ABSOLUTE COUNT 0.10 K/ L 0.00-0.50 (BEAKER) (test code = 416) BASOPHILS ABSOLUTE COUNT (BEAKER) 0.00 K/ L 0.00-0.20 (test code = 417) AB SPECIFICITY CLASS [id number] 08:46:00 Test Item Value Reference Range Interpretation Comments DATE OF SERUM (BEAKER) (test code = 760696 [id number]) SERUM # (BEAKER) (test code = 2293) [id number] AB SPECIFICITY CLASS I (BEAKER) (test code = 2429) AB SPECIFICITY CLASS [id number] 08:46:00 Test Item Value Reference Range Interpretation Comments DATE OF SERUM (BEAKER) 127875 (test code = 228) SERUM # (ARJUN) (test 81237 code = 2290) AB SPECIFICITY CLASS II See Scanned Report (ARJUN) (test code = 2430)
[2019-11-25] MEDS ORDERED: FENTANYL CITR 250 MCG/5 ML ONE (08:54)
[2019-11-25] MEDS ORDERED: dexAMETHasone 10 MG/ML VIAL ONE (08:54)
[2019-11-25] MEDS ORDERED: LANO/MINERAL OIL/PETRO 3.5 GM ONE (08:54)
[2019-11-25] MEDS ORDERED: MIDAZOLAM HCL 2 MG/2 ML INJ ONE (08:54)
[2019-11-25] MEDS ORDERED: METHYLPREDNISOLONE 125 MG INJ ONE (08:54)
[2019-11-25] MEDS ORDERED: KETOROLAC 30 MG/ML INJ ONE (08:54)
[2019-11-25] MEDS ORDERED: ONDANSETRON 4 MG/2 ML VIAL ONE (08:54)
[2019-11-25] MEDS ORDERED: ROCURONIUM 50 MG/5 ML VIAL IV ONE (08:54)
[2019-11-25] MEDS ORDERED: LIDOCAINE 2% MPF 5 ML VIAL ONE (08:54)
[2019-11-25] MEDS ORDERED: propofoL 200 MG/20 ML VIAL IV ONE (08:54)
[2019-11-25] MEDS ORDERED: NS 0.9% VIAL 20 ML ONE (08:55)
[2019-11-25] MEDS ORDERED: Phenylephrine HCl 10 MG/ML 1 ML VIAL ONE (08:55)
[2019-11-25] MEDS ORDERED: VECURONIUM 10 MG/VIAL IV ONE (08:56)
[2019-11-25] MEDS ORDERED: CEFAZOLIN/SWI 1gm 1 GM/10 ML SYR ONE (08:57)
[2019-11-25] MEDS ORDERED: SCOPOLAMINE HYDROBROMIDE PATCH TD ONE (08:57)
[2019-11-25] MEDS ORDERED: Ringers Lactate 1,000 ML IV ONE (08:57)
[2019-11-25] MEDS ORDERED: CISATRACURIUM INJECTION 2 MG/ML (10 ML Vial) IV ONE (09:03)
[2019-11-25] MEDS ORDERED: NA CHLORIDE 0.9% 1,000 ML ONE (11:02)
[2019-11-25] MEDS ORDERED: FENTANYL CITR 100 MCG/2 ML ONE ×2 (12:35→16:17)
[2019-11-25] MEDS ORDERED: MORPHINE 10 MG/ML VIAL ONE (12:36)
[2019-11-25] MEDS: HYDROMORPHONE HCL 1 MG/ML INJ ONE ×2 (14:46→14:52)
[2019-11-25] MEDS ORDERED: PROMETHAZINE INJ 25 MG/ML AMP ONE (14:57)
[2019-11-25] MEDS ORDERED: CODEINE 30MG/APAP 300MG TAB PO ONE (15:45)
[2019-11-25] MEDS ORDERED: CODEINE 30MG/APAP 300MG TAB ONE (15:48)
[2019-11-25 15:53] VITALS: TEMP 97
[2019-11-25] MEDS ORDERED: NA CHLORIDE 0.9% 500 ML ONE (16:17)
[2019-11-25 16:20] VITALS: BP 119/76; O2SAT 95
--- NOTE | 2019-11-29 11:53 | OP ---
Surgeon: Cesar Juarez MD Drop Man: Jamie. Preoperative Diagnosis: Breast enlargement and descent. Postoperative Diagnosis: Breast enlargement and descent. Procedure Performed: Breast reduction and breast lift. Anesthesia: General. Operative Note: After satisfactory induction of general anesthesia, the chest was prepped with DuraP rep and dry sterile drapes applied in the usual manner. A 5 cm template was used to outline the righ t and left areolas, and transverse and curvilinear inferior incisions were made. A dermabrader or Ep iCut were used to debride the skin and then the transverse incision was made with electrocautery. Th e flap was thinned to 1.5 cm thickness and elevated towards the sternum, clavicle, anterior axillary line. Both sides were done simultaneously. The right side was approached first. An inferior incisi on was made. After it was done, the straps were elevated 2-0 PDS suture from t he bases 12 o'clock, 1:30 and 3 o'clock position. The straps were then woven in and out the pectoral is muscle back to base of cone. Pectoralis muscle back to the cone, tied themselves with 2-0 PDS. T his was done for 12 o'clock 1:30 strap. The 3 o'clock strap was sewn over the sternum at 3 o'clock p osition with 2-0 Ethibond. The left side was done in identical manner. The patient then had 2-0 Mon ocryl sutures placed from the periosteum Yohana fascia at the 6 o'clock position inferior incision. Once this was done, the wounds were irrigated with antibiotic solution. 10 GABY was brought out of the axilla, sewn in place with 2-0 silk and then the wounds closed with 3-0 Vicryl subcu suture and then 3-0 PDS running subcuticular tied in the vertical meridian breast. Both sides done, the patient was nipple-areolar complex was marked out. The tissue was excised, nipples delivered, and se wn with 4-0 PDS following by 4-0 PDS running subcuticular. Prior to the conization, breast tissue wa s removed from the cone. The total amount removed from right breast was 884 and total amount removed from left breast was 678. GH/MODRoosevelt Voice ID: [id number] Report ID: [id number]
== END 2019-11-25 16:41 | disposition home or self-care (01) ==
LOC: OR 08:05
PROVIDERS: ATTEND Specialist
PROC: 0H0V0ZZ Alteration of Bilateral Breast, Open Approach (ICD-10-PCS; 2019-11-25)
PROC: 0H0V0ZZ Alteration of Bilateral Breast, Open Approach (ICD-10-PCS; principal; 2019-11-25 09:00)
DX: N62 Hypertrophy of breast (principal); N64.81 Ptosis of breast; J45.909 Unspecified asthma, uncomplicated
CPT/HCPCS: 81025; 88305; 19318; 19316; J2704; J2550; J2370; J1580; J2250; J3010 ×3; J1170; J0690 ×2; J7120; J7040; J7030; J2930; J2405; J1100